=== PATIENT | female | born 1955 | race Caucasian/White ===

== ENCOUNTER → 2018-07-17 07:59 | Outpatient (CLI) | payer OTHER, SELFPAY ==
--- NOTE | 2018-07-17 08:06 | BI_ITS ---
MAMMOGRAPHY - BILATERAL SCREENING REASON FOR EXAM: Female, 63 years old. Routine annual screening examination. PERTINENT HISTORY: Non-contributory. TECHNIQUE: Digital bilateral breast ken (3D mammographic acquisition) in the CC and MLO projections. 2-D mediolateral oblique (MLO) and craniocaudad (CC) views of both breasts were obtained. CAD: Full Field Digital Mammography with Computer Added Detection was performed. COMPARISON: Comparison is made with prior study dated October 28, 2016 and September 03, 2015. FINDINGS: Breast Composition: There are scattered areas of fibroglandular density. There are no dominant masses or suspicious calcifications. Small bilateral axillary lymph nodes. No other significant abnormalities are identified. There has been no significant change since the prior study. BI/SCREENING MAMM (CAD), BILAT IMPRESSION: Stable bilateral screening mammogram. Yearly follow-up mammogram recommended. (A) ASSESSMENT CATEGORY: BIRADS Category 2: Benign. A letter regarding these results will be sent to the patient by the facility within 30 days. Approximately 10% of breast cancers are not detected by mammography. A normal mammogram should not delay biopsy of a clinically suspicious abnormality. [id number] Electronically Signed: Edwin Woodruff MD at 10:35 EST Tel [phone], Service support ,
== END ==
PROVIDERS: Family Provider Internal Medicine; PCP Internal Medicine; Visit Provider Internal Medicine
DX: Z12.31 Encounter for screening mammogram for malignant neoplasm of breast (principal)
CPT/HCPCS: 77063; 77067

== ENCOUNTER → 2018-08-07 | Outpatient (CLI) | payer OTHER, SELFPAY ==
--- NOTE | 2018-08-07 13:57 | US_ITS ---
STUDY: ULTRASOUND TRANSVAGINAL CLINICAL: Female, 63 years old. Bloating, pelvic pressure. TECHNIQUE: Transvaginal COMPARISON: None. FINDINGS: The uterus is anteverted tilted to the right and measures 6.2 x 3.6 x 2.3 cm. Endometrial thickness is 3 mm. Endometrium is hyperechoic. No fibroids. Cervix is within normal limits. Normal right ovary, measuring 1.8 x 1.5 x 1.1 cm . Normal vascular flow. Left ovary not visualized. There is no free fluid in the pelvis. Urinary bladder volume 104 mL. The patient was unable to completely void. US/Pelvic (Non ) IMPRESSION: Normal uterus. Left ovary not visualized. Post void bladder residual not measured. Electronically Signed: Patrick Mendieta MD at 5:10 EST , Service support ,
--- NOTE | 2018-08-07 14:12 | US_ITS ---
STUDY: ULTRASOUND TRANSVAGINAL CLINICAL: Female, 63 years old. Bloating, pelvic pressure. TECHNIQUE: Transvaginal COMPARISON: None. FINDINGS: The uterus is anteverted tilted to the right and measures 6.2 x 3.6 x 2.3 cm. Endometrial thickness is 3 mm. Endometrium is hyperechoic. No fibroids. Cervix is within normal limits. Normal right ovary, measuring 1.8 x 1.5 x 1.1 cm . Normal vascular flow. Left ovary not visualized. There is no free fluid in the pelvis. Urinary bladder volume 104 mL. The patient was unable to completely void. US/Transvaginal Non- IMPRESSION: Normal uterus. Left ovary not visualized. Post void bladder residual not measured. Electronically Signed: Patrick Mendieta MD at 5:10 EST , Service support ,
== END | disposition home or self-care (01) ==
PROVIDERS: Family Provider Internal Medicine; PCP Internal Medicine; Referring Provider Internal Medicine; Visit Provider Internal Medicine
DX: R14.0 Abdominal distension (gaseous) (principal)
CPT/HCPCS: 76830; 76856; 93976

== ENCOUNTER → 2019-11-01 13:21 | Outpatient (CLI) | payer OTHER, SELFPAY ==
--- NOTE | 2019-11-01 13:29 | CT_ITS ---
STUDY: CT ABDOMEN AND PELVIS WITHOUT CONTRAST REASON FOR EXAM: Female, 64 years old. RT SIDED FLANK PAIN, HEMATURIA RADIATION DOSAGE (If Supplied By Facility): CTDIvol = ( 14.33 ) mGy, DLP = ( 667.12 ) mGycm TECHNIQUE: Transaxial images were obtained from the dome of the diaphragm to the symphysis pubis without oral contrast, and without intravenous contrast. Sagittal and coronal images were reconstructed. Individualized dose optimization techniques were used for this CT. COMPARISON: Comparison is made with prior study dated May 01, 2010. FINDINGS: The visualized lung bases are unremarkable. The visualized portions of the heart are within normal limits. Normal liver. Normal gallbladder and extrahepatic biliary system. Normal spleen. Normal pancreas. Normal bilateral adrenal glands. Normal right kidney. Stable left extrarenal pelvis. There is a small hiatal hernia. Normal small intestine. Normal colon. The appendix is visualized and appears normal. Normal abdominal aorta. Normal inferior vena cava. Normal retroperitoneum. Normal urinary bladder. Normal abdominal wall. Mild degree of disc space narrowing and disc degeneration at the L4-L5 level. CT/Abdomen/Pelvis without Cont IMPRESSION: No acute abnormality is seen. Electronically Signed: Edwin Woodruff, at 14:32 EST , Service support ,
== END ==
PROVIDERS: PCP Internal Medicine; Referring Provider Internal Medicine; Visit Provider Internal Medicine
DX: R31.9 Hematuria, unspecified (principal)
CPT/HCPCS: 74176

== ENCOUNTER 2020-12-24 14:57 | Outpatient (CLI) | payer OTHER, SELFPAY ==
[2020-12-23 12:16] VITALS: BMI 36.0
[2020-12-24] VITALS (7 sets, daily range): BP systolic 138–148; BP diastolic 79–90; PULSE 79–94; RESP 16–18; TEMP 37.7–38.5; O2SAT 94–96; BMI 36.0
== END 2020-12-24 17:50 | disposition home or self-care (01) ==
LOC: ICUOUT 14:58 → ICU 15:03
PROVIDERS: PCP Internal Medicine; Visit Provider Nurse Practitioner Acute Care
DX: U07.1 COVID-19 (principal)
CPT/HCPCS: J7050; M0239; M0243; Q0240

== ENCOUNTER → 2020-12-24 18:08 | Outpatient (CLI) | payer OTHER, SELFPAY ==
[2020-12-23 12:16] VITALS: BMI 36.0
[2020-12-24 15:14] VITALS: BMI 36.0
--- NOTE | 2020-12-24 18:18 | RAD_ITS ---
STUDY: X-RAY CHEST REASON FOR EXAM: Female, 65 years old. COVID-19 TECHNIQUE: PA and lateral views of the chest. COMPARISON: None. FINDINGS: Cardiac silhouette unremarkable. Pulmonary vascularity unremarkable. Aorta unremarkable. No focal airspace opacities. No pleural effusions. Prominent interstitial markings are nonspecific but may be seen in the setting of Covid pneumonia. Upper abdomen unremarkable. Osseous structures intact. No pneumothorax. RAD/Chest PA and Lateral IMPRESSION: Prominent interstitial markings are nonspecific but may be seen in the setting of Covid pneumonia. Electronically Signed: Mamadou Gottlieb MD at 14:55 EDT Tel , Service support ,
== END ==
PROVIDERS: PCP Internal Medicine; Referring Provider Nurse Practitioner; Visit Provider Nurse Practitioner
DX: U07.1 COVID-19 (principal)
CPT/HCPCS: 71046

== ENCOUNTER 2020-12-25 15:44 | Emergency (ER) | payer OTHER, SELFPAY ==
[2020-12-24 15:14] VITALS: BMI 36.0
[2020-12-25 15:45] VITALS: BP 159/97; PULSE 85; RESP 20; TEMP 36.3; O2SAT 94; BMI 35.9
[2020-12-25 16:00] VITALS: BP 154/96; PULSE 81; O2SAT 95
[2020-12-25 17:03] VITALS: O2SAT 95
[2020-12-25 17:04] LABS: Absolute Lymphocyte Count 1.54 X10^3/uL (0.83-4.51); Absolute Neutrophil Count 3.6 X10^3/uL (2.0-7.7); Basophil# 0.01 X10^3/uL; Basophil% 0.2 % (0-1); Eosinophil# 0.01 X10^3/uL; Eosinophils% 0.2 % (0-5); Hematocrit 39.6 % (37-47); Lymphocyte # 1.54 X10^3/ul (0.83-4.51); Mean Corp Hgb Conc 32.8 g/dL (32-36); Mean Corpuscular Hgb 32.1 pg (27.0-32.0); Mean Corpuscular Volume 97.8 fL (81-99); Monocyte# 0.32 X10^3/uL; Monocyte% 5.8 % (0-10); NRBC Flagged by Analyzer 0 % (0-5); Neutrophil % 65.4 % (47-70); Platelet Count 180 K/mm3 (150-450); RBC Distribution Width CV 13.1 % (11.6-14.6); RBC Distribution Width SD 46.9 fl (35.1-43.9); Red Blood Count 4.05 M/mm3 (4.2-5.4); White Blood Count 5.5 K/mm3 (4.4-11.0)
--- NOTE | 2020-12-25 17:08 | RAD_ITS ---
STUDY: X-RAY CHEST REASON FOR EXAM: Female, 65 years old. Cough TECHNIQUE: Single frontal view of the chest. COMPARISON: 12/24/2020. FINDINGS: Cardiac silhouette unremarkable. Pulmonary vascularity unremarkable. Aorta unremarkable. Minimal bibasilar opacities may be consistent with Covid pneumonia in the appropriate setting. No pleural effusions. Upper abdomen unremarkable. Osseous structures intact. No pneumothorax. RAD/Chest 1 View (Portable) IMPRESSION: Minimal bibasilar opacities may be consistent with Covid pneumonia in the appropriate setting. Electronically Signed: Mamadou Gottlieb MD at 17:35 EDT Tel , Service support ,
[2020-12-25 17:23] LABS: D-Dimer Quantitative (DVT/PE) 0.33 FEU/ug/m (0.27-0.49)
[2020-12-25 17:30] LABS: ALB/GLOB Ratio 0.9 RATIO (0.9-2.4); AST(SGOT) 50 U/L (15-37); Alanine Aminotransfer ALT/SGPT 66 U/L (13-56); Albumin, Serum 3.4 g/dL (3.2-5.0); Alkaline Phosphatase 159 U/L (45-117); Anion Gap 5 (5-15); BUN 9 mg/dL (7-18); Calcium,Total 8.9 mg/dL (8.5-10.1); Chloride 107 mmol/L (98-107); Creatinine, Serum 0.64 mg/dL (0.55-1.02); EST Glomerular Filtration Rate 98 mL/min (>60); Est Glom Filt Rate - Afr Amer 119 mL/min (>60); Estimated Creatinine Clearance 76.68 ml/min; Globulin 3.9 g/dL (2.2-4.2); Glucose 99 mg/dL (74-106); Potassium 3.3 mmol/L (3.5-5.1); Protein, Total 7.3 g/dL (6.4-8.2); Sodium Level 140 mmol/L (136-145)
--- NOTE | 2020-12-25 17:55 | ED.VISSUMM ---
- ER Visit Summary Date of Service: 12/25/20 Chief Complaint: Shortness of breath History of Present Illness: The patient is a 65 F who presents with shortness of breath that has been getting worse over the past 5 days. Patient patient tested positive for COVID-19 1 weeks ago. Patient states she had monoclonal antibody infusion yesterday. Patient states she has been having fevers up to 102.8 at home. Patient admits to a cough. Patient admits to some pain in her chest with coughing. Patient also admits to some blurred vision. Patient admits to generalized weakness and a headache. Patient admits to some pain in her back with coughing. Patient states she feels like she is not getting enough air. Patient states nothing makes it worse and nothing makes it better. Patient states her oxygen saturations at home were dropping to 85% while at rest. Physical Examination: Vital signs are stable. Patient is afebrile. Patient is in no acute distress. Oral mucosa is pink and moist. Neck is supple. Trachea is midline. There is no JVD. Heart was regular rate and rhythm. Lungs showed rales in the bases bilaterally, worse on the left. Abdomen is soft. Bowel sounds are normal. There is no tenderness. Cranial nerves II through XII are intact. There are no focal motor or sensory deficits noted. Extremities are intact. There is no calf tenderness or edema. Test Results: Portable chest x-ray was obtained. There is 1 view. On my interpretation, there are bilateral opacities in the lower lung swain consistent with COVID-19 pneumonia. Radiologist also interpreted the x-ray and agrees. CBC was within normal limits. Comprehensive metabolic profile showed a mild hypokalemia of 3.3. Alk phos was 159, ALT was 66, and AST was 50. D-dimer was normal at 0.33. Emergency Department Course and Treatment: Patient was given albuterol inhaler here. Patient was given a dose of Decadron. Patient was ambulated on room air with a pulse oximeter. Patient oxygen saturation stayed above 92% while ambulating. Patient was given a prescription for a short course of Decadron. Patient was instructed to use her albuterol inhaler 2 puffs every 4 hours as needed. Patient was instructed to follow-up with her primary care physician in 3 to 5 days. Patient understood and was agreeable with the plan. All questions were answered. Disposition: Discharge home Impression: 1. COVID-19 pneumonia This note was generated with [employer] dictation software. It may contain incorrect words, spelling, and punctuation that were not noted in review of the chart prior to signing ED Disposition - Plan for ED Patient: Disposition: Home or Assisted Living Diagnosis: Pneumonia due to COVID-19 virus Instructions: Coronavirus Disease 2019 (COVID-19): Overview Prescriptions: Dexamethasone [Decadron] 6 mg PO DAILY 5 Days #5 tablet Prescription Printed Referrals: Ana Luisa Nielson DO [Primary Care Provider] - 3-5 Days
[2020-12-25] MEDS: dexAMETHasone 10 MG/ML Vial 6 MG IV (18:14)
[2020-12-25 18:26] VITALS: BP 159/78; PULSE 87; RESP 26; TEMP 37.1; O2SAT 93; O2SAT 95
[2020-12-25 19:06] VITALS: BP 123/64; PULSE 63; PULSE 98; RESP 16; TEMP 37.1; O2SAT 97; O2SAT 98
== END 2020-12-25 19:09 | disposition home or self-care (01) ==
PROVIDERS: Emergency Provider Emergency Medicine; PCP Internal Medicine
DX: U07.1 COVID-19 (principal); J12.82 Pneumonia due to coronavirus disease 2019; I10 Essential (primary) hypertension; E03.9 Hypothyroidism, unspecified; Z79.899 Other long term (current) drug therapy
CPT/HCPCS: 71045; 80053; 83605; 85025; 85379; 87426; 96374; 99284; A4216

== ENCOUNTER → 2021-04-24 | Outpatient (CLI) | payer OTHER, SELFPAY ==
[2021-04-24 14:28] LABS: D-Dimer Quantitative (DVT/PE) 0.35 FEU/ug/m (0.27-0.49)
== END | disposition home or self-care (01) ==
LOC: LABSPEC 13:56
PROVIDERS: PCP Internal Medicine; Visit Provider Internal Medicine
DX: R06.02 Shortness of breath (principal)
CPT/HCPCS: 85379

== ENCOUNTER → 2021-08-10 13:52 | Outpatient (CLI) | payer MEDICARE, BC, SELFPAY ==
--- NOTE | 2021-08-10 13:54 | ECHOD_ITS ---
Reason For Study: HYPERTENSION Left Ventricle Normal LV size. Left ventricular systolic function is normal. The estimated ejection fraction is 60 %. Stage 1 diastolic dysfunction. No regional wall motion abnormalities noted. Right Ventricle Normal RV size. Normal systolic function. Atria Normal left atrium. Normal right atrium. Mitral Valve Normal mitral valve. Tricuspid Valve Normal tricuspid valve. Mild tricuspid valve insufficiency. Pulmonary artery systolic pressure is 25 mmHg. Aortic Valve Trisinus/trileaflet aortic valve. Pulmonic Valve The pulmonic valve is not well visualized. Great Vessels Normal aortic root. The pulmonary artery is normal size. Normal inferior vena cava. Pericardium/Pleural No pericardial effusion. MMode/2D Measurements & Calculations LVIDd: 4.7 cm IVSd: 1.1 cm Ao root diam: 3.0 cm LVIDs: 2.9 cm LVPWd: 1.0 cm RVDd: 2.6 cm FS: 38.3 % LAV(MOD-bp): 48.9 ml LA A4 area: 16.0 cm2 LA dimension(2D): 3.3 cm LAV(MOD-bp) Indexed: 24.5 ml/m2 LAV(MOD-sp2): 47.5 ml LAV(MOD-sp4): 45.8 ml RA A4 area: 15.9 cm2 Time Measurements MV dec time: 0.18 sec Doppler Measurements & Calculations MV E max sumeet: 82.3 cm/sec Lat Peak E' Sumeet: 7.4 cm/sec Med Peak E' Sumeet: 6.4 cm/sec MV A max sumeet: 94.2 cm/sec E/E' lat: 11.2 E/E' med: 12.9 MV E/A: 0.87 Ao V2 max: 107.3 cm/sec LV V1 max: 89.9 cm/sec PA V2 max: 92.7 cm/sec Ao max P.6 mmHg LV V1 max P.2 mmHg TR max sumeet: 235.5 cm/sec TR max P.2 mmHg ECHO/Echo Complete Interpretation Summary Normal LV size. Left ventricular systolic function is normal. The estimated ejection fraction is 60 %. Stage 1 diastolic dysfunction. Pulmonary artery systolic pressure is 25 mmHg. Ordering Physician: Adriel Merino Referring Physician: Ana Luisa Nielson Performed By: Delphine Lynne RDCS, RVT
== END ==
PROVIDERS: PCP Internal Medicine; Referring Provider Internal Medicine Cardiovascular Disease; Visit Provider Internal Medicine Cardiovascular Disease
DX: R06.00 Dyspnea, unspecified (principal); I10 Essential (primary) hypertension
CPT/HCPCS: 93306

== ENCOUNTER 2021-12-22 14:21 | Outpatient (CLI) | payer MEDICARE, BC, SELFPAY ==
--- NOTE | 2021-12-22 14:26 | BI_ITS ---
MAMMOGRAPHY - BILATERAL SCREENING REASON FOR EXAM: Female, 66 years old. Routine annual screening examination. PERTINENT HISTORY: Non-contributory. TECHNIQUE: Digital bilateral breast alison (3D mammographic acquisition) in the CC and MLO projections. 2-D mediolateral oblique (MLO) and craniocaudad (CC) views of both breasts were obtained. CAD: Full Field Digital Mammography with Computer Added Detection was performed. COMPARISON: Comparison is made with prior study dated 07/17/2018 and 10/28/2016. FINDINGS: Breast Composition: There are scattered areas of fibroglandular density. There are no dominant masses or suspicious calcifications. Stable small bilateral axillary lymph nodes. No other significant abnormalities are identified. There has been no significant change since the prior study. BI/SCRN MAMM (CAD)W/ALISON BILAT IMPRESSION: Stable bilateral screening mammogram. Yearly follow-up mammogram recommended. (A) ASSESSMENT CATEGORY: BIRADS Category 2: Benign. A letter regarding these results will be sent to the patient by the facility within 30 days. Approximately 10% of breast cancers are not detected by mammography. A normal mammogram should not delay biopsy of a clinically suspicious abnormality. [id number] Electronically Signed: Edwin Woodruff MD at 15:28 EDT ,
--- NOTE | 2021-12-22 14:29 | BD_ITS ---
STUDY: DUAL ENERGY X-RAY ABSORPTIOMETRY / DXA REASON FOR EXAM: Female, 66 years old. [id number]. Patient is postmenopausal. TECHNIQUE: Bone Mineral Density (BMD) measurements of lumbar spine and bilateral hips were obtained. COMPARISON: Comparison is made with prior study dated 10/28/2016. FINDINGS: Lumbar Spine (L1-L4): g/cm2 (0.834) / T-score (-1.9) / Z-score (-0.1) Findings are suggestive of osteopenia with a moderate fracture risk. Left Femur Total: g/cm2 (0.851) / T-score (-0.7) / Z-score (0.5) Left Femoral Neck: g/cm2 (0.686) / T-score (-1.5) / Z-score (0.1) Right Femur Total: g/cm2 (0.835) / T-score (-0.9) / Z-score (0.4) Right Femoral Neck: g/cm2 (0.646) / T-score (-1.8) / Z-score (-0.3) The T-Scores on the most recent prior examination were: Lumbar Spine (L1-L4): There has been improvement of bone density since the previous examination. Left Femur Total: which represents an improvement of 4.7%. Right Femur Total: which represents an improvement of 5.1%. BD/Dexa Bone Density Study IMPRESSION: The patient is considered osteopenic as outlined below according to World Ramirez Organization (WHO) criteria with a moderate fracture risk. There has been improvement of bone density since the previous examination. Reference Information: The T-score is the number of standard deviations above or below the standard which is normal for young adults at their peak bone mineral density. The World Health Organization (WHO) interprets the T-scores as follows: Above -1 Normal bone density Between -1 and -2.5 Osteopenia Equal to / or below -2.5 Osteoporosis As a practical clinical guideline, osteopenia may be graded as follows: Mild -1 through -1.5 Moderate -1.6 through -2.0 Severe -2.1 through -2.4 The Z-score is the number of standard deviations above or below age-matched controls. A Z-score of less than -1.5 would be considered abnormal. References: 1. NIH Osteoporosis and Related Bone Diseases www osteo.org 2. International Society for Clinical Densitometry www iscd.org 3. National Osteoporosis Foundation www nof.org Electronically Signed: Edwin Woodruff MD at 15:44 EDT ,
== END 2021-12-22 23:59 | disposition home or self-care (01) ==
PROVIDERS: PCP Internal Medicine; Referring Provider Internal Medicine; Visit Provider Internal Medicine
DX: Z12.31 Encounter for screening mammogram for malignant neoplasm of breast (principal); Z78.0 Asymptomatic menopausal state
CPT/HCPCS: 77063; 77067; 77080

== ENCOUNTER → 2022-12-24 | Outpatient (CLI) | payer MEDICARE, BC, SELFPAY ==
--- NOTE | 2022-12-24 07:44 | BI_ITS ---
MAMMOGRAPHY - BILATERAL SCREENING 3-D TOMOSYNTHESIS REASON FOR EXAM: Female, 67 years old. Routine screening PERTINENT HISTORY: No significant family history. TECHNIQUE: 2-D mammograms and 3-D Tomosynthesis of the breast (s) were performed. CAD was performed. COMPARISON: 07/17/2018 FINDINGS: The breast composition is composed of scattered fibroglandular density. Scattered benign calcifications are seen. No dense spiculated masses or suspicious microcalcifications are identified. No architectural distortion is identified. There is no skin thickening or retraction. There has been no significant change since the prior study. BI/SCRN MAMM (CAD)W/ALISON BILAT IMPRESSION: No mammographic signs of malignancy. Routine yearly mammograms recommended. ASSESSMENT CATEGORY: BIRADS Category 1: Negative. A letter regarding these results will be sent to the patient by the facility within 30 days. FOLLOW UP RECOMMENDATION: Yearly follow up mammogram recommended. (A) Approximately 10% of breast cancers are not detected by mammography. A normal mammogram should not delay biopsy of a clinically suspicious abnormality. Electronically Signed: Kelton Merida MD at 8:45 EDT ,
== END | disposition home or self-care (01) ==
LOC: OPBI 07:44
PROVIDERS: PCP Internal Medicine; Referring Provider Internal Medicine; Visit Provider Internal Medicine
DX: Z12.31 Encounter for screening mammogram for malignant neoplasm of breast (principal)
CPT/HCPCS: 77063; 77067

== ENCOUNTER → 2023-07-15 | Outpatient (CLI) | payer MEDICARE, BC, SELFPAY ==
[2023-07-15 10:35] LABS: Absolute Lymphocyte Count 2.23 X10^3/uL (0.83-4.51); Basophil# 0.04 X10^3/uL; Basophil% 0.8 % (0-1); Eosinophil# 0.17 X10^3/uL; Eosinophils% 3.3 % (0-5); Hematocrit 42.3 % (37-47); Hemoglobin 13.7 g/dL (12.0-15.0); Lymphocyte # 2.23 X10^3/ul (0.83-4.51); Lymphocyte % 43.6 % (19-41); Mean Corp Hgb Conc 32.4 g/dL (32-36); Mean Corpuscular Hgb 31.7 pg (27.0-32.0); Mean Corpuscular Volume 97.9 fL (81-99); Mean Platelet Vol. 8.9 fl (6.2-12.0); Monocyte# 0.63 X10^3/uL; Monocyte% 12.3 % (0-10); NRBC Flagged by Analyzer 0 % (0-5); Neutrophil # 2.04 X10^3/uL (2.7-7.7); Neutrophil % 39.8 % (47-70); Platelet Count 279 K/mm3 (150-450); RBC Distribution Width CV 13.5 % (11.6-14.6); RBC Distribution Width SD 49.1 fl (35.1-43.9); Red Blood Count 4.32 M/mm3 (4.2-5.4); White Blood Count 5.1 K/mm3 (4.4-11.0)
[2023-07-15 10:41] LABS: D-Dimer Quantitative (DVT/PE) 0.42 FEU/ug/m (0.27-0.49)
[2023-07-15 10:52] LABS: ALB/GLOB Ratio 1.2 RATIO (0.9-2.4); AST(SGOT) 18 U/L (15-37); Alanine Aminotransfer ALT/SGPT 35 U/L (13-56); Alkaline Phosphatase 112 U/L (45-117); Anion Gap 2 (5-15); BUN 18 mg/dL (7-18); BUN/Creat Ratio 26.5 RATIO (10-20); Calcium,Total 9.6 mg/dL (8.5-10.1); Chloride 107 mmol/L (98-107); Creatinine, Serum 0.68 mg/dL (0.55-1.02); EST Glomerular Filtration Rate 92 mL/min (>60); Est Glom Filt Rate - Afr Amer 111 mL/min (>60); Globulin 3.3 g/dL (2.2-4.2); Glucose 96 mg/dL (74-106); Potassium 4.7 mmol/L (3.5-5.1); Protein, Total 7.3 g/dL (6.4-8.2); Sodium Level 142 mmol/L (136-145); Troponin-I HS 6 pg/mL (3.0-54.0)
== END | disposition home or self-care (01) ==
LOC: LABSPEC 10:21
PROVIDERS: PCP Internal Medicine; Visit Provider Nurse Practitioner Family
DX: R06.02 Shortness of breath (principal)
CPT/HCPCS: 80053; 84484; 85025; 85379

== ENCOUNTER → 2023-08-26 | Outpatient (CLI) | payer MEDICARE, BC, SELFPAY ==
--- NOTE | 2023-08-26 13:37 | ECHOD_ITS ---
Reason For Study: ABN EKG Procedure This was a 2D Doppler, Color Flow transthoracic echocardiogram. Exam performed in department. Left Ventricle Normal LV size. The estimated ejection fraction is 65 %. No evidence for diastolic dysfunction. No regional wall motion abnormalities noted. Right Ventricle Normal RV size. Normal systolic function. Atria Normal left atrium. Normal right atrium. No doppler evidence for ASD. Mitral Valve There is no mitral valve stenosis. No mitral valve insufficiency. Tricuspid Valve There is no tricuspid stenosis. Trivial tricuspid valve insufficiency. Unable to estimate RV systolic pressure due to insufficient tricuspid regurgitant envelope. Aortic Valve Trisinus/trileaflet aortic valve. There is no aortic stenosis. No aortic valve insufficiency. Pulmonic Valve There is no pulmonic valvular stenosis. No pulmonic valve insufficiency. Great Vessels Normal aortic root. Pericardium/Pleural No pericardial effusion. MMode/2D Measurements & Calculations LVIDd: 4.3 cm IVSd: 0.88 cm Ao root diam: 3.0 cm LVIDs: 2.9 cm LVPWd: 1.0 cm RVDd: 3.2 cm FS: 32.2 % LAV(MOD-bp): 35.2 ml LVAd ap4: 26.6 cm2 SV(MOD-sp4): 48.8 ml LAV(MOD-bp) Indexed: 17.7 ml/m2 LVLd ap4: 7.6 cm LAV(MOD-sp2): 33.3 ml EDV(MOD-sp4): 75.0 ml LAV(MOD-sp4): 36.4 ml EDV(sp4-el): 79.4 ml LVAs ap4: 13.7 cm2 LVLs ap4: 6.2 cm ESV(MOD-sp4): 26.2 ml ESV(sp4-el): 25.8 ml EF(MOD-sp4): 65.0 % EF(sp4-el): 67.5 % SV(sp4-el): 53.6 ml LA A4 area: 15.0 cm2 LA dimension(2D): 3.6 cm RA A4 area: 14.8 cm2 Time Measurements MV dec time: 0.18 sec Doppler Measurements & Calculations MV E max sumeet: 72.0 cm/sec Lat Peak E' Sumeet: 10.3 cm/sec Med Peak E' Sumeet: 8.2 cm/sec MV A max sumeet: 92.8 cm/sec E/E' lat: 7.0 E/E' med: 8.8 MV E/A: 0.78 Ao V2 max: 126.9 cm/sec LV V1 max: 117.7 cm/sec PA V2 max: 111.7 cm/sec Ao max P.4 mmHg LV V1 max P.5 mmHg TR max sumeet: 272.7 cm/sec TR max P.7 mmHg ECHO/Echo Complete Interpretation Summary The estimated ejection fraction is 65 %. No evidence for diastolic dysfunction. Ordering Physician: Laney Maria Referring Physician: GRANT CORNEJO Performed By: Lexie Farr RDCS
== END | disposition home or self-care (01) ==
LOC: CVS 13:33
PROVIDERS: PCP Internal Medicine; Referring Provider Nurse Practitioner Family; Visit Provider Nurse Practitioner Family
DX: R94.31 Abnormal electrocardiogram [ECG] [EKG] (principal)
CPT/HCPCS: 93306

== ENCOUNTER → 2024-03-13 | Outpatient (CLI) | payer MEDICARE, BC, SELFPAY ==
--- NOTE | 2024-03-13 16:32 | RAD_ITS ---
EXAM: XR LEFT FOOT COMPLETE, 3 OR MORE VIEWS CLINICAL INDICATION: PAIN TECHNIQUE: Frontal, lateral and oblique views of the left foot. COMPARISON: No relevant prior studies available. FINDINGS: BONES/JOINTS: No acute fracture or subluxation. Plantar calcaneal spur noted. SOFT TISSUES: Normal. No soft tissue swelling or gas. No radiopaque foreign body. RAD/Foot min 3 Views IMPRESSION: No acute findings in the left foot. Small calcaneal spur. Electronically Signed: Benson Wells MD at 17:10 EDT ,
== END | disposition home or self-care (01) ==
PROVIDERS: PCP Internal Medicine
DX: M79.672 Pain in left foot (principal)
CPT/HCPCS: 73630

== ENCOUNTER → 2024-07-16 | Outpatient (CLI) | payer MEDICARE, BC, SELFPAY ==
--- NOTE | 2024-07-16 14:15 | MRI_ITS ---
EXAM: MR RIGHT LOWER EXTREMITY WITHOUT INTRAVENOUS CONTRAST, KNEE CLINICAL INDICATION: RT KNEE PAIN TECHNIQUE: Multiplanar and multisequence MR images of the right knee without intravenous contrast. COMPARISON: June 01, 2024 FINDINGS: BONES/JOINTS: Small intraosseous cyst at the central aspect of the tibial plateau with surrounding marrow edema. Patchy marrow edema along the peripheral aspect of the medial femorotibial compartment. Marrow edema at the medial femorotibial compartment. EXTENSOR MECHANISM: Unremarkable. MEDIAL MENISCUS: Longitudinal horizontal tearing of the body segment and posterior horn of the medial meniscus. No other significant meniscal tearing. LATERAL MENISCUS: Unremarkable. MEDIAL CAPSULE/SUPPORTING STRUCTURES: Unremarkable. Intact. LATERAL CAPSULE/SUPPORTING STRUCTURES: Unremarkable. Lateral collateral ligamentous complex, inclusive of the popliteal tendon, are intact. ANTERIOR CRUCIATE LIGAMENT: Unremarkable. Intact. POSTERIOR CRUCIATE LIGAMENT: Unremarkable. Intact. MUSCLES: Unremarkable. CARTILAGE: Unremarkable. Intact. FLUID: Unremarkable. No joint effusion. MRI/Lower Ext Joint Only (Routine) IMPRESSION: Longitudinal horizontal tearing of the medial meniscus. No acute findings in the right knee. Electronically Signed: Carlos Palomares MD at 3:07 EST ,
== END | disposition home or self-care (01) ==
LOC: MRI 14:12
PROVIDERS: PCP Internal Medicine; Referring Provider Internal Medicine; Visit Provider Internal Medicine
DX: M25.561 Pain in right knee (principal)
CPT/HCPCS: 73721

== ENCOUNTER → 2025-01-09 | Outpatient (CLI) | payer MEDICARE, BC, SELFPAY ==
--- NOTE | 2025-01-09 06:52 | ECHOD_ITS ---
Reason For Study Reason For Study: LOCALIZED EDEMA Procedure This was a 2D Doppler, Color Flow transthoracic echocardiogram. Exam performed in department. Left Ventricle Normal LV size. Left ventricular systolic function is normal. The left ventricular ejection fraction is 60 %. No regional wall motion abnormalities noted. Right Ventricle Normal RV size. Normal systolic function. Atria Normal left atrium. Normal right atrium. Mitral Valve Bileaflet diffuse mitral valve thickening. Tricuspid Valve Normal tricuspid valve. Mild (1+) tricuspid valve insufficiency. Pulmonary artery systolic pressure is 33 mmHg. Aortic Valve Trisinus/trileaflet aortic valve. Pulmonic Valve Normal pulmonic valve. Great Vessels Normal aortic root. Pericardium/Pleural No pericardial effusion. MMode/2D Measurements & Calculations LVIDd: 4.4 cm IVSd: 1.00 cm Ao root diam: 3.5 cm LVIDs: 3.0 cm LVPWd: 0.96 cm RVDd: 3.1 cm FS: 32.6 % LAV(MOD-bp): 49.5 ml LVAd ap4: 25.9 cm2 LVAd ap2: 22.0 cm2 LAV(MOD-bp) Indexed: 24.2 ml/m2 LVLd ap4: 7.6 cm LVLd ap2: 7.2 cm LAV(MOD-sp2): 48.1 ml EDV(MOD-sp4): 71.7 ml EDV(MOD-sp2): 55.6 ml LAV(MOD-sp4): 51.4 ml EDV(sp4-el): 74.9 ml EDV(sp2-el): 56.8 ml LVAs ap4: 13.5 cm2 LVAs ap2: 11.5 cm2 LVLs ap4: 6.6 cm LVLs ap2: 6.1 cm ESV(MOD-sp4): 23.8 ml ESV(MOD-sp2): 18.4 ml ESV(sp4-el): 23.4 ml ESV(sp2-el): 18.4 ml EF(MOD-sp4): 66.9 % EF(MOD-sp2): 66.9 % EF(sp4-el): 68.7 % SV(MOD-sp4): 47.9 ml SV(MOD-sp2): 37.2 ml SV(sp4-el): 51.5 ml SI(MOD-sp4): 23.4 ml/m2 SI(MOD-sp2): 18.2 ml/m2 LA A4 area: 18.0 cm2 LA dimension(2D): 3.8 cm RA A4 area: 12.8 cm2 TAPSE: 2.2 cm Time Measurements MV dec time: 0.22 sec Doppler Measurements & Calculations MV E max sumeet: 80.6 cm/sec Lat Peak E' Sumeet: 8.0 cm/sec Med Peak E' Sumeet: 9.6 cm/sec MV A max sumeet: 99.0 cm/sec E/E' lat: 10.1 E/E' med: 8.4 MV E/A: 0.81 MV V2 max: 114.7 cm/sec MV P1/2t max sumeet: 96.6 cm/sec Ao V2 max: 145.2 cm/sec MV max P.3 mmHg MV P1/2t: 71.5 msec Ao max P.4 mmHg MV V2 mean: 58.0 cm/sec Ao V2 mean: 101.6 cm/sec MV mean P.6 mmHg MV dec slope: 396.0 cm/sec2 Ao mean P.7 mmHg MV V2 VTI: 32.8 cm MVA(P1/2t): 3.1 cm2 Ao V2 VTI: 33.3 cm AV (velocity ratio): 0.76 LV V1 max: 117.1 cm/sec PA V2 max: 94.9 cm/sec TR max sumeet: 264.4 cm/sec LV V1 max P.5 mmHg PA V2 mean: 68.6 cm/sec TR max P.0 mmHg LV V1 mean P.9 mmHg LV V1 mean: 79.3 cm/sec LV V1 VTI: 25.4 cm ECHO/Echo Complete Interpretation Summary Normal LV size. Left ventricular systolic function is normal. The left ventricular ejection fraction is 60 %. Pulmonary artery systolic pressure is 33 mmHg. Structurally normal valves. Ordering Physician: Ana Luisa Nielson Referring Physician: Ana Luisa Nielson Performed By: Delphine Lynne RDCS, RVT
== END | disposition home or self-care (01) ==
LOC: CVS 06:51
PROVIDERS: PCP Internal Medicine; Referring Provider Internal Medicine; Visit Provider Internal Medicine
DX: R60.0 Localized edema (principal)
CPT/HCPCS: 93306

== ENCOUNTER → 2025-05-01 | Outpatient (CLI) | payer MEDICARE, BC, SELFPAY ==
--- NOTE | 2025-05-01 15:27 | BI_ITS ---
EXAM: SCRN MAMM (CAD)W/ALISON BILAT DATE: 05/01/2025 CLINICAL HISTORY: F, Age 70 y/o , BREAST CANCER SCREENING No family history of malignancy TECHNIQUE: SCRN MAMM (CAD)W/ALISON BILAT 3-dimensional tomosynthesis and composite views of both breasts were obtained, using full field digital mammography. The [employer] computer-aided detection system was utilized in conjunction with the interpretation of this examination. COMPARISON: Prior exam(s) dated 12/24/2022, 12/22/2021 and 07/17/2018. FINDINGS: TISSUE DENSITY: There are scattered areas of fibroglandular density. Bilateral Breast Mammographic Findings: Stable mammogram. Stable parenchymal pattern. No suspicious masses, areas of developing architectural distortion, or suspicious calcifications. There has been no significant interval change. BI/SCRN MAMM (CAD)W/ALISON BILAT IMPRESSION: 1. Stable mammogram. No mammographic evidence of malignancy. OVERALL FINAL ASSESSMENT BI-RADS 1: NEGATIVE. RECOMMENDATION: Routine annual follow-up in 1 Year A letter with findings and recommendations will be mailed to the patient. Reading [facility]
--- NOTE | 2025-05-01 15:29 | BD_ITS ---
PROCEDURE: DEXA BONE DENSITY STUDY 05/01/2025 REASON FOR EXAM: F, age 70 y/o . Postmenopausal. TECHNIQUE: DEXA BONE DENSITY STUDY COMPARISON: Prior study dated December 22, 2021. FINDINGS: BMD and T-SCORES Lumbar spine: 0.883 g/cm2, T-score -1.5 Levels: L1 through L4 Change from prior: Improvement of 5.8%. Left femoral neck: 0.595 g/cm2, T-score -2.3 Femoral neck comparison data not recommended for monitoring change. Left total hip: 0.833 g/cm2, T-score -0.9 Change from prior: Loss of 2.1%. Right femoral neck: 0.589 g/cm2, T-score -2.3 Femoral neck comparison data not recommended for monitoring change. Right total hip: 0.788 g/cm2, T-score -1.3 Change from prior: Loss of 5.6%. The World Health Organization has defined the following categories based on bone density: Normal bone density: T-score equal to or greater than -1.0 Osteopenia: T-score between -1.0 and -2.5 Osteoporosis: T-score equal to or less than -2.5 FRAX (or Comparable) Fracture Risk Assessment: 10 Year Probability of Fracture: Major Osteoporotic Fracture: 11% Hip Fracture: 2.2% (Note: FRAX is not to be reported in setting of normal range bone density, osteoporosis on DEXA, known history of osteoporosis, prior osteoporotic hip or vertebral fracture, or for any patient undergoing pharmacological treatment for bone loss.) The National Osteoporosis Foundation (NOF) recommends pharmacological treatment for patients with a FRAX 10-year risk of 3% or higher for a hip fracture, or 20% or higher for a major osteoporotic fracture, to prevent osteoporosis and reduce fracture risk. The patient does meet the pharmacological treatment recommendations for prevention of osteoporosis. BD/Dexa Bone Density Study IMPRESSION: OSTEOPENIA. Recommend follow-up as clinically warranted. Reading Location: [id number]
== END | disposition home or self-care (01) ==
LOC: OPBD 15:26
PROVIDERS: PCP Internal Medicine; Referring Provider Internal Medicine; Visit Provider Internal Medicine
DX: Z13.820 Encounter for screening for osteoporosis (principal); Z78.0 Asymptomatic menopausal state; Z12.31 Encounter for screening mammogram for malignant neoplasm of breast
CPT/HCPCS: 77063; 77067; 77080

== ENCOUNTER → 2025-05-24 | Outpatient (CLI) | payer MEDICARE, BC, SELFPAY ==
--- NOTE | 2025-05-24 15:22 | MRI_ITS ---
PROCEDURE: LOWER EXT/NO JT/W/O 05/24/2025 REASON FOR EXAM: PAIN ARTHRITIS LEFT TARSOMETATARSEL AND MIDJT. PAIN TECHNIQUE: Procedure Code: [id number] Modality: MR Procedure: LOWER EXT/NO JT/W/O T1, T2, stir, multiplanar and multisequence images of the left midfoot were obtained without IV contrast administration. COMPARISON: COMPARISON : November 02, 2019 FINDINGS: Bones: There is a 0.6 x 1.7 cm developing osteochondral defect in the superior lateral talar dome with no visible free fragment. There is subcortical cyst formation in the proximal articular surface of the medial cuneiform with the largest measuring 0.8 cm, with adjacent marrow edema. Subcortical edema and dorsal osteophytes are noted at the 2nd and 3rd tarsometatarsal articulation. There is marrow edema in the proximal 3rd of the 2nd and 3rd metatarsals with no visible displaced fracture. There is marrow edema in the navicular with no visible displaced fracture, and degenerative features. No acute fractures or dislocations. Achilles tendon: Not included Tendons: Evaluation of the peroneal tendons demonstrates no evidence of tendinosis or dislocation. The flexor digitorum longus, tibialis posterior and flexor hallucis longus tendons are intact. The extensor tendons are intact. The extensor retinaculum is intact and normal in signal. Sinus Tarsi: The subtalar joint is intact. Signal in the sinus tarsi is normal. Transverse and cervical ligaments are intact. Ligaments: Lateral syndesmotic ankle ligaments are not included. The anterior and posterior talofibular ligaments are not included. The medial ankle ligaments are not included. The Lisfranc articulation is aligned and intact. Effusion: There is a small effusion of the talonavicular articulation. MRI/Lower Ext/No Jt/w/o IMPRESSION: There is a 0.6 x 1.7 cm developing osteochondral defect in the superior lateral talar dome with no visible free fragment. There is subcortical cyst formation in the proximal articular surface of the me dial cuneiform with the largest measuring 0.8 cm, with adjacent marrow edema. Subcortical edema and dorsal osteophytes are noted at the 2nd and 3rd tarsometa tarsal articulation. There is marrow edema in the proximal 3rd of the 2nd and 3rd metatarsals with n o visible displaced fracture. There is marrow edema in the navicular with no visible displaced fracture, and degenerative features. There is a small effusion of the talonavicular articulation. Reading Location: [facility]
== END | disposition home or self-care (01) ==
LOC: OPMRI 15:20
PROVIDERS: PCP Internal Medicine; Referring Provider Podiatrist; Visit Provider Podiatrist
DX: M19.072 Primary osteoarthritis, left ankle and foot (principal)
CPT/HCPCS: 73718

== ENCOUNTER → 2025-05-28 | Outpatient (CLI) | payer MEDICARE, BC, SELFPAY | END | disposition home or self-care (01) | LOC: SL 19:49 | PROVIDERS: PCP Internal Medicine; Referring Provider Internal Medicine; Visit Provider Internal Medicine | DX: G47.33 Obstructive sleep apnea (adult) (pediatric) (principal) | CPT/HCPCS: 95810 ==

== ENCOUNTER → 2025-07-15 | Outpatient (CLI) | payer MEDICARE, BC, SELFPAY ==
--- NOTE | 2025-07-15 08:42 | EKG12_ITS ---
Test Reason : PRE OP
[2025-07-15 09:52] LABS: Hematocrit 40.0 % (37-47); Hemoglobin 13.1 g/dL (12.0-15.0); Immature Granulocytes Count 0.010 X10^3/uL (0.0-0.0); Mean Corp Hgb Conc 32.8 g/dL (32-36); Mean Corpuscular Volume 95.9 fL (81-99); Mean Platelet Vol. 8.8 fl (6.2-12.0); NRBC Flagged by Analyzer 0 % (0-5); Platelet Count 282 K/mm3 (150-450); RBC Distribution Width CV 13.4 % (11.6-14.6); RBC Distribution Width SD 47.8 fl (35.1-43.9); Red Blood Count 4.17 M/mm3 (4.2-5.4); White Blood Count 5.3 K/mm3 (4.4-11.0)
[2025-07-15 10:41] LABS: Anion Gap 9 (5-15); BUN 16 mg/dL (4-19); BUN/Creat Ratio 26.4 RATIO (10-20); Calcium,Total 10.0 mg/dL (7.6-11.0); Carbon Dioxide 27.8 mmol/L (21.0-32.0); Chloride 104 mmol/L (98-108); Glucose 89 mg/dL (70-99); Potassium 4.7 mmol/L (3.3-5.1)
== END | disposition home or self-care (01) ==
LOC: PSN 08:39
PROVIDERS: PCP Internal Medicine; Referring Provider Student in an Organized Health Care Education/Training Program; Visit Provider Student in an Organized Health Care Education/Training Program
DX: Z01.810 Encounter for preprocedural cardiovascular examination (principal); I10 Essential (primary) hypertension
CPT/HCPCS: 36415; 80048; 85025; 93005

== ENCOUNTER → 2025-07-30 | Outpatient (CLI) | payer MEDICARE, BC, SELFPAY ==
--- OUTSIDE RECORDS SUMMARY | 2025-07-30 06:13 | XMS RPT_ITS | CCD ---
Author Organization [facility] ion Partnership [facility] Care Team Providers Care Outpatient Coordinator Name Role Phone Ana Luisa Nielson Unavailable Liseth Aguirre Unavailable RamiroBERNIE Unavailable Unavailable Manchak, Nerissa Unavailable Unavailable Slarb, Amalia Unavailable Unavailable Unavailable Unavailable Kori Alonzo Unavailable Unavailable Messenger, Fatemeh Unavailable Unavailable Ana Luisa Nielson Unavailable Liseth Aguirre Unavailable Messenger, Fatemeh Unavailable Unavailable Manchak, Nerissa Unavailable Unavailable BERNIE Rubio Unavailable Unavailable Unavailable Unavailable Gravius, Gardenia Unavailable Unavailable Manchak, Nerissa Unavailable Unavailable Cesar Lorenzo Unavailable Unavailable Ciesa, Shabana Unavailable Myriam Driscoll Unavailable Unavailable Nisreen NOVA Ana Luisa Unavailable Liseth Aguirre MD Unavailable Myriam Driscoll LPN Unavailable Unavailable Cesar Lorenzo LPN Unavailable Unavailable Manchak TAPPER OPERATOR, Nerissa Unavailable Unavailable Gravius TAPPER OPERATOR, Gardenia Unavailable Unavailable Unavailable Unavailable Slarb LINE STAKER, Amalia Unavailable Unavailable Ciesa MISSION COORDINATOR, Shabana Unavailable Nisreen NOVA Ana Luisa Unavailable Liseth Aguirre MD Unavailable eCsar Lorenzo LPN Unavailable Unavailable Manchak TAPPER OPERATOR, Nerissa Unavailable Unavailable Gravius TAPPER OPERATOR, Gardenia Unavailable Unavailable Unavailable Unavailable Nisreen NOVA Ana Luisa Unavailable Liseth Aguirre MD Unavailable Cinthia TAPPER OPERATOR, Kayela Unavailable Unavailable Liseth Aguirre MD Referring Unavailable Nisreen DO, Ana Luisa Attending Unavailable Nisreen DO, Ana Luisa Consulting Unavailable Sapna Rodriguez MA Unavailable Unavailable Crow MISSION COORDINATOR, Laney Unavailable Ramiro PHILLIPSN, BERNIE Unavailable Unavailable Nisreen, Dr. Orosco Primary Care Provider Angelique, Dr. Morel Attending Provider Dr. Kalin Rooney Attending Provider Nisreen DO, Dr. Orosco Primary Care Provider Nisreen NOVA, Dr. Orosco Attending Provider [phone] Nisreen DO, Dr. Orosco Referring Provider [phone] Angelique COHN, Dr. Morel Attending Provider Bianca COHN, Dr. Ceja Attending Provider Nisreen NOVA, Dr. Orosco Primary Care Physician Dr. Brenna Valenuzela MD Attending Physician Nisreen NOVA, Dr. Orosco Attending Physician Nisreen NOVA, Dr. Orosco Referring Provider Ruth KINGM, Dr. Allen Attending Physician Ruth DPM, Dr. Allen Referring Provider Mason WARD-CSapna Attending Physician Adriel Merino Attending Unavailable Nisreen, Ana Luisa Primary Care Unavailable Adriel Merino Attending Unavailable Nisreen, Ana Luisa Primary Care Unavailable Nisreen, Ana Luisa Primary Care Unavailable NisreenAna Luisa Attending Unavailable Nisreen, Ana Luisa Referring Unavailable SpittleAnnettas Attending Unavailable SpittleKel Referring Unavailable Nisreen, Ana Luisa Primary Care Unavailable Nisreen, Ana Luisa Referring Unavailable Nisreen, Ana Luisa Primary Care Unavailable NisreenAna Luisa Attending Unavailable Nisreen, Ana Luisa Primary Care Unavailable Alejandro Miranda Attending Unavailable Wunning, Alejandro Referring Unavailable Nisreen, Ana Luisa Referring Unavailable Nisreen, Ana Luisa Primary Care Unavailable Nisreen, Ana Luisa Attending Unavailable Nisreen, Ana Luisa Referring Unavailable Nisreen, Ana Luisa Primary Care Unavailable Nisreen, Ana Luisa Attending Unavailable Nisreen, Ana Luisa Primary Care Unavailable Sapna Cuevas Attending Unavailable Sapna Cuevas Referring Unavailable Nisreen, Ana Luisa Primary Care Unavailable Sapna Cuevas Attending Unavailable Nisreen, Ana Luisa Referring Unavailable AngeliqueMike diazril Attending Unavailable Nisreen, Ana Luisa Primary Care Unavailable Allergies Allergy Classification Reported Allergen(s) Allergy Type Date of Onset Reaction(s) Facility Opioid Agonists (5 sources) traMADol; Translations: [Ultram *ANALGESICS - OPIOID*] Drug Allergy [facility] Work Phone: Comment on above: Nausea, Vomiting (20 sources) traMADol; Translations: [Ultram *ANALGESICS - OPIOID*] Drug Allergy 5 Nausea [facility] Work Phone: Comment on above: Nausea, Vomiting (1 source) Allergy to drug (finding) [facility]; [facility] Work Phone: (1 source) Allergy to drug (finding) [facility]; [facility] Work Phone: (1 source) Allergy to drug (finding) [facility]; [facility] Work Phone: (1 source) Allergy to drug (finding) [facility]; [facility] Work Phone: (1 source) Allergy to drug (finding) [facility]; [facility] Work Phone: (1 source) Allergy to drug (finding) [facility]; [facility] Work Phone: (1 source) Allergy to drug (finding) [facility]; [facility] Work Phone: (1 source) Allergy to drug (finding) [facility]; [facility] Work Phone: (1 source) Allergy to drug (finding) [facility]; [facility] Work Phone: (1 source) traMADol Drug Allergy 5 [facility] Repository NEGATED: Highlighted row has been ruled out! (1 source) drug allergy 3 [facility] Work Phone: NEGATED: Highlighted row has been ruled out! (1 source) drug allergy 3 [facility] Work Phone: NEGATED: Highlighted row has been ruled out! (1 source) drug allergy 3 [facility] Work Phone: NEGATED: Highlighted row has been ruled out! (1 source) drug allergy 3 [facility] Work Phone: NEGATED: Highlighted row has been ruled out! (1 source) Allergy to drug (finding) 3 [facility]; [facility] Work Phone: NEGATED: Highlighted row has been ruled out! (1 source) Allergy to drug (finding) 3 [facility]; [facility] Work Phone: NEGATED: Highlighted row has been ruled out! (1 source) Allergy to drug (finding) 3 [facility]; [facility] Work Phone: NEGATED: Highlighted row has been ruled out! (1 source) Allergy to drug (finding) 3 [facility]; [facility] Work Phone: NEGATED: Highlighted row has been ruled out! (1 source) Allergy to drug (finding) 3 [facility]; [facility] Work Phone: NEGATED: Highlighted row has been ruled out! (1 source) Allergy to drug (finding) 3 [facility]; [facility] Work Phone: NEGATED: Highlighted row has been ruled out! (1 source) Allergy to drug (finding) 3 [facility]; [facility] Work Phone: NEGATED: Highlighted row has been ruled out! (1 source) Allergy to drug (finding) 3 [facility]; [facility] Work Phone: NEGATED: Highlighted row has been ruled out! (1 source) Allergy to drug (finding) 3 [facility]; [facility] Work Phone: NEGATED: Highlighted row has been ruled out! (1 source) Allergy to drug (finding) 3 [facility]; [facility] Work Phone: NEGATED: Highlighted row has been ruled out! (1 source) Allergy to drug (finding) 3 [facility]; [facility] Work Phone: Medications Current Medications Medication Drug Class(es) Dates Sig (Normalized) Sig (Original) amLODIPine 5 mg oral tablet (20 sources) Dihydropyridine Calcium Channel Narcisa Start: 07-15-2023 Start: 07-15-2023 Start: 11-07-2020 End: 06-05-2025 take 1 tablet by mouth once daily Amlodipine 2.5 mg tablet Discontinued 2.5 mg PO DAILY December 23, 2020 12:00am June 05, 2025 3:05pm Start: 11-05-2020 take 1 tablet by patricia th once daily Norvasc 2.5 MG Oral Tablet 1 (one) Tablet daily for 0 days Quantity: 90 {Tablet} Refills: 2 Ordered: 05-Nov-2020 Ana Luisa Nielson DO, DO, Kathleen Start : 05-Nov-2020 Active Start: 12-10-2019 take 1 tablet by patricia th once daily Norvasc 2.5 MG Oral Tablet 1 (one) Tablet daily for 0 days Quantity: 90 {Tablet} Refills: 2 Ordered: 10-Dec-2019 Fatemeh Morrissey RN Start : 10-Dec-2019 Active Start: 05-11-2019 take 1 tablet by patricia th once daily Norvasc 2.5 MG Oral Tablet 1 (one) Tablet daily for 0 days Quantity: 90 {Tablet} Refills: 2 Ordered: 11-May-2019 Ana Luisa Nielson DO, DO, Kathleen Start : 11-May-2019 Active Start: 08-08-2018 take 1 tablet by patricia th once daily Norvasc 2.5 MG Oral Tablet 1 (one) Tablet daily for 0 days Quantity: 90 {Tablet} Refills: 2 Ordered: 08-Aug-2018 Nisreen NOVA Ana Luisa Nielson DO Ana Luisa Start : 08-Aug-2018 Active Start: 07-28-2018 take 1 tablet by patricia once daily Norvasc 2.5 MG Oral Tablet 1 (one) Tablet daily for 0 days Quantity: 90 {Tablet} Refills: 2 Ordered: 28-Jul-2018 Nisreen NOVA Ana Luisa Nielson DO Ana Luisa Start : 28-Jul-2018 Active Start: 02-09-2018 take 1 tablet by patricia once daily Norvasc 2.5 MG Oral Tablet 1 (one) Tablet daily for 0 days Quantity: 90 {Tablet} Refills: 2 Ordered: 09-Feb-2018 Nisreen NOVA Ana Luisa Samaniegoirving NOVA Ana Luisa Start : 09-Feb-2018 Active calcium carbonate 1500 mg oral tablet (7 sources) Start: 07-29-2021 Calcium Carbon ate (Calcium 600) 600 mg calcium (1,500 mg) tablet Active 1200 mg PO DAILY July 29, 2021 1:00am Complies with drug therapy cholecalciferol 0.125 mg oral tablet (20 sources) Vitamin D Start: 07-17-2021 take 1 tablet by mouth once daily Cholecalciferol (Vitamin D3) 125 mcg (5,000 unit) tablet Active 125 ug PO DAILY July 17, 2021 12:00am Complies with drug therapy Start: 12-23-2020 Start: 12-23-2020 take 1 capsule by mo [facility] once daily Vitamin D3 125 MCG (5000 UT) Oral Capsule 1 (one) Capsule daily for 0 days Quantity: 30 {Capsule} Refills: 0 Ordered: 26-Dec-2020 Myriam Driscoll LPN Start : 23-Dec-2020 Active Start: 09-21-2016 End: 11-20-2016 Start: 09-21-2016 End: 11-20-2016 take 1 capsule by mouth two times weekly Vitamin D3 [id number] UNIT Oral Capsule 1 (one) Capsule Capsule twice a week for 60 days Quantity: 16 {Capsule} Refills: 0 Ordered: 21-Sep-2016 Amalia Hassan LPN Start : 21-Sep-2016 End : 20-Nov-2016 Inactive furosemide 20 mg oral tablet (3 sources) Loop Diuretic Start: 06-05-2025 take 1 tablet by mouth once daily in the morning Furosemide (Lasix) 20 mg tablet Active 20 mg PO EVERY MORNING June 05, 2025 12:00am Complies with drug therapy Garlic (3 sources) Non-Standardized Food Allergenic Extract Start: 06-05-2025 take 1 capsule by mouth once daily Garlic 1,000 mg capsule Active 1000 mg PO daily June 05, 2025 12:00am Complies with drug therapy Start: 06-05-2025 take 1 capsule by mouth once d aily Lactobacillus Plantarum (Nugut Bowel Support Probiotic) 5 billion cell capsule (3 sources) Start: 06-05-2025 take 5 capsules by mouth once daily Lactobacillus Plantarum (Nugut Bowel Support Probiotic) 5 billion cell capsule Active NMA PO daily June 05, 2025 12:00am Complies with drug therapy Start: 06-05-2025 take 5 capsules by mouth once daily multivitamin (20 sources) Start: 07-17-2021 take 1 tablet by patricia th once daily Multivitamin Active 1 TABLET PO DAILY July 17, 2021 2:55pm Start: 07-17-2021 take 1 tablet by patricai th once daily Multivitamin Active 1 TABLET PO DAILY July 16, 2021 11:00pm MULTIVITAMIN (Or al Liquid) for 0 days Refills: 0 Ordered: 24-Apr-2021 Gardenia Mixon CMA Active MULTIVITAMIN (Or al Liquid) for 0 days Refills: 0 Ordered: 23-Dec-2020 Cesar Lorenzo LPN Active MULTIVITAMIN (Or al Liquid) for 0 days Refills: 0 Ordered: 01-Nov-2019 Liseth Aguirre MD Active MULTIVITAMIN (Or al Liquid) for 0 days Refills: 0 Ordered: 16-Dec-2017 BERNIE Rubio Active [place]-3 Fatty Acids (Fish Oi l Concentrate) 1,000 mg capsule (14 sources) Start: 07-29-2021 [place]-3 Fatty Acids (Fish Oil Concentrate) 1,000 mg capsule Active 3000 mg PO DAILY July 29, 2021 3:17pm Complies with drug therapy Start: 07-29-2021 Start: 07-29-2021 [place]-3 Fatty Acids (Fish Oil Concentrate) 1,000 mg capsule Active 3000 mg PO DAILY July 29, 2021 3:17pm Start: 07-29-2021 [place]-3 Fatty Acids (Fish Oil Concentrate) 1,000 mg capsule Active 3000 MG PO DAILY July 29, 2021 2:17pm Start: 07-29-2021 [place]-3 Fatty Acids (Fish Oil Concentrate) 1,000 mg capsule Active 3000 MG PO DAILY July 29, 2021 3:17pm Start: 07-17-2021 End: 07-29-2021 take 1 capsule by mouth twice daily [place]-3 Fatty Acids (Fish Oil Concentrate) 1,000 mg capsule Discontinued 1000 MG PO TWICE A DAY July 17, 2021 2:55pm July 29, 2021 3:19pm Start: 07-17-2021 End: 07-29-2021 take 1 capsule by mouth twice daily [place]-3 Fatty Acids (Fish Oil Concentrate) 1,000 mg capsule Discontinued 1000 mg PO TWICE A DAY July 17, 2021 12:00am July 29, 2021 3:19pm Start: 07-17-2021 End: 07-29-2021 take 1 capsule by mouth twice daily [place]-3 Fatty Acids (Fish Oil Concentrate) 1,000 mg capsule Discontinued 1000 MG PO TWICE A DAY July 16, 2021 11:00pm July 29, 2021 2:19pm levothyroxine sodium 0.075 mg oral tablet (20 sources) l-Thyroxine Start: 06-05-2025 Levothyroxine 75 mcg tablet Active ug PO June 05, 2025 12:00am Complies with drug therapy Start: 05-02-2023 Start: 02-09-2023 Start: 11-12-2022 Start: 10-21-2022 Start: 05-21-2020 End: 06-05-2025 take 1 tablet by mouth once daily Levothyroxine (Synthroid) 50 mcg tablet Discontinued 50 ug PO DAILY December 23, 2020 12:00am June 05, 2025 3:04pm Start: 02-16-2019 Synthroid 50 M CG Oral Tablet uad Tablet 1 tablet 4 days, 1/2 tablet 3 days for 90 days Quantity: 90 {Tablet} Refills: 3 Ordered: 16-Feb-2019 Ana Luisa Nielson DO, DO, Kathleen Start : 16-Feb-2019 Active Start: 11-02-2018 Synthroid 50 M CG Oral Tablet uad Tablet 1 tablet 4 days, 1/2 tablet 3 days for 90 days Quantity: 90 {Tablet} Refills: 3 Ordered: 02-Nov-2018 Svetlana Claudio DO Start : 02-Nov-2018 Active Dispense as Written Comments: dispense as written Start: 07-28-2018 Synthroid 50 M CG Oral Tablet uad Tablet 1 tablet 4 days, 1/2 tablet 3 days for 90 days Quantity: 90 {Tablet} Refills: 3 Ordered: 28-Jul-2018 Ana Luisa Nielson DO, DO, Kathleen Start : 28-Jul-2018 Active Dispense as Written Comments: dispense as written Start: 12-16-2017 Synthroid 50 M CG Oral Tablet uad Tablet 1 tablet 4 days, 1/2 tablet 3 days for 90 days Quantity: 90 {Tablet} Refills: 3 Ordered: 16-Dec-2017 Liseth Aguirre MD Start : 16-Dec-2017 Active Dispense as Written Comments: dispense as written Comment on above: dispense as written Vitamin B Complex tablet (3 sources) Start: 06-05-2025 Vitamin B Complex tablet Active 1 {tbl} PO daily June 05, 2025 12:00am Complies with drug therapy Start: 06-05-2025 Zinc Glycinate (3 sources) Start: 06-05-2025 take 1 capsule by mo ut once daily Zinc Glycinate 20 mg capsule Active 20 mg PO daily June 05, 2025 12:00am Complies with drug therapy Start: 06-05-2025 take 1 capsule by mouth once d aily Completed/Discontinued Medications Medication Drug Class(es) Dates Sig (Normalized) Sig (Original) [id number] actuat albuterol 0.09 mg/actuat metered dose inhaler (20 sources) beta2-Adrenergic Agonist Start: 05-01-2021 End: 12-04-2021 Start: 05-01-2021 take 2 puff(s) by in halation three times daily ProAir HFA 108 (90 Base) MCG/ACT Inhalation Aerosol Solution 2 (two) Puff(s) tid for 0 days Quantity: 1 {Unspecified} Refills: 0 Ordered: 01-May-2021 Ana Luisa Nielson DO, DO, Kathleen Start : 01-May-2021 Active Comments: qty 1 inhaler Start: 01-05-2021 take 2 puff(s) by in halation three times daily ProAir HFA 108 (90 Base) MCG/ACT Inhalation Aerosol Solution 2 (two) Puff(s) tid for 0 days Quantity: 1 {Inhalation} Refills: 0 Ordered: 05-Jan-2021 Stephanie GRIFFINSarika Start : 05-Jan-2021 Active Start: 12-16-2017 End: 12-10-2019 take 2 puff(s) by inhalation three times daily ProAir HFA 108 (90 Base) MCG/ACT Inhalation Aerosol Solution 2 (two) Puff(s) tid for 0 days Quantity: 1 {Inhalation} Refills: 0 Ordered: 10-Dec-2019 Fatemeh Morrissey RN Start : 16-Dec-2017 End : 10-Dec-2019 Inactive Start: 12-16-2017 End: 12-10-2019 take 2 puff(s) by inhalation three times daily ProAir HFA 108 (90 Base) MCG/ACT Inhalation Aerosol Solution 2 (two) Puff(s) tid for 0 days Quantity: 1 {Inhalation} Refills: 0 Ordered: 10-Dec-2019 Fatemeh Morrissey RN Start : 16-Dec-2017 End : 10-Dec-2019 Inactive Comment on above: qty 1 inhaler amoxicillin 875 mg oral tabl et (20 sources) Penicillin-class Antibacterial Start: 10-18-2008 End: 04-10-2009 Comment on above: clarification amoxicillin 875 mg / clavula aleah 125 mg oral tablet (20 sources) Penicillin-class Antibacterial Start: 06-17-2022 End: 10-21-2022 Start: 05-27-2022 End: 06-04-2022 Start: 11-02-2016 End: 11-12-2016 Start: 11-02-2016 End: 11-12-2016 take 1 tablet by mouth twice daily Augmentin 875-125 MG Oral Tablet 1 Tablet BID for 10 days Quantity: 20 {Tablet} Refills: 0 Ordered: 02-Nov-2016 Stephanie GRIFFINSarika Start : 02-Nov-2016 End : 12-Nov-2016 Inactive aspirin 81 mg delayed release oral tablet (20 sources) Nonsteroidal Anti-inflammatory Drug Start: 07-17-2021 End: 07-29-2021 take 1 tablet by mouth once daily Aspirin (Adult Aspirin Regimen) 81 mg tablet,delayed release (DR/EC) Discontinued 81 mg PO DAILY July 17, 2021 12:00am July 29, 2021 3:44pm Start: 06-03-2008 End: 05-27-2022 Astroglide (15 sources) Start: 08-27-2009 End: 06-24-2010 Start: 08-27-2009 End: 06-24-2010 ASTROGLIDE (External Gel) fo r 0 days Refills: 0 Ordered: 24-Jun-2010 Radha Land LPN Start : 27-Aug-2009 End : 24-Jun-2010 Inactive ASTROGLIDE (External Gel) (20 sources) Start: 08-27-2009 End: 06-24-2010 ASTROGLIDE (External Gel) fo r 0 days Refills: 0 Ordered: 24-Jun-2010 Radha Land RN Start : 27-Aug-2009 End : 24-Jun-2010 Inactive Start: 08-27-2009 End: 06-24-2010 ASTROGLIDE (External Gel) fo r 0 days Refills: 0 Ordered: 24-Jun-2010 Radha Land LPN Start : 27-Aug-2009 End : 24-Jun-2010 Inactive azithromycin 250 mg oral tab let (20 sources) Macrolide Antimicrobial Start: 01-05-2021 End: 12-04-2021 Start: 12-16-2017 End: 07-28-2018 Zithromax Z-Tj 250 MG Oral Tablet 1 Tablet TAD for 0 days Quantity: 1 {Package} Refills: 0 Ordered: 28-Jul-2018 Fatemeh Morrissey RN Start : 16-Dec-2017 End : 28-Jul-2018 Inactive benzonatate 100 mg oral caps ule (16 sources) Non-narcotic Antitussive Start: 01-05-2021 End: 12-04-2021 Comment on above: ok for generic budesonide 0.032 mg/actuat m etered dose nasal spray (20 sources) Corticosteroid Start: 06-03-2010 End: 01-27-2012 Start: 06-03-2010 End: 01-27-2012 RHINOCORT AQUA, 32MCG/ACT (N mirna Suspension) 2 (two) Puff(s) once daily for 0 days Quantity: 1 {Suspension} Refills: 0 Ordered: 27-Jan-2012 BERNIE Rubio LPN Start : 03-Jun-2010 End : 27-Jan-2012 Inactive calcium ascorbate 500 mg oral tablet (7 sources) Start: 07-29-2021 End: 06-05-2025 take 1 tablet by mouth once daily Ascorbate Calcium (Vitamin C) 500 mg tablet Discontinued 500 mg PO DAILY July 29, 2021 1:00am June 05, 2025 3:05pm ciprofloxacin 500 mg oral tablet (20 sources) Quinolone Antimicrobial Start: 06-03-2008 End: 07-29-2008 24 hr clarithromycin 500 mg extended release oral tablet (20 sources) Macrolide Antimicrobial Start: 07-29-2016 End: 08-08-2016 Start: 07-29-2016 End: 08-08-2016 take 2 tablets by mouth once daily Biaxin XL 500 MG Oral Tablet Extended Release 24 Hour 2 (two) Tablet ER 24HR daily for 10 days Quantity: 20 {Tablet} Refills: 0 Ordered: 29-Jul-2016 Roge Blackman MD Start : 29-Jul-2016 End : 08-Aug-2016 Inactive Start: 07-29-2016 End: 08-08-2016 take 2 tablets by mouth once daily Biaxin XL 500 MG Oral Tablet Extended Release 24 Hour 2 (two) Tablet ER 24HR daily for 10 days Quantity: 20 {Tablet} Refills: 0 Ordered: 29-Jul-2016 Roge Blackman MD Start : 29-Jul-2016 End : 08-Aug-2016 Inactive codeine phosphate 2 mg/ml / guaiFENesin 20 mg/ml oral solution (20 sources) Opioid Agonist Start: 12-16-2017 End: 07-28-2018 Start: 12-16-2017 End: 07-28-2018 Cheratussin AC 100-10 MG/5ML Oral Syrup 1 (one) Milliliter take 1-2 tsp every 8 horus prn cough for 0 days Quantity: 60 {Milliliter} Refills: 0 Ordered: 28-Jul-2018 Fatemeh Morrissey RN Start : 16-Dec-2017 End : 28-Jul-2018 Inactive Comments: sixty Comment on above: sixty dexamethasone 6 mg oral tablet (7 sources) Corticosteroid Start: 1 End: 1 take 1 tablet by mouth once daily Dexamethasone 6 MG tablet Discontinued 6 mg PO DAILY 5 5 0 December 25, 2020 12:00am July 17, 2021 2:57pm docosahexaenoic acid 120 mg / eicosapentaenoic acid 180 mg oral capsule (16 sources) estradiol 0.025 mg vaginal insert (20 sources) Estrogen Start: 9 End: 0 Start: 06-11-2009 End: 06-24-2010 VAGIFEM, 25MCG (Vaginal Tabl et) 1 (one) Tablet twice weekly for 0 days Quantity: 30 {Tablet} Refills: 3 Ordered: 24-Jun-2010 Radha Land LPN Start : 11-Jun-2009 End : 24-Jun-2010 Inactive famotidine 40 mg oral tablet (11 sources) Histamine-2 Receptor Antagonist Start: 06-04-2022 End: 10-21-2022 fluconazole 150 mg oral tabl et (20 sources) Azole Antifungal Start: 07-06-2010 End: 01-27-2012 Start: 07-06-2010 End: 01-27-2012 DIFLUCAN, 150MG (Oral Tablet ) 1 Tablet once then again in 3 days then again in 3 days for 0 days Quantity: 3 {Tablet} Refills: 0 Ordered: 27-Jan-2012 BERNIE Rubio LPN Start : 06-Jul-2010 End : 27-Jan-2012 Inactive Glucosamine Complex (15 sources) take 1 tablet by mouth twice gwen ly GLUCOSAMINE COMPLEX (Oral Tablet) 1 BID Inactive GLUCOSAMINE COMPLEX (Oral Tablet) (20 sources) take 1 tablet by mouth twice daily GLUCOSAMINE COMPLEX (Oral Tablet) 1 BID Inactive 12 hr guaiFENesin 600 mg extended release oral tablet (20 sources) Start: 11-02-19 17 End: 03-08-20 17 levoFLOXacin 500 mg oral tablet (20 sources) Quinolone Antimicrobial Start: 08-24-20 12 End: 05-22-20 14 loratadine 10 mg oral capsule (20 sources) Start: 07-17-20 21 End: 06-05-20 25 take 1 capsule by mouth once daily Loratadine 10 mg capsule Discontinued 10 mg PO DAILY July 17, 2021 12:00am June 05, 2025 3:05pm Start: 04-18-2012 End: 10-21-2022 meloxicam 7.5 mg oral tablet (20 sources) Nonsteroidal Anti-inflammatory Drug Start: 05-22-2014 End: 05-28-2014 Start: 05-22-2014 End: 05-28-2014 take 2 tablets by mouth once daily MOBIC, 7.5MG (Oral Tablet) 2 (two) Tablet daily for 30 days Quantity: 30 {Tablet} Refills: 1 Ordered: 28-May-2014 Julieta Pemberton LPN Start : 22-May-2014 End : 28-May-2014 Discontinued metroNIDAZOLE 7.5 mg/ml topi luis cream (20 sources) Nitroimidazole Antimicrobial Start: 12-19-2014 End: 03-08-2017 Start: 12-19-2014 End: 03-08-2017 MetroCream 0.75 % External C ream 1 (one) Cream Cream apply bid to nose for 0 days Quantity: 1 {Tube} Refills: 0 Ordered: 08-Mar-2017 Fatemeh Morrissey RN Start : 19-Dec-2014 End : 08-Mar-2017 Inactive Multivitamin tablet (4 sources) Start: 07-17-2021 End: 06-05-2025 Multivitamin tablet Disconti nued 1 {tbl} PO DAILY July 17, 2021 12:00am June 05, 2025 3:05pm Start: 07-17-2021 Multivitamin t ablet Active 1 {tbl} PO DAILY July 17, 2021 12:00am nystatin [id number] unt/ml topic al cream (20 sources) Polyene Antifungal Start: 06-24-2010 End: 07-13-2010 Start: 06-24-2010 End: 07-13-2010 NYSTATIN, [id number] (Ext ernal Cream) 1 Cream apply daily for 0 days Quantity: 1 {Cream} Refills: 0 Ordered: 13-Jul-2010 Julieta Pemberton LPN Start : 24-Jun-2010 End : 13-Jul-2010 Inactive ofloxacin 3 mg/ml ophthalmic solution (20 sources) Quinolone Antimicrobial Start: 05-28-2009 End: 06-24-2010 Start: 05-28-2009 End: 06-24-2010 OCUFLOX, 0.3% (Ophthalmic So lution) 1 (one) Solution 1-2 gtts q 1-6 hrs for 0 days Quantity: 1 {Solution} Refills: 0 Ordered: 24-Jun-2010 Radha Land RN Start : 28-May-2009 End : 24-Jun-2010 Inactive omega 5-vbx-usq-fish oil (9 sources) omega-3 acid ethyl esters (group home) 1000 mg oral capsule (10 sources) take 1 capsule by mouth twice daily FISH OIL CONCENTRATE, 1000MG (Oral Capsule) 1 bid (1000 MG) Active oseltamivir 75 mg oral capsule (20 sources) Neuraminidase Inhibitor Start: 2 End: 2 Oxygen (5 sources) Start: 1 End: 1 OXYGEN (Nasal Gas) (Free Text) 2 (two) Liter as directed for 14 days Refills: 0 Ordered: 04-Feb-2021 SlaAmalia nascimento LPN Start : 30-Dec-2020 End : 13-Jan-2021 Inactive Start: 12-30-2020 OXYGEN (Nasal Gas) (Free Text) 2 (two) Liter as directed for 14 days Refills: 0 Ordered: 05-Jan-2021 Slarb Amalia CONTRERAS Start : 30-Dec-2020 Active pantoprazole 40 mg delayed r elease oral tablet (20 sources) Proton Pump Inhibitor Start: 12-10-2022 Start: 12-09-2021 End: 12-07-2021 Start: 12-09-2021 End: 12-07-2021 Start: 12-09-2021 End: 12-07-2021 Start: 12-09-2021 End: 12-07-2021 Start: 12-09-2021 End: 12-07-2021 Start: 09-08-2021 End: 09-01-2021 take 1 tablet by mouth once daily Protonix 40 MG Oral Tablet Delayed Release 1 (one) Tablet DR qd for 90 days Quantity: 90 {Tablet} Refills: 0 Ordered: 08-Sep-2021 Ana Luisa Nielson DO, DO, Kathleen Start : 08-Sep-2021 End : 01-Sep-2021 Active Start: 06-05-2020 take 1 tablet by patricia th once daily Pantoprazole (Protonix) 40 mg tablet,delayed release (DR/EC) Active 40 mg PO DAILY December 23, 2020 12:00am Complies with drug therapy Start: 06-11-2019 take 1 tablet by patricia th once daily Protonix 40 MG Oral Tablet Delayed Release 1 (one) Tablet DR qd for 90 days Quantity: 90 {Tablet} Refills: 3 Ordered: 11-Jun-2019 Ana Luisa Nielson DO, DO, Kathleen Start : 11-Jun-2019 Active Start: 06-16-2018 take 1 tablet by patricia th once daily Protonix 40 MG Oral Tablet Delayed Release 1 (one) Tablet DR qd for 90 days Quantity: 90 {Tablet} Refills: 3 Ordered: 16-Jun-2018 Ana Luisa Nielson DO Ana Luisa Start : 16-Jun-2018 Active predniSONE 20 mg oral tablet (20 sources) Corticosteroid Start: 06-04-2022 End: 10-21-2022 Start: 08-31-2013 End: 05-22-2014 Start: 08-31-2013 End: 05-22-2014 PREDNISONE, 10MG (Oral Table t) 2 (two) Tablet bid x 3 days, then 1 daily x 4 days then 1/2 x 4days for 0 days Quantity: 12 {Tablet} Refills: 0 Ordered: 22-May-2014 Gayla Joshi Start : 31-Aug-2013 End : 22-May-2014 Inactive Comments: with food Comment on above: with food rosuvastatin calcium 10 mg o ral tablet (20 sources) HMG-CoA Reductase Inhibitor Start: 09-10-2010 End: 05-22-2014 Start: 09-10-2010 End: 05-22-2014 take 0.5 tablet by mouth once daily CRESTOR, 10MG (Oral Tablet) 1/2 (one half) Tablet daily for 0 days Quantity: 30 {Tablet} Refills: 3 Ordered: 22-May-2014 Gayla Joshi Start : 10-Sep-2010 End : 22-May-2014 Inactive sucralfate 1000 mg oral tabl et (20 sources) Aluminum Complex Start: 01-27-2012 End: 02-06-2012 sulfamethoxazole 800 mg / trimethoprim 160 mg oral tablet (20 sources) Dihydrofolate Reductase Inhibitor Antibacterial, Sulfonamide Antimicrobial Start: 07-29-2008 End: 08-05-2008 Start: 07-29-2008 End: 08-05-2008 take 1 tablet by mouth twice daily BACTRIM DS, 800-160MG (Oral Tablet) 1 (one) Tablet bid for 3 days Quantity: 6 {Tablet} Refills: 0 Ordered: 29-Jul-2008 Sarika Brown CNP Start : 29-Jul-2008 End : 05-Aug-2008 Inactive traMADol hydrochloride 50 mg oral tablet (20 sources) Opioid Agonist Start: 05-01-2010 zinc gluconate 50 mg oral tablet (7 sources) Start: 07-29-2021 End: 06-05-2025 take 1 tablet by mouth once daily Zinc Gluconate 50 mg tablet Discontinued 50 mg PO DAILY July 29, 2021 1:00am June 05, 2025 3:05pm zinc sulfate 66 mg oral tablet (20 sources) take 1 tablet by mouth once giovani y ZINC 15, 66MG (Oral Tablet) 1 qd (66 MG) Inactive Problems Active Problems Problem Classification Problem Date Documented Date Episodic/Chronic Abdominal pain (20 sources) Acute abdominal pain; Translations: [Abdominal pain, unspecified site] Resolved: 7 03-08-2017 Episodic Comment on above: ?cholecystitis vs ga llstone Us abdomenCMPsaw DB for RUQ abdominal pain 07/27Colic, after eating food, not associated with nausea and vomiting.Resolved in an hour.Had 2 episodes of pain since then, last episode one month ago after eating food. postmenapausal no me nses in [address] of abd and pelvic and has thick endometrium will refer to [facility] talk about shingles watch for rash. ? gastritis / ulcer increae protonix. will try GI cocktail if not better CT scan, recheck and palp abd after GI cocktail better inepig still pain in back Administrative/social admission (20 sources) Medical examinations/reports status; Translations: [Counseling procedure with explicit context] Resolved: 5 08-01-2015 Episodic Comment on above: Pt prefers colonosco py after first of the year phase 1/2diet Chronic obstructive pulmonary disease and bronchiectasis (20 sources) Bronchitis; Translations: [Bronchitis] Resolved: 1 12-16-2017 Episodic Conditions associated with dizziness or vertigo (18 sources) Dizziness on standing up; Translations: [Dizziness on standing] 10-21-2022 Episodic Diabetes mellitus without complication (18 sources) Hyperglycemia; Translations: [Hyperglycemia] 10-21-2022 Episodic Disorders of lipid metabolism (20 sources) Hypercholesterolemia; Translations: [Hypercholesteremia] 12-16-2017 Chronic Esophageal disorders (20 sources) Gastroesophageal reflux disease; Translations: [Gastro-esophageal reflux disease without esophagitis] 12-16-2017 Chronic Esophageal disorders (20 sources) Esophageal disorders Essential hypertension (20 sources) Hypertensive disorder; Translations: [Benign essential hypertension] 11-29-2016 Chronic Comment on above: blood work before ne xt visistEKG in gen med nsr no acute chg Fever of unknown origin (20 sources) Fever; Translations: [Fever, unspecified] Resolved: 5 10-23-2015 Episodic Genitourinary symptoms and ill-defined conditions (20 sources) Blood in urine; Translations: [Hematuria] Resolved: 9 08-23-2013 Episodic Comment on above: resolved had years ago with U TI last urine 07-30 clear no protien or wbc like GN post infectious. seem more like kidneystone though pain not really severe. willcheck idney Headache; including migraine (20 sources) Headache; Translations: [Acute headache] Resolved: 2 12-26-2020 Episodic Immunizations and screening for infectious disease (20 sources) Encounter for immunization; Translations: [Need for prophylactic vaccination and inoculation against influenza] Resolved: 5 03-28-2018 Episodic Inflammation, infection of eye (20 sources) Conjunctivitis; Translations: [Unspecified conjunctivitis] Resolved: 9 08-22-2015 Episodic Influenza (20 sources) Influenza due to other identified influenza virus with other respiratory manifestations; Translations: [Influenza due to Influenza A virus subtype H1N1] Resolved: 5 08-21-2015 Episodic Malaise and fatigue (20 sources) Fatigue; Translations: [Fatigue] Resolved: 2 03-24-2020 Episodic Menopausal disorders (20 sources) Menopausal syndrome Chronic Mycoses (20 sources) Candidiasis of urogenital site; Translations: [Candidal vulvovaginitis] Resolved: 5 08-22-2015 Episodic Nonspecific chest pain (20 sources) Chest pain; Translations: [Chest pain] Resolved: 5 12-19-2014 Episodic Comment on above: midsternalnot with e xertion resolved off of mobi c Nutritional deficiencies (20 sources) Vitamin D deficiency; Translations: [Vitamin D deficiency] 12-16-2017 Chronic Osteoarthritis (1 source) Primary osteoarthritis, left ankle and foot; Translations: [Primary osteoarthritis, left ankle and foot] Onset: 5 Chronic Other bone disease and musculoskeletal deformities (18 sources) Osteochondropathy; Translations: [Disorder of bone and cartilage] 12-16-2017 Chronic Comment on above: osteopenia 2009repea t Other bone disease and musculoskeletal deformities (20 sources) Osteopenia; Translations: [Osteopenia, unspecified location] 11-29-2016 Episodic Other bone disease and musculoskeletal deformities (20 sources) Osteochondropathy; Translations: [Disorder of bone and cartilage] 12-26-2020 Episodic Comment on above: osteopenia 2009repea t Other circulatory disease (20 sources) Elevated blood-pressure reading without diagnosis of hypertension; Translations: [Elevated blood-pressure reading without diagnosis of hypertension] Resolved: 5 08-01-2015 Episodic Other circulatory disease (20 sources) Other specified symptoms and signs involving the circulatory and respiratory systems; Translations: [Abnormal chest sounds] Resolved: 5 07-29-2015 Episodic Other circulatory disease (18 sources) Cardiovascular symptoms; Translations: [Elevated HDL] 12-16-2017 Episodic Other connective tissue disease (20 sources) Pain in thumb ; Translations: [Thumb pain] Resolved: 9 08-23-2013 Episodic Comment on above: hard to tell some in extensor tendon or in MCP joint check xray inject tednon and 1/3 into joint capscian cream nsaids thumb splint Other female genital disorders (20 sources) Vaginal dryness; Translations: [Vaginal dryness] Resolved: 2 12-16-2017 Episodic Other gastrointestinal disorders (20 sources) Heartburn; Translations: [Heartburn] Resolved: 5 12-19-2014 Episodic Comment on above: has been on meloxida m15mgx 6 months Other gastrointestinal disorders (20 sources) Abdominal bloating; Translations: [Bloated abdomen] Resolved: 2 07-28-2018 Episodic Comment on above: and pelvic ultrasoun d Other gastrointestinal disorders (20 sources) Diarrhea; Translations: [Diarrhea] Resolved: 1 03-24-2020 Episodic Other lower respiratory disease (20 sources) Cough; Translations: [Cough] Resolved: 7 11-29-2016 Episodic Comment on above: CXR and Biaxin if sy mptom donmt improve or get worse over the weekend.prescription given4 weeks : cough dry mostly, some yellow green phlegm, getting better2 weeks ago took augmentin 10 days(from prior prescriptiom) for sinus headaches: improvedLeft ear itchydenies fever, NV, asthma/COPD, smokerMucinex 2 boxes did not help 4 weeks : cough dry mostly, some yellow green phlegm, getting better2 weeks ago took augmentin 10 days(from prior prescriptiom) for sinus headaches: improvedLeft ear itchydenies fever, NV, asthma/COPD, smokerMucinex 2 boxes did not help worse at night Other lower respiratory disease (20 sources) Wheezing; Translations: [Wheezing] Resolved: 5 12-19-2014 Episodic Other lower respiratory disease (20 sources) Snoring; Translations: [Snores] 07-28-2018 Episodic Comment on above: ordeed tyler study --B ANG 5 scrore Other lower respiratory disease (20 sources) Hypoxia; Translations: [Hypoxia] Resolved: 2 12-25-2020 Episodic Comment on above: 88-95% 95-95% but relieved at night Other lower respiratory disease (20 sources) Dyspnea; Translations: [SOB (shortness of breath)] Resolved: 2 12-25-2020 Episodic Other lower respiratory disease (20 sources) Orthopnea; Translations: [Orthopnea] Resolved: 2 01-05-2021 Episodic Comment on above: every hour of night is unable to sleep wakes up at night Other lower respiratory disease (3 sources) Dyspnea at rest; Translations: [Shortness of breath at rest] 07-15-2023 Episodic Other non-traumatic joint disorders (20 sources) Knee pain; Translations: [Knee pain] Resolved: 7 03-08-2017 Episodic Comment on above: seem like pes anerur ine bursitis handout given and will do xray to see if in knee. nsaids ice rest. Other nutritional; endocrine; and metabolic disorders (20 sources) Body mass index 30+ - obesity; Translations: [BMI 36.0-36.9,adult] Resolved: 3 12-16-2017 Chronic Comment on above: pt lost 12 pounds. o n fastmetabolism. read book and has plan on eating plan. Other nutritional; endocrine; and metabolic disorders (5 sources) Cardiovascular symptoms; Translations: [Elevated HDL] 12-26-2020 Chronic Other nutritional; endocrine; and metabolic disorders (20 sources) High density lipoprotein above reference range; Translations: [Elevated HDL] 04-24-2021 Chronic Other nutritional; endocrine; and metabolic disorders (8 sources) Obesity; Translations: [Obesity, unspecified] 07-17-2021 Chronic Other skin disorders (20 sources) Change in skin lesion; Translations: [Change in mole] Resolved: 7 03-08-2017 Episodic Other skin disorders (20 sources) Skin lesion; Translations: [Abnormal skin growth] Resolved: 7 03-08-2017 Episodic Other upper respiratory disease (20 sources) Allergic rhinitis; Translations: [Allergic rhinitis due to other allergen] 12-16-2017 Chronic Other upper respiratory disease (20 sources) Allergic rhinitis due to other allergen Chronic Other upper respiratory disease (20 sources) Lesion of nose; Translations: [Lesion of nose] Resolved: 7 03-08-2017 Episodic Comment on above: very small ? rosceas e Other upper respiratory disease (20 sources) Congestion of nasal sinus; Translations: [Sinus congestion] 06-04-2022 Episodic Other upper respiratory infections (20 sources) Chronic sinusitis; Translations: [Sinusitis, chronic] Resolved: 5 06-17-2015 Chronic Other upper respiratory infections (20 sources) Acute sinusitis, unspecified; Translations: [Acute pharyngitis] Onset: 0 Resolved: 9 12-16-2017 Episodic Comment on above: TM bulging on the le ft, Rapid strep negative, send for culture.Since weekend is coming up, gave her antibiotics, if symproms get worse over the next 24-48 hours, will take antibiotic. Augmentin twice a dayX10 daysBecause of the side effects of antibiotics,use probiotics or lactobacillus acidophillus to keep the good bacteria in the gut.Increase the amount of yogurt with active cultures.Use warm water with salt gargles for sore throat.Honey lemon zainab turmeric tea.Drink lots of fluidsSteam inhalation.Mucinex over the counter to loosen the mucus.Robitussin DM over the counter.Flonase nasal spray.Do not use decongestants with high blood pressure or heart disease.Avoid pasta , potatoes, white flour and sweets as infection feeds on it.Lots of rest.If you have worsening fevers, shortness of breath, chest pain, cough, sinus pain, sore throat or difficulty swallowing, sputum or drainage that is yellow green or symptoms dont improve in a week , give us a call.3 days h/o sinus pain, sore throat, headaches, cough, swollen glands in the neck, swolen uvula, ear pressure.1 day h/o greenish yellow phlegm, and worsening of symptoms.Denies runny nose, nasal congestion, fever, NVD, body aches, .Denies asthma, COPD, smokingUsed advil cold /sinus,eased pain. Pneumonia (20 sources) Infective pneumonia; Translations: [Pneumonia, organism unspecified] Resolved: 0 07-29-2015 Episodic Poisoning by nonmedicinal substances (20 sources) Bee sting; Translations: [Bee sting reaction, accidental or unintentional, subsequent encounter] Resolved: 3 06-04-2022 Episodic Residual codes; unclassified (2 sources) Obstructive sleep apnea syndrome; Translations: [Obstructive sleep apnea (adult) (pediatric)] 06-12-2025 Chronic Comment on above: AHI 26 Residual codes; unclassified (2 sources) Obstructive sleep apnea (adult) (pediatric); Translations: [Obstructive sleep apnea (adult) (pediatric)] Onset: 5 Chronic Residual codes; unclassified (20 sources) Postmenopausal state; Translations: [Postmenopausal (Renamed from Postmenopausal status)] 07-28-2018 Episodic Residual codes; unclassified (20 sources) Generalized aches and pains; Translations: [Body aches] Resolved: 5 08-14-2015 Episodic Residual codes; unclassified (12 sources) Requires diphtheria, tetanus and pertussis vaccination; Translations: [Need for Tdap vaccination (Renamed from Need for hjxptnrfeq-ujtuxfd-zoxi ussis (Tdap) vaccine, adult/adolescent)] 07-28-2018 Episodic Residual codes; unclassified (20 sources) Chill; Translations: [Chills (without fever)] Resolved: 1 03-24-2020 Episodic Residual codes; unclassified (20 sources) Current non-smoker ; Translations: [Current nonsmoker (Renamed from Current non-smoker)] 11-29-2016 Episodic Residual codes; unclassified (20 sources) Menopause present; Translations: [Menopause] 11-29-2016 Episodic Residual codes; unclassified (20 sources) Non-smoker; Translations: [Nonsmoker] 03-24-2020 Episodic Spondylosis; intervertebral disc disorders; other back problems (20 sources) Low back pain; Translations: [Low back pain] Resolved: 7 03-08-2017 Episodic Thyroid disorders (20 sources) Hypothyroidism; 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 she feels better on meds and lost weight.Repeat TSH, Free T3, T4 discussed gluten steven e-- and increase one tab 5days week and 1/2 tab only 2days week Unclassified (18 sources) Menopause present; Translations: [Menopause] 11-29-2016 Chronic Unclassified (20 sources) Breast neoplasm screening status; Translations: [Abnormal findings on diagnostic imaging of other specified body structures] Onset: 5 Resolved: 8 12-16-2017 Episodic Comment on above: Has ASCUS on Pap but HPV is negative, Plan follow up pap in 1 year per new guidelines osteopenia 2009Repea tCalcium 1200-1500mg QD. Vitamin D 400-800 IU QD.Patient was advised to start an weight bearing exercise program Unclassified (20 sources) Sleep disorder; Translations: [Needs influenza immunization] Resolved: 5 06-17-2015 Episodic Unclassified (20 sources) Unclassified (20 sources) Goiter, unspecified (240.9) Unclassified (20 sources) BMI 38.0-38.9,adult Unclassified (20 sources) Nonsmoker; Translations: [Non-smoker] 12-16-2017 Unclassified (20 sources) Well Woman Exam (V72.31) (Pap,Mammo,Routine Female) Unclassified (20 sources) Hypercholesteremia (272.0) Unclassified (20 sources) BMI 37.0-37.9, adult Unclassified (20 sources) Current non-smoker ; Translations: [Current nonsmoker (Renamed from Current non-smoker)] 11-29-2016 Unclassified (20 sources) Hypercholesteremia Unclassified (20 sources) Sinusitis,chronic (473.9) Unclassified (20 sources) Benign essential HTN Unclassified (20 sources) Sheba thyroiditis, fibrous variant Unclassified (20 sources) Postmenopausal (Renamed from Postmenopausal status) Unclassified (20 sources) Encounter for screening mammogram for breast cancer (Renamed from Encounter for screening mammogram for malignant neoplasm of breast) Unclassified (20 sources) Elevated HDL Unclassified (20 sources) Liver function abnormality Unclassified (20 sources) Body mass index 35.0-35.9, adult Unclassified (20 sources) BMI 36.0-36.9,adult Unclassified (20 sources) Nutritional counseling Unclassified (20 sources) Snores Unclassified (20 sources) Bloated abdomen Past or Other Problems Problem Classification Problem Date Documented Date Episodic/Chronic Coronary atherosclerosis and other heart disease (20 sources) Coronary atherosclerosis and other heart disease Deficiency and other anemia (20 sources) Deficiency and other anemia Headache; including migraine (20 sources) Headache; including migraine; Translations: [Acute headache] 03-24-2020 Influenza (20 sources) Influenza Other liver diseases (18 sources) Abnormal liver function; Translations: [Liver function abnormality] Resolved: 07-28-2018 12-16-2017 Chronic Other non-traumatic joint disorders (14 sources) Pain in unspecified knee; Translations: [Knee pain] Resolved: 03-08-2017 03-08-2017 Episodic Comment on above: seem like pes anerur ine bursitis handout given and will do xray to see if in knee. nsaids ice rest. Pneumonia (except that caused by tuberculosis or sexually transmitted disease) (4 sources) Pneumonia (except that caused by tuberculosis or sexually transmitted disease) Residual codes; unclassified (14 sources) Needs influenza immunization; Translations: [Need for prophylactic vaccination and inoculation against influenza] Resolved: 12-19-2014 06-17-2015 Episodic Residual codes; unclassified (1 source) Localized edema; Translations: [Localized edema] Onset: 01-15-2025 Episodic Unclassified (20 sources) Patient encounter status; Translations: [Screening for osteoporosis] Resolved: 12-16-2017 12-16-2017 Comment on above: osteopenia 2009Repea tCalcium 1200-1500mg QD. Vitamin D 400-800 IU QD.Patient was advised to start an weight bearing exercise program Pt prefers colonosco py after first of the year phase 1/2diet Unclassified (20 sources) Change in mole Unclassified (20 sources) Abnormal skin growth Unclassified (20 sources) Breast cancer screening Unclassified (20 sources) Abnormal TSH Unclassified (20 sources) Screening status; Translations: [Screening for hyperlipidemia] Resolved: 12-16-2017 08-23-2013 Comment on above: osteopenia 2009Repea tCalcium 1200-1500mg QD. Vitamin D 400-800 IU QD.Patient was advised to start an weight bearing exercise program Unclassified (20 sources) Need for Tdap vaccination (Renamed from Need for hhhixeedjk-cmeazbr-dc rtussis (Tdap) vaccine, adult/adolescent) Unclassified (20 sources) GENERAL SYMPTOMS; FEVER, UNSPECIFIED (780.60) Unclassified (20 sources) Abnormal Lung Sounds/Rales (786.7) Unclassified (20 sources) Body aches (780.96) Unclassified (20 sources) Abdominal Pain,LUQ (789.02) Unclassified (20 sources) CANDIDIASIS, VULVA/VAGINA (112.1) Unclassified (20 sources) CANDIDIASIS, UROGENITAL SITES NEC (112.2) Unclassified (20 sources) Unspecified Diagnosis 12-16-2017 Unclassified (20 sources) Abdominal Pain,General (789.07) Unclassified (20 sources) Disorder of bone and cartilage, unspecified (733.90) Unclassified (20 sources) Thumb pain (729.5) Unclassified (20 sources) Conjunctivitis, unspecified (372.30) Unclassified (20 sources) Abdominal pain, acute, right upper quadrant Unclassified (20 sources) Disorder of bone and cartilage Unclassified (20 sources) Abdominal Pain,Unspecified Site (789.00) Unclassified (20 sources) Nonspecific abnormal findings on radiological and other examination of genitourinary organs (793.5) Unclassified (20 sources) Abdominal Pain,RUQ(789.01) Unclassified (20 sources) Osteopenia, unspecified location Unclassified (20 sources) Screening mammogram, encounter for Unclassified (20 sources) Non-smoker; Translations: [Nonsmoker] 07-28-2018 Unclassified (12 sources) Urogenital finding; Translations: [Nonspecific (abnormal) findings on radiological and other examination of genitourinary organs] Resolved: 08-27-2009 10-23-2015 Comment on above: Has ASCUS on Pap but HPV is negative, Plan follow up pap in 1 year per new guidelines Unclassified (20 sources) Non-smoker Unclassified (20 sources) COVID-19 Unclassified (7 sources) Fever, unspecified Viral infection (20 sources) Viral disease; Translations: [Viral syndrome] Onset: 12-11-2020 Resolved: 05-27-2022 12-16-2017 Episodic Comment on above: vs sinusitis Day #8 of symptoms, will try for monoclonoal antibody Day #27 today January 05, 2021, got monoclonal antibodies and decadron. Results Test Name Value Interpretation Reference Range Facility 12 Lead EKGon 07-15-2025 12 Lead EKG [facility] [address] [place] [address] 12 Lead EKG 07/15/25 0846 MR#: [id number] Acct: [id number] Name: ZAHRA SANDOVAL Rep #: [id number] : [id number] 70 From: Marshall Tinoco MD Attending Dr: Dr. Kel Garcia DO Status: REG CLI Ordering Dr: Kel Garcia DO Date: 07/15/25 Location: [facility] Sex: F C Admitted: Test Reason : PRE OP Blood Pressure : */* mmHG Vent. Rate : 68 BPM Atrial Rate : 68 BPM P-R Int : 174 ms QRS Dur : 86 ms QT Int : 394 ms P-R-T Axes : 50 8 44 degrees QTcB Int : 418 ms Sinus rhythm with marked sinus arrhythmia Septal infarct (cited on or before 29-May-2004) Abnormal ECG Confirmed by Marshall Tinoco [id number]), publishing editor BLOSSOM JAQUEZ ([id number]) on 07/15/2025 12:56:21 PM Referred By: Kel Garcia Confirmed By: Marshall Tinoco 07/15/25 1256 Date Marshall Tinoco MD CC: Dr. Ana Luisa Nielson DO; Dr. Kel Garcia DO Signed Normal [facility] Basic Metabolic Profile (BMP )on 07-15-2025 BUN/CRE 26.4 RATIO High 10-20 [facility] Comment on above: Performed By: #### L 100.0100, L500.2500 #### [facility] Laboratory [address] [place], [address] Calcium [Mass/Vol] 10.0 mg/dL Normal 7.6-11.0 [facility] Comment on above: Performed By: #### L 100.0100, L500.2500 #### [facility] Laboratory [address] [place], [address] Chloride [Moles/Vol] 104 mmol/L Normal 98-108 [facility] Comment on above: Performed By: #### L 100.0100, L500.2500 #### [facility] Laboratory [address] [place], [address] CO2 [Moles/Vol] 27.8 mmol/L Normal 21.0-32.0 [facility] Comment on above: Performed By: #### L 100.0100, L500.2500 #### [facility] Laboratory [address] [place], [address] Creatinine [Mass/Vol] 0.59 mg/dL Low 0.70-1.20 [facility] Comment on above: Performed By: #### L 100.0100, L500.2500 #### [facility] Laboratory [address] [place], [address] GAP 9 Normal 5-15 [facility] Comment on above: Performed By: #### L 100.0100, L500.2500 #### [facility] Laboratory [address] [place], [address] GFR/1.73 sq M.predicted among non-blacks MDRD (S/P/Bld) [Vol rate/Area] 98 mL/min/{1.73_m2} Normal >60 [facility] Comment on above: Result Comment: mL/m in/1.73m2 CKD-EPI Creatinine Equation (2020) Performed By: #### L 100.0100, L500.2500 #### [facility] Laboratory [address] [place], [address] Glucose [Mass/Vol] 89 mg/dL Normal 70-99 [facility] Comment on above: Performed By: #### L 100.0100, L500.2500 #### [facility] Laboratory [address] [place], [address] Potassium [Moles/Vol] 4.7 mmol/L Normal 3.3-5.1 [facility] Comment on above: Performed By: #### L 100.0100, L500.2500 #### [facility] Laboratory [address] [place], [address] Sodium [Moles/Vol] 141 mmol/L Normal 133-145 [facility] Comment on above: Performed By: #### L 100.0100, L500.2500 #### [facility] Laboratory [address] [place], [address] Urea nitrogen [Mass/Vol] 16 mg/dL Normal 4-19 [facility] Comment on above: Performed By: #### L 100.0100, L500.2500 #### [facility] Laboratory [address] [place], [address] CBC W/Diff, Automatedon 11-0 3-5 Absolute Lymph 2.39 X10 3/uL Normal 0.83-4.51 [facility] Comment on above: Performed By: #### L 100.0100, L500.2500 #### [facility] Laboratory [address] [place], [address] Absolute Neut 2.1 X10 3/uL Normal 2.0-7.7 [facility] Comment on above: Performed By: #### L 100.0100, L500.2500 #### [facility] Laboratory [address] [place], [address] Basophils/100 WBC (Bld) 0.6 % Normal 0-1 [facility] Comment on above: Performed By: #### L 100.0100, L500.2500 #### [facility] Laboratory [address] [place], [address] Eosinophils/100 WBC (Bld) 2.8 % Normal 0-5 [facility] Comment on above: Performed By: #### L 100.0100, L500.2500 #### [facility] Laboratory [address] [place], [address] Erythrocyte distribution width (RBC) [Ratio] 13.4 % Normal 11.6-14.6 [facility] Comment on above: Performed By: #### L 100.0100, L500.2500 #### [facility] Laboratory [address] [place], [address] Hematocrit (Bld) [Volume fraction] 40.0 % Normal 37-47 [facility] Comment on above: Performed By: #### L 100.0100, L500.2500 #### [facility] Laboratory [address] [place], [address] Hemoglobin (Bld) [Mass/Vol] 13.1 g/dL Normal 12.0-15.0 [facility] Comment on above: Performed By: #### L 100.0100, L500.2500 #### [facility] Laboratory [address] [place], [address] IG% 0.200 Normal 0.0-0.9 [facility] Comment on above: Result Comment: IG% - Immature Granulocytes (promyelocytes, myelocytes and metamyelocytes) > 1% indicates that a LEFT SHIFT is Present. Performed By: #### L 100.0100, L500.2500 #### [facility] Laboratory [address] [place], [address] Lymphocytes/100 WBC (Bld) 44.8 % High 19-41 [facility] Comment on above: Performed By: #### L 100.0100, L500.2500 #### [facility] Laboratory [address] [place], [address] MCH (RBC) [Entitic mass] 31.4 pg Normal 27.0-32.0 [facility] Comment on above: Performed By: #### L 100.0100, L500.2500 #### [facility] Laboratory [address] [place], [address] MCHC (RBC) [Mass/Vol] 32.8 g/dL Normal 32-36 [facility] Comment on above: Performed By: #### L 100.0100, L500.2500 #### [facility] Laboratory [address] [place], [address] MCV (RBC) [Entitic vol] 95.9 fL Normal 81-99 [facility] Comment on above: Performed By: #### L 100.0100, L500.2500 #### [facility] Laboratory [address] [place], [address] Monocytes/100 WBC (Bld) 12.7 % High 0-10 [facility] Comment on above: Performed By: #### L 100.0100, L500.2500 #### [facility] Laboratory [address] [place], [address] Neutrophils/100 WBC (Bld) 38.9 % Low 47-70 [facility] Comment on above: Performed By: #### L 100.0100, L500.2500 #### [facility] Laboratory [address] [place], [address] Nucleated RBC (Bld) [#/Vol] 0 10*3/uL Normal 0-5 [facility] Comment on above: Performed By: #### L 100.0100, L500.2500 #### [facility] Laboratory [address] [place], [address] Platelet mean volume (Bld) [Entitic vol] 8.8 fL Normal 6.2-12.0 [facility] Comment on above: Performed By: #### L 100.0100, L500.2500 #### [facility] Laboratory [address] [place], [address] Platelets (Bld) [#/Vol] 282 10*3/uL Normal 150-450 [facility] Comment on above: Performed By: #### L 100.0100, L500.2500 #### [facility] Laboratory [address] [place], [address] RBC (Bld) [#/Vol] 4.17 10*6/uL Low 4.2-5.4 [facility] Comment on above: Performed By: #### L 100.0100, L500.2500 #### [facility] Laboratory [address] [place], [address] RDW SD 47.8 fl High 35.1-43.9 [facility] Comment on above: Performed By: #### L 100.0100, L500.2500 #### [facility] Laboratory [address] [place], [address] WBC (Bld) [#/Vol] 5.3 10*3/uL Normal 4.4-11.0 [facility] Comment on above: Performed By: #### L 100.0100, L500.2500 #### [facility] Laboratory [address] [place], [address] Pulmonary Visit Reporton Pulmonary Visit Report [facility] Pulmonary Medicine [address] [place] [address] OFFICE VISIT Date of Service: 06/12/25 MR#: [id number] Acct: [id number] Name: ZAHRA SANDOVAL Rep #: [id number] : 1955 Provider: Sapna Cuevas NP Age/Sex: 70/F Location: [facility] Status: Signed Assessment and Plan Assessment and Plan (1) Obstructive sleep apnea: Status: Chronic Comment: AHI 26 Plan: The pathophysiology of obstructive sleep apnea was discussed at length with patient today. The need for treatment of this disease process was also reviewed. The comorbid conditions associated with sleep apnea were discussed at length including A-fib stroke and dementia. I have recommended that she treat moderate restrictive sleep apnea with PAP therapy. The various treatment options were reviewed as well. The patient is apprehensive about utilizing PAP device at night. I have recommended that she work with RT to acclimate to therapy. She is agreeable to trial AutoPap and I have recommended settings of 6 to 12 cm. I recommend a follow-up within 12 weeks and a compliance download be available at that setting. (2) Obesity: Status: Chronic Qualifiers: Body mass index: BMI 36.0-36.9 Obesity classification: adult class 2 (BMI 35 - 39.9) Obesity type: due to excess calories Serious obesity comorbidity presence: unspecified whether serious comorbidity present Qualified Code(s): E66.812 - Obesity, class 2; E66.09 - Other obesity due to excess calories; Z68.36 - Body mass index [BMI] 36.0-36.9, adult Plan: She is encouraged to continue to work on weight loss. Treating sleep apnea should further promote weight loss. (3) Essential hypertension: Status: Acute Plan: Controlled today. Continue to follow with PCP Orders: Orders Self Mgmnt Educ Training Today G47.33 - Obstructive sleep apnea (adult) (pediatric) Plan Details Follow Up: 12 Weeks (LMR) HPI HPI Comments Details: Patient is a 70-year-old female who presents today to establish for sleep disordered breathing. She is ambulatory and currently on room air. She is being referred by Dr. Nielson she did complete a PSG May 28, 2025 which showed moderate obstructive sleep apnea using the 4% rule the AHI was 26.3, using the 3% rule the AHI was 60.5. She has no history of asthma or COPD. She does report a history of chronic bronchitis and pneumonia. Reports that she had COVID and did utilize oxygen therapy at night for some time. She w as not intubated or hospitalized. She has had a history of hypertension and was utilizing blood pressure medication for quite some time but then lost 20 pounds and was able to discontinue the medication. She is a lifelong non-smoker. She does have a father and sister with sleep apnea. The patient reports she is feeling rested upon awakening. She does not nap throughout the day. Nocturia will occur x 2-3 and WASO is 1 hour. She has been sleepy while driving. She is apprehensive about treating sleep apnea. She reports that she does move from [id number] and changes positions throughout the night. Intake Vital Signs 06/01/24 10:02 06/12/25 12:21 Height 5 ft 3.5 in 5 ft 3.5 in Weight: 211 lb BMI 36.8 BP 123/70 H Blood Pressure Location Lt brachial Position Sitting Respiration 18 Pulse 89 Pulse Source Monitor Temp 97.5 F L Temperature Source Temporal Artery Pulse Oximetry (%) 96 Oxygen Delivery Method room air Intake Visit Reasons: Sleep problems Chief Complaint: COVID-19 Sustainability Officer Required: No Accompanied by: Self Allergies tramadol (From [facility]) Allergy (Verified 06/12/25 13:57) Nausea Medications ???Medication ???Instructions ???Recorded ???Confirmed ???Type pantoprazole 40 mg tablet,delayed 40 mg PO DAILY 12/23/20 06/12/25 History release (Protonix) cholecalciferol (vitamin D3) 125 125 mcg PO DAILY 07/17/21 06/12/25 History mcg (5,000 unit) tablet calcium carbonate (Calcium 600) 1,200 mg PO DAILY 07/29/21 5 History omega-3 fatty acids 1,000 mg 3,000 mg PO DAILY 07/29/21 5 History capsule (Fish Oil Concentrate) Lactobacillus plantarum 5 billion cell PO QDAY 06/05/25 06/12/25 Hi story cell capsule (Nugut Bowel Support Probiotic) furosemide 20 mg tablet (Lasix) 20 mg PO QAM 06/05/25 06/12/25 His tory garlic 1,000 mg capsule 1,000 mg PO QDAY 06/05/25 06/12/25 History levothyroxine 75 mcg tablet mcg PO 06/05/25 06/12/25 History vitamin B complex 1 tab PO QDAY 06/05/25 06/12/25 Hi story zinc glycinate 20 mg capsule 20 mg PO QDAY 06/05/25 06/12/25 Hi story Have you fallen in the past year?: No PFSH Medical History Elevated LFTs Obesity Sheba thyroiditis, fibrous variant Hypothyr (more content not included)... Normal [facility] Magnetic resonance imaging r eportOrdered By: Mauro Mendoza on 05-27-2025 Study report [facility] Imaging Services [address] [place] [address] Lower Ext/No Jt/w/o MR#: [id number] Acct: [id number] Name: ZAHRA SANDOVAL Rep #: [id number] : 1955 F 70 From: Shelley Mendoza MD PCP: Dr. Ana Luisa Nielson, Status: RE G CLI Study:Lower Ext/No Jt/w/o Date of Exam: 05/24/25 Exam# [id number] Ordering Dr: Alejandro Miranda DP PROCEDURE: LOWER EXT/NO JT/W/O 05/24/2025 REASON FOR EXAM: PAIN ARTHRITIS LEFT TARSOMETATARSEL AND MIDJT. PAIN TECHNIQUE: Procedure Code: [id number] Modality: MR Procedure: LOWER EXT/NO JT/W/O T1, T2, stir, multiplanar and multisequence images of the left midfoot were obtained without IV contrast administration. COMPARISON: COMPARISON : November 02, 2019 FINDINGS: Bones: There is a 0.6 x 1.7 cm developing osteochondral defect in the superior lateral talar dome with no visible free fragment. There is subcortical cyst formation in the proximal articular surface of the medial cuneiform with the largest measuring 0.8 cm, with adjacent marrow edema. Subcortical edema and dorsal osteophytes are noted at the 2nd and 3rd tarsometatarsal articulation. There is marrow edema in the proximal 3rd of the 2nd and 3rd metatarsals with novisible displaced fracture. There is marrow edema in the navicular with no visible displaced fracture, and degenerative features. No acute fractures or dislocations. Achilles tendon: Not included Tendons: Evaluation of the peroneal tendons demonstrates no evidence of tendinosis or dislocation. The flexor digitorum longus, tibialis posterior and flexor hallucis longus tendons are intact. The extensor tendons are intact. The extensor retinaculum is intact and normal in signal. Sinus Tarsi: The subtalar joint is intact. Signal in the sinus tarsi is normal.Transverse and cervical ligaments are intact. Ligaments: Lateral syndesmotic ankle ligaments are not included. The anterior and posterior talofibular ligaments are not included. The medial ankle ligaments are not included. The Lisfranc articulation is aligned and intact. Effusion: There is a small effusion of the talonavicular articulation. MRI/Lower Ext/No Jt/w/o IMPRESSION: There is a 0.6 x 1.7 cm developing osteochondral defect in the superior lateral talar dome with no visible free fragment. There is subcortical cyst formation in the proximal articular surface of the medial cuneiform with the largest measuring 0.8 cm, with adjacent marrow edema. Subcortical edema and dorsal osteophytes are noted at the 2nd and 3rd tarsometatarsal articulation. There is marrow edema in the proximal 3rd of the 2nd and 3rd metatarsals with novisible displaced fracture. There is marrow edema in the navicular with no visible displaced fracture, and degenerative features. There is a small effusion of the talonavicular articulation. Reading Location: [facility] CC: JASON Miranda; Dr. Ana Luisa Nielson DO ~ Neonatal Doctor: Signed [facility] Lower Ext/No Jt/w/oon 2024 Lower Ext/No Jt/w/o [facility] Imaging Services [address] [place] [address] [id number] Lower Ext/No Jt/w/o MR#: [id number] Acct: [id number] Name: ZAHRA SANDOVAL Rep #: [id number] : 1955 F 70 From: Mauro Mendoza MD PCP: Dr. Ana Luisa Nielson DO Status: REG CLI Study: Lower Ext/No Jt/w/o Date of Exam: 05/24/25 Exam# [id number] Ordering Dr: Alejandro Miranda DPM PROCEDURE: LOWER EXT/NO JT/W/O 05/24/2025 REASON FOR EXAM: PAIN ARTHRITIS LEFT TARSOMETATARSEL AND MIDJT. PAIN TECHNIQUE: Procedure Code: [id number] Modality: MR Procedure: LOWER EXT/NO JT/W/O T1, T2, stir, multiplanar and multisequence images of the left midfoot were obtained without IV contrast administration. COMPARISON: COMPARISON : November 02, 2019 FINDINGS: Bones: There is a 0.6 x 1.7 cm developing osteochondral defect in the superior lateral talar dome with no visible free fragment. There is subcortical cyst formation in the proximal articular surface of the medial cuneiform with the largest measuring 0.8 cm, with adjacent marrow edema. Subcortical edema and dorsal osteophytes are noted at the 2nd and 3rd tarsometatarsal articulation. There is marrow edema in the proximal 3rd of the 2nd and 3rd metatarsals with no visible displaced fracture. There is marrow edema in the navicular with no visible displaced fracture, and degenerative features. No acute fractures or dislocations. Achilles tendon: Not included Tendons: Evaluation of the peroneal tendons demonstrates no evidence of tendinosis or dislocation. The flexor digitorum longus, tibialis posterior and flexor hallucis longus tendons are intact. The extensor tendons are intact. The extensor retinaculum is intact and normal in signal. Sinus Tarsi: The subtalar joint is intact. Signal in the sinus tarsi is normal. Transverse and cervical ligaments are intact. Ligaments: Lateral syndesmotic ankle ligaments are not included. The anterior and posterior talofibular ligaments are not included. The medial ankle ligaments are not included. The Lisfranc articulation is aligned and intact. Effusion: There is a small effusion of the talonavicular articulation. MRI/Lower Ext/No Jt/w/o IMPRESSION: There is a 0.6 x 1.7 cm developing osteochondral defect in the superior lateral talar dome with no visible free fragment. There is subcortical cyst formation in the proximal articular surface of the medial cuneiform with the largest measuring 0.8 cm, with adjacent marrow edema. Subcortical edema and dorsal osteophytes are noted at the 2nd and 3rd tarsometatarsal articulation. There is marrow edema in the proximal 3rd of the 2nd and 3rd metatarsals with no visible displaced fracture. There is marrow edema in the navicular with no visible displaced fracture, and degenerative features. There is a small effusion of the talonavicular articulation. Reading Location: [facility] CC: DPM Dr. Alejandro Miranda; Dr. Ana Luisa Nielson DO Neonatal Doctor: Signed Normal [facility] Breast imaging reportOrdered By: Pita Lloyd on 05-02-2025 Study report [facility] Imaging Services [address] [place] [address] SCRN MAMM (CAD)W/ALISON BILAT MR#: [id number] Acct: [id number] Name: ZAHRA SANDOVAL Rep #: [id number] : 1955 F 70 From: Silvio Lloyd MD PCP: Dr. Ana Luisa Nielson DO Status: RE G CLI Study:SCRN MAMM (CAD)W/ALISON BILAT Date of Exa m: 05/01/25 Exam# [id number] Ordering Dr: Janelle Nielson DO ADDENDUM by Dr. Edwin Lundy MD on 05/02/25 at 1144 The interpreting physician was not credentialed at the hospital at the time of the dictation. IM the lead security control room officer. I agree with the report. Reading Location: [id number] 05/02/25 1145 Date cc: Dr. Ana Luisa Nielson DO ~* Signed EXAM: SCRN MAMM (CAD)W/ALISON BILAT DATE: 05/01/2025 CLINICAL HISTORY: F, Age 70 y/o , BREAST CANCER SCREENING No family history of malignancy TECHNIQUE: SCRN MAMM (CAD)W/ALISON BILAT 3-dimensional tomosynthesis and composite views of both breasts were obtained, using full field digital mammography. The iCAD computer-aided detection system was utilized in conjunction with the interpretation of this examination. COMPARISON: Prior exam(s) dated 12/24/2022, 12/22/2021 and 07/17/2018. FINDINGS: TISSUE DENSITY: There are scattered areas of fibroglandular density. Bilateral Breast Mammographic Findings: Stable mammogram. Stable parenchymal pattern. No suspicious masses, areas of developing architectural distortion, or suspicious calcifications. There has been no significant interval change. BI/SCRN MAMM (CAD)W/ALISON BILAT IMPRESSION: 1. Stable mammogram. No mammographic evidence of malignancy. OVERALL FINAL ASSESSMENT BI-RADS 1: NEGATIVE. RECOMMENDATION: Routine annual follow-up in 1 Year A letter with findings and recommendations will be mailed to the patient. Reading Location[facility] CC: Dr. Ana Luisa Nielson, ~ Neonatal Doctor: Signed [facility] Bone density reportOrdered B y: Edwin Lundy on 05-01-2025 Study report Skeletal system DXA [facility] Imaging Services [address] [place] [address] Dexa Bone Density Study MR#: [id number] Acct: [id number] Name: ZAHRA SANDOVAL ROSALIO Rep #: [id number] : 1955 F 70 From: Kashif Lundy MD PCP: Dr. Ana Luisa Nielson DO Status: RE G CLI Study:Dexa Bone Density Study Date of Exam: 05/01/25 Exam# [id number] Ordering Dr: Janelle Nielson DO PROCEDURE: DEXA BONE DENSITY STUDY 05/01/2025 REASON FOR EXAM: F, age 70 y/o . Postmenopausal. TECHNIQUE: DEXA BONE DENSITY STUDY COMPARISON: Prior study dated December 22, 2021. FINDINGS: BMD and T-SCORES Lumbar spine: 0.883 g/cm2, T-score -1.5 Levels: L1 through L4 Change from prior: Improvement of 5.8%. Left femoral neck: 0.595 g/cm2, T-score -2.3 Femoral neck comparison data not recommended for monitoring change. Left total hip: 0.833 g/cm2, T-score -0.9 Change from prior: Loss of 2.1%. Right femoral neck: 0.589 g/cm2, T-score -2.3 Femoral neck comparison data not recommended for monitoring change. Right total hip: 0.788 g/cm2, T-score -1.3 Change from prior: Loss of 5.6%. The World Health Organization has defined the following categories based on bonedensity: Normal bone density: T-score equal to or greater than -1.0 Osteopenia: T-score between -1.0 and -2.5 Osteoporosis: T-score equal to or less than -2.5 FRAX (or Comparable) Fracture Risk Assessment: 10 Year Probability of Fracture: Major Osteoporotic Fracture: 11% Hip Fracture: 2.2% (Note: FRAX is not to be reported in setting of normal range bone density, osteoporosis on DEXA, known history of osteoporosis, prior osteoporotic hip or vertebral fracture, or for any patient undergoing pharmacological treatment for bone loss.) The National Osteoporosis Foundation (NOF) recommends pharmacological treatment for patients with a FRAX 10-year risk of 3% or higher for a hip fracture, or 20% or higher for a major osteoporotic fracture, to prevent osteoporosis and reduce fracture risk. The patient does meet the pharmacological treatment recommendations for prevention of osteoporosis. BD/Dexa Bone Density Study IMPRESSION: OSTEOPENIA. Recommend follow-up as clinically warranted. Reading Location: [id number] CC: Dr. Ana Luisa Nielson DO ~ Neonatal Doctor: Signed [facility] Dexa Bone Density Studyon Dexa Bone Density Study [facility] Imaging Services [address] [place] [id number] Dexa Bone Density Study MR#: [id number] Acct: [id number] Name: ZAHRA SANDOVAL Rep #: [id number] : 1955 F 70 From: Edwin azevedo MD PCP: Dr. Ana Luisa Nielson DO Status: REG CLI Study: Dexa Bone Density Study Date of Exam: 05/01/25 Exam# [id number] Ordering Dr: Ana Luisa Nielson DO PROCEDURE: DEXA BONE DENSITY STUDY 05/01/2025 REASON FOR EXAM: F, age 70 y/o . Postmenopausal. TECHNIQUE: DEXA BONE DENSITY STUDY COMPARISON: Prior study dated December 22, 2021. FINDINGS: BMD and T-SCORES Lumbar spine: 0.883 g/cm2, T-score -1.5 Levels: L1 through L4 Change from prior: Improvement of 5.8%. Left femoral neck: 0.595 g/cm2, T-score -2.3 Femoral neck comparison data not recommended for monitoring change. Left total hip: 0.833 g/cm2, T-score -0.9 Change from prior: Loss of 2.1%. Right femoral neck: 0.589 g/cm2, T-score -2.3 Femoral neck comparison data not recommended for monitoring change. Right total hip: 0.788 g/cm2, T-score -1.3 Change from prior: Loss of 5.6%. The World Health Organization has defined the following categories based on bone density: Normal bone density: T-score equal to or greater than -1.0 Osteopenia: T-score between -1.0 and -2.5 Osteoporosis: T-score equal to or less than -2.5 FRAX (or Comparable) Fracture Risk Assessment: 10 Year Probability of Fracture: Major Osteoporotic Fracture: 11% Hip Fracture: 2.2% (Note: FRAX is not to be reported in setting of normal range bone density, osteoporosis on DEXA, known history of osteoporosis, prior osteoporotic hip or vertebral fracture, or for any patient undergoing pharmacological treatment for bone loss.) The National Osteoporosis Foundation (NOF) recommends pharmacological treatment for patients with a FRAX 10-year risk of 3% or higher for a hip fracture, or 20% or higher for a major osteoporotic fracture, to prevent osteoporosis and reduce fracture risk. The patient does meet the pharmacological treatment recommendations for prevention of osteoporosis. BD/Dexa Bone Density Study IMPRESSION: OSTEOPENIA. Recommend follow-up as clinically warranted. Reading Location: [id number] CC: Dr. Ana Luisa Nielson DO Neonatal Doctor: Signed Normal [facility] SCRN MAMM (CAD)W/ALISON BILATo n 05-01-2025 SCRN MAMM (CAD)W/ALISON BILAT [facility] Imaging Services [address] [place] [address] [phone] SCRN MAMM (CAD)W/ALISON BILAT MR#: [id number] Acct: [id number] Name: ZAHRA SANDOVAL Rep #: [id number] : 1955 F 70 From: Pita Lloyd MD PCP: Dr. Ana Luisa Nielson DO Status: REG CLI Study: SCRN MAMM (CAD)W/ALISON BILAT Date of Exam: 04/13 Exam# [id number] Ordering Dr: Ana Luisa Nielson DO ADDENDUM by Dr. Edwin Lundy MD on 05/02/25 at 1144 The interpreting physician was not credentialed at the hospital at the time of the dictation. IM the lead security control room officer. I agree with the report. Reading Location: [facility] 05/02/25 1145 Date cc: Dr. Ana Luisa Nielson, DO * Signed EXAM: SCRN MAMM (CAD)W/ALISON BILAT DATE: 05/01/2025 CLINICAL HISTORY: F, Age 70 y/o , BREAST CANCER SCREENING No family history of malignancy TECHNIQUE: SCRN MAMM (CAD)W/ALISON BILAT 3-dimensional tomosynthesis and composite views of both breasts were obtained, using full field digital mammography. The [employer] computer-aided detection system was utilized in conjunction with the interpretation of this examination. COMPARISON: Prior exam(s) dated 12/24/2022, 12/22/2021 and 07/17/2018. FINDINGS: TISSUE DENSITY: There are scattered areas of fibroglandular density. Bilateral Breast Mammographic Findings: Stable mammogram. Stable parenchymal pattern. No suspicious masses, areas of developing architectural distortion, or suspicious calcifications. There has been no significant interval change. BI/SCRN MAMM (CAD)W/ALISON BILAT IMPRESSION: 1. Stable mammogram. No mammographic evidence of malignancy. OVERALL FINAL ASSESSMENT BI-RADS 1: NEGATIVE. RECOMMENDATION: Routine annual follow-up in 1 Year A letter with findings and recommendations will be mailed to the patient. Reading Location: [facility] CC: Dr. Ana Luisa Nielson DO Neonatal Doctor: Signed Normal [facility] Echo Completeon 01-09-2025 Echo Complete [facility] Services [address] [place] [address] Echo Complete 01/09/25 0704 MR#: [id number] Acct: [id number] Name: ZAHRA SANDOVAL Rep #: [id number] : 1955 69 From: Adriel Merino MD Attending Dr: Dr. Ana Luisa Nielson DO Status: R EG CLI Ordering Dr: Ana Luisa Nielson DO Date: 01/09/25 Location: [facility] Sex: F C Admitted: Reason For Study Reason For Study: LOCALIZED EDEMA Procedure This was a 2D Doppler, Color Flow transthoracic echocardiogram. Exam performed in department. Left Ventricle Normal LV size. Left ventricular systolic function is normal. The left ventricular ejection fraction is 60 %. No regional wall motion abnormalities noted. Right Ventricle Normal RV size. Normal systolic function. Atria Normal left atrium. Normal right atrium. Mitral Valve Bileaflet diffuse mitral valve thickening. Tricuspid Valve Normal tricuspid valve. Mild (1+) tricuspid valve insufficiency. Pulmonary artery systolic pressure is 33 mmHg. Aortic Valve Trisinus/trileaflet aortic valve. Pulmonic Valve Normal pulmonic valve. Great Vessels Normal aortic root. Pericardium/Pleural No pericardial effusion. MMode/2D Measurements Calculations LVIDd: 4.4 cm IVSd: 1.00 cm Ao root diam: 3.5 cm LVIDs: 3.0 cm LVPWd: 0.96 cm RVDd: 3.1 cm FS: 32.6 % LAV(MOD-bp): 49.5 ml LVAd ap4: 25.9 cm2 LVAd ap2: 22.0 cm2 LAV(MOD-bp) Indexed: 24.2 ml/m2 LVLd ap4: 7.6 cm LVLd ap2: 7.2 cm LAV(MOD-sp2): 48.1 ml EDV(MOD-sp4): 71.7 ml EDV(MOD-sp2): 55.6 ml LAV(MOD-sp4): 51.4 ml EDV(sp4-el): 74.9 ml EDV(sp2-el): 56.8 ml LVAs ap4: 13.5 cm2 LVAs ap2: 11.5 cm2 LVLs ap4: 6.6 cm LVLs ap2: 6.1 cm ESV(MOD-sp4): 23.8 ml ESV(MOD-sp2): 18.4 ml ESV(sp4-el): 23.4 ml ESV(sp2-el): 18.4 ml EF(MOD-sp4): 66.9 % EF(MOD-sp2): 66.9 % EF(sp4-el): 68.7 % SV(MOD-sp4): 47.9 ml SV(MOD-sp2): 37.2 ml SV(sp4-el): 51.5 ml SI(MOD-sp4): 23.4 ml/m2 SI(MOD-sp2): 18.2 ml/m2 LA A4 area: 18.0 cm2 LA dimension(2D): 3.8 cm RA A4 area: 12.8 cm2 TAPSE: 2.2 cm Time Measurements MV dec time: 0.22 sec Doppler Measurements Calculations MV E max arnav: 80.6 cm/sec Lat Peak E' Arnav: 8.0 cm/sec Med Peak E' Arnav: 9.6 cm/sec MV A max arnav: 99.0 cm/sec E/E' lat: 10.1 E/E' med: 8.4 MV E/A: 0.81 MV V2 max: 114.7 cm/sec MV P1/2t max arnav: 96.6 cm/sec Ao V2 max: 145.2 cm/sec MV max P.3 mmHg MV P1/2t: 71.5 msec Ao max P.4 mmHg MV V2 mean: 58.0 cm/sec Ao V2 mean: 101.6 cm/sec MV mean P.6 mmHg MV dec slope: 396.0 cm/sec2 Ao mean P.7 mmHg MV V2 VTI: 32.8 cm MVA(P1/2t): 3.1 cm2 Ao V2 VTI: 33.3 cm AV (velocity ratio): 0.76 LV V1 max: 117.1 cm/sec PA V2 max: 94.9 cm/sec TR max arnav: 264.4 cm/sec LV V1 max P.5 mmHg PA V2 mean: 68.6 cm/sec TR max P.0 mmHg LV V1 mean P.9 mmHg LV V1 mean: 79.3 cm/sec LV V1 VTI: 25.4 cm ECHO/Echo Complete Interpretation Summary Normal LV size. Left ventricular systolic function is normal. The left ventricular ejection fraction is 60 %. Pulmonary artery systolic pressure is 33 mmHg. Structurally normal valves. Ordering Physician: Ana Luisa Nielson Referring Physician: Ana Luisa Nielson Performed By: Delphine Lynne, RDCS, RVT 01/09/25909 Date Adriel Merino MD CC: Dr. Ana Luisa Nielson DO Date Dictated: 01/09/25703 Date Transcribed: 01/09/25909 Neonatal Doctor: Signed Normal [facility] Foot 2 Viewson 11-02-2024 Foot 2 Views [facility] Imaging Services [address] [place] [address] [phone] Foot 2 Views MR#: [id number] Acct: [id number] Name: ZAHRA SANDOVAL ROSALIO Rep #: [id number] : 1955 F 69 From: Brandon Emerson MD PCP: Dr. Ana Luisa Nielson, DO Status: DEP AMB Study: Foot 2 Views Date of Exam: 11/02/24 Exam# [id number] Ordering Dr: Ana Luisa Nielson DO PROCEDURE: FOOT 2 VIEWS REASON FOR EXAM: Foot pain TECHNIQUE: 2 view(s) of each foot COMPARISON: None. FINDINGS: LEFT FOOT: No fracture. Calcaneal spurring. Osteopenia. Normal alignment. Mild hallux valgus deformity Soft tissues are unremarkable. RAD/Foot 2 Views IMPRESSION: Degenerative changes with no acute osseous abnormality in the left foot Reading Location: [facility] CC: Dr. Ana Luisa Nielson, DO Neonatal Doctor: Signed Normal [facility] Chest PA and Lateralon 08-06 Chest PA and Lateral [facility] [address] [place] [address] Chest PA and Lateral MR#: [id number] Acct: [id number] Name: ZAHRA SANDOVAL ROSALIO Rep #: [id number] : 1955 F 69 From: Paola Willingham MD PCP: Dr. Ana Luisa Nielson, Status: DEP AMB Study: Chest PA and Lateral Date of Exam: 08/06/24 Exam# [id number] Ordering Dr: Laney Maria JEWELRY SALES ASSOCIATE-C [id number] INDICATION: Assess for PNEUMONIA -- STAT EXAMINATION/TECHNIQUE: X-RAY - XR Chest 2 Views COMPARISON: September 08, 2023 FINDINGS: LINES/DEVICES: None. LUNGS: No consolidation, edema or effusion. No pneumothorax. MEDIASTINUM AND CARDIOVASCULAR STRUCTURES: Cardiac silhouette not enlarged. Central airways and mediastinal contour are unremarkable. BONES AND SOFT TISSUES: Unremarkable. RAD/Chest PA and Lateral IMPRESSION: No radiographic evidence of acute cardiopulmonary disease. Electronically Signed: Paola Willingham MD at 11:58 EST , CC: MELIZA Maria; Dr. Ana Luisa Nielson DO Neonatal Doctor: Signed Normal [facility] Absolute lymphocyte countOrd ered By: Laney Maria on 07-15-2023 Lymphocytes Auto (Unsp spec) [#/Vol] 2.23 10*3/uL 0.83-4.51 [facility] Basophil percentageOrdered B y: Laney Maria on 07-15-2023 Basophils/100 WBC (Bld) 0.8 % 0-1 [facility] Bilirubin [Mass/Vol] 0.30 mg/dL 0.20-1.00 [facility] Comment on above: For patients on eltr ombopag therapy, use of Dimension [place] TBIL is not recommended. Chloride [Moles/Vol] 107 mmol/L 98-107 [facility] Eosinophils/100 WBC (Bld) 3.3 % 0-5 [facility] Glucose [Mass/Vol] 96 mg/dL 74-106 [facility] Neutrophils (Bld) [#/Vol] 2.0 10*3/uL 2.0-7.7 [facility] Neutrophils/100 WBC (Bld) 39.8 % 47-70 [facility] Potassium [Moles/Vol] 4.7 mmol/L 3.5-5.1 [facility] Protein [Mass/Vol] 7.3 g/dL 6.4-8.2 [facility] Sodium [Moles/Vol] 142 mmol/L 136-145 [facility] WBC (Bld) [#/Vol] 5.1 10*3/uL 4.4-11.0 [facility] Blood erythrocytes count (nu mber/volume)Ordered By: Laney Maria on 07-15-2023 RBC (Bld) [#/Vol] 4.32 10*6/uL 4.2-5.4 [facility] Blood hemoglobin measurement (mass/volume)Ordered By: Laney Maria on 07-15-2023 Hemoglobin (Bld) [Mass/Vol] 13.7 g/dL 12.0-15.0 [facility] Blood lymphocytes/100 leukoc ytesOrdered By: Laney Maria on 07-15-2023 Lymphocytes/100 WBC (Bld) 43.6 % 19-41 [facility] Blood monocytes/100 leukocyt esOrdered By: Laney Maria on 07-15-2023 Monocytes/100 WBC (Bld) 12.3 % 0-10 [facility] Blood platelet mean volumeOr dered By: Laney Maria on 07-15-2023 Platelet mean volume (Bld) [Entitic vol] 8.9 fL 6.2-12.0 [facility] Determination of erythrocyte mean corpuscular volume (MCV)Ordered By: Laney Maria on 07-15-2023 MCV (RBC) [Entitic vol] 97.9 fL 81-99 [facility] Hematocrit Auto (Bld) [Volum e fraction]Ordered By: Laney Maria on 07-15-2023 Hematocrit (Bld) [Volume fraction] 42.3 % 37-47 [facility] Laboratory - Chemistry and C hemistry - challengeOrdered By: Laney Maria on 07-15-2023 ALP [Catalytic activity/Vol] 112 U/L 45-117 [facility] ALT [Catalytic activity/Vol] 35 U/L 13-56 [facility] CO2 [Moles/Vol] 33.0 mmol/L 21.0-32.0 [facility] Globulin (S) [Mass/Vol] 3.3 g/dL 2.2-4.2 [facility] Urea nitrogen/Creatinine [Mass ratio] 26.5 mg/mg 10-20 [facility] Laboratory - Hematology and Cell countsOrdered By: Laney Maria on 07-15-2023 Erythrocyte distribution width (RBC) [Entitic vol] 49.1 fL 35.1-43.9 [facility] Erythrocyte distribution width (RBC) [Ratio] 13.5 % 11.6-14.6 [facility] Immature granulocytes/100 WBC (Bld) 0.200 % 0.0-0.9 [facility] Comment on above: IG% - Immature Granu locytes (promyelocytes, myelocytes and metamyelocytes) > 1% indicates that a LEFT SHIFT is Present. MCH (RBC) [Entitic mass] 31.7 pg 27.0-32.0 [facility] Nucleated RBC/100 WBC (Bld) [Ratio] 0 % 0-5 [facility] MCHC Auto (RBC) [Mass/Vol]Or dered By: Laney Maria on 07-15-2023 MCHC (RBC) [Mass/Vol] 32.4 g/dL 32-36 [facility] No Panel InformationOrdered By: Laney Maria on 07-15-2023 D-Dimer Quantitative (PE/DVT) 0.42 FEU/ug/m 0.27-0.49 [facility] Comment on above: NORMAL D-Dimer level (<0.50) indicates no DVT or PE. Estimated GFR (MDRD) Amer 111 mL/min >60 [facility] Comment on above: GFR Calc Estimated GFR (MDRD) Non-Af Amer 92 mL/min >60 [facility] Comment on above: Non- GFR Calc Troponin I High Sensitivity 6 pg/mL 3.0-54.0 [facility] Comment on above: Please Note: New [place] t Units and Gender Specific Reference Ranges. For more information see Policy Stat Procedure [place] High Sensitivity Troponin (TNIH) and attachments. Platelets bldOrdered By: Torsten Maria on 07-15-2023 Platelets (Bld) [#/Vol] 279 10*3/uL 150-450 [facility] Serum or plasma albumin rosa maria urement (mass/volume)Ordered By: Laney Maria on 07-15-2023 Albumin [Mass/Vol] 4.0 g/dL 3.2-5.0 [facility] Serum or plasma albumin/glob ulin mass ratioOrdered By: Laney Maria on 07-15-2023 Albumin/Globulin [Mass ratio] 1.2 {ratio} 0.9-2.4 [facility] Serum or plasma calcium rosa maria urement (mass/volume)Ordered By: Laney Maria on 07-15-2023 Calcium [Mass/Vol] 9.6 mg/dL 8.5-10.1 [facility] Serum or plasma creatinine m easurement (mass/volume)Ordered By: Laney Maria on 07-15-2023 Creatinine [Mass/Vol] 0.68 mg/dL 0.55-1.02 [facility] Comment on above: The validity of the calculated GFR & GFRAA in patients over 70 years has not been determined. Clinical correlation is essential. Serum or plasma urea nitroge n measurement (mass/volume)Ordered By: Laney Maria on 07-15-2023 Urea nitrogen [Mass/Vol] 18 mg/dL 7-18 [facility] Thin prep Papanicolaou smear with manual screeningOrdered By: Laney Maria on 07-15-2023 Thin prep Papanicolaou smear with manual screening 18 U/L 15-37 [facility] Thin prep Papanicolaou smear with manual screening 2 5-15 [facility] Thin Prep Pap ([id number])Ordered By: [facility] Manager on 12-09-2022 Thin Prep Pap ([id number]) [facility] Normal [facility]; [facility] Work Phone: Thin Prep Pap ([phone]) . Normal [facility]; [facility] Work Phone: Thin Prep Pap ([phone]) PAPSMR Normal [facility]; [facility] Work Phone: Blood Glucose , Office [phone])Ordered By: Porsha Vicente on 10-21-2022 Glucose Glucometer (BldC) [Moles/Vol] 92 1 Normal [facility]; [facility] Work Phone: HgA1C , Office ([phone])Ordere d By: Porsha Vicente on 10-21-2022 HbA1c (Bld) [Mass fraction] 5.2 % Normal 4.6 - 7.1 [facility]; [facility] Work Phone: CALCIFIDIOL ([phone]) VIT D 25 Ordered By: [place] Manager on 10-15-2022 25-hydroxyvitamin D [Mass/Vol] 34.0 ng/mL Normal 30.0-100.0 [facility]; [facility] Work Phone: CBC W/AUTO DIFF WBC ([phone])O rdered By: [facility] [place] Manager on 10-15-2022 Basophils (Bld) [#/Vol] 0.1 10*3/uL Normal 0.0-0.2 [facility]; [facility] Work Phone: Basophils/100 WBC (Bld) 1 % Normal [facility]; [facility] Work Phone: Eosinophils (Bld) [#/Vol] 0.2 10*3/uL Normal 0.0-0.4 [facility]; [facility] Work Phone: Eosinophils/100 WBC (Bld) 3 % Normal [facility]; [facility] Work Phone: Erythrocyte distribution width (RBC) [Ratio] 12.9 % Normal 11.7-15.4 [facility]; [facility] Work Phone: Hematocrit (Bld) [Volume fraction] 41.5 % Normal 34.0-46.6 [facility]; [facility] Work Phone: Hemoglobin (Bld) [Mass/Vol] 14.3 g/dL Normal 11.1-15.9 [facility]; [facility] Work Phone: Immature granulocytes (Bld) [#/Vol] 0.0 10*3/uL Normal 0.0-0.1 [facility]; [facility] Work Phone: Immature granulocytes/100 WBC (Bld) 0 % Normal [facility]; [facility] Work Phone: Lymphocytes (Bld) [#/Vol] 2.4 10*3/uL Normal 0.7-3.1 [facility]; [facility] Work Phone: Lymphocytes/100 WBC (Bld) 39 % Normal [facility]; [facility] Work Phone: MCH (RBC) [Entitic mass] 32.3 pg Normal 26.6-33.0 [facility]; [facility] Work Phone: MCHC (RBC) [Mass/Vol] 34.5 g/dL Normal 31.5-35.7 [facility]; [facility] Work Phone: MCV (RBC) [Entitic vol] 94 fL Normal 79-97 [facility]; [facility] Work Phone: Monocytes (Bld) [#/Vol] 0.6 10*3/uL Normal 0.1-0.9 [facility]; [facility] Work Phone: Monocytes/100 WBC (Bld) 11 % Normal [facility]; [facility] Work Phone: Neutrophils (Bld) [#/Vol] 2.8 10*3/uL Normal 1.4-7.0 [facility]; [facility] Work Phone: Neutrophils/100 WBC (Bld) 46 % Normal [facility]; [facility] Work Phone: Platelets (Bld) [#/Vol] 270 10*3/uL Normal 150-450 [facility]; [facility] Work Phone: RBC (Bld) [#/Vol] 4.43 10*6/uL Normal 3.77-5.28 [facility]pr [facility]; [facility] Work Phone: WBC (Bld) [#/Vol] 6.1 10*3/uL Normal 3.4-10.8 Compre [facility]; [facility] Work Phone: LIPID PANEL ([phone])Ordered B y: [place] Manager on 10-15-2022 Cholesterol [Mass/Vol] 274 mg/dL Abnormal 100-199 [facility]; [facility] Work Phone: Cholesterol in HDL [Mass/Vol] 95 mg/dL Normal [facility]; [facility] Work Phone: Triglyceride [Mass/Vol] 65 mg/dL Normal 0-149 [facility]; [facility] Work Phone: LIPID PANEL ([phone]) 10 mg/dL Normal 5-40 [facility]; [facility] Work Phone: LIPID PANEL ([phone]) 169 mg/dL Abnormal 0-99 [facility]; [facility] Work Phone: LIPID PANEL ([phone]) 1.8 {ratio} Normal 0.0-3.2 [facility]; [facility] Work Phone: METABOLIC PANEL, COMPREHENSI VE ([phone])Ordered By: [place] Manager on 10-15-2022 Albumin [Mass/Vol] 4.5 g/dL Normal 3.8-4.8 [facility]; [facility] Work Phone: Albumin/Globulin [Mass ratio] 2.1 {ratio} Normal 1.2-2.2 [facility]; [facility] Work Phone: ALP [Catalytic activity/Vol] 110 U/L Normal 44-121 [facility]; [facility] Work Phone: ALT [Catalytic activity/Vol] 22 U/L Normal 0-32 [facility]; [facility] Work Phone: AST [Catalytic activity/Vol] 23 U/L Normal 0-40 [facility]; [facility] Work Phone: Bilirubin [Mass/Vol] 0.3 mg/dL Normal 0.0-1.2 [facility]; [facility] Work Phone: Calcium [Mass/Vol] 9.5 mg/dL Normal 8.7-10.3 [facility] Internal [facility]; [facility] Work Phone: Chloride [Moles/Vol] 102 mmol/L Normal 96-106 [facility] Internal [facility]; [facility] Work Phone: CO2 [Moles/Vol] 23 mmol/L Normal 20-29 [facility] Internal [facility]; [facility] Work Phone: Creatinine [Mass/Vol] 0.63 mg/dL Normal 0.57-1.00 [facility]; [facility] Work Phone: Globulin (S) [Mass/Vol] 2.1 g/dL Normal 1.5-4.5 [facility]; [facility] Work Phone: Protein [Mass/Vol] 6.6 g/dL Normal 6.0-8.5 [facility] Internal [facility]; [facility] Work Phone: Sodium [Moles/Vol] 142 mmol/L Normal 134-144 [facility]; [facility] Work Phone: Urea nitrogen [Mass/Vol] 20 mg/dL Normal 8-27 [facility]; [facility] Work Phone: Urea nitrogen/Creatinine [Mass ratio] 32 mg/mg Abnormal 12-28 [facility]; [facility] Work Phone: METABOLIC PANEL, COMPREHENSIVE ([phone]) 98 mL/min/1.73 Normal [facility]; [facility] Work Phone: MICROALBUMINOrdered By: AppArchitect em Principal Administrative Clerk on 10-15-2022 Albumin DL <= 20 mg/L (U) [Mass/Vol] 3.2 ug/mL Normal [facility]; [facility] Work Phone: Albumin/Creatinine (U) [Mass ratio] 3 {mg/g_creat} Normal 0-29 [facility]; [facility] Work Phone: Creatinine (U) [Mass/Vol] 108.2 mg/dL Normal [facility]; [facility] Work Phone: TSH ([phone])Ordered By: AppArchitecte m Principal Administrative Clerk on 10-15-2022 TSH Qn 4.520 {uIU/mL} Abnormal 0.450-4.50 0 [facility]; [facility] Work Phone: URINALYSIS, W/ MICRO ([phone]) Ordered By: [place] Manager on 10-15-2022 Appearance (U) Clear Normal [facility]; [facility] Work Phone: Bilirubin Ql (U) Negative Normal Comprehe nsive [facility]; [facility] Work Phone: Color (U) Yellow Normal [facility]; [facility] Work Phone: Glucose Ql (U) Negative Normal [facility]; [facility] Work Phone: Hemoglobin Ql (U) Negative Normal Compreh ensive [facility]; [facility] Work Phone: Ketones Ql (U) Negative Normal [facility]; [facility] Work Phone: Leukocyte esterase Test strip Ql (U) Negative Normal [facility]; [facility] Work Phone: Microscopic observation LM Nom (Urine sed) MICRON Normal [facility]; [facility] Work Phone: Microscopic observation LM Nom (Urine sed) See below: Normal [facility]; [facility] Work Phone: Nitrite Ql (U) Negative Normal Comprehens [facility]; [facility] Work Phone: pH (U) 6.5 [pH] Normal 5.0-7.5 [facility]; [facility] Work Phone: Protein Ql (U) Negative Normal Comprehens [facility]; [facility] Work Phone: Specific gravity (U) [Rel density] 1.021 1 Normal 1.005-1.03 0 [facility]; [facility] Work Phone: Urobilinogen (U) [Mass/Vol] 0.2 mg/dL Normal 0.2-1.0 [facility]; [facility] Work Phone: 2018 Novel Coronavirus (COVI D-19), JOSE ([id number])Ordered By: [facility] Manager on 05-27-20222018 Novel Coronavirus (COVID-19), JOSE ([id number]) Not detected Normal [facility]; [facility] Work Phone: CALCIFEDIOL ([id number])Ordered B y: [facility] Manager on 05-18-2022 25-hydroxyvitamin D [Mass/Vol] 55.3 ng/mL Normal 30.0-100.0 [facility]; [facility] Work Phone: CBC & PLATELETS (AUTO) ([phone])Ordered By: [facility] Manager on 05-18-2022 Erythrocyte distribution width (RBC) [Ratio] 13.0 % Normal 11.7-15.4 [facility]; [facility] Work Phone: Hematocrit (Bld) [Volume fraction] 40.5 % Normal 34.0-46.6 [facility]; [facility] Work Phone: Hemoglobin (Bld) [Mass/Vol] 13.4 g/dL Normal 11.1-15.9 [facility]; [facility] Work Phone: MCH (RBC) [Entitic mass] 31.3 pg Normal 26.6-33.0 [facility]; [facility] Work Phone: MCHC (RBC) [Mass/Vol] 33.1 g/dL Normal 31.5-35.7 [facility]; [facility] Work Phone: MCV (RBC) [Entitic vol] 95 fL Normal 79-97 [facility]; [facility] Work Phone: Platelets (Bld) [#/Vol] 264 10*3/uL Normal 150-450 [facility]; [facility] Work Phone: RBC (Bld) [#/Vol] 4.28 10*6/uL Normal 3.77-5.28 [facility]; [facility] Work Phone: WBC (Bld) [#/Vol] 4.3 10*3/uL Normal 3.4-10.8 [facility]; [facility] Work Phone: LIPID PANEL ([id number])Ordered B y: [facility] Manager on 05-18-2022 Cholesterol [Mass/Vol] 251 mg/dL Abnormal 100-199 [facility]; [facility] Work Phone: Cholesterol in HDL [Mass/Vol] 81 mg/dL Normal [facility]; [facility] Work Phone: Triglyceride [Mass/Vol] 65 mg/dL Normal 0-149 [facility]; [facility] Work Phone: LIPID PANEL ([id number]) 11 mg/dL Normal 5-40 [facility]; [facility] Work Phone: LIPID PANEL (16933) 159 mg/dL Abnormal 0-99 [facility]; [facility] Work Phone: LIPID PANEL (33685) 2.0 {ratio} Normal 0.0-3.2 [facility] Medicine; [facility] Work Phone: METABOLIC PANEL, BASIC ([phone])Ordered By: [facility] Manager on 05-18-2022 Calcium [Mass/Vol] 9.4 mg/dL Normal 8.7-10.3 [facility]; [facility] Work Phone: Chloride [Moles/Vol] 104 mmol/L Normal 96-106 [facility]; [facility] Work Phone: CO2 [Moles/Vol] 22 mmol/L Normal 20-29 [facility]; [facility] Work Phone: Creatinine [Mass/Vol] 0.74 mg/dL Normal 0.57-1.00 [facility]; [facility] Work Phone: Glucose [Mass/Vol] 92 mg/dL Normal 65-99 [facility]; [facility] Work Phone: Potassium [Moles/Vol] 4.5 mmol/L Normal 3.5-5.2 [facility]; [facility] Work Phone: Sodium [Moles/Vol] 143 mmol/L Normal 134-144 [facility]; [facility] Work Phone: Urea nitrogen [Mass/Vol] 15 mg/dL Normal 8-27 [facility]; [facility] Work Phone: Urea nitrogen/Creatinine [Mass ratio] 20 mg/mg Normal 12-28 [facility]; [facility] Work Phone: METABOLIC PANEL, BASIC (52184) 89 mL/min/1.73 Normal [facility]; [facility] Work Phone: TSH (THYROID STIMULATING HOR OMAR) ([id number])Ordered By: [facility] Manager on 05-18-2022 TSH Qn 4.350 {uIU/mL} Normal 0.450-4.50 0 [facility] Internal Medicine; [facility] Medicine Work Phone: HEPATITIS C ANTIBODY (45221) Ordered By: [facility] Manager on 12-04-2021 HCV Ab Signal/Cutoff IA [Rel units/Vol] {ratio} Normal 0.0-0.9 [facility]; [facility] Work Phone: 2019 Novel Coronavirus (COVI D-19), JOSE ([id number])Ordered By: [facility] Manager on 04-24-20212018 Novel Coronavirus (COVID-19), JOSE ([id number]) Not detected Normal [facility]; [facility] Work Phone: Comment on above: This nucleic acid am plification test was developed and its performancecharacteristics determined by [employer]. Nucleic acidamplification tests include RT-PCR and TMA. This test has not beenFDA cleared or approved. This test has been authorized by FDA underan Emergency Use Authorization (EUA). This test is only authorizedfor the duration of time the declaration that circumstances existjustifying the authorization of the emergency use of in vitrodiagnostic tests for detection of SARS-CoV-2 virus and/or diagnosisof COVID-19 infection under section 564(b)(1) of the Act, 21 U.S.C.360bbb-3(b) (1), unless the authorization is terminated or revokedsooner.When diagnostic testing is negative, the possibility of a falsenegative result should be considered in the context of a patient'srecent exposures and the presence of clinical signs and symptomsconsistent with COVID-19. An individual without symptoms of COVID-19and who is not shedding SARS-CoV-2 virus would expect to have anegative (not detected) result in this assay. PATIENT NOT FASTINGP ERFORMED BY: [employer] [place] [id number] STALIN (ANTINUCLEAR ANTIBODY) ( 08684)Ordered By: [facility] Manager on 04-24-2021 Nuclear Ab Ql (S) Negative Normal Compreh ensive [facility] Medicine; [facility] Work Phone: Comment on above: PATIENT NOT FASTINGP ERFORMED BY: [employer]6[address] Delivery [facility]Community [facility] [id number] C-REACTIVE PROTEIN (50557)Or dered By: Garden [facility] Manager on 04-24-2021 CRP [Mass/Vol] 2 mg/L Normal 0-10 [facility]prehens [facility]; [facility] Work Phone: Comment on above: PATIENT NOT FASTINGP ERFORMED BY: [facility] [place] [id number] CALCIFIDIOL (30274) VIT D 25 Ordered By: Garden [facility] Manager on 04-24-2021 25-hydroxyvitamin D [Mass/Vol] 39.9 ng/mL Normal 30.0-100.0 [facility]; [facility] Work Phone: Comment on above: Vitamin D deficiency has been defined by the Lucien [facility] and an Endocrine Society practice guideline as alevel of serum 25-OH vitamin D less than 20 ng/mL (1,2).The Endocrine Society went on to further define vitamin Dinsufficiency as a level between 21 and 29 ng/mL (2).1. IOM (Lucien of Medicine). 2010. Dietary reference intakes for calcium and D. [place]: The National Academies Press.2. Daphney MF, Susana SALINAS, Huy SILVER, et al. Evaluation, treatment, and prevention of vitamin D deficiency: an Endocrine Society clinical practice guideline. JCEM. 2010; 96(7):1911-30. PATIENT NOT FASTINGP ERFORMED BY: [employer] Bggjzw2252 Delivery [place] [place] [id number] CBC (AUTO) (54774)Ordered By : [facility] Manager on 04-24-2021 Erythrocyte distribution width (RBC) [Ratio] 12.4 % Normal 11.7-15.4 [facility]; [facility] Work Phone: Comment on above: PATIENT NOT FASTINGP ERFORMED BY: [employer] [facility] Vcleyi[address] [place] [id number] Hematocrit (Bld) [Volume fraction] 41.3 % Normal 34.0-46.6 [facility]; [facility] Work Phone: Comment on above: PATIENT NOT FASTINGP ERFORMED BY: [employer] [facility] Vgngjg3071 [address] [place] [id number] Hemoglobin (Bld) [Mass/Vol] 13.7 g/dL Normal 11.1-15.9 [facility]; [facility] Work Phone: Comment on above: PATIENT NOT FASTINGP ERFORMED BY: [employer] [facility] Bbgtyk8124 Barry RoadDublin [place] [id number] MCH (RBC) [Entitic mass] 32.9 pg Normal 26.6-33.0 [facility]; [facility] Work Phone: Comment on above: PATIENT NOT FASTINGP ERFORMED BY: JULIUS LabDoug Manuel6370 [address] RoadDublin [place] [id number] MCHC (RBC) [Mass/Vol] 33.2 g/dL Normal 31.5-35.7 [facility]; [facility] Work Phone: Comment on above: PATIENT NOT FASTINGP ERFORMED BY: JULIUS [facility] Jqylck3554 [address] RoadDublin [place] [id number] MCV (RBC) [Entitic vol] 99 fL Abnormal 79-97 [facility]; [facility] Work Phone: Comment on above: PATIENT NOT FASTINGP ERFORMED BY: JULIUS LabDoug Manuel6[address] RoadDublin [place] [id number] Platelets (Bld) [#/Vol] 269 10*3/uL Normal 150-450 [facility]; [facility] Work Phone: Comment on above: PATIENT NOT FASTINGP ERFORMED BY: JULIUS [facility] Pkksfl2485 Barry RoadDublin [place] [id number] RBC (Bld) [#/Vol] 4.17 10*6/uL Normal 3.77-5.28 Compr ehensive Internal Medicine; [facility] Work Phone: Comment on above: PATIENT NOT FASTINGP ERFORMED BY: CB [facility] Avogoh7644 [address] RoadDublin [place] [id number] WBC (Bld) [#/Vol] 6.1 10*3/uL Normal 3.4-10.8 Compre hensive [facility]; [facility] Work Phone: Comment on above: PATIENT NOT FASTINGP ERFORMED BY: JULIUS [facility] Uusywj4533 [address] RoadDublin [place] [id number] Folate (63032)Ordered By: Sy stem Principal Administrative Clerk on 04-24-2021 Folate [Mass/Vol] 19.9 ng/mL Normal Compreh ensive [facility]; [facility] Work Phone: Comment on above: A serum folate tahir ntration of less than 3.1 ng/mL isconsidered to represent clinical deficiency. PATIENT NOT FASTINGP ERFORMED BY: JULIUS [facility] Fkqxzq1284 Barry RoadDublin [place] [id number] METABOLIC PANEL, COMPREHENSI VE (39672)Ordered By: [facility] Manager on 04-24-2021 Albumin [Mass/Vol] 4.6 g/dL Normal 3.8-4.8 [facility]; [facility] Work Phone: Comment on above: PATIENT NOT FASTINGP ERFORMED BY: CB [facility] Qssrot3691 [address] RoadDublin [place] [id number] Albumin/Globulin [Mass ratio] 2.1 {ratio} Normal 1.2-2.2 [facility]; [facility] Work Phone: Comment on above: PATIENT NOT FASTINGP ERFORMED BY: JULIUS [facility] Kenwre[address] RoadAndreas [place] [id number] ALP [Catalytic activity/Vol] 125 U/L Abnormal 48-121 [facility]; [facility] Work Phone: Comment on above: PATIENT NOT FASTINGP ERFORMED BY: JULIUS [facility] Ipwfxx[address] [facility]in [place] [id number] ALT [Catalytic activity/Vol] 50 U/L Abnormal 0-32 [facility]; [facility] Work Phone: Comment on above: PATIENT NOT FASTINGP ERFORMED BY: CB [facility] Cfqasw[address] [facility]in [place] [id number] AST [Catalytic activity/Vol] 35 U/L Normal 0-40 [facility]; [facility] Work Phone: Comment on above: PATIENT NOT FASTINGP ERFORMED BY: JULIUS [facility] Jipbnf[address] [facility] Centerblin [place] [id number] Bilirubin [Mass/Vol] 0.2 mg/dL Normal 0.0-1.2 [facility]; [facility] Work Phone: Comment on above: PATIENT NOT FASTINGP ERFORMED BY: CB [facility] Kduuiz4346 [address] [facility] [id number] Calcium [Mass/Vol] 9.9 mg/dL Normal 8.7-10.3 [facility]; [facility] Work Phone: Comment on above: PATIENT NOT FASTINGP ERFORMED BY: [facility] Ehcvwj2241 [address] [facility] [id number] Chloride [Moles/Vol] 104 mmol/L Normal 96-106 Comp rehensive Internal Medicine; [facility] Work Phone: Comment on above: PATIENT NOT FASTINGP ERFORMED BY: [facility] Eufbho8522 [address] [facility] [id number] CO2 [Moles/Vol] 24 mmol/L Normal 20-29 [facility]; [facility] Work Phone: Comment on above: PATIENT NOT FASTINGP ERFORMED BY: [facility] Qmqork8195 [address] [facility] [id number] Creatinine [Mass/Vol] 0.67 mg/dL Normal 0.57-1.00 [facility]; [facility] Work Phone: Comment on above: PATIENT NOT FASTINGP ERFORMED BY: [facility] Brroek7816 [facility] [id number] GFR/1.73 sq M.predicted among blacks CKD-EPI (S/P/Bld) [Vol rate/Area] 107 mL/min/1.73 Normal [facility]; [facility] Work Phone: Comment on above: [facility] currently reports eGFR in compliance with the current recommendations of the National Kidney Foundation. [facility] will update reporting as new guidelines are published from the NKF-ASN Task force. PATIENT NOT FASTINGP ERFORMED BY: [facility] Dontus6756 [address] [facility] [id number] GFR/1.73 sq M.predicted among non-blacks CKD-EPI (S/P/Bld) [Vol rate/Area] 93 mL/min/1.73 Normal [facility]; [facility] Work Phone: Comment on above: PATIENT NOT FASTINGP ERFORMED BY: JULIUS [facility] Txytfl3365 [address] RoadDublin [place] [id number] Globulin (S) [Mass/Vol] 2.2 g/dL Normal 1.5-4.5 [facility]; [facility] Work Phone: Comment on above: PATIENT NOT FASTINGP ERFORMED BY: CB [facility] Zafbqn4983 [address] RoadDublin [place] [id number] Glucose [Mass/Vol] 86 mg/dL Normal 65-99 [facility]; [facility] Work Phone: Comment on above: PATIENT NOT FASTINGP ERFORMED BY: CB [facility] Mlglzj5717 [address] RoadDublin [place] [id number] Potassium [Moles/Vol] 4.9 mmol/L Normal 3.5-5.2 [facility]; [facility] Work Phone: Comment on above: PATIENT NOT FASTINGP ERFORMED BY: CB [facility] Tzwoec0407 [address] RoadDublin [place] [id number] Protein [Mass/Vol] 6.8 g/dL Normal 6.0-8.5 [facility]; [facility] Work Phone: Comment on above: PATIENT NOT FASTINGP ERFORMED BY: CB [facility] Qblnvy2090 [address] RoadDublin [place] [id number] Sodium [Moles/Vol] 142 mmol/L Normal 134-144 [facility]; [facility] Work Phone: Comment on above: PATIENT NOT FASTINGP ERFORMED BY: CB [facility] Osunit28[address] RoadDublin [place] [id number] Urea nitrogen [Mass/Vol] 17 mg/dL Normal 8-27 [facility]; [facility] Work Phone: Comment on above: PATIENT NOT FASTINGP ERFORMED BY: CB [facility] Ktxvpv0517 [address] RoadDublin [place] [id number] Urea nitrogen/Creatinine [Mass ratio] 25 mg/mg Normal 12-28 [facility]; [facility] Work Phone: Comment on above: PATIENT NOT FASTINGP ERFORMED BY: JULIUS [facility] Xtcxyq1843 [address] [facility] Centerbl[facility] [place] [id number] RHEUMATOID FACTOR-QUANT (864 31)Ordered By: [facility] Manager on 04-24-2021 Rheumatoid factor Qn [IU]/mL Normal 0.0-13.9 Comp rehensive Internal Medicine; [facility] Work Phone: Comment on above: PATIENT NOT FASTINGP ERFORMED BY: JULIUS [facility] Ldkpdb[address] [facility]in [place] [id number] SED RATE ERYTHROCYTE ([id number]) Ordered By: [facility] Manager on 04-24-2021 ESR (Bld) [Velocity] 2 mm/h Normal 0-40 Comp rehensive Internal Medicine; [facility] Work Phone: Comment on above: PATIENT NOT FASTINGP ERFORMED BY: JULIUS LabXOR.[facility]OT[facility] Azpajo4802 [address] [facility] [id number] TSH (83346)Ordered By: App[employer] m Principal Administrative Clerk on 04-24-2021 TSH Qn 3.130 {uIU/mL} Normal 0.450-4.50 0 [facility]; [facility] Work Phone: Comment on above: PATIENT NOT FASTINGP ERFORMED BY: JULIUS DonaldXOR.MOTORS Ishgej8069 [address] [facility] [id number] VITAMIN B-12 (CYANOCOBALAMIN ) (86621)Ordered By: [facility] Manager on 04-24-2021 Cobalamin (Vitamin B12) [Mass/Vol] 610 pg/mL Normal 232-1245 [facility]; [facility] Work Phone: Comment on above: PATIENT NOT FASTINGP ERFORMED BY: JULIUS [facility] Tjieqv[address] [facility]in [place] [id number] CBC (Auto) ([id number])Ordered By : Garden [facility] Manager on 11-01-2019 Erythrocyte distribution width (RBC) [Ratio] 14.7 % Normal 11.7-15.4 [facility] Work Phone: Comment on above: PATIENT NOT FASTINGP ERFORMED BY: JULIUS [facility] Owolbc9201 [address] [facility] [id number] Hematocrit (Bld) [Volume fraction] 37.9 % Normal 34.0-46.6 [facility] Work Phone: Comment on above: PATIENT NOT FASTINGP ERFORMED BY: JULIUS DonaldCogarland ManuelYwlidz1807 [address] Roadbl[address] [place] [id number] Hemoglobin (Bld) [Mass/Vol] 12.4 g/dL Normal 11.1-15.9 [facility] Work Phone: Comment on above: Verified by repeat analysis PATIENT NOT FASTINGP ERFORMED BY: JULIUS [facility] Bpgyvj[address] [facility] [facility]in [place] [id number] MCH (RBC) [Entitic mass] 30.8 pg Normal 26.6-33.0 [facility] Work Phone: Comment on above: PATIENT NOT FASTINGP ERFORMED BY: JULIUS DonaldCogarland BallThjhoc[address] [facility] [facility]in [place] [id number] MCHC (RBC) [Mass/Vol] 32.7 g/dL Normal 31.5-35.7 [facility] Work Phone: Comment on above: PATIENT NOT FASTINGP ERFORMED BY: JULIUS LabCogarland BallSzqrac0248 [address] [facility]bl[facility] [place] [id number] MCV (RBC) [Entitic vol] 94 fL Normal 79-97 [facility] Work Phone: Comment on above: PATIENT NOT FASTINGP ERFORMED BY: JULIUS [facility] Xnpyii[address] [facility] [facility]in [place] [id number] Platelets (Bld) [#/Vol] 281 {x10E3/uL} Normal 150-450 [facility] Work Phone: Comment on above: PATIENT NOT FASTINGP ERFORMED BY: JULIUS [facility] Ufpxyv4700 [address] RoadDublin [place] [id number] Platelets (Bld) [#/Vol] 281 10*3/uL Normal 150-450 [facility]; [facility] Work Phone: Comment on above: PATIENT NOT FASTINGP ERFORMED BY: JULIUS [facility] Erqfzw8043 [facility] [id number] RBC (Bld) [#/Vol] 4.03 {x10E6/uL} Normal 3.77-5.28 [facility] Work Phone: Comment on above: PATIENT NOT FASTINGP ERFORMED BY: JULIUS [facility] Uzvkss5112 [address] [facility] [id number] RBC (Bld) [#/Vol] 4.03 10*6/uL Normal 3.77-5.28 [facility]; [facility] Work Phone: Comment on above: PATIENT NOT FASTINGP ERFORMED BY: CB [facility] Djxrqr5137 [address] [facility] [id number] WBC (Bld) [#/Vol] 3.9 {x10E3/uL} Normal 3.4-10.8 [facility] Internal Medicine Work Phone: Comment on above: PATIENT NOT FASTINGP ERFORMED BY: [facility] Badici2684 [facility] [id number] WBC (Bld) [#/Vol] 3.9 10*3/uL Normal 3.4-10.8 [facility] Internal Medicine; [facility] Internal Medicine Work Phone: Comment on above: PATIENT NOT FASTINGP ERFORMED BY: JULIUS [facility] Mxvelw5793 [facility] [id number] Metabolic Panel, Basic (8004 8)Ordered By: Garden [facility] Manager on 11-01-2019 Calcium [Mass/Vol] 9.0 mg/dL Normal 8.7-10.3 [facility] Internal Medicine Work Phone: Comment on above: PATIENT NOT FASTINGP ERFORMED BY: CB [facility] Tbgske[address] [facility] [facility]in [place] [id number] Chloride [Moles/Vol] 104 mmol/L Normal 96-106 [facility] Internal Medicine Work Phone: Comment on above: PATIENT NOT FASTINGP ERFORMED BY: [facility] Eltafp9875 [address] [facility] [id number] CO2 [Moles/Vol] 23 mmol/L Normal 20-29 [facility] Internal Medicine Work Phone: Comment on above: PATIENT NOT FASTINGP ERFORMED BY: CB [facility] Wlomuh6102 [address] RoadDublin [place] [id number] Creatinine [Mass/Vol] 0.67 mg/dL Normal 0.57-1.00 [facility] Work Phone: Comment on above: PATIENT NOT FASTINGP ERFORMED BY: CB [facility] Nzffhy4907 [address] RoadDublin [place] [id number] GFR/1.73 sq M predicted among blacks CKD-EPI (S/P/Bld) [Vol rate/Area] 108 mL/min/1.73 Normal [facility] Work Phone: Comment on above: PATIENT NOT FASTINGP ERFORMED BY: CB [facility] Mxyshw9940 [address] RoadDublin [place] [id number] GFR/1.73 sq M predicted among non-blacks CKD-EPI (S/P/Bld) [Vol rate/Area] 94 mL/min/1.73 Normal [facility] Work Phone: Comment on above: PATIENT NOT FASTINGP ERFORMED BY: CB [facility] Noryqv0114 [address] RoadDublin [place] [id number] Glucose [Mass/Vol] 92 mg/dL Normal 65-99 [facility] Internal Medicine Work Phone: Comment on above: PATIENT NOT FASTINGP ERFORMED BY: CB [facility] Naapls1661 Barry RoadMission Family Health Centerin [place] [id number] Potassium [Moles/Vol] 4.6 mmol/L Normal 3.5-5.2 [facility] Work Phone: Comment on above: PATIENT NOT FASTINGP ERFORMED BY: CB [facility] Niderp5890 [address] RoadDublin [place] [id number] Sodium [Moles/Vol] 142 mmol/L Normal 134-144 [facility] Internal Medicine Work Phone: Comment on above: PATIENT NOT FASTINGP ERFORMED BY: CB [facility] Mnzuha1990 [address] RoadDublin [place] [id number] Urea nitrogen [Mass/Vol] 14 mg/dL Normal 8-27 [facility] Work Phone: Comment on above: PATIENT NOT FASTINGP ERFORMED BY: CB [facility] Gnaddy1987 [facility] [id number] Urea nitrogen/Creatinine [Mass ratio] 21 mg/mg Normal 12-28 [facility] Work Phone: Comment on above: PATIENT NOT FASTINGP ERFORMED BY: CB [facility] Vwnxyd2532 [address] [facility] [id number] URINE WESTON CULTURE-IDENTIFICA [place] ([id number])Ordered By: Garden Center Manager on 11-01-2019 Bacteria identified Cx Nom (U) MUG Normal [facility] Work Phone: Comment on above: Mixed urogenital helena ra1,000 Colonies/mL PATIENT NOT FASTINGP ERFORMED BY: CB [facility] Jgzybl2469 [facility] [id number] Information: SRC:STU Bacteria identified Cx Nom (U) Final report Normal [facility] Work Phone: Comment on above: PATIENT NOT FASTINGP ERFORMED BY: [facility] Yvkltd6521 [facility] [id number] Information: SRC:STU Urinalysis, Office ([id number])Or dered By: Radha Land on 11-01-2019 Bilirubin Ql (U) Negative Normal Comprehe nsive Internal Medicine Work Phone: Bilirubin Ql (U) Negative Normal Comprehe nsive Internal Medicine; [facility] Work Phone: Glucose Test strip (U) [Mass/Vol] Negative Normal [facility] Work Phone: Glucose Test strip (U) [Mass/Vol] Negative Normal [facility]; [facility] Work Phone: Hemoglobin Ql (U) ++ Abnormal Compreh ensive Internal Medicine Work Phone: Ketones Ql (U) Negative Normal Comprehens [facility] Work Phone: Ketones Ql (U) Negative Normal Comprehens [facility]; [facility] Work Phone: Leukocyte esterase Test strip Ql (U) Negative Normal [facility] Work Phone: Leukocyte esterase Test strip Ql (U) Negative Normal [facility]; [facility] Work Phone: Nitrite Ql (U) Negative Normal Comprehens [facility] Work Phone: Nitrite Ql (U) Negative Normal Comprehens [facility]; [facility] Work Phone: pH (U) 6 [pH] Abnormal [facility] Work Phone: Protein Ql (U) Negative Normal Comprehens [facility] Work Phone: Protein Ql (U) Negative Normal Comprehens [facility]; [facility] Work Phone: Specific gravity (U) [Rel density] 1.025 1 Normal [facility] Work Phone: Urobilinogen (24H U) [Mass/Time] Normal Normal [facility] Work Phone: CALCIFIDIOL (54721) VIT D 25 Ordered By: [facility] Manager on 07-14-2018 25-Hydroxyvitamin D2+25-Hydroxyvitamin D3 mass conc 25.5 ng/mL Abnormal 30.0-100.0 [facility] Work Phone: Comment on above: Vitamin D deficiency has been defined by the [place] ofMedicine and an Endocrine Society practice guideline as alevel of serum 25-OH vitamin D less than 20 ng/mL (1,2).The Endocrine Society went on to further define vitamin Dinsufficiency as a level between 21 and 29 ng/mL (2).1. IOM ([place] of Medicine). 2010. Dietary reference intakes for calcium and D. [place]: The National Academies Press.2. Daphney MF, Susana NC, Huy SILVER, et al. Evaluation, treatment, and prevention of vitamin D deficiency: an Endocrine Society clinical practice guideline. JCEM. 2010; 96(7):1911-30. PATIENT WAS FASTINGP ERFORMED BY: LabCoShore [facility] HospitalFumklh3707 [facility] [id number] CBC W/AUTO DIFF WBC (60140)O rdered By: [facility] [place] Manager on 07-14-2018 Basophils (Bld) [#/Vol] 0.0 {x10E3/uL} Normal 0.0-0.2 [facility] Work Phone: Comment on above: PATIENT WAS FASTINGP ERFORMED BY: [address] [id number] Basophils (Bld) [#/Vol] 0.0 10*3/uL Normal 0.0-0.2 [facility]; [facility] Work Phone: Comment on above: PATIENT WAS FASTINGP ERFORMED BY: [address] [id number] Basophils Auto #/vol (Bld) 0.0 {x10E3/uL} Normal 0.0-0.2 [facility] Work Phone: Basophils/100 WBC (Bld) 0 % Normal [facility] Work Phone: Comment on above: PATIENT WAS FASTINGP ERFORMED BY: [address] [id number] Basophils/100 WBC Auto (Bld) 0 % Normal [facility] Work Phone: Eosinophils (Bld) [#/Vol] 0.1 {x10E3/uL} Normal 0.0-0.4 [facility] Work Phone: Comment on above: PATIENT WAS FASTINGP ERFORMED BY: [address] [id number] Eosinophils (Bld) [#/Vol] 0.1 10*3/uL Normal 0.0-0.4 [facility]; [facility] Work Phone: Comment on above: PATIENT WAS FASTINGP ERFORMED BY: [address] [id number] Eosinophils Auto #/vol (Bld) 0.1 {x10E3/uL} Normal 0.0-0.4 [facility] Work Phone: Eosinophils/100 WBC (Bld) 2 % Normal [facility] Work Phone: Comment on above: PATIENT WAS FASTINGP ERFORMED BY: JULIUS DnoaldDoug Mabvxn9763 [facility] [id number] Eosinophils/100 WBC Auto (Bld) 2 % Normal [facility] Work Phone: Erythrocyte distribution width (RBC) [Ratio] 14.2 % Normal 12.3-15.4 [facility] Work Phone: Comment on above: PATIENT WAS FASTINGP ERFORMED BY: JULIUS Balllin6370 [facility] [id number] Erythrocyte distribution width Auto Ratio (RBC) 14.2 % Normal 12.3-15.4 [facility] Work Phone: Hematocrit (Bld) [Volume fraction] 39.7 % Normal 34.0-46.6 [facility] Work Phone: Comment on above: PATIENT WAS FASTINGP ERFORMED BY: JULIUS Balllin6370 [facility] [id number] Hematocrit Auto Volume Fraction (Bld) 39.7 % Normal 34.0-46.6 [facility] Work Phone: Hemoglobin mass conc (Bld) 13.0 g/dL Normal 11.1-15.9 [facility] Work Phone: Comment on above: PATIENT WAS FASTINGP ERFORMED BY: JULIUS Balllin6370 [facility] [id number] Immature granulocytes #/vol (Bld) 0.0 {x10E3/uL} Normal 0.0-0.1 [facility] Work Phone: Comment on above: PATIENT WAS FASTINGP ERFORMED BY: JULIUS LabCoTimothy Ville [id number] [facility] [id number] Immature granulocytes (Bld) [#/Vol] 0.0 10*3/uL Normal 0.0-0.1 [facility]; [facility] Work Phone: Comment on above: PATIENT WAS FASTINGP ERFORMED BY: [place] [id number] [facility] [id number] Immature granulocytes/100 WBC (Bld) 0 % Normal [facility] Work Phone: Comment on above: PATIENT WAS FASTINGP ERFORMED BY: [place] [id number] [facility] [id number] Lymphocytes (Bld) [#/Vol] 2.0 {x10E3/uL} Normal 0.7-3.1 [facility] Work Phone: Comment on above: PATIENT WAS FASTINGP ERFORMED BY: [address] [id number] Lymphocytes (Bld) [#/Vol] 2.0 10*3/uL Normal 0.7-3.1 [facility]; [facility] Work Phone: Comment on above: PATIENT WAS FASTINGP ERFORMED BY: [address] [id number] Lymphocytes Auto #/vol (Bld) 2.0 {x10E3/uL} Normal 0.7-3.1 [facility] Work Phone: Lymphocytes/100 WBC (Bld) 40 % Normal [facility] Work Phone: Comment on above: PATIENT WAS FASTINGP ERFORMED BY: [place] [id number] [facility] [id number] Lymphocytes/100 WBC Auto (Bld) 40 % Normal [facility] Work Phone: MCH (RBC) [Entitic mass] 30.5 pg Normal 26.6-33.0 [facility] Work Phone: Comment on above: PATIENT WAS FASTINGP ERFORMED BY: [address] [id number] MCH Auto Entitic mass (RBC) 30.5 pg Normal 26.6-33.0 [facility] Work Phone: MCHC (RBC) [Mass/Vol] 32.7 g/dL Normal 31.5-35.7 [facility] Work Phone: Comment on above: PATIENT WAS FASTINGP ERFORMED BY: [facility]6370 [facility] [id number] MCHC Auto mass conc (RBC) 32.7 g/dL Normal 31.5-35.7 [facility] Work Phone: MCV (RBC) [Entitic vol] 93 fL Normal 79-97 [facility] Work Phone: Comment on above: PATIENT WAS FASTINGP ERFORMED BY: [facility]6370 [facility] [id number] MCV Auto Entitic volume (RBC) 93 fL Normal 79-97 [facility] Work Phone: Monocytes (Bld) [#/Vol] 0.4 {x10E3/uL} Normal 0.1-0.9 [facility] Work Phone: Comment on above: PATIENT WAS FASTINGP ERFORMED BY: [place] [id number] [facility] [id number] Monocytes (Bld) [#/Vol] 0.4 10*3/uL Normal 0.1-0.9 [facility]; [facility] Work Phone: Comment on above: PATIENT WAS FASTINGP ERFORMED BY: [facility] [id number] Monocytes Auto #/vol (Bld) 0.4 {x10E3/uL} Normal 0.1-0.9 [facility] Work Phone: Monocytes/100 WBC (Bld) 8 % Normal [facility] Work Phone: Comment on above: PATIENT WAS FASTINGP ERFORMED BY: [facility]6370 [facility] [id number] Monocytes/100 WBC Auto (Bld) 8 % Normal [facility] Work Phone: Neutrophils (Bld) [#/Vol] 2.4 {x10E3/uL} Normal 1.4-7.0 [facility] Work Phone: Comment on above: PATIENT WAS FASTINGP ERFORMED BY: LabCo Oxbpbj7452 Barry Roadblin [place] [id number] Neutrophils (Bld) [#/Vol] 2.4 10*3/uL Normal 1.4-7.0 [facility]; [facility] Work Phone: Comment on above: PATIENT WAS FASTINGP ERFORMED BY: JULIUS LabCo Zneaam0162 Barry RoadDublin [place] [id number] Neutrophils Auto #/vol (Bld) 2.4 {x10E3/uL} Normal 1.4-7.0 [facility] Work Phone: Neutrophils/100 WBC (Bld) 50 % Normal [facility] Work Phone: Comment on above: PATIENT WAS FASTINGP ERFORMED BY: JULIUS [facility] Zjslpi0937 Barry Roadblin [place] [id number] Neutrophils/100 WBC Auto (Bld) 50 % Normal [facility] Work Phone: Platelets (Bld) [#/Vol] 280 {x10E3/uL} Normal 150-379 [facility] Work Phone: Comment on above: PATIENT WAS FASTINGP ERFORMED BY: JULIUS [facility]Put[facility] Jcpsql[address] [facility]in [place] [id number] Platelets (Bld) [#/Vol] 280 10*3/uL Normal 150-379 [facility]; [facility] Work Phone: Comment on above: PATIENT WAS FASTINGP ERFORMED BY: [facility] Rnysns0940 [address] Roadblin [place] [id number] Platelets Auto #/vol (Bld) 280 {x10E3/uL} Normal 150-379 [facility] Work Phone: RBC (Bld) [#/Vol] 4.26 {x10E6/uL} Normal 3.77-5.28 [facility] Work Phone: Comment on above: PATIENT WAS FASTINGP ERFORMED BY: JULIUS LabPut[facility] Tuziel8528 Barry RoadDublin [place] [id number] RBC (Bld) [#/Vol] 4.26 10*6/uL Normal 3.77-5.28 [facility]; [facility] Work Phone: Comment on above: PATIENT WAS FASTINGP ERFORMED BY: JULIUS LabCogarland Ghezgh9796 [facility] [id number] RBC Auto #/vol (Bld) 4.26 {x10E6/uL} Normal 3.77-5.28 [facility] Work Phone: WBC (Bld) [#/Vol] 5.0 {x10E3/uL} Normal 3.4-10.8 [facility] Work [facility]: Comment on above: PATIENT WAS FASTINGP ERFORMED BY: JULIUS Fantastic.clgarland BallNjgopb4993 [facility] [id number] WBC (Bld) [#/Vol] 5.0 10*3/uL Normal 3.4-10.8 [facility]; [facility] Work Phone: Comment on above: PATIENT WAS FASTINGP ERFORMED BY: JULIUS Fantastic.clgarland Nftjxk2679 [facility] [id number] WBC Auto #/vol (Bld) 5.0 {x10E3/uL} Normal 3.4-10.8 [facility] Work Phone: LIPID PANEL ([id number])Ordered B y: [facility] Manager on 07-14-2018 Cholesterol in HDL mass conc 77 mg/dL Normal [facility] Work Phone: Comment on above: PATIENT WAS FASTINGP ERFORMED BY: JULIUS Fantastic.cl Vhcprk2408 [facility] [id number] Cholesterol in LDL mass conc 137 mg/dL Abnormal 0-99 [facility] Work Phone: Comment on above: PATIENT WAS FASTINGP ERFORMED BY: JULIUS LabXOR.MOTORS Mzxbrq5163 [facility] [id number] Cholesterol in LDL/Cholesterol in HDL mass ratio 1.8 {ratio} Normal 0.0-3.2 [facility] Work Phone: Comment on above: LDL/HDL Ratio Men Wo men 1/2 Avg.Risk 1.0 1.5 Avg.Risk 3.6 3.2 2X Avg.Risk 6.2 5.0 3X Avg.Risk 8.0 6.1 PATIENT WAS FASTINGP ERFORMED BY: JULIUS LabCogarland BallPmoorq3394 [facility] [id number] Cholesterol in VLDL mass conc 21 mg/dL Normal 5-40 [facility] Work Phone: Comment on above: PATIENT WAS FASTINGP ERFORMED BY: JULIUS LabCoShore Memorial HospitalFzpqbj9892 [facility] [id number] Cholesterol mass conc 235 mg/dL Abnormal 100-199 [facility] Work Phone: Comment on above: PATIENT WAS FASTINGP ERFORMED BY: JULIUS LabDiaz Vylkfi0353 [facility] [id number] Triglyceride mass conc 106 mg/dL Normal 0-149 [facility] Work Phone: Comment on above: PATIENT WAS FASTINGP ERFORMED BY: JULIUS [facility]Select [facility]6370 [facility] [id number] METABOLIC PANEL, COMPREHENSI VE ([id number])Ordered By: [place] Manager on 07-14-2018 Albumin mass conc 4.5 g/dL Normal 3.6-4.8 Compreh ensive [facility] Work Phone: Comment on above: PATIENT WAS FASTINGP ERFORMED BY: JULIUS LabCoShore Memorial HospitalVqonru3573 [facility] [id number] Albumin/Globulin mass ratio 2.0 {ratio} Normal 1.2-2.2 [facility] Work Phone: Comment on above: PATIENT WAS FASTINGP ERFORMED BY: LabCo Rukanx9006 [address] [facility] [id number] ALP [Catalytic activity/Vol] 112 U/L Normal 39-117 [facility]; [facility] Work Phone: Comment on above: PATIENT WAS FASTINGP ERFORMED BY: LabCo Prxnnj3002 [address] [facility] [id number] ALP enzyme act/vol 112 [iU]/L Normal 39-117 Compre hensive [facility] Medicine Work Phone: Comment on above: PATIENT WAS FASTINGP ERFORMED BY: JULIUS LabCogarland Pislap3739 Barry RoadDublin [place] [id number] ALT [Catalytic activity/Vol] 20 U/L Normal 0-32 [facility]; [facility] Work Phone: Comment on above: PATIENT WAS FASTINGP ERFORMED BY: JULIUS LabDiaz Ozmolo2723 Barry RoadDublin [place] [id number] ALT enzyme act/vol 20 [iU]/L Normal 0-32 [facility] Medicine Work Phone: Comment on above: PATIENT WAS FASTINGP ERFORMED BY: JULIUS LabPut[facility] Pbojxn6207 [address] RoadDublin [place] [id number] AST [Catalytic activity/Vol] 22 U/L Normal 0-40 [facility] Internal [facility]; [facility] Work Phone: Comment on above: PATIENT WAS FASTINGP ERFORMED BY: JULIUS Newman Rjuwlc9305 [address] RoadDublin [place] [id number] AST enzyme act/vol 22 [iU]/L Normal 0-40 [facility] Work Phone: Comment on above: PATIENT WAS FASTINGP ERFORMED BY: JULIUS BennettDiaz Vnlxio2816 [address] Roadblin [place] [id number] Bilirubin mass conc 0.2 mg/dL Normal 0.0-1.2 [facility] Medicine Work Phone: Comment on above: PATIENT WAS FASTINGP ERFORMED BY: JULIUS LabCo Visaxz2046 [address] Roadblin [place] [id number] Calcium mass conc 9.4 mg/dL Normal 8.7-10.3 [facility] Internal Medicine Work Phone: Comment on above: PATIENT WAS FASTINGP ERFORMED BY: JULIUS LabCo Shiicb9033 [address] RoadDublin [place] [id number] Chloride molar conc 106 mmol/L Normal 96-106 Compr [facility] Internal Medicine Work Phone: Comment on above: PATIENT WAS FASTINGP ERFORMED BY: [facility] [facility]in [place] [id number] CO2 molar conc 23 mmol/L Normal 20-29 Comprehens [facility] Work Phone: Comment on above: PATIENT WAS FASTINGP ERFORMED BY: LabSelect [facility]6370 [address] [facility] [id number] Creatinine mass conc 0.60 mg/dL Normal 0.57-1.00 Comp rehensive Internal Medicine Work Phone: Comment on above: PATIENT WAS FASTINGP ERFORMED BY: [facility]6370 [facility] [id number] GFR/1.73 sq M predicted among blacks CKD-EPI vol rate/area (S/P/Bld) 113 mL/min/1.73 Normal Comprehensiv e Internal Medicine Work Phone: Comment on above: PATIENT WAS FASTINGP ERFORMED BY: [facility]6370 [address] [facility] [id number] GFR/1.73 sq M predicted among non-blacks CKD-EPI vol rate/area (S/P/Bld) 98 mL/min/1.73 Normal [facility] Work Phone: Comment on above: PATIENT WAS FASTINGP ERFORMED BY: [facility]6370 [facility] [id number] Globulin (S) [Mass/Vol] 2.3 g/dL Normal 1.5-4.5 [facility] Work Phone: Comment on above: PATIENT WAS FASTINGP ERFORMED BY: [facility]6370 [facility] [id number] Globulin Calculated mass conc (S) 2.3 g/dL Normal 1.5-4.5 [facility] Work Phone: Glucose mass conc 88 mg/dL Normal 65-99 Compreh ensive Internal Medicine Work Phone: Comment on above: PATIENT WAS FASTINGP ERFORMED BY: LabSelect [facility]6370 [address] [facility] [id number] Potassium molar conc 4.9 mmol/L Normal 3.5-5.2 Comp rehensive Internal Medicine Work Phone: Comment on above: PATIENT WAS FASTINGP ERFORMED BY: JULIUS Melva Manuel6370 [facility] [id number] Protein mass conc 6.8 g/dL Normal 6.0-8.5 Compreh ensive [facility] Medicine Work Phone: Comment on above: PATIENT WAS FASTINGP ERFORMED BY: JULIUS Trentgarland BallJrkrtq4275 [facility] [id number] Sodium molar conc 144 mmol/L Normal 134-144 Compreh ensive [facility] Medicine Work Phone: Comment on above: PATIENT WAS FASTINGP ERFORMED BY: JULIUS DonaldDoug BallGzuejj0238 [facility] [id number] Urea nitrogen mass conc 15 mg/dL Normal 8-27 [facility] Work Phone: Comment on above: PATIENT WAS FASTINGP ERFORMED BY: JULIUS Balllin6370 [facility] [id number] Urea nitrogen/Creatinine mass ratio 25 mg/mg Normal 12-28 [facility] Work Phone: Comment on above: PATIENT WAS FASTINGP ERFORMED BY: JULIUS Balllin6370 [facility] [id number] MICROALBUMINOrdered By: Syst em Principal Administrative Clerk on 07-14-2018 Albumin DL <= 20 mg/L (U) [Mass/Vol] mg/dL Normal Comprehensiv e Internal Medicine; [facility] Work Phone: Comment on above: PATIENT WAS FASTINGP ERFORMED BY: JULIUS DonaldDoug BallLjqcqc2380 [facility] [id number] Albumin DL <= 20 mg/L mass conc (U) mg/dL Normal [facility] Work Phone: Comment on above: PATIENT WAS FASTINGP ERFORMED BY: UJLIUS Balllin6370 [facility] [id number] Albumin/Creatinine mass ratio (U) <6.8 Normal 0.0-30.0 [facility] Work Phone: Comment on above: Normal: 0.0 - 30.0 A lbuminuria: 31.0 - 300.0 Clinical albuminuria: >300.0 PATIENT WAS FASTINGP ERFORMED BY: JULIUS [facility] Wvuxeu4487 [address] [facility] Centerblin [place] [id number] Creatinine mass conc (U) 44.4 mg/dL Normal [facility] Work Phone: Comment on above: PATIENT WAS FASTINGP ERFORMED BY: JULIUS [facility] Wlanzr7000 [address] Roadblin [place] [id number] Microscopic ExaminationOrder ed By: [facility] Manager on 07-14-2018 Bacteria LM.HPF #/area (Urine sed) None seen Normal [facility] Work Phone: Comment on above: PATIENT WAS FASTINGP ERFORMED BY: JULIUS [facility] Kpfyyg[address] [facility]in [place] [id number] Epithelial cells LM.HPF #/area (Urine sed) None seen Normal 0 - 10 [facility] Work Phone: Comment on above: PATIENT WAS FASTINGP ERFORMED BY: JULIUS [facility] Tbwndn[address] [facility]in [place] [id number] Mucus LM Ql (Urine sed) Present Normal [facility] Work Phone: Mucus Ql (Urine sed) Present Normal Comp rehensive Internal Medicine Work Phone: Comment on above: PATIENT WAS FASTINGP ERFORMED BY: JULIUS [facility] Xupaes[address] [facility]in [place] [id number] RBC LM.HPF #/area (Urine sed) 0-2 Normal 0 - 2 [facility] Work Phone: Comment on above: PATIENT WAS FASTINGP ERFORMED BY: JULIUS [facility] Dxsasr6769 [address] [facility] HospitalDublin [place] [id number] WBC LM.HPF #/area (Urine sed) 0-5 Normal 0 - 5 [facility] Work Phone: Comment on above: PATIENT WAS FASTINGP ERFORMED BY: JULIUS [facility] Kgkoqr6017 [address] RoadDublin [place] [id number] T3, FREE (TRIDOTHYRONINE) ([id number])Ordered By: [place] Manager on 07-14-2018 T3 free mass conc 2.9 pg/mL Normal 2.0-4.4 Compreh ensive Internal Medicine Work Phone: Comment on above: PATIENT WAS FASTINGP ERFORMED BY: CB [facility] Omwgwi3925 [address] RoadDublin [place] [id number] T4, FREE (THYROXINE) ([id number]) Ordered By: [facility] [place] Manager on 07-14-2018 T4 free mass conc 0.99 ng/dL Normal 0.82-1.77 Compreh ensive Internal Medicine Work Phone: Comment on above: PATIENT WAS FASTINGP ERFORMED BY: CB [facility] Oyywnw7407 [address] RoadDublin [place] [id number] TSH ([id number])Ordered By: AppArchitecte m Principal Administrative Clerk on 07-14-2018 Thyrotropin Qn 3.770 {uIU/mL} Normal 0.450-4.50 0 [facility] Work Phone: Comment on above: PATIENT WAS FASTINGP ERFORMED BY: [facility] Lgsdgx3654 [address] RoadDublin [place] [id number] URINALYSIS, W/ MICRO ([id number]) Ordered By: [place] Manager on 07-14-2018 Appearance Nom (U) Clear Normal Compre hensive Internal Medicine Work Phone: Comment on above: PATIENT WAS FASTINGP ERFORMED BY: [facility] Tsfkig1126 [address] RoadDublin [place] [id number] Bilirubin Ql (U) Negative Normal Comprehe nsive Internal Medicine Work Phone: Comment on above: PATIENT WAS FASTINGP ERFORMED BY: CB [facility] Pakcxc1272 [address] RoadDublin [place] [id number] Bilirubin Ql (U) Negative Normal Comprehe nsive Internal Medicine; [facility] Work Phone: Comment on above: PATIENT WAS FASTINGP ERFORMED BY: CB [facility] Jrhkjc1829 [address] RoadDublin [place] [id number] Color Nom (U) Yellow Normal Comprehensi ve Internal Medicine Work Phone: Comment on above: PATIENT WAS FASTINGP ERFORMED BY: JULIUS [facility] Fvicuz7812 [address] RoadDublin [place] [id number] Glucose Ql (U) Negative Normal Comprehens [facility] Work Phone: Comment on above: PATIENT WAS FASTINGP ERFORMED BY: JULIUS [facility] Sbdqtp3018 [address] RoadDublin [place] [id number] Glucose Ql (U) Negative Normal Comprehens [facility]; [facility] Work Phone: Comment on above: PATIENT WAS FASTINGP ERFORMED BY: JULIUS [facility] Yzyfzv8459 [address] RoadDublin [place] [id number] Hemoglobin Ql (U) Negative Normal Compreh ensive Internal Medicine Work Phone: Comment on above: PATIENT WAS FASTINGP ERFORMED BY: JULIUS [facility] Xieydu3608 [address] RoadDublin [place] [id number] Hemoglobin Ql (U) Negative Normal Compreh ensive Internal Medicine; [facility] Work Phone: Comment on above: PATIENT WAS FASTINGP ERFORMED BY: JULIUS [facility] Zgbaww7700 [address] RoadDublin [place] [id number] Hemoglobin Test strip Ql (U) Negative Normal [facility] Work Phone: Ketones Ql (U) Negative Normal Comprehens [facility] Medicine Work Phone: Comment on above: PATIENT WAS FASTINGP ERFORMED BY: JULIUS [facility] Subqzs6719 [address] RoadDublin [place] [id number] Ketones Ql (U) Negative Normal Comprehens lazarus [facility] Medicine; [facility] Work Phone: Comment on above: PATIENT WAS FASTINGP ERFORMED BY: JULIUS [facility] Tqddem0787 [address] RoadDublin [place] [id number] Leukocyte esterase Test strip Ql (U) Negative Normal [facility] Work Phone: Comment on above: PATIENT WAS FASTINGP ERFORMED BY: JULIUS [facility] Yhcgek9088 [address] RoadDublin [place] [id number] Leukocyte esterase Test strip Ql (U) Negative Normal [facility]; [facility] Work Phone: Comment on above: PATIENT WAS FASTINGP ERFORMED BY: JULIUS [facility] Onlazi5473 [address] RoadDublin [place] [id number] Microscopic observation LM Nom (Urine sed) MICRON Normal [facility] Work Phone: Comment on above: Microscopic follows if indicated. PATIENT WAS FASTINGP ERFORMED BY: JULIUS LabCogarland BallVudhah6291 [address] RoadDublin [place] [id number] Microscopic observation LM Nom (Urine sed) See below: Normal [facility] Work Phone: Comment on above: Microscopic was rachel cated and was performed. PATIENT WAS FASTINGP ERFORMED BY: JULIUS LabCogarland BallXzbbdu6559 [address] RoadDublin [place] [id number] Nitrite Ql (U) Negative Normal Comprehens [facility] Work Phone: Comment on above: PATIENT WAS FASTINGP ERFORMED BY: JULIUS Balllin6370 [address] RoadDublin [place] [id number] Nitrite Ql (U) Negative Normal Comprehens la[facility]arus [facility]; [facility] Work Phone: Comment on above: PATIENT WAS FASTINGP ERFORMED BY: JULIUS Balllin6370 [address] RoadDublin [place] [id number] Nitrite Test strip Ql (U) Negative Normal Comprehensive Internal Medicine Work Phone: pH (U) 6.0 [pH] Normal 5.0-7.5 [facility] Work Phone: Comment on above: PATIENT WAS FASTINGP ERFORMED BY: JULIUS [facility] Xlmzpl8436 Barry RoadDublin [place] [id number] pH Test strip (U) 6.0 [pH] Normal 5.0-7.5 Compreh ensive Internal Medicine Work Phone: Protein Ql (U) Negative Normal Comprehens [facility] Internal Medicine Work Phone: Comment on above: PATIENT WAS FASTINGP ERFORMED BY: JULIUS [facility] Hvcrml9040 Barry RoadDublin [place] [id number] Protein Ql (U) Negative Normal Comprehens [facility]; [facility] Work Phone: Comment on above: PATIENT WAS FASTINGP ERFORMED BY: [employer] [facility] Iwkqvl4759 Barry RoadDublin [place] [id number] Protein Test strip Ql (U) Negative Normal [facility] Work Phone: Specific gravity Relative Density (U) 1.013 1 Normal 1.005-1.03 0 [facility] Work Phone: Comment on above: PATIENT WAS FASTINGP ERFORMED BY: CB [facility] Gbyzqi9483 Barry RoadDublin [place] [id number] Urobilinogen (U) [Mass/Vol] 0.2 mg/dL Normal 0.2-1.0 [facility]; [facility] Work Phone: Comment on above: PATIENT WAS FASTINGP ERFORMED BY: CB [facility] Mvhziq3852 Barry RoadDublin [place] [id number] Urobilinogen Test strip mass conc (U) 0.2 mg/dL Normal 0.2-1.0 [facility] Internal Medicine Work Phone: Comment on above: PATIENT WAS FASTINGP ERFORMED BY: CB [facility] Lnazrj6241 [address] RoadDublin [place] [id number] CALCIFIDIOL (00859) VIT D 25 Ordered By: [place] Manager on 02-16-2017 25-Hydroxyvitamin D2+25-Hydroxyvitamin D3 mass conc 47.0 ng/mL Normal 30.0-100.0 [facility] Internal Medicine Work Phone: Comment on above: Vitamin D deficiency has been defined by the [place] ofMedicine and an Endocrine Society practice guideline as alevel of serum 25-OH vitamin D less than 20 ng/mL (1,2).The Endocrine Society went on to further define vitamin Dinsufficiency as a level between 21 and 29 ng/mL (2).1. IOM ([place] of Medicine). 2010. Dietary reference intakes for calcium and D. [place]: The National Academies Press.2. Daphney MF, Susana NC, Huy SILVER, et al. Evaluation, treatment, and prevention of vitamin D deficiency: an Endocrine Society clinical practice guideline. JCEM. 2010; 96(7):1911-30. PATIENT WAS FASTINGP ERFORMED BY: [facility] [id number] CBC W/AUTO DIFF WBC (65663)O rdered By: [place] Manager on 02-16-2017 Basophils (Bld) [#/Vol] 0.0 {x10E3/uL} Normal 0.0-0.2 [facility] Work Phone: Comment on above: PATIENT WAS FASTINGP ERFORMED BY: [facility] [id number] Basophils (Bld) [#/Vol] 0.0 10*3/uL Normal 0.0-0.2 [facility]; [facility] Work Phone: Comment on above: PATIENT WAS FASTINGP ERFORMED BY: [facility] [facility] [id number] Basophils Auto #/vol (Bld) 0.0 {x10E3/uL} Normal 0.0-0.2 [facility] Work Phone: Basophils/100 WBC (Bld) 1 % Normal [facility] Work Phone: Comment on above: PATIENT WAS FASTINGP ERFORMED BY: [facility] [id number] Basophils/100 WBC Auto (Bld) 1 % Normal [facility] Work Phone: Eosinophils (Bld) [#/Vol] 0.1 {x10E3/uL} Normal 0.0-0.4 [facility] Work Phone: Comment on above: PATIENT WAS FASTINGP ERFORMED BY: [facility] [id number] Eosinophils (Bld) [#/Vol] 0.1 10*3/uL Normal 0.0-0.4 [facility]; [facility] Work Phone: Comment on above: PATIENT WAS FASTINGP ERFORMED BY: [facility] [id number] Eosinophils Auto #/vol (Bld) 0.1 {x10E3/uL} Normal 0.0-0.4 [facility] Work Phone: Eosinophils/100 WBC (Bld) 3 % Normal [facility] Work Phone: Comment on above: PATIENT WAS FASTINGP ERFORMED BY: [place] [id number] [facility] [id number] Eosinophils/100 WBC Auto (Bld) 3 % Normal [facility] Work Phone: Erythrocyte distribution width (RBC) [Ratio] 14.0 % Normal 12.3-15.4 [facility] Work Phone: Comment on above: PATIENT WAS FASTINGP ERFORMED BY: [address] [id number] Erythrocyte distribution width Auto Ratio (RBC) 14.0 % Normal 12.3-15.4 [facility] Work Phone: Hematocrit (Bld) [Volume fraction] 39.4 % Normal 34.0-46.6 [facility] Work Phone: Comment on above: PATIENT WAS FASTINGP ERFORMED BY: [address] [id number] Hematocrit Auto Volume Fraction (Bld) 39.4 % Normal 34.0-46.6 [facility] Work Phone: Hemoglobin mass conc (Bld) 13.3 g/dL Normal 11.1-15.9 [facility] Work Phone: Comment on above: PATIENT WAS FASTINGP ERFORMED BY: [place] [id number] [facility] [id number] Immature granulocytes #/vol (Bld) 0.0 {x10E3/uL} Normal 0.0-0.1 [facility] Work Phone: Comment on above: PATIENT WAS FASTINGP ERFORMED BY: [place] [id number] [facility] [id number] Immature granulocytes (Bld) [#/Vol] 0.0 10*3/uL Normal 0.0-0.1 [facility]; [facility] Work Phone: Comment on above: PATIENT WAS FASTINGP ERFORMED BY: Trent Zwcjim2089 [facility] [id number] Immature granulocytes/100 WBC (Bld) 0 % Normal [facility] Work Phone: Comment on above: PATIENT WAS FASTINGP ERFORMED BY: [address] [id number] Lymphocytes (Bld) [#/Vol] 1.8 {x10E3/uL} Normal 0.7-3.1 [facility] Work Phone: Comment on above: PATIENT WAS FASTINGP ERFORMED BY: [address] [id number] Lymphocytes (Bld) [#/Vol] 1.8 10*3/uL Normal 0.7-3.1 [facility]; [facility] Work Phone: Comment on above: PATIENT WAS FASTINGP ERFORMED BY: [place] [id number] [facility] [id number] Lymphocytes Auto #/vol (Bld) 1.8 {x10E3/uL} Normal 0.7-3.1 [facility] Work Phone: Lymphocytes/100 WBC (Bld) 46 % Normal [facility] Work Phone: Comment on above: PATIENT WAS FASTINGP ERFORMED BY: [place] 1584570 [facility] [id number] Lymphocytes/100 WBC Auto (Bld) 46 % Normal [facility] Work Phone: MCH (RBC) [Entitic mass] 31.5 pg Normal 26.6-33.0 [facility] Work Phone: Comment on above: PATIENT WAS FASTINGP ERFORMED BY: [place] [id number] [facility] [id number] MCH Auto Entitic mass (RBC) 31.5 pg Normal 26.6-33.0 [facility] Work Phone: MCHC (RBC) [Mass/Vol] 33.8 g/dL Normal 31.5-35.7 [facility] Work Phone: Comment on above: PATIENT WAS FASTINGP ERFORMED BY: [facility]CoSh[facility] HospitalArdjgw[address] [facility]in [place] [id number] MCHC Auto mass conc (RBC) 33.8 g/dL Normal 31.5-35.7 [facility] Work Phone: MCV (RBC) [Entitic vol] 93 fL Normal 79-97 [facility] Work Phone: Comment on above: PATIENT WAS FASTINGP ERFORMED BY: [facility] [id number] MCV Auto Entitic volume (RBC) 93 fL Normal 79-97 [facility] Work Phone: Monocytes (Bld) [#/Vol] 0.5 {x10E3/uL} Normal 0.1-0.9 [facility] Work Phone: Comment on above: PATIENT WAS FASTINGP ERFORMED BY: [facility] [id number] Monocytes (Bld) [#/Vol] 0.5 10*3/uL Normal 0.1-0.9 [facility]; [facility] Work Phone: Comment on above: PATIENT WAS FASTINGP ERFORMED BY: [facility] [id number] Monocytes Auto #/vol (Bld) 0.5 {x10E3/uL} Normal 0.1-0.9 [facility] Work Phone: Monocytes/100 WBC (Bld) 13 % Normal [facility] Work Phone: Comment on above: PATIENT WAS FASTINGP ERFORMED BY: [facility] [id number] Monocytes/100 WBC Auto (Bld) 13 % Normal [facility] Work Phone: Neutrophils (Bld) [#/Vol] 1.5 {x10E3/uL} Normal 1.4-7.0 [facility] Work Phone: Comment on above: PATIENT WAS FASTINGP ERFORMED BY: JULIUS [facility] Irzhdr1748 [facility] [id number] Neutrophils (Bld) [#/Vol] 1.5 10*3/uL Normal 1.4-7.0 [facility]; [facility] Work Phone: Comment on above: PATIENT WAS FASTINGP ERFORMED BY: JULIUS [facility] Laifqi5179 [facility] [id number] Neutrophils Auto #/vol (Bld) 1.5 {x10E3/uL} Normal 1.4-7.0 [facility] Work Phone: Neutrophils/100 WBC (Bld) 37 % Normal [facility] Work Phone: Comment on above: PATIENT WAS FASTINGP ERFORMED BY: [facility] Vftgqp9000 [facility] [id number] Neutrophils/100 WBC Auto (Bld) 37 % Normal [facility] Work Phone: Platelets (Bld) [#/Vol] 255 {x10E3/uL} Normal 150-379 [facility] Work Phone: Comment on above: PATIENT WAS FASTINGP ERFORMED BY: [facility] [facility] [id number] Platelets (Bld) [#/Vol] 255 10*3/uL Normal 150-379 [facility]; [facility] Work Phone: Comment on above: PATIENT WAS FASTINGP ERFORMED BY: [facility] Atdycv2281 [facility] [id number] Platelets Auto #/vol (Bld) 255 {x10E3/uL} Normal 150-379 [facility] Work Phone: RBC (Bld) [#/Vol] 4.22 {x10E6/uL} Normal 3.77-5.28 [facility] Work Phone: Comment on above: PATIENT WAS FASTINGP ERFORMED BY: JULIUS Trent Yudqfz6650 [facility] [id number] RBC (Bld) [#/Vol] 4.22 10*6/uL Normal 3.77-5.28 [facility]; [facility] Work Phone: Comment on above: PATIENT WAS FASTINGP ERFORMED BY: JULIUS Trent Qbneua3591 [facility] [id number] RBC Auto #/vol (Bld) 4.22 {x10E6/uL} Normal 3.77-5.28 [facility] Work Phone: WBC (Bld) [#/Vol] 3.9 {x10E3/uL} Normal 3.4-10.8 [facility] Internal Medicine Work Phone: Comment on above: PATIENT WAS FASTINGP ERFORMED BY: JULIUS Trent Aasaeu5199 [facility] [id number] WBC (Bld) [#/Vol] 3.9 10*3/uL Normal 3.4-10.8 [facility] Internal Medicine; [facility] Work Phone: Comment on above: PATIENT WAS FASTINGP ERFORMED BY: JULIUS Melva Balllin6[address] [facility] [id number] WBC Auto #/vol (Bld) 3.9 {x10E3/uL} Normal 3.4-10.8 [facility] Work Phone: LIPID PANEL ([id number])Ordered B y: [facility] [place] Manager on 02-16-2017 Cholesterol in HDL mass conc 65 mg/dL Normal [facility] Work Phone: Comment on above: PATIENT WAS FASTINGP ERFORMED BY: JULIUS LabDiaz Blshxc9259 [facility] [id number] Cholesterol in LDL mass conc 121 mg/dL Abnormal 0-99 [facility] Work Phone: Comment on above: PATIENT WAS FASTINGP ERFORMED BY: JULIUS [facility] Oxghki8873 [facility] [id number] Cholesterol in LDL/Cholesterol in HDL mass ratio 1.9 {ratio_units} Normal 0.0-3.2 [facility] Work Phone: Comment on above: LDL/HDL Ratio Men Wo men 1/2 Avg.Risk 1.0 1.5 Avg.Risk 3.6 3.2 2X Avg.Risk 6.2 5.0 3X Avg.Risk 8.0 6.1 PATIENT WAS FASTINGP ERFORMED BY: JULIUS Manuel6[address] [facility] [id number] Cholesterol in VLDL mass conc 12 mg/dL Normal 5-40 [facility] Work Phone: Comment on above: PATIENT WAS FASTINGP ERFORMED BY: JULIUS Manuel6[address] [facility] [id number] Cholesterol mass conc 198 mg/dL Normal 100-199 [facility] Work Phone: Comment on above: PATIENT WAS FASTINGP ERFORMED BY: JULIUS Manuel6[address] [facility] [id number] Triglyceride mass conc 59 mg/dL Normal 0-149 [facility] Work Phone: Comment on above: PATIENT WAS FASTINGP ERFORMED BY: JULIUS Manuel6[address] [facility] [id number] METABOLIC PANEL, COMPREHENSI VE ([id number])Ordered By: [place] Manager on 02-16-2017 Albumin mass conc 4.3 g/dL Normal 3.6-4.8 Compreh ensive Internal Medicine Work Phone: Comment on above: PATIENT WAS FASTINGP ERFORMED BY: JULIUS LabDoug BallWgwdak7216 [facility] [id number] Albumin/Globulin mass ratio 1.9 {ratio} Normal 1.2-2.2 [facility] Work Phone: Comment on above: PATIENT WAS FASTINGP ERFORMED BY: JULIUS Balllin6[address] [facility] [id number] ALP [Catalytic activity/Vol] 95 U/L Normal 39-117 [facility]; [facility] Work Phone: Comment on above: PATIENT WAS FASTINGP ERFORMED BY: JULIUS [facility] Lmiznv9471 Barry RoadDublin [place] [id number] ALP enzyme act/vol 95 [iU]/L Normal 39-117 [facility] Internal Medicine Work Phone: Comment on above: PATIENT WAS FASTINGP ERFORMED BY: JULIUS [facility] Ewvhnp4433 Barry RoadDublin [place] [id number] ALT [Catalytic activity/Vol] 16 U/L Normal 0-32 [facility]; [facility] Internal Medicine Work Phone: Comment on above: PATIENT WAS FASTINGP ERFORMED BY: JULIUS [facility] Fjqkdb9707 [address] RoadDublin [place] [id number] ALT enzyme act/vol 16 [iU]/L Normal 0-32 [facility] Internal Medicine Work Phone: Comment on above: PATIENT WAS FASTINGP ERFORMED BY: JULIUS LabDoug BallNsmkbu9673 [address] RoadDublin [place] [id number] AST [Catalytic activity/Vol] 21 U/L Normal 0-40 [facility]; [facility] Internal Medicine Work Phone: Comment on above: PATIENT WAS FASTINGP ERFORMED BY: JULIUS LabCogarland BallBlkgze3673 Barry RoadDublin [place] [id number] AST enzyme act/vol 21 [iU]/L Normal 0-40 [facility] Internal Medicine Work Phone: Comment on above: PATIENT WAS FASTINGP ERFORMED BY: JULIUS [facility] Xaudci1386 [address] RoadDublin [place] [id number] Bilirubin mass conc 0.2 mg/dL Normal 0.0-1.2 [facility] Internal Medicine Work Phone: Comment on above: PATIENT WAS FASTINGP ERFORMED BY: JULIUS [facility] Khcynd0919 Barry RoadDublin [place] [id number] Calcium mass conc 9.3 mg/dL Normal 8.7-10.3 [facility] Internal Medicine Work Phone: Comment on above: PATIENT WAS FASTINGP ERFORMED BY: JULIUS [facility] Xhklxa2817 [address] RoadDublin [place] [id number] Chloride molar conc 104 mmol/L Normal 96-106 Compr ehensive Internal Medicine Work Phone: Comment on above: PATIENT WAS FASTINGP ERFORMED BY: JULIUS Melva Balllin6370 [facility] [id number] CO2 molar conc 23 mmol/L Normal 18-29 Comprehens [facility] Internal Medicine Work Phone: Comment on above: PATIENT WAS FASTINGP ERFORMED BY: JULIUS LabCo Rxhzgm3576 [facility] [id number] Creatinine mass conc 0.71 mg/dL Normal 0.57-1.00 [facility]ensive [facility] Work Phone: Comment on above: PATIENT WAS FASTINGP ERFORMED BY: JULIUS DonaldPutnam [facility] Tmmmoq1367 [facility] [id number] GFR/1.73 sq M predicted among blacks CKD-EPI vol rate/area (S/P/Bld) 107 mL/min/1.73 Normal Comprehensiv e Internal Medicine Work Phone: Comment on above: PATIENT WAS FASTINGP ERFORMED BY: JULIUS LabPut[facility] Qjqitj8382 [facility] [id number] GFR/1.73 sq M predicted among non-blacks CKD-EPI vol rate/area (S/P/Bld) 93 mL/min/1.73 Normal [facility] Work Phone: Comment on above: PATIENT WAS FASTINGP ERFORMED BY: JULIUS [facility] Nqszno1322 [facility] [id number] Globulin (S) [Mass/Vol] 2.3 g/dL Normal 1.5-4.5 [facility] Work Phone: Comment on above: PATIENT WAS FASTINGP ERFORMED BY: JULIUS [facility] Ckewlb0363 [facility] [id number] Globulin Calculated mass conc (S) 2.3 g/dL Normal 1.5-4.5 [facility] Work Phone: Glucose mass conc 89 mg/dL Normal 65-99 Compreh ensive Internal Medicine Work Phone: Comment on above: PATIENT WAS FASTINGP ERFORMED BY: JULIUS Manuel[address] [facility]in [place] [id number] Potassium molar conc 5.3 mmol/L Abnormal 3.5-5.2 Comp rehensive Internal Medicine Work Phone: Comment on above: PATIENT WAS FASTINGP ERFORMED BY: JULIUS Manuel6370 [facility] [id number] Protein mass conc 6.6 g/dL Normal 6.0-8.5 Compreh ensive Internal Medicine Work Phone: Comment on above: PATIENT WAS FASTINGP ERFORMED BY: JULIUS Manuel6370 [facility] [id number] Sodium molar conc 142 mmol/L Normal 134-144 Compreh ensive Internal Medicine Work Phone: Comment on above: PATIENT WAS FASTINGP ERFORMED BY: JULIUS Manuel6370 [facility] [id number] Urea nitrogen mass conc 21 mg/dL Normal 8-27 [facility] Work Phone: Comment on above: PATIENT WAS FASTINGP ERFORMED BY: JULIUS Manuel6370 [facility] [id number] Urea nitrogen/Creatinine mass ratio 30 mg/mg Abnormal 12- [facility] Work Phone: Comment on above: PATIENT WAS FASTINGP ERFORMED BY: JULIUS Hodges70 [facility] [id number] MICROALBUMINOrdered By: Syst em Principal Administrative Clerk on 02-16-2017 Albumin DL <= 20 mg/L mass conc (U) 3.1 ug/mL Normal [facility] Work Phone: Comment on above: PATIENT WAS FASTINGP ERFORMED BY: JULIUS Balllin6370 [facility] [id number] Albumin/Creatinine mass ratio (U) 3.0 {mg/g_creat} Normal 0.0-30.0 [facility] Work Phone: Comment on above: PATIENT WAS FASTINGP ERFORMED BY: JULIUS LabPut[facility] Rdpatj0819 [facility] [id number] Creatinine mass conc (U) 103.5 mg/dL Normal [facility] Work Phone: Comment on above: PATIENT WAS FASTINGP ERFORMED BY: JULIUS LabPut[facility] Qdvrcr3678 [facility] [id number] Microscopic ExaminationOrder ed By: [facility] [place] Manager on 02-16-2017 Bacteria LM.HPF #/area (Urine sed) None seen Normal [facility] Work Phone: Comment on above: PATIENT WAS FASTINGP ERFORMED BY: JULIUS [facility] [id number] Epithelial cells LM.HPF #/area (Urine sed) 0-10 Normal 0 - 10 [facility] Work Phone: Comment on above: PATIENT WAS FASTINGP ERFORMED BY: JULIUS LabPut[facility] Zpypsq5724 [facility] [id number] Mucus LM Ql (Urine sed) Present Normal [facility] Work Phone: Mucus Ql (Urine sed) Present Normal Comp rehensive Internal Medicine Work Phone: Comment on above: PATIENT WAS FASTINGP ERFORMED BY: JULIUS LabSelect [facility] [id number] RBC LM.HPF #/area (Urine sed) 0-2 Normal 0 - 2 [facility] Work Phone: Comment on above: PATIENT WAS FASTINGP ERFORMED BY: JULIUS LabPut[facility] Etzjtv0442 [facility] [id number] WBC LM.HPF #/area (Urine sed) 0-5 Normal 0 - 5 [facility] Work Phone: Comment on above: PATIENT WAS FASTINGP ERFORMED BY: JULIUS LabPut[facility] Llcjad5828 [facility] [id number] T3, FREE (TRIDOTHYRONINE) (9 3083)Ordered By: [place] Manager on 02-16-2017 T3 free mass conc 2.8 pg/mL Normal 2.0-4.4 Compreh ensive Internal Medicine Work Phone: Comment on above: PATIENT WAS FASTINGP ERFORMED BY: JULIUS [facility] Pauyev3449 [address] RoadDublin [place] [id number] T4, FREE (THYROXINE) (92814) Ordered By: [place] Manager on 02-16-2017 T4 free mass conc 1.08 ng/dL Normal 0.82-1.77 Compreh ensive Internal Medicine Work Phone: Comment on above: PATIENT WAS FASTINGP ERFORMED BY: JULIUS [facility] Lmqdcf8337 [address] RoadDublin [place] [id number] TSH ([id number])Ordered By: Syste m Principal Administrative Clerk on 02-16-2017 Thyrotropin Qn 1.960 {uIU/mL} Normal 0.450-4.50 0 [facility] Work Phone: Comment on above: PATIENT WAS FASTINGP ERFORMED BY: JULIUS [facility] Dhrivg8019 [address] RoadDublin [place] [id number] URINALYSIS, W/ MICRO ([id number]) Ordered By: [place] Manager on 02-16-2017 Appearance Nom (U) Clear Normal Compre hensive Internal Medicine Work Phone: Comment on above: PATIENT WAS FASTINGP ERFORMED BY: JULIUS [facility] Kqxccp4426 [address] RoadDublin [place] [id number] Bilirubin Ql (U) Negative Normal Comprehe nsive Internal Medicine Work Phone: Comment on above: PATIENT WAS FASTINGP ERFORMED BY: JULIUS [facility] Tskrwb0462 [address] RoadDublin [place] [id number] Bilirubin Ql (U) Negative Normal Comprehe nsive Internal Medicine; [facility] Work Phone: Comment on above: PATIENT WAS FASTINGP ERFORMED BY: JULIUS [facility] Gepujd7429 [address] RoadDublin [place] [id number] Color Nom (U) Yellow Normal Comprehensi ve Internal Medicine Work Phone: Comment on above: PATIENT WAS FASTINGP ERFORMED BY: JULIUS [facility] Vxcemt5822 [address] RoadDublin [place] [id number] Glucose Ql (U) Negative Normal Comprehens [facility]zarus Internal Medicine Work Phone: Comment on above: PATIENT WAS FASTINGP ERFORMED BY: JULIUS LabDoug Manuel6370 [address] RoadD[address] [place] [id number] Glucose Ql (U) Negative Normal Comprehens [facility]arus [facility] Medicine; [facility] Work Phone: Comment on above: PATIENT WAS FASTINGP ERFORMED BY: JULIUS Manuel6[address] [place] [id number] Hemoglobin Ql (U) Negative Normal Compreh ensive Internal Medicine Work Phone: Comment on above: PATIENT WAS FASTINGP ERFORMED BY: JULIUS LabDoug BallAlvghm2309 Barry RoadDublin [place] [id number] Hemoglobin Ql (U) Negative Normal Compreh ensive Internal Medicine; [facility] Work Phone: Comment on above: PATIENT WAS FASTINGP ERFORMED BY: JULIUS Manuel6[address] [place] [id number] Hemoglobin Test strip Ql (U) Negative Normal [facility] Work Phone: Ketones Ql (U) Negative Normal Comprehens lazarus Internal Medicine Work Phone: Comment on above: PATIENT WAS FASTINGP ERFORMED BY: JULIUS Manuel6370 [address] RoadD[address] [place] [id number] Ketones Ql (U) Negative Normal Comprehens lazarus Internal Medicine; [facility] Work Phone: Comment on above: PATIENT WAS FASTINGP ERFORMED BY: JULIUS Balllin6[address] [place] [id number] Leukocyte esterase Test strip Ql (U) Negative Normal [facility] Work Phone: Comment on above: PATIENT WAS FASTINGP ERFORMED BY: JULIUS LabDoug BallScafiq3219 [address] RoadDublin [place] [id number] Leukocyte esterase Test strip Ql (U) Negative Normal [facility]; [facility] Work Phone: Comment on above: PATIENT WAS FASTINGP ERFORMED BY: JULIUS Balllin6370 [address] [place] [id number] Microscopic observation LM Nom (Urine sed) MICRON Normal [facility] Work Phone: Comment on above: Microscopic follows if indicated. PATIENT WAS FASTINGP ERFORMED BY: JULIUS Manuel6[address] [place] [id number] Microscopic observation LM Nom (Urine sed) See below: Normal [facility] Work Phone: Comment on above: Microscopic was rachel cated and was performed. PATIENT WAS FASTINGP ERFORMED BY: JULIUS Manuel6[address] [place] [id number] Nitrite Ql (U) Negative Normal Comprehens [facility]zarus Internal Medicine Work Phone: Comment on above: PATIENT WAS FASTINGP ERFORMED BY: JULIUS Balllin6[address] [place] [id number] Nitrite Ql (U) Negative Normal Comprehens lazarus Internal Medicine; [facility] Work Phone: Comment on above: PATIENT WAS FASTINGP ERFORMED BY: JULIUS Balllin6370 [address] RoadMission Family Health Centerin [place] [id number] Nitrite Test strip Ql (U) Negative Normal [facility] Work Phone: pH (U) 6.0 [pH] Normal 5.0-7.5 [facility] Work Phone: Comment on above: PATIENT WAS FASTINGP ERFORMED BY: JULIUS Balllin[address] [facility] Centerblin [place] [id number] pH Test strip (U) 6.0 [pH] Normal 5.0-7.5 Compreh ensive Internal Medicine Work Phone: Protein Ql (U) Negative Normal Comprehens lazarus Internal Medicine Work Phone: Comment on above: PATIENT WAS FASTINGP ERFORMED BY: JULIUS LabDoug BallGzbyga3357 Barry RoadDublin [place] [id number] Protein Ql (U) Negative Normal Comprehens [facility]; [facility] Work Phone: Comment on above: PATIENT WAS FASTINGP ERFORMED BY: JULIUS LabDoug BallVgylck0803 Barry RoadDublin [place] [id number] Protein Test strip Ql (U) Negative Normal [facility] Work Phone: Specific gravity Relative Density (U) 1.024 1 Normal 1.005-1.03 0 [facility] Work Phone: Comment on above: PATIENT WAS FASTINGP ERFORMED BY: JULIUS [employer] Eqwrne1175 [address] RoadDublin [place] [id number] Urobilinogen (U) [Mass/Vol] 0.2 mg/dL Normal 0.2-1.0 [facility]; [facility] Work Phone: Comment on above: PATIENT WAS FASTINGP ERFORMED BY: [facility] Tprxlv8092 [address] RoadDublin [place] [id number] Urobilinogen Test strip mass conc (U) 0.2 mg/dL Normal 0.2-1.0 Comprehensiv e Internal Medicine Work Phone: Comment on above: PATIENT WAS FASTINGP ERFORMED BY: [facility] Dnmrsu6267 Barry RoadDublin [place] [id number] CALCIFEDIOL ([id number])Ordered B y: [facility] Manager on 11-24-2016 25-Hydroxyvitamin D2+25-Hydroxyvitamin D3 mass conc 59.3 ng/mL Normal 30.0-100.0 [facility] Work Phone: Comment on above: Vitamin D deficiency has been defined by the Lucien of[facility] Hospitalcine and an Endocrine Society practice guideline as alevel of serum 25-OH vitamin D less than 20 ng/mL (1,2).The Endocrine Society went on to further define vitamin Dinsufficiency as a level between 21 and 29 ng/mL (2).1. IOM (Lucien of Medicine). 2010. Dietary reference intakes for calcium and D. [place]: The National Academies Press.2. Daphney MF, Susana NC, Huy SILVER, et al. Evaluation, treatment, and prevention of vitamin D deficiency: an Endocrine Society clinical practice guideline. JCEM. 2010; 96(7):1911-30. PATIENT WAS FASTINGP ERFORMED BY: [employer] [facility] Puuora0315 [address] RoadDublin [place] [id number] METABOLIC PANEL, COMPREHENSI VE ([id number])Ordered By: [facility] [place] Manager on 11-24-2016 Albumin mass conc 4.4 g/dL Normal 3.6-4.8 Compreh [facility] Internal Medicine Work Phone: Comment on above: PATIENT WAS FASTINGP ERFORMED BY: CB [facility] Mwdpfd6408 Barry RoadDublin [place] [id number]; fu 3-20 KF Albumin/Globulin mass ratio 2.2 {ratio} Normal 1.2-2.2 [facility] Work Phone: Comment on above: Please note refere nce interval change PATIENT WAS FASTINGP ERFORMED BY: CB [facility] Khjobx9409 [address] RoadDublin [place] [id number]; fu 3-20 KF ALP [Catalytic activity/Vol] 97 U/L Normal 39-117 [facility]; [facility] Work Phone: Comment on above: PATIENT WAS FASTINGP ERFORMED BY: CB [facility] Xxeqqp9233 [address] RoadDublin [place] [id number]; fu 3-20 KF ALP enzyme act/vol 97 [iU]/L Normal 39-117 [facility] Internal Medicine Work Phone: Comment on above: PATIENT WAS FASTINGP ERFORMED BY: CB [facility] Ohpkni2621 [address] RoadDublin [place] [id number]; fu 3-20 KF ALT [Catalytic activity/Vol] 16 U/L Normal 0-32 [facility]; [facility] Work Phone: Comment on above: PATIENT WAS FASTINGP ERFORMED BY: CB [facility] Psojly7111 [address] RoadDublin [place] [id number]; fu 3-20 KF ALT enzyme act/vol 16 [iU]/L Normal 0-32 [facility] Internal Medicine Work Phone: Comment on above: PATIENT WAS FASTINGP ERFORMED BY: CB [facility] Nphgsa5812 [address] RoadDublin [place] [id number]; fu 3-20 KF AST [Catalytic activity/Vol] 17 U/L Normal 0-40 [facility]; [facility] Work Phone: Comment on above: PATIENT WAS FASTINGP ERFORMED BY: CB [facility] Tdkixk3796 [address] RoadDublin [place] [id number]; fu 3-20 KF AST enzyme act/vol 17 [iU]/L Normal 0-40 Compre [facility] Internal Medicine Work Phone: Comment on above: PATIENT WAS FASTINGP ERFORMED BY: CB [facility] Tqbpdg9205 [address] RoadDublin [place] [id number]; fu 3-20 KF Bilirubin mass conc 0.2 mg/dL Normal 0.0-1.2 Compr ensive Internal Medicine Work Phone: Comment on above: PATIENT WAS FASTINGP ERFORMED BY: CB [facility] Fiencp3485 [address] RoadDublin [place] [id number]; fu 3-20 KF Calcium mass conc 9.4 mg/dL Normal 8.7-10.3 Compreh [facility] Work Phone: Comment on above: PATIENT WAS FASTINGP ERFORMED BY: CB [facility] Lqfchi8460 [address] RoadDublin [place] [id number]; fu 3-20 KF Chloride molar conc 101 mmol/L Normal 96-106 Compr [facility] Internal Medicine Work Phone: Comment on above: PATIENT WAS FASTINGP ERFORMED BY: CB [facility] Wbpvmf1726 [address] RoadDublin [place] [id number]; fu 3-20 KF CO2 molar conc 24 mmol/L Normal 18-29 Comprehens [facility] Internal Medicine Work Phone: Comment on above: PATIENT WAS FASTINGP ERFORMED BY: CB [facility] Eafwed4013 [address] RoadDublin [place] [id number]; fu 3-20 KF Creatinine mass conc 0.63 mg/dL Normal 0.57-1.00 Comp [facility] Internal Medicine Work Phone: Comment on above: PATIENT WAS FASTINGP ERFORMED BY: CB [facility] Wnubib1216 [address] RoadDublin [place] [id number]; fu 3-20 KF GFR/1.73 sq M predicted among blacks CKD-EPI vol rate/area (S/P/Bld) 113 mL/min/1.73 Normal Comprehensiv e Internal Medicine Work Phone: Comment on above: PATIENT WAS FASTINGP ERFORMED BY: JULIUS [facility] Xydqjr8483 Barry Roadblin [place] [id number]; fu 3-20 KF GFR/1.73 sq M predicted among non-blacks CKD-EPI vol rate/area (S/P/Bld) 98 mL/min/1.73 Normal [facility] Work Phone: Comment on above: PATIENT WAS FASTINGP ERFORMED BY: CB [facility] Sauuai2079 [address] Roadblin [place] [id number]; fu 3-20 KF Globulin (S) [Mass/Vol] 2.0 g/dL Normal 1.5-4.5 [facility] Work Phone: Comment on above: PATIENT WAS FASTINGP ERFORMED BY: CB [facility] Ubfhqa6128 Barry RoadMission Family Health Centerin [place] [id number]; fu 3-20 KF Globulin Calculated mass conc (S) 2.0 g/dL Normal 1.5-4.5 [facility] Work Phone: Glucose mass conc 90 mg/dL Normal 65-99 Compreh ensive Internal Medicine Work Phone: Comment on above: PATIENT WAS FASTINGP ERFORMED BY: JULIUS [facility] Wegtrr0908 [address] [facility] [id number]; fu 3-20 KF Potassium molar conc 4.7 mmol/L Normal 3.5-5.2 Comp rehensive Internal Medicine Work Phone: Comment on above: PATIENT WAS FASTINGP ERFORMED BY: CB [facility] Ugozep[address] [facility]in [place] [id number]; fu 3-20 KF Protein mass conc 6.4 g/dL Normal 6.0-8.5 Compreh ensive Internal Medicine Work Phone: Comment on above: PATIENT WAS FASTINGP ERFORMED BY: CB [facility] Ikcfow9865 Barry RoadMission Family Health Centerin [place] [id number]; fu 3-20 KF Sodium molar conc 140 mmol/L Normal 134-144 Compreh ensive Internal Medicine Work Phone: Comment on above: PATIENT WAS FASTINGP ERFORMED BY: JULIUS LabCogarland ManuelNwcyrd6974 [address] [facility] [place] [id number]; fu 3-20 KF Urea nitrogen mass conc 18 mg/dL Normal 8 [facility] Work Phone: Comment on above: PATIENT WAS FASTINGP ERFORMED BY: JULIUS [facility] Mvvtkp[address] [facility]in [place] [id number]; fu 3-20 KF Urea nitrogen/Creatinine mass ratio 29 mg/mg Abnormal 11- [facility] Work Phone: Comment on above: PATIENT WAS FASTINGP ERFORMED BY: JULIUS LabDoug Manuel[address] [facility] [place] [id number]; fu 3- KF T3, FREE (TRIDOTHYRONINE) ([id number])Ordered By: [facility] [place] Manager on 11-24-2016 T3 free mass conc 2.8 pg/mL Normal 2.0-4.4 Compreh ensive Internal Medicine Work Phone: Comment on above: PATIENT WAS FASTINGP ERFORMED BY: JULIUS LabCo Drdgqe2743 [address] [facility] [id number] T4, FREE (THYROXINE) ([id number]) Ordered By: [facility] Manager on 11-24-2016 T4 free mass conc 1.06 ng/dL Normal 0.82-1.77 Compreh ensive Internal Medicine Work Phone: Comment on above: PATIENT WAS FASTINGP ERFORMED BY: JULIUS LabCo Raiall2360 [address] [facility] [id number] TSH (THYROID STIMULATING HOR OMAR) ([id number])Ordered By: [facility] Manager on 11-24-2016 Thyrotropin Qn 3.360 {uIU/mL} Normal 0.450-4.50 0 [facility] Work Phone: Comment on above: PATIENT WAS FASTINGP ERFORMED BY: JULIUS [facility] Mxkudo8382 [address] [facility] [id number] Thyroid Peroxidase (TPO) AbO rdered By: [facility] Manager on 11-24-2016 Thyroperoxidase Ab Qn 224 {IU/mL} Abnormal 0-34 [facility] Work Phone: Comment on above: PATIENT WAS FASTINGP ERFORMED BY: JULIUS [facility] Agtltb7267 Barry RoadDublin [place] [id number] Rapid Flu (19691 x 2)Ordered By: Nerissa Alvarenga on 11-02-2016 FLUAV Ag IA Ql (Throat) Negative Normal [facility] Work Phone: FLUAV Ag IA Ql (Throat) Negative Normal [facility]; [facility] Work Phone: Rapid Strep Test, Office ([phone])Ordered By: Nerissa Alvarenga on 11-02-2016 S. pyogenes Ag EIA Ql (Throat) Negative Normal [facility]; [facility] Work Phone: S. pyogenes Ag IA Ql (Unsp spec) Negative Normal [facility] Work Phone: CALCIFIDIOL ([id number]) VIT D 25 Ordered By: [facility] Manager on 07-23-2016 25-Hydroxyvitamin D2+25-Hydroxyvitamin D3 mass conc 27.0 ng/mL Abnormal 30.0-100.0 [facility] Work Phone: Comment on above: Vitamin D deficiency has been defined by the Lucien ofMedicine and an Endocrine Society practice guideline as alevel of serum 25-OH vitamin D less than 20 ng/mL (1,2).The Endocrine Society went on to further define vitamin Dinsufficiency as a level between 21 and 29 ng/mL (2).1. IOM (Lucien of Medicine). 2010. Dietary reference intakes for calcium and D. [place]: The National Academies Press.2. Daphney MF, Susana [place], Huy SILVER, et al. Evaluation, treatment, and prevention of vitamin D deficiency: an Endocrine Society clinical practice guideline. JCEM. 2010; 96(7):1911-30. PATIENT WAS FASTINGP ERFORMED BY: [employer] [facility] Agayvk6233 Barry RoadDublin [place] [id number] CBC, PLATELETS & AUT DIFF ([phone])Ordered By: [facility] Manager on 07-23-2016 Basophils (Bld) [#/Vol] 0.0 {x10E3/uL} Normal 0.0-0.2 [facility] Work Phone: Comment on above: PATIENT WAS FASTINGP ERFORMED BY: [place] [id number] [facility] [id number] Basophils (Bld) [#/Vol] 0.0 10*3/uL Normal 0.0-0.2 [facility]; [facility] Work Phone: Comment on above: PATIENT WAS FASTINGP ERFORMED BY: [address] [id number] Basophils Auto #/vol (Bld) 0.0 {x10E3/uL} Normal 0.0-0.2 [facility] Work Phone: Basophils/100 WBC (Bld) 1 % Normal [facility] Work Phone: Comment on above: PATIENT WAS FASTINGP ERFORMED BY: [address] [id number] Basophils/100 WBC Auto (Bld) 1 % Normal [facility] Work Phone: Eosinophils (Bld) [#/Vol] 0.1 {x10E3/uL} Normal 0.0-0.4 [facility] Work Phone: Comment on above: PATIENT WAS FASTINGP ERFORMED BY: [address] [id number] Eosinophils (Bld) [#/Vol] 0.1 10*3/uL Normal 0.0-0.4 [facility]; [facility] Work Phone: Comment on above: PATIENT WAS FASTINGP ERFORMED BY: [address] [id number] Eosinophils Auto #/vol (Bld) 0.1 {x10E3/uL} Normal 0.0-0.4 [facility] Work Phone: Eosinophils/100 WBC (Bld) 2 % Normal [facility] Work Phone: Comment on above: PATIENT WAS FASTINGP ERFORMED BY: JULIUS LabCo Weanmb8039 [address] [facility] [id number] Eosinophils/100 WBC Auto (Bld) 2 % Normal [facility] Work Phone: Erythrocyte distribution width (RBC) [Ratio] 13.9 % Normal 12.3-15.4 [facility] Work Phone: Comment on above: PATIENT WAS FASTINGP ERFORMED BY: LabSelect [facility]6370 [address] [facility] [id number] Erythrocyte distribution width Auto Ratio (RBC) 13.9 % Normal 12.3-15.4 [facility] Work Phone: Hematocrit (Bld) [Volume fraction] 39.8 % Normal 34.0-46.6 [facility] Work Phone: Comment on above: PATIENT WAS FASTINGP ERFORMED BY: [facility] Bywyxr2681 [facility] [id number] Hematocrit Auto Volume Fraction (Bld) 39.8 % Normal 34.0-46.6 [facility] Work Phone: Hemoglobin mass conc (Bld) 13.1 g/dL Normal 11.1-15.9 [facility] Work Phone: Comment on above: PATIENT WAS FASTINGP ERFORMED BY: JULIUS [facility]Put[facility] Ihfits9332 [facility] [id number] Immature granulocytes #/vol (Bld) 0.0 {x10E3/uL} Normal 0.0-0.1 [facility] Work Phone: Comment on above: PATIENT WAS FASTINGP ERFORMED BY: [facility] Lhamey9099 [address] [facility] [id number] Immature granulocytes (Bld) [#/Vol] 0.0 10*3/uL Normal 0.0-0.1 [facility]; [facility] Work Phone: Comment on above: PATIENT WAS FASTINGP ERFORMED BY: [facility]Put[facility] Abcaar7210 [address] [facility] [id number] Immature granulocytes/100 WBC (Bld) 0 % Normal [facility] Work Phone: Comment on above: PATIENT WAS FASTINGP ERFORMED BY: JULIUS [facility] Mechanicsburggarland BallZaleqm5187 [facility] [id number] Lymphocytes (Bld) [#/Vol] 1.9 {x10E3/uL} Normal 0.7-3.1 [facility] Work Phone: Comment on above: PATIENT WAS FASTINGP ERFORMED BY: JULIUS [facility] Cvgemr7263 [facility] [id number] Lymphocytes (Bld) [#/Vol] 1.9 10*3/uL Normal 0.7-3.1 [facility]; [facility] Work Phone: Comment on above: PATIENT WAS FASTINGP ERFORMED BY: JULIUS [facility] Nxmgbw7993 [facility] [id number] Lymphocytes Auto #/vol (Bld) 1.9 {x10E3/uL} Normal 0.7-3.1 [facility] Work Phone: Lymphocytes/100 WBC (Bld) 43 % Normal [facility] Work Phone: Comment on above: PATIENT WAS FASTINGP ERFORMED BY: JULIUS [facility] WellnessDoug BallYpbbhb3931 [facility] [id number] Lymphocytes/100 WBC Auto (Bld) 43 % Normal [facility] Work Phone: MCH (RBC) [Entitic mass] 31.0 pg Normal 26.6-33.0 [facility] Work Phone: Comment on above: PATIENT WAS FASTINGP ERFORMED BY: JULIUS [facility]6370 [facility] [id number] MCH Auto Entitic mass (RBC) 31.0 pg Normal 26.6-33.0 [facility] Work Phone: MCHC (RBC) [Mass/Vol] 32.9 g/dL Normal 31.5-35.7 [facility] Work Phone: Comment on above: PATIENT WAS FASTINGP ERFORMED BY: JULIUS [facility] Abkpkr2826 [facility] [id number] MCHC Auto mass conc (RBC) 32.9 g/dL Normal 31.5-35.7 [facility] Work Phone: MCV (RBC) [Entitic vol] 94 fL Normal 79-97 [facility] Work Phone: Comment on above: PATIENT WAS FASTINGP ERFORMED BY: [facility]6370 [facility] [id number] MCV Auto Entitic volume (RBC) 94 fL Normal 79-97 [facility] Work Phone: Monocytes (Bld) [#/Vol] 0.5 {x10E3/uL} Normal 0.1-0.9 [facility] Work Phone: Comment on above: PATIENT WAS FASTINGP ERFORMED BY: [facility] Xlcdnl7510 [facility] [id number] Monocytes (Bld) [#/Vol] 0.5 10*3/uL Normal 0.1-0.9 [facility]; [facility] Work Phone: Comment on above: PATIENT WAS FASTINGP ERFORMED BY: [facility] Uspdrb0469 [facility] [id number] Monocytes Auto #/vol (Bld) 0.5 {x10E3/uL} Normal 0.1-0.9 [facility] Work Phone: Monocytes/100 WBC (Bld) 11 % Normal [facility] Work Phone: Comment on above: PATIENT WAS FASTINGP ERFORMED BY: [facility]6370 [facility] [id number] Monocytes/100 WBC Auto (Bld) 11 % Normal [facility] Work Phone: Neutrophils (Bld) [#/Vol] 1.9 {x10E3/uL} Normal 1.4-7.0 [facility] Work Phone: Comment on above: PATIENT WAS FASTINGP ERFORMED BY: [facility]6370 [facility] [id number] Neutrophils (Bld) [#/Vol] 1.9 10*3/uL Normal 1.4-7.0 [facility]; [facility] Work Phone: Comment on above: PATIENT WAS FASTINGP ERFORMED BY: JULIUS [facility] Bnlqcm2134 Barry RoadDublin [place] [id number] Neutrophils Auto #/vol (Bld) 1.9 {x10E3/uL} Normal 1.4-7.0 [facility] Work Phone: Neutrophils/100 WBC (Bld) 43 % Normal [facility] Work Phone: Comment on above: PATIENT WAS FASTINGP ERFORMED BY: JULIUS [facility] Exljoj7856 [address] RoadDublin [place] [id number] Neutrophils/100 WBC Auto (Bld) 43 % Normal [facility] Work Phone: Platelets (Bld) [#/Vol] 252 {x10E3/uL} Normal 150-379 [facility] Work Phone: Comment on above: PATIENT WAS FASTINGP ERFORMED BY: JULIUS [facility] Hvzins5545 [address] RoadDublin [place] [id number] Platelets (Bld) [#/Vol] 252 10*3/uL Normal 150-379 [facility]; [facility] Work Phone: Comment on above: PATIENT WAS FASTINGP ERFORMED BY: CB [facility] Xbmxug7164 [address] RoadDublin [place] [id number] Platelets Auto #/vol (Bld) 252 {x10E3/uL} Normal 150-379 [facility] Work Phone: RBC (Bld) [#/Vol] 4.23 {x10E6/uL} Normal 3.77-5.28 [facility] Work Phone: Comment on above: PATIENT WAS FASTINGP ERFORMED BY: CB [facility] Vfbpia5734 [address] RoadDublin [place] [id number] RBC (Bld) [#/Vol] 4.23 10*6/uL Normal 3.77-5.28 Compr ehensive Internal Medicine; [facility] Work Phone: Comment on above: PATIENT WAS FASTINGP ERFORMED BY: JULIUS [facility] Gildax4156 [address] [facility] [id number] RBC Auto #/vol (Bld) 4.23 {x10E6/uL} Normal 3.77-5.28 [facility] Work Phone: WBC (Bld) [#/Vol] 4.4 {x10E3/uL} Normal 3.4-10.8 [facility] Work Phone: Comment on above: PATIENT WAS FASTINGP ERFORMED BY: [facility] Vaopgs8380 [facility] [id number] WBC (Bld) [#/Vol] 4.4 10*3/uL Normal 3.4-10.8 [facility] Internal Medicine; [facility] Work Phone: Comment on above: PATIENT WAS FASTINGP ERFORMED BY: [facility] Ldarze4698 [facility] [id number] WBC Auto #/vol (Bld) 4.4 {x10E3/uL} Normal 3.4-10.8 [facility] Work Phone: LIPID PANEL ([id number])Ordered B y: [facility] Manager on 07-23-2016 Cholesterol in HDL mass conc 86 mg/dL Normal [facility] Work Phone: Comment on above: According to ATP-III Guidelines, HDL-C >59 mg/dL is considered anegative risk factor for CHD. PATIENT WAS FASTINGP ERFORMED BY: [facility] Ebjiln0523 [facility] [id number] Cholesterol in LDL mass conc 127 mg/dL Abnormal 0-99 [facility] Work Phone: Comment on above: PATIENT WAS FASTINGP ERFORMED BY: [facility] Ubeahl3175 [facility] [id number] Cholesterol in LDL/Cholesterol in HDL mass ratio 1.5 {ratio_units} Normal 0.0-3.2 [facility] Work Phone: Comment on above: LDL/HDL Ratio Men Wo men 1/2 Avg.Risk 1.0 1.5 Avg.Risk 3.6 3.2 2X Avg.Risk 6.2 5.0 3X Avg.Risk 8.0 6.1 PATIENT WAS FASTINGP ERFORMED BY: JULIUS LabCoShore Memorial HospitalPhaptj[address] [facility]in [place] [id number] Cholesterol in VLDL mass conc 23 mg/dL Normal 5-40 [facility] Work Phone: Comment on above: PATIENT WAS FASTINGP ERFORMED BY: LabCoShore Memorial HospitalVuxaqc6702 [address] [facility] [id number] Cholesterol mass conc 236 mg/dL Abnormal 100-199 [facility] Work Phone: Comment on above: PATIENT WAS FASTINGP ERFORMED BY: LabCoShore Memorial HospitalZkeyys4195 [facility] [id number] Triglyceride mass conc 114 mg/dL Normal 0-149 [facility] Work Phone: Comment on above: PATIENT WAS FASTINGP ERFORMED BY: [facility]6370 [facility] [id number] METABOLIC PANEL, COMPREHENSI VE ([id number])Ordered By: [place] Manager on 07-23-2016 Albumin mass conc 4.6 g/dL Normal 3.6-4.8 Compreh ensive Internal Medicine Work Phone: Comment on above: PATIENT WAS FASTINGP ERFORMED BY: [facility] [facility] [place] [id number] Albumin/Globulin mass ratio 2.2 {ratio} Normal 1.1-2.5 [facility] Work Phone: Comment on above: PATIENT WAS FASTINGP ERFORMED BY: [facility] Azuufr[address] [facility] [facility]in [place] [id number] ALP [Catalytic activity/Vol] 112 U/L Normal 39-117 [facility]; [facility] Work Phone: Comment on above: PATIENT WAS FASTINGP ERFORMED BY: [facility]Put[facility] Idadgf7155 [address] [facility]bl[facility] [place] [id number] ALP enzyme act/vol 112 [iU]/L Normal 39-117 [facility] Internal Medicine Work Phone: Comment on above: PATIENT WAS FASTINGP ERFORMED BY: JULIUS LabCogarland BallErxvev0517 [address] RoadDublin [place] [id number] ALT [Catalytic activity/Vol] 74 U/L Abnormal 0-32 [facility]; [facility] Internal Medicine Work Phone: Comment on above: PATIENT WAS FASTINGP ERFORMED BY: JULIUS [facility] Ikucus5069 [address] RoadDublin [place] [id number] ALT enzyme act/vol 74 [iU]/L Abnormal 0-32 [facility] Internal Medicine Work Phone: Comment on above: PATIENT WAS FASTINGP ERFORMED BY: JULIUS LabCogarland BallEcrofq0704 [address] RoadDublin [place] [id number] AST [Catalytic activity/Vol] 38 U/L Normal 0-40 [facility] Internal Medicine; [facility] Internal Medicine Work Phone: Comment on above: PATIENT WAS FASTINGP ERFORMED BY: JULIUS Balllin6370 [address] RoadDublin [place] [id number] AST enzyme act/vol 38 [iU]/L Normal 0-40 [facility] Internal Medicine Work Phone: Comment on above: PATIENT WAS FASTINGP ERFORMED BY: JULIUS BennettDiazgarland BallFmzgzr8627 [address] RoadDublin [place] [id number] Bilirubin mass conc 0.3 mg/dL Normal 0.0-1.2 Compr [facility] Internal Medicine Work Phone: Comment on above: PATIENT WAS FASTINGP ERFORMED BY: JULIUS [facility] Dxepgt1001 [address] RoadDublin [place] [id number] Calcium mass conc 9.5 mg/dL Normal 8.7-10.3 [facility] Internal Medicine Work Phone: Comment on above: PATIENT WAS FASTINGP ERFORMED BY: JULIUS [facility] Xxaqce8662 [address] RoadDublin [place] [id number] Chloride molar conc 103 mmol/L Normal 97-106 [facility] Internal Medicine Work Phone: Comment on above: PATIENT WAS FASTINGP ERFORMED BY: JULIUS BennettSelect [facility] [facility]in [place] [id number] CO2 molar conc 24 mmol/L Normal 18-29 Comprehens lazarus Internal Medicine Work Phone: Comment on above: PATIENT WAS FASTINGP ERFORMED BY: Lab[facility]6370 [address] [facility] [id number] Creatinine mass conc 0.74 mg/dL Normal 0.57-1.00 Comp rehensive Internal Medicine Work Phone: Comment on above: PATIENT WAS FASTINGP ERFORMED BY: LabSelect [facility]6370 [facility] [id number] GFR/1.73 sq M predicted among blacks CKD-EPI vol rate/area (S/P/Bld) 102 mL/min/1.73 Normal Comprehensiv e Internal Medicine Work Phone: Comment on above: PATIENT WAS FASTINGP ERFORMED BY: [facility]6[address] [facility] [id number] GFR/1.73 sq M predicted among non-blacks CKD-EPI vol rate/area (S/P/Bld) 88 mL/min/1.73 Normal [facility] Work Phone: Comment on above: PATIENT WAS FASTINGP ERFORMED BY: [facility] [id number] Globulin (S) [Mass/Vol] 2.1 g/dL Normal 1.5-4.5 [facility] Work Phone: Comment on above: PATIENT WAS FASTINGP ERFORMED BY: [facility] [id number] Globulin Calculated mass conc (S) 2.1 g/dL Normal 1.5-4.5 [facility] Work Phone: Glucose mass conc 85 mg/dL Normal 65-99 Compreh ensive Internal Medicine Work Phone: Comment on above: PATIENT WAS FASTINGP ERFORMED BY: [facility]6[address] [facility] [id number] Potassium molar conc 4.9 mmol/L Normal 3.5-5.2 Comp rehensive Internal Medicine Work Phone: Comment on above: PATIENT WAS FASTINGP ERFORMED BY: JULIUS Trentgarland BallZaonxd0393 [facility] [id number] Protein mass conc 6.7 g/dL Normal 6.0-8.5 Compreh ensive Internal Medicine Work Phone: Comment on above: PATIENT WAS FASTINGP ERFORMED BY: JULIUS DonaldDoug BallJhhzyl6705 [facility] [id number] Sodium molar conc 143 mmol/L Normal 136-144 Compreh ensive Internal Medicine Work Phone: Comment on above: PATIENT WAS FASTINGP ERFORMED BY: JULIUS Balllin6370 [facility] [id number] Urea nitrogen mass conc 17 mg/dL Normal 8-27 [facility] Work Phone: Comment on above: PATIENT WAS FASTINGP ERFORMED BY: JULIUS Balllin6370 [facility] [id number] Urea nitrogen/Creatinine mass ratio 23 mg/mg Normal 11-26 [facility] Work Phone: Comment on above: PATIENT WAS FASTINGP ERFORMED BY: JULIUS Balllin6370 [facility] [id number] MICROALBUMINOrdered By: Syst em Principal Administrative Clerk on 07-23-2016 Albumin DL <= 20 mg/L (U) [Mass/Vol] mg/dL Normal Comprehensiv e Internal Medicine; [facility] Work Phone: Comment on above: PATIENT WAS FASTINGP ERFORMED BY: JULIUS DonaldDoug BallUcniqx3879 [facility] [id number] Albumin DL <= 20 mg/L mass conc (U) mg/dL Normal [facility] Work Phone: Comment on above: PATIENT WAS FASTINGP ERFORMED BY: JULIUS Balllin6370 [facility] [id number] Albumin/Creatinine mass ratio (U) <11.1 Normal 0.0-30.0 [facility] Work Phone: Comment on above: PATIENT WAS FASTINGP ERFORMED BY: [facility] Mxkwri[address] [facility] [facility] [place] [id number] Creatinine mass conc (U) 27.0 mg/dL Normal [facility] Work Phone: Comment on above: PATIENT WAS FASTINGP ERFORMED BY: [facility] HospitalTrmmur[address] [facility]in [place] [id number] T3, FREE (TRIDOTHYRONINE) (8 [id number])Ordered By: [place] Manager on 07-23-2016 T3 free mass conc 3.1 pg/mL Normal 2.0-4.4 Compreh ensive Internal Medicine Work Phone: Comment on above: PATIENT WAS FASTINGP ERFORMED BY: [facility] [id number] T4, FREE (THYROXINE) (97876) Ordered By: [facility] [place] Manager on 07-23-2016 T4 free mass conc 1.01 ng/dL Normal 0.82-1.77 Compreh ensive Internal Medicine Work Phone: Comment on above: PATIENT WAS FASTINGP ERFORMED BY: [facility]6370 [facility] [place] [id number] TSH (THYROID STIMULATING HOR OMAR) ([id number])Ordered By: [facility] [place] Manager on 07-23-2016 Thyrotropin Qn 4.920 {uIU/mL} Abnormal 0.450-4.50 0 [facility] Work Phone: Comment on above: PATIENT WAS FASTINGP ERFORMED BY: [facility] [id number] URINALYSIS (86814)Ordered By : [place] Manager on 07-23-2016 Appearance Nom (U) Clear Normal Compre hensive Internal Medicine Work Phone: Comment on above: PATIENT WAS FASTINGP ERFORMED BY: [facility] Yohpon[address] [facility]in [place] [id number] Bilirubin Ql (U) Negative Normal Comprehe nsive Internal Medicine Work Phone: Comment on above: PATIENT WAS FASTINGP ERFORMED BY: JULIUS [facility]6[address] RoadDublin [place] [id number] Bilirubin Ql (U) Negative Normal Comprehe nsive Internal Medicine; [facility] Work Phone: Comment on above: PATIENT WAS FASTINGP ERFORMED BY: JULIUS [facility] Guaata5403 Barry RoadDublin [place] [id number] Color Nom (U) Yellow Normal Comprehensi ve Internal Medicine Work Phone: Comment on above: PATIENT WAS FASTINGP ERFORMED BY: JULIUS [facility] Gkfrbq0035 Barry RoadDublin [place] [id number] Glucose Ql (U) Negative Normal Comprehens lazarus Internal Medicine Work Phone: Comment on above: PATIENT WAS FASTINGP ERFORMED BY: JULIUS [facility] Whacci8320 [address] RoadDublin [place] [id number] Glucose Ql (U) Negative Normal Comprehens lazarus Internal Medicine; [facility] Work Phone: Comment on above: PATIENT WAS FASTINGP ERFORMED BY: JULIUS [facility] Omfnjf8407 Barry RoadDublin [place] [id number] Hemoglobin Ql (U) Negative Normal Compreh ensive Internal Medicine Work Phone: Comment on above: PATIENT WAS FASTINGP ERFORMED BY: JULIUS [facility] Sftcso7927 Barry RoadDublin [place] [id number] Hemoglobin Ql (U) Negative Normal Compreh ensive Internal Medicine; [facility] Work Phone: Comment on above: PATIENT WAS FASTINGP ERFORMED BY: JULIUS [facility] Vefyfa7686 [address] RoadDublin [place] [id number] Hemoglobin Test strip Ql (U) Negative Normal [facility] Work Phone: Ketones Ql (U) Negative Normal Comprehens lazarus [facility] Medicine Work Phone: Comment on above: PATIENT WAS FASTINGP ERFORMED BY: JULIUS [facility] Ekholv4874 Barry RoadDublin [place] [id number] Ketones Ql (U) Negative Normal Comprehens lazarus Internal Medicine; [facility] Work Phone: Comment on above: PATIENT WAS FASTINGP ERFORMED BY: JULIUS [facility] Lemjnl7085 [address] RoadDublin [place] [id number] Leukocyte esterase Test strip Ql (U) Negative Normal [facility] Work Phone: Comment on above: PATIENT WAS FASTINGP ERFORMED BY: JULIUS [facility] Jednkw1902 [address] RoadDublin [place] [id number] Leukocyte esterase Test strip Ql (U) Negative Normal [facility]; [facility] Work Phone: Comment on above: PATIENT WAS FASTINGP ERFORMED BY: JULIUS [facility] Nqnmko7348 [address] RoadDublin [place] [id number] Microscopic observation LM Nom (Urine sed) MICNIP Normal [facility] Work Phone: Comment on above: Microscopic not rachel cated and not performed. PATIENT WAS FASTINGP ERFORMED BY: JULIUS [facility] Pzgawe4583 Barry RoadDublin [place] [id number] Nitrite Ql (U) Negative Normal Comprehens lazarus [facility] Medicine Work Phone: Comment on above: PATIENT WAS FASTINGP ERFORMED BY: JULIUS [facility] Pmonmf1318 [address] RoadDublin [place] [id number] Nitrite Ql (U) Negative Normal Comprehens lazarus [facility] Medicine; [facility] Work Phone: Comment on above: PATIENT WAS FASTINGP ERFORMED BY: JULIUS [facility] Rfvcfv3870 [address] RoadDublin [place] [id number] Nitrite Test strip Ql (U) Negative Normal [facility] Work Phone: pH (U) 7.5 [pH] Normal 5.0-7.5 [facility] Work Phone: Comment on above: PATIENT WAS FASTINGP ERFORMED BY: JULIUS [facility] Zxakuc3585 [address] RoadDublin [place] [id number] pH Test strip (U) 7.5 [pH] Normal 5.0-7.5 Compreh ensive Internal Medicine Work Phone: Protein Ql (U) Negative Normal Comprehens lazarus [facility] Medicine Work Phone: Comment on above: PATIENT WAS FASTINGP ERFORMED BY: JULIUS [facility] Idixkf0240 [address] RoadDublin [place] [id number] Protein Ql (U) Negative Normal Comprehens lazarus Internal Medicine; [facility] Work Phone: Comment on above: PATIENT WAS FASTINGP ERFORMED BY: CB [facility] Sjpaoh7785 [address] RoadDublin [place] [id number] Protein Test strip Ql (U) Negative Normal [facility] Work Phone: Specific gravity Relative Density (U) 1.010 1 Normal 1.005-1.03 0 [facility] Work Phone: Comment on above: PATIENT WAS FASTINGP ERFORMED BY: CB [facility] Qdsxif7210 [address] RoadDublin [place] [id number] Urobilinogen (U) [Mass/Vol] 0.2 mg/dL Normal 0.2-1.0 [facility]; [facility] Work Phone: Comment on above: PATIENT WAS FASTINGP ERFORMED BY: CB [facility] Iuwmqn5905 [address] RoadDublin [place] [id number] Urobilinogen Test strip mass conc (U) 0.2 mg/dL Normal 0.2-1.0 Comprehensiv e Internal Medicine Work Phone: Comment on above: PATIENT WAS FASTINGP ERFORMED BY: CB [facility] Byaeeo8929 [address] RoadDublin [place] [id number] Rapid Strep Test, Office (28 403)Ordered By: Radha Land on 12-18-2015 S. pyogenes Ag EIA Ql (Throat) Negative Normal [facility]; [facility] Work Phone: S. pyogenes Ag IA Ql (Unsp spec) Negative Normal [facility] Work Phone: Throat Culture (75902)Ordere d By: [facility] Manager on 12-18-2015 Bacteria identified Respiratory culture Nom (Unsp spec) RRF Normal [facility] Work Phone: Comment on above: Routine respiratory mino PATIENT NOT FASTINGP ERFORMED BY: CB [facility] Gmdiub0910 [address] RoadDublin [place] [id number] Information: SRC:THRT [id number] Bacteria identified Respiratory culture Nom (Unsp spec) Final report Normal [facility] Work Phone: Comment on above: PATIENT NOT FASTINGP ERFORMED BY: JULIUS Newman Tclngl8096 [facility] [id number] Information: SRC:THRT [id number] Anti-TPO Antibody (88111)Ord ered By: [facility] Manager on 07-08-2015 Thyroperoxidase Ab Qn 278 {IU/mL} Abnormal 0-34 [facility] Work Phone: Comment on above: PATIENT NOT FASTINGP ERFORMED BY: JULIUS LabStanley [place] 2043070 [facility] [id number] TPO Ab Qn 278 [IU]/mL Abnormal 0-34 [facility]; [facility] Work Phone: Comment on above: PATIENT NOT FASTINGP ERFORMED BY: LabStanley [place] 2043070 [facility] [id number] T4, FREE (THYROXINE) (69443) Ordered By: [facility] Manager on 07-08-2015 T4 free mass conc 1.13 ng/dL Normal 0.82-1.77 Compreh ensive Internal Medicine Work Phone: Comment on above: PATIENT NOT FASTINGP ERFORMED BY: JULIUS [facility]6370 [facility] [id number] Information: [id number] TSH (10970)Ordered By: Fozia m Principal Administrative Clerk on 07-08-2015 Thyrotropin Qn 0.906 {uIU/mL} Normal 0.450-4.50 0 [facility] Work Phone: Comment on above: PATIENT NOT FASTINGP ERFORMED BY: LabStanley [place] 2043070 [facility] [id number] Lipid Panel (40797)Ordered B y: [facility] Manager on 12-12-2014 Cholesterol in HDL mass conc 74 mg/dL Normal [facility] Work Phone: Comment on above: According to ATP-III Guidelines, HDL-C >59 mg/dL is considered anegative risk factor for CHD. repeat in Oct 2014 F asting; PATIENT WAS FASTINGPERFORMED BY: JULIUS [facility] Heyclt9910 [facility] [id number] Information: [id number] Cholesterol in LDL mass conc 128 mg/dL Abnormal 0-99 [facility] Work Phone: Comment on above: repeat in Oct 2014 F asting; PATIENT WAS FASTINGPERFORMED BY: JULIUS [facility] Wmfywy6885 [facility] [id number] Information: [id number] Cholesterol in LDL/Cholesterol in HDL mass ratio 1.7 {ratio_units} Normal 0.0-3.2 [facility] Work Phone: Comment on above: LDL/HDL Ratio Men Wo men 1/2 Avg.Risk 1.0 1.5 Avg.Risk 3.6 3.2 2X Avg.Risk 6.2 5.0 3X Avg.Risk 8.0 6.1 repeat in Oct 2014 F asting; PATIENT WAS FASTINGPERFORMED BY: JULIUS [facility] Kjfjbr1084 [facility] [id number] Information: [id number] Cholesterol in VLDL mass conc 14 mg/dL Normal 5-40 [facility] Work Phone: Comment on above: repeat in Oct 2014 F asting; PATIENT WAS FASTINGPERFORMED BY: JULIUS LabCogarland BallDjekum1867 [facility] [id number] Information: [id number] Cholesterol mass conc 216 mg/dL Abnormal 100-199 [facility] Work Phone: Comment on above: repeat in Oct 2014 F asting; PATIENT WAS FASTINGPERFORMED BY: JULIUS [facility] Esmmbs0237 [facility] [id number] Information: [id number] Triglyceride mass conc 71 mg/dL Normal 0-149 [facility] Work Phone: Comment on above: repeat in Oct 2014 F asting; PATIENT WAS FASTINGPERFORMED BY: JULIUS Newman Prfjza2353 [facility] [id number] Information: [id number] TSH (65474)Ordered By: Fozia m Principal Administrative Clerk on 12-12-2014 Thyrotropin Qn 4.420 {uIU/mL} Normal 0.450-4.50 0 [facility] Work Phone: Comment on above: repeat in 3months 2014; PATIENT WAS FASTINGPERFORMED BY: LabCo Tzwubt5119 [facility] [id number] IGP, Aptima HPV, rfx 16/18,4 5Ordered By: [facility] [place] Manager on 08-27-2014 HPV 16+18+31+33+35+39+45 +51+52+56+58+59+66+6 8 DNA Probe+sig amp Ql (Cvx) Negative Normal [facility] Work Phone: Comment on above: This test detects fo urteen high-risk HPV types (16/18/31/33/35/39/45/51/52/56/58/59/66/68) without differentiation. Source.............C ervical;EndocervicalNo. of containers..01 CYTYC Thin Prep VialPATIENT NOT FASTINGPERFORMED BY: =G [employer]120 [employer] LabsUniversity of Utah Hospital [id number] BY: [employer] [place] [address] Hey, Neighbor![facility] [id number] Microscopic observation Other stain Nom (Unsp spec) . Normal [facility] Work Phone: Comment on above: Source.............C ervical;EndocervicalNo. of containers..01 CYTYC Thin Prep VialPATIENT NOT FASTINGPERFORMED BY: =G [employer]120 [place] [employer] FXrSymvatoUniversity of Utah Hospital [id number] BY: [employer] [place] Hey, Neighbor![facility] [id number] Pathology report final diagnosis Narrative SPRCS Normal [facility] Work Phone: Comment on above: NEGATIVE FOR INTRAEP ITHELIAL LESION AND MALIGNANCY.Satisfactory for evaluation. Endocervical and/or squamous metaplasticcells (endocervical component) are present.V72.31 ; Routine gynecological examinationJaylyn Mcgowan Visual Merchandising Associate (ASCP) Source.............C ervical;EndocervicalNo. of containers..01 CYTYC Thin Prep VialPATIENT NOT FASTINGPERFORMED BY: =G [facility] Fcpdyrsauu782 [place] PlazaCharl[place] [id number] BY: WB LabHigh FidelityRynbqgolrd472 [place] PlazaCharl[place] [id number] IGP, Aptima HPV, rfx 16/18,45 PAPSMR Normal [facility] Work Phone: Comment on above: The Pap smear is a s creening test designed to aid in the detection ofpremalignant and malignant conditions of the uterine cervix. It is not adiagnostic procedure and should not be used as the sole means of detectingcervical cancer. Both false-positive and false-negative reports do occur. .This liquid based ThinPrep(R) pap test was screened with theuse of an image guided system. Source.............C ervical;EndocervicalNo. of containers..01 CYTYC Thin Prep VialPATIENT NOT FASTINGPERFORMED BY: =G [facility] Jzcelubusj739 [employer] Plazamotifyrl[place] [id number] BY: LabHigh FidelityUbopjwuspf904 [employer] PlazaCharleston [place] [id number] Thin Prep Pap (98393)Ordered By: [facility] [place] Manager on 08-27-2014 Thin Prep Pap (92132) 30-65 Normal [facility] Work Phone: Comment on above: Source.............C ervical;EndocervicalNo. of containers..01 CYTYC Thin Prep VialPATIENT NOT FASTINGPERFORMED BY: =G [facility] Fqunjjsbel701 [place] PlazaCharl[place] [id number] BY: [facility] [address] [place] [id number] Information: [id number] Lipid Panel (10454)Ordered B y: [facility] [place] Manager on 07-26-2014 Cholesterol in HDL mass conc 83 mg/dL Normal [facility] Work Phone: Comment on above: According to ATP-III Guidelines, HDL-C >59 mg/dL is considered anegative risk factor for CHD. PATIENT WAS FASTINGP ERFORMED BY: LabCo Sfldkw4227 [facility] [id number] Information: [id number] Cholesterol in LDL mass conc 136 mg/dL Abnormal 0-99 [facility] Work Phone: Comment on above: PATIENT WAS FASTINGP ERFORMED BY: Fantastic.cl Wgfetx6878 [facility] [id number] Information: 930214,[id number] Cholesterol in LDL/Cholesterol in HDL mass ratio 1.6 {ratio_units} Normal 0.0-3.2 [facility] Work Phone: Comment on above: LDL/HDL Ratio Men Wo men 1/2 Avg.Risk 1.0 1.5 Avg.Risk 3.6 3.2 2X Avg.Risk 6.2 5.0 3X Avg.Risk 8.0 6.1 PATIENT WAS FASTINGP ERFORMED BY: LabXOR.MOTORS Dfazel8122 [facility] [id number] Information: [id number] Cholesterol in VLDL mass conc 17 mg/dL Normal 5-40 [facility] Work Phone: Comment on above: PATIENT WAS FASTINGP ERFORMED BY: [facility] Lkzgol4981 [facility] [id number] Information: [id number] Cholesterol mass conc 236 mg/dL Abnormal 100-199 [facility] Work Phone: Comment on above: PATIENT WAS FASTINGP ERFORMED BY: LabCo Vkxenp9188 [facility] [id number] Information: [id number] Triglyceride mass conc 87 mg/dL Normal 0-149 [facility] Work Phone: Comment on above: PATIENT WAS FASTINGP ERFORMED BY: [place] 1584570 [facility] [id number] Information: [id number] TSH (THYROID STIMULATING HOR OMAR) (88047)Ordered By: [facility] [place] Manager on 07-26-2014 Thyrotropin Qn 3.860 {uIU/mL} Normal 0.450-4.50 0 [facility] Work Phone: Comment on above: PATIENT WAS FASTINGP ERFORMED BY: [address] [id number] CBC W/AUTO DIFF WBC (37755)O rdered By: [facility] Manager on 05-22-2014 Basophils (Bld) [#/Vol] 0.0 {x10E3/uL} Normal 0.0-0.2 [facility] Work Phone: Comment on above: PATIENT WAS FASTINGP ERFORMED BY: [place] 1584570 [facility] [id number] Information: [id number] Basophils (Bld) [#/Vol] 0.0 10*3/uL Normal 0.0-0.2 [facility]; [facility] Work Phone: Comment on above: PATIENT WAS FASTINGP ERFORMED BY: [facility]6370 [facility] [id number] Information: [id number] Basophils Auto #/vol (Bld) 0.0 {x10E3/uL} Normal 0.0-0.2 [facility] Work Phone: Basophils/100 WBC (Bld) 0 % Normal 0-3 [facility] Work Phone: Comment on above: The percent (%) diff erential reference intervals for normal cell typeswill be removed from patient reports beginning May 27, 2014,consistent with CAP standards. PATIENT WAS FASTINGP ERFORMED BY: [facility]6370 [facility] [id number] Information: [id number] Basophils/100 WBC Auto (Bld) 0 % Normal 0-3 [facility] Work Phone: Comment on above: The percent (%) diff erential reference intervals for normal cell typeswill be removed from patient reports beginning May 27, 2014,consistent with CAP standards. Eosinophils (Bld) [#/Vol] 0.3 {x10E3/uL} Normal 0.0-0.4 [facility] Work Phone: Comment on above: PATIENT WAS FASTINGP ERFORMED BY: Fantastic.clZia Health ClinicZyymia3591 [facility] [id number] Information: [id number] Eosinophils (Bld) [#/Vol] 0.3 10*3/uL Normal 0.0-0.4 [facility]; [facility] Work Phone: Comment on above: PATIENT WAS FASTINGP ERFORMED BY: Fantastic.cl Ginwgw6281 [facility] [id number] Information: [id number] Eosinophils Auto #/vol (Bld) 0.3 {x10E3/uL} Normal 0.0-0.4 [facility] Work Phone: Eosinophils/100 WBC (Bld) 5 % Normal 0-5 [facility] Work Phone: Comment on above: The percent (%) diff erential reference intervals for normal cell typeswill be removed from patient reports beginning May 27, 2014,consistent with CAP standards. PATIENT WAS FASTINGP ERFORMED BY: Fantastic.clShore Memorial HospitalOctfgv0097 [facility] [id number] Information: [id number] Eosinophils/100 WBC Auto (Bld) 5 % Normal 0-5 [facility] Work Phone: Comment on above: The percent (%) diff erential reference intervals for normal cell typeswill be removed from patient reports beginning May 27, 2014,consistent with CAP standards. Erythrocyte distribution width (RBC) [Ratio] 13.6 % Normal 12.3-15.4 [facility] Work Phone: Comment on above: PATIENT WAS FASTINGP ERFORMED BY: [place] 1584570 [facility] [id number] Information: [id number] Erythrocyte distribution width Auto Ratio (RBC) 13.6 % Normal 12.3-15.4 [facility] Work Phone: Hematocrit (Bld) [Volume fraction] 40.4 % Normal 34.0-46.6 [facility] Work Phone: Comment on above: PATIENT WAS FASTINGP ERFORMED BY: [address] [id number] Information: [id number] Hematocrit Auto Volume Fraction (Bld) 40.4 % Normal 34.0-46.6 [facility] Work Phone: Hemoglobin mass conc (Bld) 13.6 g/dL Normal 11.1-15.9 [facility] Work Phone: Comment on above: PATIENT WAS FASTINGP ERFORMED BY: [address] [id number] Information: [id number] Immature granulocytes #/vol (Bld) 0.0 {x10E3/uL} Normal 0.0-0.1 [facility] Work Phone: Comment on above: PATIENT WAS FASTINGP ERFORMED BY: [address] [id number] Information: [id number] Immature granulocytes (Bld) [#/Vol] 0.0 10*3/uL Normal 0.0-0.1 [facility]; [facility] Work Phone: Comment on above: PATIENT WAS FASTINGP ERFORMED BY: [place] 1584570 [facility] [id number] Information: [id number] Immature granulocytes/100 WBC (Bld) 0 % Normal 0-2 [facility] Work Phone: Comment on above: The percent (%) diff erential reference intervals for normal cell typeswill be removed from patient reports beginning May 27, 2014,consistent with CAP standards. PATIENT WAS FASTINGP ERFORMED BY: [facility]6370 [facility] [id number] Information: [id number] Lymphocytes (Bld) [#/Vol] 1.7 {x10E3/uL} Normal 0.7-3.1 [facility] Work Phone: Comment on above: PATIENT WAS FASTINGP ERFORMED BY: [place] 1584570 [facility] [id number] Information: [id number] Lymphocytes (Bld) [#/Vol] 1.7 10*3/uL Normal 0.7-3.1 [facility]; [facility] Work Phone: Comment on above: PATIENT WAS FASTINGP ERFORMED BY: [facility] [id number] Information: [id number] Lymphocytes Auto #/vol (Bld) 1.7 {x10E3/uL} Normal 0.7-3.1 [facility] Work Phone: Lymphocytes/100 WBC (Bld) 35 % Normal 14-46 [facility] Work Phone: Comment on above: The percent (%) diff erential reference intervals for normal cell typeswill be removed from patient reports beginning May 27, 2014,consistent with CAP standards. PATIENT WAS FASTINGP ERFORMED BY: [facility]6370 [facility] [id number] Information: [id number] Lymphocytes/100 WBC Auto (Bld) 35 % Normal 14-46 [facility] Work Phone: Comment on above: The percent (%) diff erential reference intervals for normal cell typeswill be removed from patient reports beginning May 27, 2014,consistent with CAP standards. MCH (RBC) [Entitic mass] 31.8 pg Normal 26.6-33.0 [facility] Work Phone: Comment on above: PATIENT WAS FASTINGP ERFORMED BY: JULIUS [place] [id number] [facility] [id number] Information: [id number] MCH Auto Entitic mass (RBC) 31.8 pg Normal 26.6-33.0 [facility] Work Phone: MCHC (RBC) [Mass/Vol] 33.7 g/dL Normal 31.5-35.7 [facility] Work Phone: Comment on above: PATIENT WAS FASTINGP ERFORMED BY: [place] [id number] [facility] [id number] Information: [id number] MCHC Auto mass conc (RBC) 33.7 g/dL Normal 31.5-35.7 [facility] Work Phone: MCV (RBC) [Entitic vol] 94 fL Normal 79-97 [facility] Work Phone: Comment on above: PATIENT WAS FASTINGP ERFORMED BY: [place] [id number] [facility] [id number] Information: [id number] MCV Auto Entitic volume (RBC) 94 fL Normal 79-97 [facility] Work Phone: Monocytes (Bld) [#/Vol] 0.5 {x10E3/uL} Normal 0.1-0.9 [facility] Work Phone: Comment on above: PATIENT WAS FASTINGP ERFORMED BY: [place] [id number] [facility] [id number] Information: [id number] Monocytes (Bld) [#/Vol] 0.5 10*3/uL Normal 0.1-0.9 [facility]; [facility] Work Phone: Comment on above: PATIENT WAS FASTINGP ERFORMED BY: [address] [id number] Information: [id number] Monocytes Auto #/vol (Bld) 0.5 {x10E3/uL} Normal 0.1-0.9 [facility] Work Phone: Monocytes/100 WBC (Bld) 10 % Normal -12 [facility] Work Phone: Comment on above: The percent (%) diff erential reference intervals for normal cell typeswill be removed from patient reports beginning May 27, 2014,consistent with CAP standards. PATIENT WAS FASTINGP ERFORMED BY: Fantastic.clShore [facility] HospitalMgaejy0471 [facility] [id number] Information: [id number] Monocytes/100 WBC Auto (Bld) 10 % Normal - [facility] Work Phone: Comment on above: The percent (%) diff erential reference intervals for normal cell typeswill be removed from patient reports beginning May 27, 2014,consistent with CAP standards. Neutrophils (Bld) [#/Vol] 2.5 {x10E3/uL} Normal 1.4-7.0 [facility] Work Phone: Comment on above: PATIENT WAS FASTINGP ERFORMED BY: [facility] [id number] Information: [id number] Neutrophils (Bld) [#/Vol] 2.5 10*3/uL Normal 1.4-7.0 [facility]; [facility] Work Phone: Comment on above: PATIENT WAS FASTINGP ERFORMED BY: [facility] [id number] Information: [id number] Neutrophils Auto #/vol (Bld) 2.5 {x10E3/uL} Normal 1.4-7.0 [facility] Work Phone: Neutrophils/100 WBC (Bld) 50 % Normal 40-74 [facility] Work Phone: Comment on above: The percent (%) diff erential reference intervals for normal cell typeswill be removed from patient reports beginning May 27, 2014,consistent with CAP standards. PATIENT WAS FASTINGP ERFORMED BY: [facility]6370 [facility] [id number] Information: [id number] Neutrophils/100 WBC Auto (Bld) 50 % Normal 40-74 [facility] Work Phone: Comment on above: The percent (%) diff erential reference intervals for normal cell typeswill be removed from patient reports beginning May 27, 2014,consistent with CAP standards. Platelets (Bld) [#/Vol] 257 {x10E3/uL} Normal 150-379 [facility] Work Phone: Comment on above: PATIENT WAS FASTINGP ERFORMED BY: [place] [id number] [facility] [id number] Information: [id number] Platelets (Bld) [#/Vol] 257 10*3/uL Normal 150-379 [facility]; [facility] Work Phone: Comment on above: PATIENT WAS FASTINGP ERFORMED BY: [facility]6370 [facility] [id number] Information: [id number] Platelets Auto #/vol (Bld) 257 {x10E3/uL} Normal 150-379 [facility] Work Phone: RBC (Bld) [#/Vol] 4.28 {x10E6/uL} Normal 3.77-5.28 [facility] Work Phone: Comment on above: PATIENT WAS FASTINGP ERFORMED BY: [facility]6370 [facility] [id number] Information: [id number] RBC (Bld) [#/Vol] 4.28 10*6/uL Normal 3.77-5.28 [facility] Medicine; [facility] Work Phone: Comment on above: PATIENT WAS FASTINGP ERFORMED BY: [facility]6370 [facility] [id number] Information: [id number] RBC Auto #/vol (Bld) 4.28 {x10E6/uL} Normal 3.77-5.28 [facility] Work Phone: WBC (Bld) [#/Vol] 5.0 {x10E3/uL} Normal 3.4-10.8 [facility] prehensive Internal Medicine Work Phone: Comment on above: PATIENT WAS FASTINGP ERFORMED BY: [facility] Mjqeip7089 [facility] [id number] Information: [id number] WBC (Bld) [#/Vol] 5.0 10*3/uL Normal 3.4-10.8 [facility] Internal Medicine; [facility] Work Phone: Comment on above: PATIENT WAS FASTINGP ERFORMED BY: [facility] Jjuqjf6386 [facility] [id number] Information: [id number] WBC Auto #/vol (Bld) 5.0 {x10E3/uL} Normal 3.4-10.8 [facility] Work Phone: CKMBOrdered By: System Manag er on 05-22-2014 CK.MB [Mass/Vol] 105 U/L Normal 26-192 [facility] Work Phone: Comment on above: 'TROP' Serial specim en #1, #2, #3, or #4: 1'CKMB' Serial Specimen #1, #2 or #3? 1 CK.MB mass conc 0.9 ng/mL Normal 0.0-5.0 [facility] Work Phone: Comment on above: CK-MB and RI Interpr etation MB Relative IndexNon-AMI 5 5 > 4 'TROP' Serial specim en #1, #2, #3, or #4: 1'CKMB' Serial Specimen #1, #2 or #3? 1 CKMB 105 U/L Normal 26-192 [facility] Work Phone: LIPID PANEL ([id number])Ordered B y: Garden Center Manager on 05-22-2014 Cholesterol in HDL mass conc 77 mg/dL Normal [facility] Work Phone: Comment on above: According to ATP-III Guidelines, HDL-C >59 mg/dL is considered anegative risk factor for CHD. PATIENT WAS FASTINGP ERFORMED BY: CB [facility] Viigcb9149 [address] RoadDublin [place] [id number] Cholesterol in LDL mass conc 149 mg/dL Abnormal 0-99 [facility] Work Phone: Comment on above: PATIENT WAS FASTINGP ERFORMED BY: CB [facility] Dueefq8984 Barry RoadDublin [place] [id number] Cholesterol in LDL/Cholesterol in HDL mass ratio 1.9 {ratio_units} Normal 0.0-3.2 [facility] Work Phone: Comment on above: PATIENT WAS FASTINGP ERFORMED BY: JULIUS [facility] Imdwep7874 Barry RoadDublin [place] [id number] Cholesterol in VLDL mass conc 28 mg/dL Normal 5-40 [facility] Work Phone: Comment on above: PATIENT WAS FASTINGP ERFORMED BY: JULIUS [facility] Myvtif3529 Barry RoadDublin [place] [id number] Cholesterol mass conc 254 mg/dL Abnormal 100-199 [facility] Work Phone: Comment on above: PATIENT WAS FASTINGP ERFORMED BY: JULIUS [facility] Mppqam8419 [address] RoadDublin [place] [id number] Triglyceride mass conc 140 mg/dL Normal 0-149 [facility] Work Phone: Comment on above: PATIENT WAS FASTINGP ERFORMED BY: CB [facility] Namumi1594 Barry RoadDublin [place] [id number] METABOLIC PANEL, COMPREHENSI VE ([id number])Ordered By: [facility] Manager on 05-22-2014 Albumin mass conc 4.6 g/dL Normal 3.5-5.5 Compreh ensive Internal Medicine Work Phone: Comment on above: PATIENT WAS FASTINGP ERFORMED BY: CB [facility] Veimpf5778 Barry RoadDublin [place] [id number] Albumin/Globulin mass ratio 2.0 {ratio} Normal 1.1-2.5 [facility] Internal Medicine Work Phone: Comment on above: PATIENT WAS FASTINGP ERFORMED BY: JULIUS LabCogarland ManuelQdxkjx6503 Barry RoadDublin [place] [id number] ALP [Catalytic activity/Vol] 117 U/L Normal 39-117 [facility]; [facility] Internal Medicine Work Phone: Comment on above: PATIENT WAS FASTINGP ERFORMED BY: JULIUS LabDoug BallAtggia9808 Barry RoadDublin [place] [id number] ALP enzyme act/vol 117 [iU]/L Normal 39-117 [facility] Internal Medicine Work Phone: Comment on above: PATIENT WAS FASTINGP ERFORMED BY: JULIUS LabDiaz Cljeel0205 Barry RoadDublin [place] [id number] ALT [Catalytic activity/Vol] 24 U/L Normal 0-32 [facility] Internal Medicine; [facility] Internal Medicine Work Phone: Comment on above: PATIENT WAS FASTINGP ERFORMED BY: LabDiaz Pvgoky2909 Barry RoadDublin [place] [id number] ALT enzyme act/vol 24 [iU]/L Normal 0-32 [facility] Internal Medicine Work Phone: Comment on above: PATIENT WAS FASTINGP ERFORMED BY: JULIUS Balllin6[address] Roadblin [place] [id number] AST [Catalytic activity/Vol] 26 U/L Normal 0-40 [facility] Internal Medicine; [facility] Internal Medicine Work Phone: Comment on above: PATIENT WAS FASTINGP ERFORMED BY: [facility] Uvxuco9272 [address] RoadDublin [place] [id number] AST enzyme act/vol 26 [iU]/L Normal 0-40 [facility] Internal Medicine Work Phone: Comment on above: PATIENT WAS FASTINGP ERFORMED BY: JULIUS [facility] Eeeuct2893 [address] RoadDublin [place] [id number] Bilirubin mass conc 0.3 mg/dL Normal 0.0-1.2 [facility] Internal Medicine Work Phone: Comment on above: PATIENT WAS FASTINGP ERFORMED BY: JULIUS [facility] Gowkqn2349 [address] RoadDublin [place] [id number] Calcium mass conc 9.7 mg/dL Normal 8.7-10.2 Compreh ensive Internal Medicine Work Phone: Comment on above: PATIENT WAS FASTINGP ERFORMED BY: JULIUS [facility] Exxxsh4473 Barry Roadblin [place] [id number] Chloride molar conc 100 mmol/L Normal 97-108 Compr ehensive Internal Medicine Work Phone: Comment on above: PATIENT WAS FASTINGP ERFORMED BY: JULIUS [facility] Edbyww9566 Barry Roadblin [place] [id number] CO2 molar conc 25 mmol/L Normal 18-29 Comprehens lazarus Internal Medicine Work Phone: Comment on above: PATIENT WAS FASTINGP ERFORMED BY: JULIUS [facility] Wdzmnz[address] [facility]in [place] [id number] Creatinine mass conc 0.75 mg/dL Normal 0.57-1.00 [facility] Work Phone: Comment on above: PATIENT WAS FASTINGP ERFORMED BY: [facility] Oxrqdk4468 [address] Roadblin [place] [id number] GFR/1.73 sq M predicted among blacks CKD-EPI vol rate/area (S/P/Bld) 102 mL/min/1.73 Normal Comprehensiv e Internal Medicine Work Phone: Comment on above: PATIENT WAS FASTINGP ERFORMED BY: [facility] Atitml7837 Barry RoadMission Family Health Centerin [place] [id number] GFR/1.73 sq M predicted among non-blacks CKD-EPI vol rate/area (S/P/Bld) 88 mL/min/1.73 Normal [facility] Work Phone: Comment on above: PATIENT WAS FASTINGP ERFORMED BY: CB [facility] Fvkgxr6677 [address] Roadblin [place] [id number] Globulin (S) [Mass/Vol] 2.3 g/dL Normal 1.5-4.5 [facility] Work Phone: Comment on above: PATIENT WAS FASTINGP ERFORMED BY: JULIUS [facility] Hibctt97[address] [facility] [id number] Globulin Calculated mass conc (S) 2.3 g/dL Normal 1.5-4.5 [facility] Work Phone: Glucose mass conc 90 mg/dL Normal 65-99 Compreh ensive Internal Medicine Work Phone: Comment on above: PATIENT WAS FASTINGP ERFORMED BY: JULIUS LabSelect [facility]6370 [facility] [id number] Potassium molar conc 5.2 mmol/L Normal 3.5-5.2 Comp rehensive Internal Medicine Work Phone: Comment on above: PATIENT WAS FASTINGP ERFORMED BY: JULIUS LabDiaz Atsxea3013 [facility] [id number] Protein mass conc 6.9 g/dL Normal 6.0-8.5 Compreh ensive Internal Medicine Work Phone: Comment on above: PATIENT WAS FASTINGP ERFORMED BY: JULIUS LabSelect [facility]6370 [facility] [id number] Sodium molar conc 142 mmol/L Normal 134-144 Compreh ensive Internal Medicine Work Phone: Comment on above: PATIENT WAS FASTINGP ERFORMED BY: JULIUS Trent Xqfpbz9933 [facility] [id number] Urea nitrogen mass conc 14 mg/dL Normal 6-24 [facility] Work Phone: Comment on above: PATIENT WAS FASTINGP ERFORMED BY: JULIUS LabSelect [facility]6370 [facility] [id number] Urea nitrogen/Creatinine mass ratio 19 mg/mg Normal 9-23 [facility] Work Phone: Comment on above: PATIENT WAS FASTINGP ERFORMED BY: JULIUS LabPut[facility] Sjmdwg0988 [facility] [id number] MICROALBUMINOrdered By: Syst em Principal Administrative Clerk on 05-22-2014 Albumin DL <= 20 mg/L mass conc (U) 1.7 ug/mL Normal 0.0-17.0 [facility] Work Phone: Comment on above: PATIENT WAS FASTINGP ERFORMED BY: [facility] Tweutp0752 [facility] [id number] Albumin/Creatinine mass ratio (U) 2.3 {mg/g_creat} Normal 0.0-30.0 [facility] Work Phone: Comment on above: PATIENT WAS FASTINGP ERFORMED BY: [facility] Lodkyo9117 [facility] [id number] Creatinine mass conc (U) 75.3 mg/dL Normal 15.0-278.0 [facility] Work Phone: Comment on above: PATIENT WAS FASTINGP ERFORMED BY: Lab[address] [id number] MYOSOrdered By: System Manag er on 05-22-2014 MYOS 27 ng/mL Normal 25-58 [facility] Work Phone: Comment on above: Performed at: [address] [id number] Director: Den Crespo PhD, Phone: [phone] Microscopic ExaminationOrder ed By: Garden Center Manager on 05-22-2014 Bacteria LM.HPF #/area (Urine sed) None seen Normal [facility] Work Phone: Comment on above: PATIENT WAS FASTINGP ERFORMED BY: Lab[address] [id number] Epithelial cells LM.HPF #/area (Urine sed) 0-10 Normal 0 - 10 [facility] Work Phone: Comment on above: PATIENT WAS FASTINGP ERFORMED BY: LabPut[facility] Hinvxu2600 [facility] [id number] Mucus LM Ql (Urine sed) Present Normal [facility] Work Phone: Mucus Ql (Urine sed) Present Normal Comp rehensive Internal Medicine Work Phone: Comment on above: PATIENT WAS FASTINGP ERFORMED BY: LabPut[facility] Ezbdwg3661 [facility] [id number] RBC LM.HPF #/area (Urine sed) 0-2 Normal 0 - 2 [facility] Work Phone: Comment on above: PATIENT WAS FASTINGP ERFORMED BY: JULIUS Fantastic.cl Jjeghk1351 [facility] [id number] WBC LM.HPF #/area (Urine sed) 0-5 Normal 0 - 5 [facility] Work Phone: Comment on above: PATIENT WAS FASTINGP ERFORMED BY: JULIUS Fantastic.cl Ylftmc2879 [facility] [id number] TROPOrdered By: System Manag er on 05-22-2014 TROP < 0.02 Normal [facility] Work Phone: Comment on above: TROPONIN-I EXPECTED VALUES <0.05 NEGATIVE0.06 - 0.59 AT RISK OF CA> OR = 0.60 SUGGEST CA 'TROP' Serial specim en #1, #2, #3, or #4: 1'CKMB' Serial Specimen #1, #2 or #3? 1 TSH ([id number])Ordered By: Definition 6 Principal Administrative Clerk on 05-22-2014 Thyrotropin Qn 4.540 {uIU/mL} Abnormal 0.450-4.50 0 [facility] Work Phone: Comment on above: PATIENT WAS FASTINGP ERFORMED BY: JULIUS Fantastic.cl Dtitbn2033 [facility] [id number] Thyrotropin Qn TSHA Normal Comprehens lazarus Internal Medicine Work Phone: Comment on above: The Endocrine Societ y recommends against routine treatment forpatients with elevated TSH levels below 10.000 uIU/mL if free T4 orT4 are normal. Thyroid function should be monitored at 6 to 12month intervals. Women who are or hope to become in the near future deserve special consideration. PATIENT WAS FASTINGP ERFORMED BY: JULIUS Fantastic.cl Ckstvh3866 [facility] [id number] URINALYSIS, W/ MICRO ([id number]) Ordered By: [facility] [place] Manager on 05-22-2014 Appearance Nom (U) Clear Normal Compre hensive Internal Medicine Work Phone: Comment on above: PATIENT WAS FASTINGP ERFORMED BY: JULIUS [facility] Ggnznm0209 [address] RoadDublin [place] [id number] Bilirubin Ql (U) Negative Normal Comprehe nsive Internal Medicine Work Phone: Comment on above: PATIENT WAS FASTINGP ERFORMED BY: JULIUS [facility] Arcokj2118 [address] RoadDublin [place] [id number] Bilirubin Ql (U) Negative Normal Comprehe nsive Internal Medicine; [facility] Work Phone: Comment on above: PATIENT WAS FASTINGP ERFORMED BY: JULIUS [facility] Xeahsn5290 [address] RoadDublin [place] [id number] Color Nom (U) Yellow Normal Comprehensi ve Internal Medicine Work Phone: Comment on above: PATIENT WAS FASTINGP ERFORMED BY: JULIUS LabNjgarland BallXledsp6888 [address] RoadDublin [place] [id number] Glucose Ql (U) Negative Normal Comprehens lazarus Internal Medicine Work Phone: Comment on above: PATIENT WAS FASTINGP ERFORMED BY: JULIUS LabPut[facility] Rqfgrd2500 [address] RoadDublin [place] [id number] Glucose Ql (U) Negative Normal Comprehens lazarus [facility] Medicine; [facility] Work Phone: Comment on above: PATIENT WAS FASTINGP ERFORMED BY: JULIUS LabPutnam [facility] Vyhztl8955 [address] RoadDublin [place] [id number] Hemoglobin Ql (U) Negative Normal Compreh ensive Internal Medicine Work Phone: Comment on above: PATIENT WAS FASTINGP ERFORMED BY: JULIUS LabPutnam [facility] Mkcxnc5477 [address] RoadDublin [place] [id number] Hemoglobin Ql (U) Negative Normal Compreh ensive Internal Medicine; [facility] Work Phone: Comment on above: PATIENT WAS FASTINGP ERFORMED BY: JULIUS [facility] Tarpii8900 [address] RoadDublin [place] [id number] Hemoglobin Test strip Ql (U) Negative Normal [facility] Work Phone: Ketones Ql (U) Negative Normal Comprehens lazarus Internal Medicine Work Phone: Comment on above: PATIENT WAS FASTINGP ERFORMED BY: JULIUS [facility] Yjpwpv3109 [address] RoadDublin [place] [id number] Ketones Ql (U) Negative Normal Comprehens lazarus Internal Medicine; [facility] Work Phone: Comment on above: PATIENT WAS FASTINGP ERFORMED BY: JULIUS [facility] Ectmrx8264 [address] RoadDublin [place] [id number] Leukocyte esterase Test strip Ql (U) Negative Normal [facility] Work Phone: Comment on above: PATIENT WAS FASTINGP ERFORMED BY: JULIUS [facility] Coblzs7591 [address] RoadDublin [place] [id number] Leukocyte esterase Test strip Ql (U) Negative Normal [facility]; [facility] Work Phone: Comment on above: PATIENT WAS FASTINGP ERFORMED BY: JULIUS [facility] Vzrzft5473 [address] RoadDublin [place] [id number] Microscopic observation LM Nom (Urine sed) MICRON Normal [facility] Work Phone: Comment on above: Microscopic follows if indicated. PATIENT WAS FASTINGP ERFORMED BY: JULIUS [facility] Atlhyn3649 [address] RoadDublin [place] [id number] Microscopic observation LM Nom (Urine sed) See below: Normal [facility] Work Phone: Comment on above: Microscopic was rachel cated and was performed. PATIENT WAS FASTINGP ERFORMED BY: JULIUS [facility] Bevjcx8977 [address] RoadDublin [place] [id number] Nitrite Ql (U) Negative Normal Comprehens lazarus Internal Medicine Work Phone: Comment on above: PATIENT WAS FASTINGP ERFORMED BY: JULIUS [facility] Ovognw4485 [address] RoadDublin [place] [id number] Nitrite Ql (U) Negative Normal Comprehens lazarus [facility] Medicine; [facility] Work Phone: Comment on above: PATIENT WAS FASTINGP ERFORMED BY: JULIUS [facility] Udfspf8484 [address] RoadDublin [place] [id number] Nitrite Test strip Ql (U) Negative Normal [facility] Work Phone: pH (U) 6.5 [pH] Normal 5.0-7.5 [facility] Work Phone: Comment on above: PATIENT WAS FASTINGP ERFORMED BY: JULIUS [facility] Xghdis7535 [address] RoadDublin [place] [id number] pH Test strip (U) 6.5 [pH] Normal 5.0-7.5 Compreh ensive Internal Medicine Work Phone: Protein Ql (U) Negative Normal Comprehens alzarus Internal Medicine Work Phone: Comment on above: PATIENT WAS FASTINGP ERFORMED BY: JULIUS [facility] Xiatqs9520 [address] RoadDublin [place] [id number] Protein Ql (U) Negative Normal Comprehens lazarus [facility] Medicine; [facility] Work Phone: Comment on above: PATIENT WAS FASTINGP ERFORMED BY: JULIUS LabCogarland BallEhqwig7826 [address] RoadDublin [place] [id number] Protein Test strip Ql (U) Negative Normal [facility] Work Phone: Specific gravity Relative Density (U) 1.016 1 Normal 1.005-1.03 0 [facility] Work Phone: Comment on above: PATIENT WAS FASTINGP ERFORMED BY: JULIUS LabCogarland Uaoekg4893 [address] RoadDublin [place] [id number] Urobilinogen (U) [Mass/Vol] 0.2 mg/dL Normal 0.0-1.9 [facility]; [facility] Work Phone: Comment on above: PATIENT WAS FASTINGP ERFORMED BY: JULIUS [facility] Uhouyo1437 [address] RoadDublin [place] [id number] Urobilinogen Test strip mass conc (U) 0.2 mg/dL Normal 0.0-1.9 Comprehensiv e Internal Medicine Work Phone: Comment on above: PATIENT WAS FASTINGP ERFORMED BY: JULIUS [facility] Eyocqz1101 [address] RoadDublin [place] [id number] AMYOrdered By: System Manage r on 01-27-2012 SIMI 42 U/L Normal 25-115 [facility] Work Phone: CBCDOrdered By: System [facility] on 01-27-2012 Basophils/100 WBC (Bld) 0.7 % Normal 0-1 [facility] Work Phone: Basophils/100 WBC Auto (Bld) 0.7 % Normal 0-1 [facility] Work Phone: Eosinophils/100 WBC (Bld) 2.2 % Normal 0-5 [facility] Work Phone: Eosinophils/100 WBC Auto (Bld) 2.2 % Normal 0-5 [facility] Work Phone: Erythrocyte distribution width (RBC) [Ratio] 17.0 % Abnormal 11.6-14.6 [facility] Work Phone: Erythrocyte distribution width Auto Ratio (RBC) 17.0 % Abnormal 11.6-14.6 [facility] Work Phone: Hematocrit (Bld) [Volume fraction] 36.6 % Abnormal 37-47 [facility] Work Phone: Hematocrit Auto Volume Fraction (Bld) 36.6 % Abnormal 37-47 [facility] Work Phone: Hemoglobin mass conc (Bld) 12.6 g/dL Normal 12.0-16.0 [facility] Work Phone: Lymphocytes/100 WBC (Bld) 48.5 % Abnormal 19-41 [facility] Work Phone: Lymphocytes/100 WBC Auto (Bld) 48.5 % Abnormal 19-41 [facility] Work Phone: MCH (RBC) [Entitic mass] 32.1 pg Abnormal 27.0-32.0 [facility] Work Phone: MCH Auto Entitic mass (RBC) 32.1 pg Abnormal 27.0-32.0 [facility] Work Phone: MCHC (RBC) [Mass/Vol] 34.3 g/dL Normal 32-36 [facility] Work Phone: MCHC Auto mass conc (RBC) 34.3 g/dL Normal 32-36 [facility] Work Phone: MCV (RBC) [Entitic vol] 93.6 fL Normal 81-99 [facility] Work Phone: MCV Auto Entitic volume (RBC) 93.6 fL Normal 81-99 [facility] Work Phone: Monocytes/100 WBC (Bld) 10.9 % Abnormal 0-10 [facility] Work Phone: Monocytes/100 WBC Auto (Bld) 10.9 % Abnormal 0-10 [facility] Work Phone: Neutrophils (Bld) [#/Vol] 1.6 3/uL Abnormal 2.0-7.7 [facility] Work Phone: Neutrophils Auto #/vol (Bld) 1.6 3/uL Abnormal 2.0-7.7 [facility] Work Phone: Neutrophils/100 WBC (Bld) 37.7 % Abnormal 47-70 [facility] Work Phone: Neutrophils/100 WBC Auto (Bld) 37.7 % Abnormal 47-70 [facility] Work Phone: Platelet mean volume (Bld) [Entitic vol] 7.4 fL Normal 6.5-12.0 [facility] Work Phone: Platelet mean volume Auto Entitic volume (Bld) 7.4 fL Normal 6.5-12.0 [facility] Work Phone: Platelets (Bld) [#/Vol] 254 10*3/uL Normal 150-450 [facility] Work Phone: Platelets Auto #/vol (Bld) 254 10*3/uL Normal 150-450 [facility] Work Phone: RBC (Bld) [#/Vol] 3.91 {M/mm3} Abnormal 4.2-5.4 Compr [facility] Internal Medicine Work Phone: RBC Auto #/vol (Bld) 3.91 {M/mm3} Abnormal 4.2-5.4 [facility] Work Phone: WBC (Bld) [#/Vol] 4.1 10*3/uL Abnormal 4.4-11.0 [facility] Internal Medicine Work Phone: WBC Auto #/vol (Bld) 4.1 10*3/uL Abnormal 4.4-11.0 [facility] Internal Medicine Work Phone: CMPOrdered By: System Manage r on 01-27-2012 Albumin mass conc 3.9 g/dL Normal 3.4-5.0 Compreh [facility] Internal Medicine Work Phone: Albumin/Globulin mass ratio 1.4 {RATIO} Normal 0.9-2.4 [facility] Internal Medicine Work Phone: ALP enzyme act/vol 98 U/L Normal 50-136 [facility] Internal Medicine Work Phone: ALT enzyme act/vol 24 U/L Normal 12-78 [facility] Internal Medicine Work Phone: Anion gap 3 molar conc 6 mmol/L Normal 5-15 [facility] Internal Medicine Work Phone: Anion gap [Moles/Vol] 6 mmol/L Normal 5-15 [facility] Internal Medicine Work Phone: AST enzyme act/vol 19 U/L Normal 15-37 [facility] Internal Medicine Work Phone: Bilirubin mass conc 0.20 mg/dL Normal 0.00-1.00 Compr [facility] Internal Medicine Work Phone: Calcium mass conc 8.8 mg/dL Normal 8.5-10.1 [facility] Internal Medicine Work Phone: Chloride molar conc 105 mmol/L Normal 98-107 Compr [facility] Internal Medicine Work Phone: CO2 molar conc 29.0 mmol/L Normal 21.0-32.0 [facility] Work Phone: Creatinine mass conc 0.6 mg/dL Normal 0.6-1.0 Comp [facility] Internal Medicine Work Phone: GFR/1.73 sq M predicted among blacks MDRD vol rate/area (S/P/Bld) 133 mL/min/{1.73_m2} Normal Compreh ensive Internal Medicine Work Phone: GFR/1.73 sq M.predicted MDRD (S/P/Bld) [Vol rate/Area] 110 mL/min/{1.73_m2} Normal Comprehensi ve Internal Medicine Work Phone: GFR/1.73 sq M.predicted MDRD vol rate/area 110 mL/min/{1.73_m2} Normal Comprehensi ve [facility] Work Phone: Globulin (S) [Mass/Vol] 2.8 g/dL Normal 2.7-4.2 [facility] Work Phone: Globulin Calculated mass conc (S) 2.8 g/dL Normal 2.7-4.2 [facility] Work Phone: Glucose mass conc 80 mg/dL Normal 70-110 Compreh ensive [facility] Medicine Work Phone: Potassium molar conc 4.3 mmol/L Normal 3.5-5.1 Comp rehensive Internal Medicine Work Phone: Protein mass conc 6.7 g/dL Normal 6.4-8.2 Compreh ensive [facility] Work Phone: Sodium molar conc 140 mmol/L Normal 136-145 Compreh ensive [facility] Work Phone: Urea nitrogen mass conc 15 mg/dL Normal 7-18 [facility] Work Phone: Urea nitrogen/Creatinine mass ratio 25.0 {RATIO} Abnormal 10-20 [facility] Work Phone: LIPASEOrdered By: Lucila Man ager on 01-27-2012 LIPASE 104 U/L Normal 70-290 [facility] Work Phone: Urinalysis, Office ([id number])Or dered By: Catalina Burns on 01-27-2012 Bilirubin Ql (U) Negative Normal Comprehe nsive Internal Medicine Work Phone: Glucose Test strip mass conc (U) Negative Normal [facility] Work Phone: Hemoglobin Ql (U) Negative Normal Compreh ensive [facility] Work Phone: Hemoglobin Test strip Ql (U) Negative Normal [facility] Work Phone: Ketones Ql (U) Negative Normal Comprehens [facility] Work Phone: Leukocyte esterase Test strip Ql (U) Negative Normal [facility] Work Phone: Nitrite Ql (U) Negative Normal [facility]prehens [facility] Work Phone: Nitrite Test strip Ql (U) Negative Normal [facility] Work Phone: pH (U) 7.0 [pH] Normal [facility] Work Phone: pH Test strip (U) 7.0 [pH] Normal Compreh ensive [facility] Work Phone: Protein Ql (U) Negative Normal Comprehens [facility] Work Phone: Protein Test strip Ql (U) Negative Normal [facility] Work Phone: Specific gravity Relative Density (U) 1.010 1 Normal Comprehensi ve [facility] Work Phone: Urobilinogen mass/time (24H U) Normal Normal [facility] Work Phone: Urinalysis, Office ([id number])on 01-27-2012 Bilirubin Ql (U) Negative Normal Comprehe nsive [facility] Medicine; [facility] Work Phone: Glucose Test strip (U) [Mass/Vol] Negative Normal [facility]; [facility] Work Phone: Hemoglobin Ql (U) Negative Normal Compreh ensive [facility]; [facility] Work Phone: Ketones Ql (U) Negative Normal Comprehens [facility]; [facility] Work Phone: Leukocyte esterase Test strip Ql (U) Negative Normal [facility]; [facility] Work Phone: Nitrite Ql (U) Negative Normal Comprehens [facility]; [facility] Work Phone: Protein Ql (U) Negative Normal Comprehens [facility]; [facility] Work Phone: LQD PAP [id number] By: Chente stem Principal Administrative Clerk on 07-02-2010 LQD PAP [id number] . Normal Comprehens [facility] Work Phone: Comment on above: CYTOLOGY INFORMATION :- CLINICAL INFORMATION: - DATE LMP/MENOPAUSE: - COLLECTION VIAL: Thin Prep Vial- NATURAL HISTORY COLLECTIONS CURATOR SOURCE: - COLLECTION TECHNIQUE: LQD PAP [id number] Comment Normal Comprehens [facility] Work Phone: Comment on above: The Pap smear is a s creening test designed to aid in thedetection of premalignant and malignant conditions of theuterine cervix. It is not a diagnostic procedure andshould not be used as the sole means of detecting cervicalcancer. Both false-positive and false-negative reports dooccur. .The HPV DNA reflex criteria were not met with this specimenresult therefore, no HPV testing was performed. .Performed at: [address] [id number] Director: Janak Dan MD, Phone: [phone] NEGATIVE FOR INTRAEP ITHELIAL LESION AND MALIGNANCY.CELLULAR CHANGES ASSOCIATED WITH INFLAMMATION ARE PRESENT.THIS SPECIMEN WAS RESCREENED PART OF OUR TECHNICAL TRAINING SPECIALIST PROGRAM.Satisfactory for evaluation. Endocervical and/or squamous metaplasticcells (endocervical component) are present.Nito Henry, Visual Merchandising Associate (ASCP)Felicita Rubalcava, Supervisory Visual Merchandising Associate (ASCP) CYTOLOGY INFORMATION :- CLINICAL INFORMATION: - DATE LMP/MENOPAUSE: - COLLECTION VIAL: Thin Prep Vial- NATURAL HISTORY COLLECTIONS CURATOR SOURCE: - COLLECTION TECHNIQUE: NMR LIPOPROFILEOrdered By: Lefty ramirestem Principal Administrative Clerk on 06-08-2010 Cholesterol mass conc 251 mg/dL Abnormal [facility] Work Phone: Triglyceride mass conc 107 mg/dL Normal [facility] Work Phone: NMR LIPOPROFILE . Normal Comprehen sive [facility] Work Phone: NMR LIPOPROFILE 43.7 nm Normal Comprehen sive [facility] Work Phone: NMR LIPOPROFILE 9.5 umol/L Normal Comprehen sive [facility] Work Phone: NMR LIPOPROFILE 21.7 nm Normal Comprehen sive [facility] Work Phone: Comment on above: INTERPRETATIVE INFORMATIONPARTICLE CONCENTRATION AND SIZE<--Lower CVD Risk Higher CVD Risk-->LDL AND HDL PARTICLES Percentile in Reference PopulationHDL-P (total) High 75th 50th 25th Low>34.9 34.9 30.5 26.7 <26.7.Small LDL-P Low 25th 50th 75th High<117 117 527 839 >839.LDL Size <-Large (Pattern A)-> <-Small (Pattern B)->23.0 20.6 20.5 19.0 NMR LIPOPROFILE 43.7 umol/L Normal Comprehe [facility] Internal Medicine Work Phone: NMR LIPOPROFILE 73 mg/dL Normal Comprehen [facility] Internal Medicine Work Phone: NMR LIPOPROFILE 91 nmol/L Normal Comprehen [facility] Internal Medicine Work Phone: NMR LIPOPROFILE 1174 nmol/L Abnormal Comprehe [facility] Internal Medicine Work Phone: Comment on above: Low < 1000Moderate 1 000 - 1299Borderline-High 1300 - 1599High 1600 - 2000Very High > 2000 NMR LIPOPROFILE 2.9 nmol/L Abnormal Comprehen [facility] Internal Medicine Work Phone: NMR LIPOPROFILE 24 1 Normal Comprehen [facility] Internal Medicine Work Phone: Comment on above: LP-IR Score is inacc urate if patient is non-fasting.The LP-IR Score combines the information from Large VLDL-P,Small LDL-P, Large HDL-P, VLDL Size, LDL Size and HDL Sizeto give improved assessment of insulin resistance anddiabetes risk. IN SULIN RESISTANCE / DIABETES RISK MARKERS<--Insulin Sensitive Insulin Resistant-->Percentile in Reference PopulationLarge VLDL-P Low 25th 50th 75th High<0.9 0.9 2.7 6.9 >6.9.Small LDL-P Low 25th 50th 75th High<117 117 527 839 >839.Large HDL-P High 75th 50th 25th Low>7.3 7.3 4.8 3.1 <3.1.VLDL Size Small 25th 50th 75th Large<42.4 42.4 46.6 52.5 >52.5.LDL Size Large 75th 50th 25th Small>21.2 21.2 20.8 20.4 <20.4.HDL Size Large 75th 50th 25th Small>9.6 9.6 9.2 8.9 >8.9Insulin Resistance ScoreLP-IR SCORE Low 25th 50th 75th High<27 27 45 63 >63 Perf ormed at: [facility] [id number] [place], [place] [id number] Director: Lupillo Palomo PhD, Phone: [phone] NMR LIPOPROFILE 9.4 nm Normal [facility] Internal Medicine Work Phone: Comment on above: Small LDL-P, LDL Par ticle Size, Large HDL-P, Large VLDL-PVLDL Size, HDL Size, HDL Particle, and LP-IR Scorehave been validated by [employer] but not cleared by [place] FDA;the clinical utility of these test results has not been fully established. NMR LIPOPROFILE 157 mg/dL Abnormal [facility] Internal Medicine Work Phone: Comment on above: LDL-C is inaccurate if patient is nonfasting..Optimal < 100Above optimal 100 - 129Borderline 130 - 159High 160 - 189Very high > 189. CBCD,SMEAR DIFFOrdered By: Lefty ramireste Principal Administrative Clerk on 06-03-2010 Eosinophils/100 WBC (Bld) 1 % Normal 0-5 [facility] Work Phone: Eosinophils/100 WBC Auto (Bld) 1 % Normal 0-5 [facility] Work Phone: Erythrocyte distribution width (RBC) [Ratio] 14.8 % Abnormal 11.6-14.6 [facility] Work Phone: Erythrocyte distribution width Auto Ratio (RBC) 14.8 % Abnormal 11.6-14.6 [facility] Work Phone: Hematocrit (Bld) [Volume fraction] 35.6 % Abnormal 37-47 [facility] Work Phone: Hematocrit Auto Volume Fraction (Bld) 35.6 % Abnormal 37-47 [facility] Work Phone: Hemoglobin mass conc (Bld) 12.1 g/dL Normal 12.0-16.0 [facility] Work Phone: Lymphocytes/100 WBC (Bld) 44 % Abnormal 19-41 [facility] Work Phone: Lymphocytes/100 WBC Auto (Bld) 44 % Abnormal 19-41 [facility] Work Phone: MCH (RBC) [Entitic mass] 32.5 pg Abnormal 27.0-32.0 [facility] Work Phone: MCH Auto Entitic mass (RBC) 32.5 pg Abnormal 27.0-32.0 [facility] Work Phone: MCHC (RBC) [Mass/Vol] 34.0 g/dL Normal 32-36 [facility] Work Phone: MCHC Auto mass conc (RBC) 34.0 g/dL Normal 32-36 [facility] Work Phone: MCV (RBC) [Entitic vol] 95.5 fL Normal 81-99 [facility] Work Phone: MCV Auto Entitic volume (RBC) 95.5 fL Normal 81-99 [facility] Work Phone: Monocytes/100 WBC (Bld) 5 % Normal 0-10 [facility] Work Phone: Monocytes/100 WBC Auto (Bld) 5 % Normal 0-10 [facility] Work Phone: Neutrophils (Bld) [#/Vol] 2.8 3/uL Normal 2.0-7.7 [facility] Work Phone: Neutrophils Auto #/vol (Bld) 2.8 3/uL Normal 2.0-7.7 [facility] Internal Medicine Work Phone: Platelets (Bld) [#/Vol] 295 10*3/uL Normal 150-450 [facility] Internal Medicine Work Phone: Platelets (Bld) [#/Vol] SeeNote Normal [facility] Internal Medicine Work Phone: Comment on above: Result: ADEQUATE Platelets Auto #/vol (Bld) 295 10*3/uL Normal 150-450 [facility] Internal Medicine Work Phone: RBC (Bld) [#/Vol] 3.73 {M/mm3} Abnormal 4.2-5.4 [facility] Internal Medicine Work Phone: RBC Auto #/vol (Bld) 3.73 {M/mm3} Abnormal 4.2-5.4 Co [facility] Internal Medicine Work Phone: WBC (Bld) [#/Vol] 5.6 10*3/uL Normal 4.4-11.0 [facility] Work Phone: WBC Auto #/vol (Bld) 5.6 10*3/uL Normal 4.4-11.0 [facility] Internal Medicine Work Phone: CBCD,SMEAR DIFF SeeNote Normal [facility] Internal Medicine Work Phone: Comment on above: Result: ADEQUATE Result: NORM C+C CBCD,SMEAR DIFF 100 1 Normal [facility] Internal [facility] Work Phone: CBCD,SMEAR DIFF 50 % Normal 47-70 [facility] Work Phone: COMP METABOLICOrdered By: Chente stem Principal Administrative Clerk on 06-03-2010 Albumin mass conc 3.8 g/dL Normal 3.4-5.0 [facility] Work Phone: Albumin/Globulin mass ratio 1.3 {RATIO} Normal 0.9-2.4 [facility] Work Phone: ALP enzyme act/vol 99 U/L Normal 50-136 Compre [facility] Internal Medicine Work Phone: ALT enzyme act/vol 68 U/L Normal 12-78 [facility] Internal Medicine Work Phone: Anion gap 3 molar conc 5 mmol/L Normal 5-15 [facility] Work Phone: Anion gap [Moles/Vol] 5 mmol/L Normal 5-15 [facility] Internal Medicine Work Phone: AST enzyme act/vol 44 U/L Abnormal 15-37 Compre [facility] Internal Medicine Work Phone: Bilirubin mass conc 0.20 mg/dL Normal 0.00-1.00 Compr ensive [facility] Medicine Work Phone: Calcium mass conc 9.5 mg/dL Normal 8.5-10.1 [facility] Work Phone: Chloride molar conc 107 mmol/L Normal 98-107 Compr ensive [facility] Medicine Work Phone: CO2 molar conc 30.0 mmol/L Normal 21.0-32.0 [facility] Work Phone: Creatinine mass conc 0.7 mg/dL Normal 0.6-1.0 Comp [facility] Internal Medicine Work Phone: GFR/1.73 sq M predicted among blacks MDRD vol rate/area (S/P/Bld) 113 mL/min/{1.73_m2} Normal [facility] Work Phone: GFR/1.73 sq M.predicted MDRD (S/P/Bld) [Vol rate/Area] 93 mL/min/{1.73_m2} Normal Comprehensiv e [facility] Medicine Work Phone: GFR/1.73 sq M.predicted MDRD vol rate/area 93 mL/min/{1.73_m2} Normal Comprehensiv e [facility] Medicine Work Phone: Globulin (S) [Mass/Vol] 3.0 g/dL Normal 2.7-4.2 [facility] Work Phone: Globulin Calculated mass conc (S) 3.0 g/dL Normal 2.7-4.2 [facility] Work Phone: Glucose mass conc 82 mg/dL Normal 70-110 Compreh ensive [facility] Medicine Work Phone: Potassium molar conc 5.0 mmol/L Normal 3.5-5.1 Comp rehensive Internal Medicine Work Phone: Protein mass conc 6.8 g/dL Normal 6.4-8.2 Compreh ensive [facility] Work Phone: Sodium molar conc 142 mmol/L Normal 136-145 Compreh ensive [facility] Work Phone: Urea nitrogen mass conc 17 mg/dL Normal 7-18 [facility] Work Phone: Urea nitrogen/Creatinine mass ratio 24.3 {RATIO} Abnormal 10-20 [facility] Work Phone: D BILIOrdered By: System Man ager on 06-03-2010 Bilirubin.direct mass conc 0.09 mg/dL Normal 0.00-0.30 [facility] Work Phone: ABDOMEN/PELVIS WITH CONTRAST Ordered By: [place] Manager on 05-01-2010 ABDOMEN/PELVIS WITH CONTRAST See Note Normal [facility] Work Phone: Comment on above: Exam Number: [id number] CLINICAL:55 year old female with low back and abdominal pain.CT ABDOMEN AND PELVIS WITH CONTRAST TECHNIQUE:Transaxial images were obtained from the dome of the diaphragm tothe symphysis pubis with oral contrast. 100 and ml of Isovue-300contrast was administered intravenously. COMPARISON:None. FINDINGS:The visualized lung bases are unremarkable. Normal enhanced liver. Normal gallbladder and biliary system. Normal enhanced spleen. Normal pancreas. Normal bilateral adrenal glands. Normal size of the right kidney. Normal excretion of contrastmaterial of the right kidney. There is no right renal mass. Thereare no right renal calculi. There is no right hydronephrosis.Normal visualized right ureter. Normal size of the left kidney. Normal excretion of contrastmaterial of the left kidney. There is no left renal mass. Thereare no left renal calculi. There is no left hydronephrosis. Normalvisualized left ureter. Normal visualized stomach. Normal colon. The morphology of the small bowel and oral contrast in the mid tolower pelvis is unusual. Especially on sagittal images thereappears to be free contrast in the cul-de-sac outlining the uterus.On axial image 66 contrast appears to surround a small bowel loop.On axial image 65 the contrast appears to be coming from the smallbowel. On axial images 62 through 64 there is small bowel wallthickening visible in the bowel approaching this presumedperforation. Since this finding is probable but not certain and the presence of asmall bowel perforation would probably mandate surgery, I wouldsuggest further evaluation, repeating the pelvic CT with the patienton her left side. The region of the appendix is normal. Normal mesentery and peritoneum. There is no free fluid in the abdomen. There is no free air in theabdomen. Normal retroperitoneum. Normal abdominal aorta. Normal visualized pelvic arteries. Normalinferior vena cava. Normal opacified urinary bladder. There is no pelvic mass lesion. There is no pelvic fluid. There isno pelvic lymphadenopathy. Normal abdominal wall. Normal osseous structures. IMPRESSION:Suspect a small bowel perforation in the right lower quadrant but itshould be confirmed with a left lateral decubitus CT of the pelvisunless the patient has an acute abdomen and already needslaparoscopy. Reported By: Sai Guerrero M.D. Exam Number: [id number] CLINICAL:Follow-up. The preceding CT suggested a small bowel perforation. CT PELVIS WITHOUT CONTRAST TECHNIQUE:Transaxial images were obtained from the iliac crests through thepubic bone. No additional oral contrast was given. COMPARISON:The exam done 4 hours ago. FINDINGS:All of the oral contrast has reached the colon and none of itremains in the small bowel. There is free contrast or other evidence of a perforation. There are no signs of an acute process. Apparently the original findings were misleading. IMPRESSION:Normal unenhanced CT of the abdomen and pelvis. Reported By: Sai Guerrero M.D. CULTURE, URINEOrdered By: Chente stem Principal Administrative Clerk on 05-01-2010 Bacteria identified Cx Nom (U) See Note Normal [facility] Work Phone: Comment on above: Culture exhibits no growth. Urinalysis, Office ([id number])Or dered By: Catalina Burns on 05-01-2010 Bilirubin Ql (U) Negative Normal Comprehe nsive [facility] Medicine Work Phone: Glucose Test strip mass conc (U) Negative Normal [facility] Work Phone: Hemoglobin Ql (U) Negative Normal Compreh [facility]ive [facility] Work Phone: Hemoglobin Test strip Ql (U) Negative Normal [facility] Work Phone: Ketones Ql (U) Negative Normal Comprehens [facility] Work Phone: Leukocyte esterase Test strip Ql (U) Negative Normal [facility] Work Phone: Nitrite Ql (U) Negative Normal Comprehens [facility] Work Phone: Nitrite Test strip Ql (U) Negative Normal [facility] Work Phone: pH (U) 7.0 [pH] Normal [facility] Work Phone: pH Test strip (U) 7.0 [pH] Normal Compreh ensive [facility] Work Phone: Protein Ql (U) Negative Normal Comprehens [facility] Work Phone: Protein Test strip Ql (U) Negative Normal [facility] Work Phone: Specific gravity Relative Density (U) 1.015 1 Normal Comprehensi ve [facility] Medicine Work Phone: Urobilinogen mass/time (24H U) Normal Normal [facility] Work Phone: Urinalysis, Office ([id number])on 05-01-2010 Bilirubin Ql (U) Negative Normal Comprehe nsive Internal Medicine; [facility] Work Phone: Glucose Test strip (U) [Mass/Vol] Negative Normal [facility]; [facility] Work Phone: Hemoglobin Ql (U) Negative Normal Compreh ensive [facility]; [facility] Work Phone: Ketones Ql (U) Negative Normal Comprehens [facility]; [facility] Work Phone: Leukocyte esterase Test strip Ql (U) Negative Normal [facility]; [facility] Work Phone: Nitrite Ql (U) Negative Normal Comprehens [facility]; [facility] Work Phone: Protein Ql (U) Negative Normal Comprehens [facility]; [facility] Work Phone: UNILAT LT DIAG DIGITAL & CAD Ordered By: [place] Manager on 01-29-2010 UNILAT LT DIAG DIGITAL & CAD See Note Normal [facility] Work Phone: Comment on above: Exam Number: [id number] MAMMOGRAPHY - UNILATERAL DIAGNOSTIC: BREAST INDICATION:Six month follow-up abnormal mammogram PERTINENT HISTORY:Non-contributory TECHNIQUE:Digital examination. Mediolateral oblique (MLO) and craniocaudad(CC) views of the breast were obtained. CAD was performed on thisstudy. COMPARISON:July 14, 2009 FINDINGS:The breast composition is heterogeneously dense. There are no masses or suspicious microcalcifications. No other significant abnormalities are identified. IMPRESSION:The appearance of the mammogram is stable. Follow up mammography inone year is recommended. ASSESSMENT CATEGORY:Category 2: Benign finding(s) Approximately 10% of breast cancers are not detected by mammography.A normal mammogram should not delay biopsy of a clinicallysuspicious abnormality.This addendum is being created for the purpose of attaching a ResultCode to this exam.ADDENDUM: [id number] HPBI/MUDDL Reported By: LUIS ALBERTO CORNEJO M.D. CBCOrdered By: System Manage r on 08-21-2009 Erythrocyte distribution width (RBC) [Ratio] 17.5 % Abnormal 11.6-14.6 [facility] Work Phone: Erythrocyte distribution width Auto Ratio (RBC) 17.5 % Abnormal 11.6-14.6 [facility] Work Phone: Hematocrit (Bld) [Volume fraction] 38.5 % Normal 37-47 [facility] Work Phone: Hematocrit Auto Volume Fraction (Bld) 38.5 % Normal 37-47 [facility] Internal Medicine Work Phone: Hemoglobin mass conc (Bld) 12.6 g/dL Normal 12.0-16.0 [facility] Work Phone: MCH (RBC) [Entitic mass] 30.5 pg Normal 27.0-32.0 [facility] Work Phone: MCH Auto Entitic mass (RBC) 30.5 pg Normal 27.0-32.0 [facility] Work Phone: MCHC (RBC) [Mass/Vol] 32.7 g/dL Normal 32-36 [facility] Medicine Work Phone: MCHC Auto mass conc (RBC) 32.7 g/dL Normal 32-36 [facility] Internal Medicine Work Phone: MCV (RBC) [Entitic vol] 93.1 fL Normal 81-99 [facility] Work Phone: MCV Auto Entitic volume (RBC) 93.1 fL Normal 81-99 [facility] Internal [facility] Work Phone: Platelet mean volume (Bld) [Entitic vol] 7.3 fL Normal 6.5-12.0 Comprehensiv e Internal Medicine Work Phone: Platelet mean volume Auto Entitic volume (Bld) 7.3 fL Normal 6.5-12.0 [facility] Internal Medicine Work Phone: Platelets (Bld) [#/Vol] 281 10*3/uL Normal 150-450 [facility] Internal Medicine Work Phone: Platelets Auto #/vol (Bld) 281 10*3/uL Normal 150-450 [facility] Internal Medicine Work Phone: RBC (Bld) [#/Vol] 4.14 {M/mm3} Abnormal 4.2-5.4 Compr [facility] Internal Medicine Work Phone: RBC Auto #/vol (Bld) 4.14 {M/mm3} Abnormal 4.2-5.4 [facility] Internal Medicine Work Phone: WBC (Bld) [#/Vol] 5.5 10*3/uL Normal 4.4-11.0 [facility] Internal Medicine Work Phone: WBC Auto #/vol (Bld) 5.5 10*3/uL Normal 4.4-11.0 Com prehensive Internal Medicine Work Phone: COMP METABOLICOrdered By: Chente stem Principal Administrative Clerk on 08-21-2009 Albumin mass conc 4.2 g/dL Normal 3.4-5.0 Compreh ensive Internal Medicine Work Phone: Albumin/Globulin mass ratio 1.5 {RATIO} Normal 0.9-2.4 [facility] Work Phone: ALP enzyme act/vol 120 U/L Normal 50-136 [facility] Work Phone: ALT enzyme act/vol 37 U/L Normal 12-78 [facility] Internal Medicine Work Phone: Comment on above: Please Note: Pancho ed Reference Range effective 09 Anion gap 3 molar conc 11 mmol/L Normal 5-15 [facility] Work Phone: Anion gap [Moles/Vol] 11 mmol/L Normal 5-15 [facility] Internal Medicine Work Phone: AST enzyme act/vol 18 U/L Normal 15-37 [facility] Internal Medicine Work Phone: Bilirubin mass conc 0.30 mg/dL Normal 0.00-1.00 [facility] Work Phone: Calcium mass conc 9.2 mg/dL Normal 8.5-10.1 Compreh ensive Internal Medicine Work Phone: Chloride molar conc 107 mmol/L Normal 98-107 Compr ensive Internal Medicine Work Phone: CO2 molar conc 29.0 mmol/L Normal 21.0-32.[address] [facility] Internal Medicine Work Phone: Creatinine mass conc 0.8 mg/dL Normal 0.6-1.0 Comp rehensive Internal Medicine Work Phone: GFR/1.73 sq M predicted among blacks MDRD vol rate/area (S/P/Bld) 97 mL/min/{1.73_m2} Normal Comprehe nsive Internal Medicine Work Phone: GFR/1.73 sq M.predicted MDRD (S/P/Bld) [Vol rate/Area] 80 mL/min/{1.73_m2} Normal Comprehensiv e Internal Medicine Work Phone: GFR/1.73 sq M.predicted MDRD vol rate/area 80 mL/min/{1.73_m2} Normal Comprehens[facility] e Internal Medicine Work Phone: Globulin (S) [Mass/Vol] 2.8 g/dL Normal 2.7-4.2 [facility] Work Phone: Globulin Calculated mass conc (S) 2.8 g/dL Normal 2.7-4.2 [facility] Work Phone: Glucose mass conc 82 mg/dL Normal 70-110 Compreh ensive Internal Medicine Work Phone: Potassium molar conc 4.7 mmol/L Normal 3.5-5.1 Comp rehensive Internal Medicine Work Phone: Protein mass conc 7.0 g/dL Normal 6.4-8.2 Compreh ensive Internal Medicine Work Phone: Sodium molar conc 147 mmol/L Abnormal 136-145 Compreh ensive Internal Medicine Work Phone: Urea nitrogen mass conc 15 mg/dL Normal 7-18 [facility] Work Phone: Urea nitrogen/Creatinine mass ratio 18.8 {RATIO} Normal 10-20 [facility] Work Phone: NMR LIPOPROFILEOrdered By: Lefty aguilar Principal Administrative Clerk on 08-21-2009 Cholesterol in HDL mass conc 8.0 umol/L Normal [facility] Work Phone: Cholesterol in HDL mass conc 70 mg/dL Normal [facility] Work Phone: Cholesterol mass conc 222 mg/dL Abnormal [facility] Work Phone: Triglyceride mass conc 91 mg/dL Normal [facility] Internal Medicine Work Phone: NMR LIPOPROFILE 2.0 nmol/L Normal [facility] Internal Medicine Work Phone: Comment on above: Small LDL-P, LDL Par ticle Size, Large HDL-P and Large VLDL- Phave been validated by [employer] but not cleared by US FDA;the clinical utility of these test results has not been fully established. NMR LIPOPROFILE Comment Normal [facility] Internal Medicine Work Phone: Comment on above: High Risk: LDL-P < 1 000; Secondary goal: SmallLDL-P < 527 Moderately High-Risk: LDL-P < 1300; Secondarygoal: Small LDL-P < 527 NMR LIPOPROFILE 21.5 nm Normal [facility] Internal Medicine Work Phone: Comment on above: . Small (Pattern B) 18.0 - 20.5 Large (Pattern A) 20.6 - 23.0 . NMR LIPOPROFILE 582 nmol/L Abnormal [facility] Internal Medicine Work Phone: Comment on above: . Low < 117 Moderate 117 - 526 Borderline 527 - 839 High > 839 . NMR LIPOPROFILE 134 mg/dL Abnormal [facility] Internal Medicine Work Phone: Comment on above: LDL-C is inaccurate if patient is nonfasting. . Optimal < 100 Above optimal 100 - 129 Borderline 130 - 159 High 160 - 189 Very high > 189 . NMR LIPOPROFILE 1557 nmol/L Abnormal [facility] Internal Medicine Work Phone: Comment on above: . Optimal < 1000 Abo ve optimal 1000 - 1299 Borderline 1300 - 1599 High 1600 - 2000 Very high > 2000 . UNILAT LT DIAG DIGITAL & CAD Ordered By: [place] Manager on 07-14-2009 UNILAT LT DIAG DIGITAL & CAD See Note Normal [facility] Internal Medicine Work Phone: Comment on above: Exam Number: [id number] UNILATERAL DIGITAL MAMMOGRAM The patient was recalled for additional views of the left breast. Compression spot radiographs of the area of interest in the leftbreast were obtained in the MLO and the craniocaudal views. No nodular density is seen. It most likely represents superimpositionof tissue. Routine mammographic followup is suggested. IMPRESSIONCategory 0. A letter regarding the results has been sent to the patient. This interpretation was rendered by a radiologist certified under theMammography Quality Standards Act of 1992 (MQSA). The mammograms werealso examined with computer-aided detection software ([employer], [employer].). Reported By: EDWIN LUNDY DEXA BONE DENSITY STUDY (HP) Ordered By: [place] Manager on 07-02-2009 DEXA BONE DENSITY STUDY (HP) See Note Normal [facility] Work Phone: Comment on above: Exam Number: [id number] BONE DENSITOMETRY HISTORYPostmenopausal. TECHNIQUE Bone densitometry of the lumbar spine and both hips is now beingperformed. The best criteria for evaluation of osteoporosis is theT-value, which represents the comparison of the patient's bone mass ramsey expected peak bone mass. For most patients, the mean T-value of Q2blvqazz L4 is used to evaluate the lumbar spine. To evaluate the hip,the lower T-value of the femoral neck or total hip is used. FINDINGSIn this patient, the mean T-value of L1 through L4 is -1.4 which is inthe range of osteopenia. The Z-score is -1.9.Digital lateral view for evaluation of vertebral deformity only demonstrates no obvious compression fractures.The T-value of the left femoral neck is -1.2 which is in the range ofosteopenia.The T-value of the total left hip is -0.3 which is normal. Z-score ofthe femoral neck is -1. Z-score of the total hip is -0.5.The T-value of the right femoral neck is -1.2 which is in the range ofosteopenia.The T-value of the total right hip is -0.6 which is normal. Z-scoreof the femoral neck is -1. Z-score of the total hip is -0.8. IMPRESSIONThere is osteopenia of the lumbar spine and both hips. Reported By: LUIS ALBERTO CORNEJO M.D. Exam Number: [id number] MAMMOGRAM, BILATERAL SCREENING DIGITAL AND CAD HISTORYRoutine screening. Full field digital images were obtained in mediolateral oblique andcraniocaudal projection. CAD images were reviewed. The current study is compared to the examination January 06, 2001. There is moderately dense fibroglandular parenchyma present. Therehas been considerable fatty replacement of parenchyma compared to theprevious study. There is no skin thickening or retraction,architectural distortion, or cluster of suspiciousmicrocalcifications. CAD images identify a nodule in the upper outerquadrant of the left breast. This is likely to represent an area ofsuperimposition of parenchymal structures. To exclude the possibilityof a true nodule, left true lateral and roll craniocaudal views arerecommended. IMPRESSIONThere is an asymmetric density in the upper outer quadrant of the leftbreast for which additional views are recommended. FINAL ASSESSMENTNeed additional imaging evaluation. BIRADS Category 0. A letter regarding these results has been sent to the patient. This interpretation was rendered by a radiologist certified under theMammography Quality Standards Act of 1992 (MQSA). The mammograms werealso examined with computer-aided detection software ([employer].). Reported By: LUIS ALBERTO CORNEJO M.D. FECAL OCCULT HGB ASSAY- tube s sent home ([id number])Ordered By: Julieta Pemberton on 06-11-2009 Hemoglobin.gastroint estinal Ql (St) Negative Normal [facility] Work Phone: Hemoglobin.gastroint estinal Ql (Stl) Negative Normal [facility]; [facility] Work Phone: LQD PAP [id number] By: Chente stem Principal Administrative Clerk on 06-11-2009 LQD PAP [id number] . Normal [facility] Work Phone: Comment on above: CYTOLOGY INFORMATION :- CLINICAL INFORMATION: - DATE LMP/MENOPAUSE: LMP- COLLECTION VIAL: Thin Prep Vial- NATURAL HISTORY COLLECTIONS CURATOR SOURCE: CERVICAL/ENDOCERVICAL- COLLECTION TECHNIQUE: BRUSH/SPATULA LQD PAP [id number] Comment Normal Comprehens [facility] Internal Medicine Work Phone: Comment on above: Satisfactory for halley luation. Endocervical and/or squamous metaplasticcells (endocervical component) are present. The Pap smear is a s creening test designed to aid in thedetection of premalignant and malignant conditions of theuterine cervix. It is not a diagnostic procedure andshould not be used as the sole means of detecting cervicalcancer. Both false-positive and false-negative reports dooccur. . Dayana crisostomo, Visual Merchandising Associate (ASCP) The HPV DNA reflex nithin reza were not met with this specimenresult therefore, no HPV testing was performed. .Performed At: [facility] [id number] Ariana Vazquez, Supervisory Visual Merchandising Associate (ASCP) NEGATIVE FOR INTRAEP ITHELIAL LESION AND MALIGNANCY.THIS SPECIMEN WAS RESCREENED PART OF OUR TECHNICAL TRAINING SPECIALIST PROGRAM. CYTOLOGY INFORMATION :- CLINICAL INFORMATION: - DATE LMP/MENOPAUSE: LMP- COLLECTION VIAL: Thin Prep Vial- NATURAL HISTORY COLLECTIONS CURATOR SOURCE: CERVICAL/ENDOCERVICAL- COLLECTION TECHNIQUE: BRUSH/SPATULA CBCD,SMEAR DIFFOrdered By: Lefty te Principal Administrative Clerk on 06-04-2009 Eosinophils/100 WBC (Bld) 1 % Normal 0-5 [facility] Work Phone: Eosinophils/100 WBC Auto (Bld) 1 % Normal 0-5 [facility] Work Phone: Erythrocyte distribution width (RBC) [Ratio] 13.4 % Normal 11.6-14.6 [facility] Work Phone: Erythrocyte distribution width Auto Ratio (RBC) 13.4 % Normal 11.6-14.6 [facility] Work Phone: Hematocrit (Bld) [Volume fraction] 38.7 % Normal 37-47 [facility] Work Phone: Hematocrit Auto Volume Fraction (Bld) 38.7 % Normal 37-47 [facility] Work Phone: Hemoglobin mass conc (Bld) 13.2 g/dL Normal 12.0-16.0 [facility] Work Phone: Lymphocytes/100 WBC (Bld) 24 % Normal 19-41 [facility] Work Phone: Lymphocytes/100 WBC Auto (Bld) 24 % Normal 19-41 [facility] Work Phone: MCH (RBC) [Entitic mass] 30.8 pg Normal 27.0-32.0 [facility] Work Phone: MCH Auto Entitic mass (RBC) 30.8 pg Normal 27.0-32.0 [facility] Work Phone: MCHC (RBC) [Mass/Vol] 34.2 g/dL Normal 32-36 [facility] Work Phone: MCHC Auto mass conc (RBC) 34.2 g/dL Normal 32-36 [facility] Work Phone: MCV (RBC) [Entitic vol] 89.9 fL Normal 81-99 [facility] Work Phone: MCV Auto Entitic volume (RBC) 89.9 fL Normal 81-99 [facility] Work Phone: Monocytes/100 WBC (Bld) 4 % Normal 0-10 [facility] Work Phone: Monocytes/100 WBC Auto (Bld) 4 % Normal 0-10 [facility] Work Phone: Platelets (Bld) [#/Vol] SeeNote Normal [facility] Work Phone: Comment on above: Result: ADEQUATE Platelets (Bld) [#/Vol] 303 10*3/uL Normal 150-450 [facility] Work Phone: Platelets Auto #/vol (Bld) 303 10*3/uL Normal 150-450 [facility] Work Phone: RBC (Bld) [#/Vol] 4.30 {M/mm3} Normal 4.2-5.4 Compr ehensive Internal Medicine Work Phone: RBC Auto #/vol (Bld) 4.30 {M/mm3} Normal 4.2-5.4 Co mprehensive Internal Medicine Work Phone: WBC (Bld) [#/Vol] 5.5 10*3/uL Normal 4.4-11.0 Compre hensive Internal Medicine Work Phone: WBC Auto #/vol (Bld) 5.5 10*3/uL Normal 4.4-11.0 Com prehensive Internal Medicine Work Phone: CBCD,SMEAR DIFF 100 1 Normal [facility] Internal Medicine Work Phone: CBCD,SMEAR DIFF 71 % Abnormal 47-70 [facility] Internal Medicine Work Phone: COMP METABOLICOrdered By: Chente stem Principal Administrative Clerk on 06-04-2009 Albumin mass conc 4.0 g/dL Normal 3.4-5.0 Compreh [facility] Internal Medicine Work Phone: Albumin/Globulin mass ratio 1.3 {RATIO} Normal 0.9-2.4 [facility] Internal Medicine Work Phone: ALP enzyme act/vol 104 U/L Normal 50-136 [facility] Internal Medicine Work Phone: ALT enzyme act/vol 30 U/L Normal 30-65 [facility] Internal Medicine Work Phone: Anion gap 3 molar conc 7 mmol/L Normal 5-15 [facility] Internal Medicine Work Phone: Anion gap [Moles/Vol] 7 mmol/L Normal 5-15 [facility] Internal Medicine Work Phone: AST enzyme act/vol 21 U/L Normal 15-37 [facility] Internal Medicine Work Phone: Bilirubin mass conc 0.30 mg/dL Normal 0.00-1.00 [facility] Internal Medicine Work Phone: Calcium mass conc 9.0 mg/dL Normal 8.5-10.1 Compreh [facility] Internal Medicine Work Phone: Chloride molar conc 107 mmol/L Normal 98-107 Compr [facility] Internal Medicine Work Phone: CO2 molar conc 30.0 mmol/L Normal 21.0-32.0 [facility] Internal Medicine Work Phone: Creatinine mass conc 0.7 mg/dL Normal 0.6-1.0 [facility] Internal Medicine Work Phone: GFR/1.73 sq M predicted among blacks MDRD vol rate/area (S/P/Bld) 113 mL/min/{1.73_m2} Normal Compreh [facility] Internal Medicine Work Phone: GFR/1.73 sq M.predicted MDRD (S/P/Bld) [Vol rate/Area] 93 mL/min/{1.73_m2} Normal Comprehensiv e Internal Medicine Work Phone: GFR/1.73 sq M.predicted MDRD vol rate/area 93 mL/min/{1.73_m2} Normal Com[facility] e Internal Medicine Work Phone: Globulin (S) [Mass/Vol] 3.1 g/dL Normal 2.7-4.2 [facility] Work Phone: Globulin Calculated mass conc (S) 3.1 g/dL Normal 2.7-4.2 [facility] Work Phone: Glucose mass conc 83 mg/dL Normal 70-110 Compreh ensive Internal Medicine Work Phone: Potassium molar conc 4.9 mmol/L Normal 3.5-5.1 Comp rehensive Internal Medicine Work Phone: Protein mass conc 7.1 g/dL Normal 6.4-8.2 Compreh ensive Internal Medicine Work Phone: Sodium molar conc 144 mmol/L Normal 136-145 Compreh ensive Internal Medicine Work Phone: Urea nitrogen mass conc 17 mg/dL Normal 7-18 [facility] Work Phone: Urea nitrogen/Creatinine mass ratio 24.3 {RATIO} Abnormal 10-20 [facility] Work Phone: HAND,MIN 3 VIEWSOrdered By: [place] Manager on 06-04-2009 HAND,MIN 3 VIEWS See Note Normal Comprehe nsive Internal Medicine Work Phone: Comment on above: Exam Number: [id number] RIGHT HAND, 3-VIEW STUDY REASON FOR EXAMThe patient complains of pain in her thumb. Examination reveals no evidence of acute fracture, dislocation orsubluxation. The bony architecture of the right hand as viewedappears normal. I do not see any definitive obvious defect regardingthe articular surfaces of the thumb or the 1st metacarpal. IMPRESSIONNormal as viewed. Reported By: MALCOM PANG D.O. Result: NORM C+C Result: ADEQUATE CHEST, PA AND LATERALOrdered By: [place] Manager on 03-13-2009 CHEST, PA AND LATERAL See Note Normal [facility] Work Phone: Comment on above: Exam Number: [id number] CLINICAL DATACough. CHESTPA and lateral views of the chest show normal sized heart andunremarkable bronchovascular markings. There was no pneumonicinfiltrates or pleural effusion. The mediastinal and bony structuresare unremarkable, except for minimal degenerative hypertrophic spursfrom middle dorsal vertebral bodies. IMPRESSIONNo active pulmonary disease. Reported By: ANTHONY RAMOS Rapid Flu ([id number] x 2)Ordered By: Anaid Mendoza on 10-18-2008 FLUAV Ag IA Ql (Throat) Negative Normal [facility] Work Phone: FLUAV Ag IA Ql (Throat) Negative Normal [facility]; [facility] Work Phone: Rapid Strep Test, Office ([phone])Ordered By: BERNIE Rubio on 10-18-2008 S. pyogenes Ag EIA Ql (Throat) Negative Normal [facility]; [facility] Work Phone: S. pyogenes Ag IA Ql (Unsp spec) Negative Normal [facility] Work Phone: Urinalysis, Office ([phone])Or dered By: Simi Telles on 08-05-2008 Bilirubin Ql (U) Negative Normal Comprehe nsive Internal Medicine Work Phone: Glucose Test strip mass conc (U) Negative Normal [facility] Work Phone: Hemoglobin Ql (U) Negative Normal Compreh ensive Internal Medicine Work Phone: Hemoglobin Test strip Ql (U) Negative Normal [facility] Work Phone: Ketones Ql (U) Negative Normal Comprehens [facility] Work Phone: Leukocyte esterase Test strip Ql (U) Negative Normal [facility] Work Phone: Nitrite Ql (U) Negative Normal Comprehens [facility] Work Phone: Nitrite Test strip Ql (U) Negative Normal [facility] Work Phone: pH (U) 7.0 [pH] Normal [facility] Work Phone: pH Test strip (U) 7.0 [pH] Normal Compreh ensive Internal Medicine Work Phone: Protein Ql (U) Negative Normal Comprehens [facility] Work Phone: Protein Test strip Ql (U) Negative Normal [facility] Work Phone: Specific gravity Relative Density (U) 1.020 1 Normal Comprehensi ve Internal Medicine Work Phone: Urobilinogen mass/time (24H U) Normal Normal [facility] Work Phone: Urinalysis, Office ([phone])on 08-05-2008 Bilirubin Ql (U) Negative Normal Comprehe nsive Internal Medicine; [facility] Internal Medicine Work Phone: Glucose Test strip (U) [Mass/Vol] Negative Normal [facility]; [facility] Work Phone: Hemoglobin Ql (U) Negative Normal Compreh ensive Internal Medicine; [facility] Work Phone: Ketones Ql (U) Negative Normal Comprehens [facility]; [facility] Work Phone: Leukocyte esterase Test strip Ql (U) Negative Normal [facility]; [facility] Work Phone: Nitrite Ql (U) Negative Normal Comprehens [facility]; [facility] Work Phone: Protein Ql (U) Negative Normal Comprehens [facility]; [facility] Internal Medicine Work Phone: TRANSVAGINAL NON-PREG US (HP )Ordered By: [place] Manager on 08-01-2008 TRANSVAGINAL NON-PREG US (HP) See Note Normal [facility] Work Phone: Comment on above: Exam Number: [id number] TRANSABDOMINAL AND TRANSVAGINAL PELVIC ULTRASOUNDS CLINICAL STATEMENTLower abdominal pain. PRIOR STUDIESNone. Transabdominal and transvaginal pelvic ultrasounds were performed. The anteverted uterus measures 9.2 x 4.1 x 5 cm. The myometrium isheterogeneous, however, no focal mass is shown. The endometriummeasures 7.1 mm in thickness. Please correlate this with thepatient's menstrual history. If the patient is postmenopausal, thisdegree of thickness would be considered abnormal. Neither right nor left ovary is shown. No adnexal mass or free pelvicfluid. IMPRESSION1. Anteverted nonenlarged uterus. Endometrium thickness of 7.1 mm.This would be considered thickened if the patient is post menopausal.2. Nonvisualized ovaries. No discrete adnexal mass or free pelvicfluid. Reported By: APRIL WILSON M.D. Exam Number: [id number] ULTRASOUND ABDOMEN COMPLETE STATEMENTAbdominal pain. PRIOR STUDIESNone. The liver and spleen appear normal. The gallbladder is unremarkable. There are no gallstones. There is no evidence for bowel ductobstruction. The common bile duct is normal in caliber at 3 mm. Thepancreas is segmentally visualized appearing grossly unremarkable. Portions of the pancreas, however, are obscured by overlying bowel. The right and left kidneys appear normal. There was no free abdominalfluid. The visualized portions of the aorta and inferior vena cavaappear normal in course and caliber. IMPRESSIONNegative abdominal ultrasound. Reported By: APRIL WILSON M.D. Exam Number: [id number] TRANSABDOMINAL AND TRANSVAGINAL PELVIC ULTRASOUNDS CLINICAL STATEMENTLower abdominal pain. PRIOR STUDIESNone. Transabdominal and transvaginal pelvic ultrasounds were performed. The anteverted uterus measures 9.2 x 4.1 x 5 cm. The myometrium isheterogeneous, however, no focal mass is shown. The endometriummeasures 7.1 mm in thickness. Please correlate this with thepatient's menstrual history. If the patient is postmenopausal, thisdegree of thickness would be considered abnormal. Neither right nor left ovary is shown. No adnexal mass or free pelvicfluid. IMPRESSION1. Anteverted nonenlarged uterus. Endometrium thickness of 7.1 mm.This would be considered thickened if the patient is post menopausal.2. Nonvisualized ovaries. No discrete adnexal mass or free pelvicfluid. Reported By: APRIL WILSON M.D. Urinalysis, Office ([phone])Or dered By: Anaid Mendoza on 07-29-2008 Bilirubin Ql (U) Negative Normal Comprehe nsive Internal Medicine Work Phone: Bilirubin Ql (U) Negative Normal Comprehe nsive [facility]; [facility] Work Phone: Glucose Test strip (U) [Mass/Vol] Negative Normal [facility]; [facility] Work Phone: Glucose Test strip mass conc (U) Negative Normal [facility] Work Phone: Hemoglobin Ql (U) Hemolyzed Trace Normal Co mprehensive [facility] Work Phone: Hemoglobin Test strip Ql (U) Hemolyzed Trace Normal [facility] Work Phone: Ketones Ql (U) Negative Normal Comprehens [facility] Work Phone: Ketones Ql (U) Negative Normal Comprehens [facility]; [facility] Work Phone: Leukocyte esterase Test strip Ql (U) Negative Normal [facility] Work Phone: Leukocyte esterase Test strip Ql (U) Negative Normal [facility]; [facility] Work Phone: Nitrite Ql (U) Negative Normal Comprehens [facility] Work Phone: Nitrite Ql (U) Negative Normal Comprehens [facility]; [facility] Work Phone: Nitrite Test strip Ql (U) Negative Normal [facility] Work Phone: pH (U) 5.0 [pH] Normal [facility] Work Phone: pH Test strip (U) 5.0 [pH] Normal Compreh ensive Internal Medicine Work Phone: Protein Ql (U) Negative Normal Comprehens [facility] Work Phone: Protein Ql (U) Negative Normal Comprehens [facility]; [facility] Work Phone: Protein Test strip Ql (U) Negative Normal [facility] Work Phone: Specific gravity Relative Density (U) 1.020 1 Normal Comprehensi ve Internal Medicine Work Phone: Urobilinogen mass/time (24H U) Normal Normal Comprehensive Internal Medicine Work Phone: Urinalysis, Office ([id number])Or dered By: BERNIE Rubio on 06-03-2008 Bilirubin Ql (U) Negative Normal Comprehe nsive Internal Medicine Work Phone: Bilirubin Ql (U) Negative Normal Comprehe nsive Internal Medicine; [facility] Work Phone: Glucose Test strip (U) [Mass/Vol] Negative Normal [facility]; [facility] Work Phone: Glucose Test strip mass conc (U) Negative Normal [facility] Work Phone: Hemoglobin Ql (U) Hemolyzed Trace Normal Co mprehensive Internal Medicine Work Phone: Hemoglobin Test strip Ql (U) Hemolyzed Trace Normal [facility] Work Phone: Ketones Ql (U) Negative Normal Comprehens [facility] Internal Medicine Work Phone: Ketones Ql (U) Negative Normal Comprehens [facility]; [facility] Work Phone: Leukocyte esterase Test strip Ql (U) Moderate Normal [facility] Work Phone: Nitrite Ql (U) Negative Normal Comprehens [facility] Internal Medicine Work Phone: Nitrite Ql (U) Negative Normal Comprehens [facility]; [facility] Work Phone: Nitrite Test strip Ql (U) Negative Normal [facility] Work Phone: pH (U) 6.5 [pH] Normal [facility] Work Phone: pH Test strip (U) 6.5 [pH] Normal Compreh ensive Internal Medicine Work Phone: Protein Ql (U) Negative Normal Comprehens [facility] Internal Medicine Work Phone: Protein Ql (U) Negative Normal Comprehens [facility]; [facility] Work Phone: Protein Test strip Ql (U) Negative Normal [facility] Work Phone: Specific gravity Relative Density (U) 1.015 1 Normal Comprehensi ve Internal Medicine Work Phone: Urobilinogen mass/time (24H U) 2 mg/dL Normal [facility] Work Phone: CBC (Auto) ([id number])Ordered By : Sarika Brown on 08-15-2007 Erythrocyte distribution width (RBC) [Ratio] 13.0 % Normal 11.7-15.0 [facility] Work Phone: Comment on above: PATIENT NOT FASTINGP ERFORMED BY: CB [facility] [id number] [facility] [id number] Erythrocyte distribution width Auto Ratio (RBC) 13.0 % Normal 11.7-15.0 [facility] Work Phone: Hematocrit (Bld) [Volume fraction] 40.9 % Normal 34.0-44.0 [facility] Work Phone: Comment on above: PATIENT NOT FASTINGP ERFORMED BY: CB [facility] Cgjktf2596 [facility] [id number] Hematocrit Auto Volume Fraction (Bld) 40.9 % Normal 34.0-44.0 [facility] Work Phone: Hemoglobin mass conc (Bld) 14.2 g/dL Normal 11.5-15.0 [facility] Work Phone: Comment on above: PATIENT NOT FASTINGP ERFORMED BY: CB [facility] Kidskh0485 [facility] [id number] MCH (RBC) [Entitic mass] 33.8 pg Normal 27.0-34.0 [facility] Work Phone: Comment on above: PATIENT NOT FASTINGP ERFORMED BY: CB [facility] [id number] [facility] [id number] MCH Auto Entitic mass (RBC) 33.8 pg Normal 27.0-34.0 [facility] Work Phone: MCHC (RBC) [Mass/Vol] 34.8 g/dL Normal 32.0-36.0 [facility] Work Phone: Comment on above: PATIENT NOT FASTINGP ERFORMED BY: CB [facility] [id number] [facility] [id number] MCHC Auto mass conc (RBC) 34.8 g/dL Normal 32.0-36.0 [facility] Work Phone: MCV (RBC) [Entitic vol] 97 fL Normal 80-98 [facility] Work Phone: Comment on above: PATIENT NOT FASTINGP ERFORMED BY: JULIUS [facility] [id number] [facility] [id number] MCV Auto Entitic volume (RBC) 97 fL Normal 80-98 [facility] Work Phone: Platelets (Bld) [#/Vol] 314 {x10E3/uL} Normal 140-415 [facility] Work Phone: Comment on above: PATIENT NOT FASTINGP ERFORMED BY: CB [facility] Dohoxa0045 [facility] [id number] Platelets (Bld) [#/Vol] 314 10*3/uL Normal 140-415 [facility]; [facility] Work Phone: Comment on above: PATIENT NOT FASTINGP ERFORMED BY: CB [facility]CoSh[facility] HospitalIcghfe9424 [facility] [id number] Platelets Auto #/vol (Bld) 314 {x10E3/uL} Normal 140-415 [facility] Work Phone: RBC (Bld) [#/Vol] 4.20 {x10E6/uL} Normal 3.80-5.10 Co [facility] Internal Medicine Work Phone: Comment on above: PATIENT NOT FASTINGP ERFORMED BY: CB [facility] [id number] [facility] [id number] RBC (Bld) [#/Vol] 4.20 10*6/uL Normal 3.80-5.10 [facility] Internal Medicine; [facility] Work Phone: Comment on above: PATIENT NOT FASTINGP ERFORMED BY: CB [facility] Joumyw[address] [facility] [place] [id number] RBC Auto #/vol (Bld) 4.20 {x10E6/uL} Normal 3.80-5.10 [facility] Work Phone: WBC (Bld) [#/Vol] 6.4 {x10E3/uL} Normal 4.0-10.5 [facility] prehensive Internal Medicine Work Phone: Comment on above: PATIENT NOT FASTINGP ERFORMED BY: JULIUS [facility] [id number] [facility] [id number] WBC (Bld) [#/Vol] 6.4 10*3/uL Normal 4.0-10.5 [facility] Internal Medicine; [facility] Work Phone: Comment on above: PATIENT NOT FASTINGP ERFORMED BY: JULIUS [facility] Fclocw5934 [facility] [id number] WBC Auto #/vol (Bld) 6.4 {x10E3/uL} Normal 4.0-10.5 [facility] Work Phone: HPV, high-riskOrdered By: Sy stem Principal Administrative Clerk on 08-15-2007 HPV 16+18+31+33+35+39+45 +51+52+56+58+59+68 DNA Probe+sig amp Ql (Cvx) Negative Normal [facility] Work Phone: Comment on above: This high-risk HPV t est detects thirteen high-risk types(16/18/31/33/35/39/45/51/52/56/58/59/68) without differentiation. . Source.............C ervical;EndocervicalLMP / Prev Treat...[id number];NoneNo. of containers..01 CYTYC Thin Prep VialPERFORMED BY: =G LabN[facility] [facility] [place] [id number] Lipid Panel ([id number])Ordered B y: Sarika Brown on 08-15-2007 Cholesterol in HDL mass conc 82 mg/dL Abnormal 40-59 [facility] Work Phone: Comment on above: PATIENT NOT FASTINGP ERFORMED BY: JULIUS [facility] [id number] [facility] [id number] Cholesterol in LDL mass conc 150 mg/dL Abnormal 0-99 [facility] Work Phone: Comment on above: PATIENT NOT FASTINGP ERFORMED BY: CB [facility] Uhkyro1730 Barry RoadDublin [place] [id number] Cholesterol in LDL/Cholesterol in HDL mass ratio 1.8 {ratio_units} Normal 0.0-3.2 [facility] Work Phone: Comment on above: PATIENT NOT FASTINGP ERFORMED BY: CB [facility] Eahwti1005 Barry RoadDublin [place] [id number] Cholesterol in LDL/Cholesterol in HDL mass ratio SPRCS Normal [facility] Work Phone: Comment on above: If initial LDL-mehrdad sterol result is >100 mg/dL, assess forrisk factors. HDL cholesterol valu es >59 mg/dL are associated with reduced cardiacrisk. PATIENT NOT FASTINGP ERFORMED BY: JULIUS [facility] Zaulpu4789 Barry RoadDublin [place] [id number] Cholesterol in VLDL mass conc 12 mg/dL Normal 5-40 [facility] Work Phone: Comment on above: PATIENT NOT FASTINGP ERFORMED BY: JULIUS [facility] Tiynwv9747 Barry RoadDublin [place] [id number] Cholesterol mass conc 244 mg/dL Abnormal 100-199 [facility] Work Phone: Comment on above: PATIENT NOT FASTINGP ERFORMED BY: JULIUS [facility] [id number] Barry RoadDublin [place] [id number] Triglyceride mass conc 60 mg/dL Normal 0-149 [facility] Work Phone: Comment on above: PATIENT NOT FASTINGP ERFORMED BY: CB [facility] Nokcwq0617 [facility] [place] [id number] Metabolic Panel, Comprehensi ve ([id number])Ordered By: Sarika Brown on 08-15-2007 Albumin mass conc 4.6 g/dL Normal 3.5-5.5 Compreh ensive Internal Medicine Work Phone: Comment on above: PATIENT NOT FASTINGC linical Information: ADD DRAW FEE 135134 ADD J 2582 PERFORMED BY: JULIUS [facility] [id number] [facility] [place] [id number] Albumin/Globulin mass ratio 1.8 {ratio} Normal 1.1-2.5 [facility] Work Phone: Comment on above: PATIENT NOT FASTINGC linical Information: ADD DRAW FEE [id number] ADD J 0378 PERFORMED BY: Lab[facility]6370 [facility] [id number] ALP [Catalytic activity/Vol] 114 U/L Normal 25-150 [facility]; [facility] Internal Medicine Work Phone: Comment on above: PATIENT NOT FASTINGC linical Information: ADD DRAW FEE [id number] ADD J 0378 PERFORMED BY: Lab[facility]6370 [facility] [id number] ALP enzyme act/vol 114 [iU]/L Normal 25-150 [facility] Internal Medicine Work Phone: Comment on above: PATIENT NOT FASTINGC linical Information: ADD DRAW FEE 500388 ADD J 0378 PERFORMED BY: Lab[facility]6370 [facility] [id number] ALT [Catalytic activity/Vol] 29 U/L Normal 0-40 [facility]; [facility] Internal Medicine Work Phone: Comment on above: PATIENT NOT FASTINGC linical Information: ADD DRAW FEE 592129 ADD J 0378 PERFORMED BY: Lab[facility]6370 [facility] [id number] ALT enzyme act/vol 29 [iU]/L Normal 0-40 [facility] Internal Medicine Work Phone: Comment on above: PATIENT NOT FASTINGC linical Information: ADD DRAW FEE 085186 ADD J 0378 PERFORMED BY: Lab[facility]6370 [facility] [id number] AST [Catalytic activity/Vol] 26 U/L Normal 0-40 [facility]; [facility] Internal Medicine Work Phone: Comment on above: PATIENT NOT FASTINGC linical Information: ADD DRAW FEE 384233 ADD J 0378 PERFORMED BY: Lab[facility]6370 [facility] [id number] AST enzyme act/vol 26 [iU]/L Normal 0-40 Compre [facility] Internal Medicine Work Phone: Comment on above: PATIENT NOT FASTINGC linical Information: ADD DRAW FEE [id number] ADD J 0378 PERFORMED BY: JULIUS LabSelect [facility]6370 [facility] [id number] Bilirubin mass conc 0.3 mg/dL Normal 0.1-1.2 Compr ensive Internal Medicine Work Phone: Comment on above: PATIENT NOT FASTINGC linical Information: ADD DRAW FEE 159491 ADD J 377 PERFORMED BY: JULIUS [address] [id number] Calcium mass conc 9.5 mg/dL Normal 8.5-10.6 Compreh [facility] Internal Medicine Work Phone: Comment on above: PATIENT NOT FASTINGC linical Information: ADD DRAW FEE 015102 ADD J 377 PERFORMED BY: JULIUS [place] [id number] [facility] [id number] Chloride molar conc 104 mmol/L Normal 96-109 [facility] Internal Medicine Work Phone: Comment on above: PATIENT NOT FASTINGC linical Information: ADD DRAW FEE 708388 ADD J 377 PERFORMED BY: JULIUS [address] [id number] CO2 molar conc 22 mmol/L Normal 20-32 Comprehkaiser [facility] Internal Medicine Work Phone: Comment on above: PATIENT NOT FASTINGC linical Information: ADD DRAW FEE 768506 ADD J 037 PERFORMED BY: [place] [id number] [facility] [id number] Creatinine mass conc 0.7 mg/dL Normal 0.5-1.5 Comp [facility] Internal Medicine Work Phone: Comment on above: PATIENT NOT FASTINGC linical Information: ADD DRAW FEE 504413 ADD J 037 PERFORMED BY: [address] [id number] Globulin (S) [Mass/Vol] 2.6 g/dL Normal 1.5-4.5 [facility] Work Phone: Comment on above: PATIENT NOT FASTINGC linical Information: ADD DRAW FEE 639829 ADD J 0378 PERFORMED BY: JULIUS LabPut[facility] Usialr5878 [facility] [id number] Globulin Calculated mass conc (S) 2.6 g/dL Normal 1.5-4.5 [facility] Work Phone: Glucose mass conc 80 mg/dL Normal 65-99 Compreh ensive Internal Medicine Work Phone: Comment on above: PATIENT NOT FASTINGC linical Information: ADD DRAW FEE 963000 ADD J 0378 PERFORMED BY: JULIUS LabPut[facility] Gtlxls1083 [facility] [id number] Potassium molar conc 4.4 mmol/L Normal 3.5-5.5 Comp rehensive Internal Medicine Work Phone: Comment on above: PATIENT NOT FASTINGC linical Information: ADD DRAW FEE 176093 ADD J 037 PERFORMED BY: [facility]Put[facility] Byzayw5029 [facility] [id number] Protein mass conc 7.2 g/dL Normal 6.0-8.5 Compreh ensive Internal Medicine Work Phone: Comment on above: PATIENT NOT FASTINGC linical Information: ADD DRAW FEE 885029 ADD J 0378 PERFORMED BY: LabXOR.MOTORSShore Memorial HospitalGaihnk2542 [facility] [id number] Sodium molar conc 141 mmol/L Normal 135-148 Compreh ensive Internal Medicine Work Phone: Comment on above: PATIENT NOT FASTINGC linical Information: ADD DRAW FEE 547863 ADD J 0378 PERFORMED BY: SecurusStanley [place] [id number] [facility] [id number] Urea nitrogen mass conc 13 mg/dL Normal 5-26 [facility] Work Phone: Comment on above: PATIENT NOT FASTINGC linical Information: ADD DRAW FEE 834913 ADD J 0378 PERFORMED BY: [place]urusStan[place] [id number] [facility] [id number] Urea nitrogen/Creatinine mass ratio 19 mg/mg Normal 8-27 [facility] Work Phone: Comment on above: PATIENT NOT FASTINGC linical Information: ADD DRAW FEE 049328 ADD J 0378 PERFORMED BY: JULIUS [employer] [id number] [facility] [id number] Pap Lb, rfx HPV ASCUOrdered By: [place] Manager on 08-15-2007 Protein mass conc SPRCS Normal Compreh ensive Internal Medicine Work Phone: Comment on above: 795.01The Pap smear is a screening test designed to aid in the detection ofpremalignant and malignant conditions of the uterine cervix. It is not adiagnostic procedure and should not be used as the sole means of detectingcervical cancer. Both false-positive and false-negative reports do occur. .See below for HPV DNA testing results. . Source.............C ervical;EndocervicalLMP / Prev Treat...RWO=[id number];NoneNo. of containers..01 CYTYC Thin Prep VialClinical Information: ADD [id number] PERFORMED BY: =[employer] [address] [id number] Pap Lb, rfx HPV ASCU . Normal Comp rehensive Internal Medicine Work Phone: Comment on above: Source.............C ervical;EndocervicalLMP / Prev Treat...HPE=[id number];NoneNo. of containers..01 CYTYC Thin Prep VialClinical Information: ADD [id number] PERFORMED BY: =[employer] [address] [id number] Pap Lb, rfx HPV ASCU SPRCS Abnormal Comp rehensive Internal Medicine Work Phone: Comment on above: EPITHELIAL CELL ABNO RMALITY.ATYPICAL SQUAMOUS CELLS OF UNDETERMINED SIGNIFICANCE.Suggest follow up as clinically appropriate.Satisfactory for evaluation. Endocervical and/or squamous metaplasticcells (endocervical component) are present.V72.31 ; Routine gynecological examinationMarsha Phillip, Visual Merchandising Associate (ASCP)Allie Zuluaga MD, Pathologist Source.............C ervical;EndocervicalLMP / Prev Treat...ZMB=[id number];NoneNo. of containers..01 CYTYC Thin Prep VialClinical Information: ADD [id number] PERFORMED BY: =[employer] [address] [place] [id number] 795.01The Pap smear is a screening test designed to aid in the detection ofpremalignant and malignant conditions of the uterine cervix. It is not adiagnostic procedure and should not be used as the sole means of detectingcervical cancer. Both false-positive and false-negative reports do occur. .See below for HPV DNA testing results. . TSH ([id number])Ordered By: Sarika Brown on 08-15-2007 Thyrotropin Qn 3.317 {uIU/mL} Normal 0.350-5.50 0 [facility] Work Phone: Comment on above: PATIENT NOT FASTINGP ERFORMED BY: Patient FeedCoDeCell TechnologiesCgsazl2524 [employer] [place] [id number] GONADOTROPIN-FSH (18181)Orde red By: MURALI BLEDSOE on 06-27-2007 GONADOTROPIN-FSH (49523) 68.0 m[iU]/mL Normal [facility] Work Phone: Comment on above: . Male Female 5th da y <0.2 - 4.6 <0.2 - 4.6 2 mo- 3 yrs. 0.2 - 2.7 1.4 - 9.2 4- 6 yrs. 0.2 - 2.7 0.4 - 6.6 7- 9 yrs. 0.2 - 2.7 0.4 - 5.0 10-11 yrs. 0.4 - 5.0 Not Estab 12-13 yrs. 0.4 - 6.6 Not Estab 14-15 yrs. 0.7 - 13.2 Not Estab >15 yrs. 1.4 - 18.1 See Below Female Follicular 2.5 - 10.2 Midcycle 3.4 - 33.4 Luteal 1.5 - 9.1 <0.2 Postmenopausal 23.0 - 116.3 PERFORMED BY: [employer] Solutionslin6370 [employer] [place] [id number] Luteinizing Hormone(LH), SOr dered By: [place] Manager on 06-27-2007 Luteinizing Hormone(LH), S 48.7 m[iU]/mL Normal 0.0-76.3 [facility] Work Phone: Comment on above: Male Female 0- 1 yr. 0.5 - 1.9 0.0 - 0.5 2- 5 yrs. 0.0 - 0.5 0.0 - 0.5 6- 10 yrs. 0.0 - 0.5 0.0 - 0.5 11- 19 yrs. 0.5 - 5.3 0.5 - 9.0 20- 69 yrs. 1.5 - 9.3 0.0 - 76.3 70-100 yrs. 3.1 - 34.6 5.0 - 52.3 Female Follicular 1.9 - 12.5 Midcycle 8.7 - 76.3 Luteal 0.5 - 16.9 0.0 - 1.5 Postmenopausal 15.9 - 54.0 Contraceptives 0.7 - 5.6 PERFORMED BY: [employer] Ekeczz1784 [facility] [id number] CBCD,SMEAR DIFFOrdered By: Lefty ystem Principal Administrative Clerk on 08-26-2006 Band form neutrophils/100 WBC (Bld) 1 % Normal 0-5 [facility] Work Phone: Band form neutrophils/100 WBC Manual cnt (Bld) 1 % Normal 0-5 [facility] Work Phone: Eosinophils/100 WBC (Bld) 2 % Normal 0-5 [facility] Work Phone: Eosinophils/100 WBC Auto (Bld) 2 % Normal 0-5 [facility] Work Phone: Erythrocyte distribution width (RBC) [Ratio] 12.3 % Normal 11.6-14.6 [facility] Work Phone: Erythrocyte distribution width Auto Ratio (RBC) 12.3 % Normal 11.6-14.6 [facility] Work Phone: Hematocrit (Bld) [Volume fraction] 37.0 % Normal 37-47 [facility] Work Phone: Hematocrit Auto Volume Fraction (Bld) 37.0 % Normal 37-47 [facility] Work Phone: Hemoglobin mass conc (Bld) 12.9 g/dL Normal 12.0-16.0 [facility] Work Phone: Lymphocytes/100 WBC (Bld) 46 % Abnormal 19-41 [facility] Work Phone: Lymphocytes/100 WBC Auto (Bld) 46 % Abnormal 19-41 [facility] Work Phone: MCH (RBC) [Entitic mass] 33.1 pg Abnormal 27.0-32.0 [facility] Work Phone: MCH Auto Entitic mass (RBC) 33.1 pg Abnormal 27.0-32.0 [facility] Work Phone: MCHC (RBC) [Mass/Vol] 34.9 g/dL Normal 32-36 [facility] Work Phone: MCHC Auto mass conc (RBC) 34.9 g/dL Normal 32-36 [facility] Work Phone: MCV (RBC) [Entitic vol] 95.0 fL Normal 81-99 [facility] Work Phone: MCV Auto Entitic volume (RBC) 95.0 fL Normal 81-99 [facility] Work Phone: Platelets (Bld) [#/Vol] 236 10*3/uL Normal 150-450 [facility] Work Phone: Platelets (Bld) [#/Vol] SeeNote Normal [facility] Work Phone: Comment on above: Result: ADEQUATE Platelets Auto #/vol (Bld) 236 10*3/uL Normal 150-450 [facility] Work Phone: RBC (Bld) [#/Vol] 3.89 {M/mm3} Abnormal 4.2-5.4 Compr [facility] Internal Medicine Work Phone: RBC Auto #/vol (Bld) 3.89 {M/mm3} Abnormal 4.2-5.4 Co [facility] Internal Medicine Work Phone: WBC (Bld) [#/Vol] 3.9 10*3/uL Abnormal 4.4-11.0 [facility] Internal Medicine Work Phone: WBC Auto #/vol (Bld) 3.9 10*3/uL Abnormal 4.4-11.0 [facility] prehensive Internal Medicine Work Phone: CBCD,SMEAR DIFF SeeNote Normal [facility] Work Phone: Comment on above: Result: ADEQUATE CBCD,SMEAR DIFF 2 % Abnormal 0-1 [facility] Internal [facility] Work Phone: CBCD,SMEAR DIFF 11 % Abnormal 0-10 [facility] Internal Medicine Work Phone: CBCD,SMEAR DIFF 1+ Normal [facility] Internal [facility] Work Phone: CBCD,SMEAR DIFF N CHROM Normal [facility] Internal Medicine Work Phone: CBCD,SMEAR DIFF 38 % Abnormal 47-70 [facility] Internal Medicine Work Phone: CBCD,SMEAR DIFF 100 1 Normal [facility] Internal Medicine Work Phone: CBCD,SMEAR DIFF 1 % Normal 0-5 [facility] Internal Medicine Work Phone: COMP METABOLICOrdered By: Chente stem Principal Administrative Clerk on 08-26-2006 Albumin mass conc 3.9 g/dL Normal 3.4-5.0 Compreh [facility] Internal Medicine Work Phone: Albumin/Globulin mass ratio 1.4 {RATIO} Normal 0.9-2.4 [facility] Internal Medicine Work Phone: ALP enzyme act/vol 110 U/L Normal 50-136 [facility] Internal Medicine Work Phone: ALT enzyme act/vol 49 [iU]/L Normal 30-65 [facility] Internal Medicine Work Phone: Anion gap 3 molar conc 6 mmol/L Normal 5-15 [facility] Internal Medicine Work Phone: Anion gap [Moles/Vol] 6 mmol/L Normal 5-15 [facility] Internal Medicine Work Phone: AST enzyme act/vol 27 U/L Normal 15-37 Compre hensive Internal Medicine Work Phone: Bilirubin mass conc 0.41 mg/dL Normal 0.00-1.00 Compr ehensive Internal Medicine Work Phone: Calcium mass conc 9.2 mg/dL Normal 8.5-10.1 Compreh ensive Internal Medicine Work Phone: Chloride molar conc 105 mmol/L Normal 98-107 Compr ehensive Internal Medicine Work Phone: CO2 molar conc 31.0 mmol/L Abnormal 22.0-29.0 Comprehen sive Internal Medicine Work Phone: Creatinine mass conc 0.7 mg/dL Normal 0.6-1.0 Comp rehensive Internal Medicine Work Phone: Globulin (S) [Mass/Vol] 2.7 g/dL Normal 2.3-3.5 [facility] Work Phone: Globulin Calculated mass conc (S) 2.7 g/dL Normal 2.3-3.5 [facility] Work Phone: Glucose mass conc 89 mg/dL Normal 70-110 Compreh ensive Internal Medicine Work Phone: Potassium molar conc 4.1 mmol/L Normal 3.5-5.1 [facility] Work Phone: Protein mass conc 6.6 g/dL Normal 6.4-8.2 Compreh ensive Internal Medicine Work Phone: Sodium molar conc 142 mmol/L Normal 136-145 Compreh ensive Internal Medicine Work Phone: Urea nitrogen mass conc 16 mg/dL Normal 7-18 [facility] Work Phone: Urea nitrogen/Creatinine mass ratio 22.9 {RATIO} Abnormal 10-20 [facility] Work Phone: PFLIPOrdered By: Lucila prescott on 08-26-2006 Cholesterol in HDL mass conc 74 mg/dL Normal [facility] Work Phone: Comment on above: Reference Range HDL <40 mg/dL Low HDL Cholesterol HDL >or= 60 mg/dL High HDL Cholesterol Cholesterol in LDL mass conc 94 mg/dL Normal 0-130 [facility] Work Phone: Cholesterol in VLDL mass conc 4 mg/dL Abnormal 5-40 [facility] Work Phone: Cholesterol mass conc 172 mg/dL Normal [facility] Work Phone: Comment on above: <200 mg/dL Desirable 200-240 mg/dL Borderline >240 mg/dL High Risk Triglyceride mass conc 20 mg/dL Normal [facility] Work Phone: Comment on above: Serum Triglycerides Reference Interval Normal <150 mg/dL Borderline high 150 - 199 mg/dL High 200 - 499 mg/dL Very High > or = 500 mg/dL TSHOrdered By: System Manage r on 08-26-2006 Thyrotropin Qn 2.23 {uIU/mL} Normal 0.34-4.82 Compreh ensive Internal Medicine Work Phone: Vital Signs Date Time Vital Sign Value Performing Clinician Facility 06-12-2025 12:21-0400 Body height 161.[address] Ana Luisa Nielson DO Work Phone: [facility] 06-12-2025 12:21-0400 Body mass index (BMI) [Ratio] 36.8 kg/m2 Dr. Ana Luisa Nielson DO Work Phone: [facility] 06-12-2025 12:21-0400 Body temperature 97.5 [degF] Dr. Ana Luisa Nielson DO Work Phone: [facility] 06-12-2025 12:21-0400 Body weight 95.[address] Ana Luisa Nielson DO Work Phone: [facility] 06-12-2025 12:21-0400 Diastolic blood pressure 70 mm[Hg] Dr. Ana Luisa Nielson DO Work Phone: [facility] 06-12-2025 12:21-0400 Heart rate 89 /min Dr. Ana Luisa Nielson DO Work Phone: [facility] 06-12-2025 12:21-0400 Respiratory rate 18 /min Dr. Ana Luisa Nielson DO Work Phone: [facility] 06-12-2025 12:21-0400 SaO2% (BldA) [Mass fraction] 96 % Dr. Ana Luisa Nielson DO Work Phone: [facility] 06-12-2025 12:21-0400 Systolic blood pressure 123 mm[Hg] Dr. Ana Luisa Nielson DO Work Phone: [facility] 07-15-2023 08:56-0400 Body height 162.56 cm BERNIE [facility]; [facility] Work Phone: 07-15-2023 08:56-0400 Body mass index (BMI) [Ratio] 38.96 kg/m2 BERNIE Rubio LPN [facility]; [facility] Work Phone: 07-15-2023 08:56-0400 Body surface area Derived from formula 2.06 m2 BERNIE Ruibo LPN [facility]; [facility] Work Phone: 07-15-2023 08:56-0400 Body temperature 97.6 [degF] BERNIE Rubio LPN [facility]; [facility] Work Phone: 07-15-2023 08:56-0400 Body weight 102.97 kg BERNIE Rubio LPN [facility]; [facility] Work Phone: 07-15-2023 08:56-0400 Diastolic blood pressure 90 mm[Hg] BERNIE Rubio LPN [facility]; [facility] Work Phone: 07-15-2023 08:56-0400 Heart rate 78 /min BERNIE Rubio LPN [facility]; [facility] Work Phone: 07-15-2023 08:56-0400 Respiratory rate 18 /min BERNIE Rubio LPN [facility]; [facility] Work Phone: 07-15-2023 08:56-0400 SaO2% (BldA) [Mass fraction] 98 % BERNIE Rubio LPN [facility]; [facility] Work Phone: 07-15-2023 08:56-0400 Systolic blood pressure 142 mm[Hg] BERNIE Rubio LPN [facility]; [facility] Work Phone: 12-09-2022 09:44-0400 Body height 162.56 cm Sapna Rodriguez MA [facility]; [facility] Work Phone: 12-09-2022 09:44-0400 Body mass index (BMI) [Ratio] 38.96 kg/m2 Sapna Rodriguez MA [facility]; [facility] Work Phone: 12-09-2022 09:44-0400 Body surface area Derived from formula 2.06 m2 Sapna Rodriguez MA [facility]; [facility] Work Phone: 12-09-2022 09:44-0400 Body temperature 97.2 [degF] Sapna Rodriguez MA [facility]; [facility] Work Phone: 12-09-2022 09:44-0400 Body weight 102.97 kg Sapna Rodriguez MA [facility]; [facility] Work Phone: 12-09-2022 09:44-0400 Diastolic blood pressure 80 mm[Hg] Sapna Rodriguez MA [facility]; [facility] Work Phone: 12-09-2022 09:44-0400 Heart rate 67 /min Sapna Rodriguez MA [facility]; [facility] Work Phone: 12-09-2022 09:44-0400 Respiratory rate 15 /min Sapna Rodriguez MA [facility]; [facility] Work Phone: 12-09-2022 09:44-0400 SaO2% (BldA) [Mass fraction] 99 % Sapna Rodriguez MA [facility]; [facility] Work Phone: 12-09-2022 09:44-0400 Systolic blood pressure 110 mm[Hg] Sapna Rodriguez MA [facility]; [facility] Work Phone: 10-21-2022 07:55-0500 Body height 162.56 cm [facility]; [facility] Work Phone: 10-21-2022 07:55-0500 Body mass index (BMI) [Ratio] 38.96 kg/m2 [facility]; [facility] Work Phone: 10-21-2022 07:55-0500 Body surface area Derived from formula 2.06 m2 [facility]; [facility] Work Phone: 10-21-2022 07:55-0500 Body temperature 98.3 [degF] [facility] Work Phone: 10-21-2022 07:55-0500 Body weight 102.97 kg [facility]; [facility] Work Phone: 10-21-2022 07:55-0500 Diastolic blood pressure 80 mm[Hg] [facility]; [facility] Work Phone: 10-21-2022 07:55-0500 Heart rate 71 /min [facility] Work Phone: 10-21-2022 07:55-0500 Respiratory rate 16 /min [facility] Work Phone: 10-21-2022 07:55-0500 SaO2% (BldA) [Mass fraction] 96 % [facility] Work Phone: 10-21-2022 07:55-0500 Systolic blood pressure 120 mm[Hg] [facility]; [facility] Work Phone: 06-04-2022 07:15-0400 Body height 162.56 cm Cesar Lorenzo [facility]; [facility] Work Phone: 06-04-2022 07:15-0400 Body mass index (BMI) [Ratio] 37.12 kg/m2 Cesar Lorenzo LPN [facility]; [facility] Work Phone: 06-04-2022 07:15-0400 Body surface area Derived from formula 2.02 m2 Cesar Lorenzo LPN [facility]; [facility] Work Phone: 06-04-2022 07:15-0400 Body temperature 98.1 [degF] Cesar Lorenzo LPN [facility]; [facility] Work Phone: 06-04-2022 07:15-0400 Body weight 98.09 kg Cesar Lorenzo [employer] [facility] Work Phone: 06-04-2022 07:15-0400 Diastolic blood pressure 70 mm[Hg] Cesar Lorenzo LPN [facility]; [facility] Work Phone: 06-04-2022 07:15-0400 Heart rate 96 /min Cesar Lorenzo LPN [facility]; [facility] Work Phone: 06-04-2022 07:15-0400 Respiratory rate 16 /min Cesar Lorenzo [employer] [facility] Work Phone: 06-04-2022 07:15-0400 SaO2% (BldA) [Mass fraction] 95 % Cesar Lorenzo LPN [facility]; [facility] Work Phone: 06-04-2022 07:15-0400 Systolic blood pressure 110 mm[Hg] Cesar Lorenzo LPN [facility]; [facility] Work Phone: 05-27-2022 10:29-0400 Body height 162.56 cm [facility] Work Phone: 05-27-2022 10:29-0400 Body mass index (BMI) [Ratio] 37.12 kg/m2 [facility] Work Phone: 05-27-2022 10:29-0400 Body surface area Derived from formula 2.02 m2 [facility] Work Phone: 05-27-2022 10:29-0400 Body temperature 96.6 [degF] [facility] Work Phone: 05-27-2022 10:29-0400 Body weight 98.09 kg [facility] Work Phone: 05-27-2022 10:29-0400 Diastolic blood pressure 80 mm[Hg] [facility] Work Phone: 05-27-2022 10:29-0400 Heart rate 60 /min [facility] Work Phone: 05-27-2022 10:29-0400 Respiratory rate 16 /min [facility] Work Phone: 05-27-2022 10:29-0400 SaO2% (BldA) [Mass fraction] 98 % [facility] Work Phone: 05-27-2022 10:29-0400 Systolic blood pressure 120 mm[Hg] [facility] Work Phone: 12-22-2021 14:28-0400 Body height 161.29 cm [facility] Work Phone: 12-04-2021 08:23-0400 Body height 162.56 cm Amalia Hassan [facility]; [facility] Work Phone: 12-04-2021 08:23-0400 Body mass index (BMI) [Ratio] 34.37 kg/m2 Amalia Slarb [facility]; [facility] Work Phone: 12-04-2021 08:23-0400 Body surface area Derived from formula 1.96 m2 Amalia Slarb [employer] [facility]; [facility] Work Phone: 12-04-2021 08:23-0400 Body temperature 97.3 [degF] Amalia Slarb [employer] [facility]; [facility] Work Phone: 12-04-2021 08:23-0400 Body weight 90.83 kg Amalia Slarb [employer] [facility]; [facility] Work Phone: 12-04-2021 08:23-0400 Diastolic blood pressure 82 mm[Hg] Amalia Slarb [employer] [facility]; [facility] Work Phone: 12-04-2021 08:23-0400 Heart rate 78 /min Amalia Slarb [employer] [facility]; [facility] Work Phone: 12-04-2021 08:23-0400 Respiratory rate 17 /min Amalia Slarb [employer] [facility]; [facility] Work Phone: 12-04-2021 08:23-0400 SaO2% (BldA) [Mass fraction] 98 % Amalia Slarb [employer] [facility]; [facility] Work Phone: 12-04-2021 08:23-0400 Systolic blood pressure 122 mm[Hg] Amalia Slarb [employer] [facility]; [facility] Work Phone: 04-24-2021 11:53-0400 Body height 162.[address] [facility]; [facility] Work Phone: 04-24-2021 11:53-0400 Body mass index (BMI) [Ratio] 36.9 kg/m2 Gardenia Mixon [facility] Work Phone: 04-24-2021 11:53-0400 Body surface area Derived from formula 2.[address] [facility]; [facility] Work Phone: 04-24-2021 11:53-0400 Body temperature 97.3 [degF] Gardenia Mixon [facility]; [facility] Work Phone: Comment on above: Method: Infrared 04-24-2021 11:53-0400 Body weight 97.[address] [facility] Work Phone: 04-24-2021 11:53-0400 Diastolic blood pressure 98 mm[Hg] Gardenia Mixon [facility]; [facility] Work Phone: Comment on above: Patient Position: Sitting; Cuff Location : Left Arm; Cuff Size: Standard 04-24-2021 11:53-0400 Heart rate 75 /min Gardenia Mixon [facility]; [facility] Work Phone: Comment on above: Pattern: Regular 04-24-2021 11:53-0400 Respiratory rate 18 /min Gardenia Mixon [facility]; [facility] Work Phone: Comment on above: Pattern: Unlabored 04-24-2021 11:53-0400 SaO2% (BldA) [Mass fraction] 96 % Gardenia Mixon [facility]; [facility] Work Phone: Comment on above: Room air 04-24-2021 11:53-0400 Systolic blood pressure 158 mm[Hg] Gardenia Mixon [facility]; [facility] Work Phone: Comment on above: Patient Position: Sitting; Cuff Location : Left Arm; Cuff Size: Standard 01-09-2021 07:31-0400 Body height 162.[address] [facility]; [facility] Work Phone: Comment on above: no vs taken as this is phone encounter d ue to covid 01-09-2021 07:31-0400 Body mass index (BMI) [Ratio] 36.9 kg/m2 Gardenia Mixon [facility]; [facility] Work Phone: Comment on above: no vs taken as this is phone encounter d ue to covid 01-09-2021 07:31-0400 Body surface area Derived from formula 2.[address] [facility]; [facility] Work Phone: Comment on above: no vs taken as this is phone encounter d ue to covid 01-09-2021 07:31-0400 Body weight 97.[address] [facility]; [facility] Work Phone: Comment on above: no vs taken as this is phone encounter d ue to covid 01-05-2021 12:18-0400 Body height 162.56 cm Amalia Slarb [employer] [facility]; [facility] Work Phone: Comment on above: pt reported 01-05-2021 12:18-0400 Body mass index (BMI) [Ratio] 36.9 kg/m2 Amalia Slarb [employer] [facility]; [facility] Work Phone: Comment on above: pt reported 01-05-2021 12:18-0400 Body surface area Derived from formula 2.02 m2 Amalia Slarb [employer] [facility]; [facility] Work Phone: Comment on above: pt reported 01-05-2021 12:18-0400 Body temperature 99.2 [degF] Amalia Slarb [employer] [facility]; [facility] Work Phone: Comment on above: pt reported 01-05-2021 12:18-0400 Body weight 97.52 kg Amalia Slarb [employer] [facility]; [facility] Work Phone: Comment on above: pt reported 01-05-2021 12:18-0400 SaO2% (BldA) [Mass fraction] 95 % Amalia Slarb [employer] [facility]; [facility] Work Phone: Comment on above: Room air pt reported 12-30-2020 11:34-0400 Body height 162.56 cm Sarika Brown [employer] Work Phone: [facility]; [facility] Work Phone: 12-30-2020 11:34-0400 Body mass index (BMI) [Ratio] 36.9 kg/m2 Sarika Brown [employer] Work Phone: [facility]; [facility] Work Phone: 12-30-2020 11:34-0400 Body surface area Derived from formula 2.02 m2 Sarika Brown [employer]ATOR Work Phone: [facility]; [facility] Work Phone: 12-30-2020 11:34-0400 Body weight 97.52 kg Sarika Brown [employer] Work Phone: [facility]; [facility] Work Phone: 12-30-2020 11:34-0400 SaO2% (BldA) [Mass fraction] 93 % Sarika Brown [employer] Work Phone: [facility]; [facility] Work Phone: Comment on above: Room air 12-26-2020 07:31-0400 BMI (Body Mass Index) 36.9 kg/m2 Myriam Cross [employer] [facility]; [facility] Work Phone: 12-26-2020 07:31-0400 Body weight 97.52 kg Myriam Cross [employer] [facility]; [facility] Work Phone: 12-26-2020 07:31-0400 BSA (Body Surface Area) 2.02 m2 Myriam Cross [employer] [facility]; [facility] Work Phone: 12-26-2020 07:31-0400 [facility] Work Phone: 12-25-2020 10:04-0400 BMI (Body Mass Index) 36.9 kg/m2 Peggy Coello [employer] [facility]; [facility] Work Phone: Comment on above: WILL REPORT TO 12-25-2020 10:04-0400 Body weight 97.52 kg Peggy Mode [employer] [facility]; [facility] Work Phone: Comment on above: WILL REPORT TO 12-25-2020 10:04-0400 BSA (Body Surface Area) 2.02 m2 Peggy Mode [employer] [facility]; [facility] Work Phone: Comment on above: WILL REPORT TO 12-25-2020 10:04-0400 Height 162.56 cm Peggy Mode [employer] [facility]; [facility] Work Phone: Comment on above: WILL REPORT TO 12-25-2020 10:04-0400 Pulse Oximetry 91 % Ana Luisa Nisreen [facility]; [facility] Work Phone: Comment on above: Room air WILL REPORT TO 12-25-2020 10:04-0400 SaO2% (BldA) [Mass fraction] 91 % Peggy Mode [facility]; [facility] Work Phone: Comment on above: Room air WILL REPORT TO 12-23-2020 09:05-0400 BMI (Body Mass Index) 36.9 kg/m2 Cesar Lorenzo LPN [facility]; [facility] Work Phone: 12-23-2020 09:05-0400 Body Temperature 101.2 [degF] Cesar Lorenzo LPN [facility]; [facility] Work Phone: Comment on above: Method: Oral 12-23-2020 09:05-0400 Body weight 97.52 kg Cesar Lorenzo LPN [facility]; [facility] Work Phone: 12-23-2020 09:05-0400 BSA (Body Surface Area) 2.02 m2 Cesar Lorenzo LPN [facility]; [facility] Work Phone: 12-23-2020 09:05-0400 Height 162.56 cm Cesar Lorenzo LPN [facility]; [facility] Work Phone: 03-24-2020 15:40-0400 BMI (Body Mass Index) 36.9 kg/m2 Gardenia Jean Baptisteius [facility] Work Phone: Comment on above: no vs taken as this is phone encounter 03-24-2020 15:40-0400 Body weight 97.[address] [facility] Work Phone: Comment on above: no vs taken as this is phone encounter 03-24-2020 15:40-0400 BSA (Body Surface Area) 2.[address] [facility] Work Phone: Comment on above: no vs taken as this is phone encounter 03-24-2020 15:40-0400 Height 162.56 cm Gardenia Mixon CMA [facility] Work Phone: Comment on above: no vs taken as this is phone encounter 12-10-2019 07:55-0400 BMI (Body Mass Index) 36.9 kg/m2 Fatemeh Morrissey RN [facility] Work Phone: 12-10-2019 07:55-0400 Body Temperature 96.7 [degF] Fatemeh Morrissey RN [facility] Work Phone: Comment on above: Method: Temporal 12-10-2019 07:55-0400 Body weight 97.52 kg Fatemeh Morrissey RN [facility] Work Phone: 12-10-2019 07:55-0400 BP Diastolic 80 mm[Hg] Fatemeh Morrissey RN [facility] Work Phone: Comment on above: Patient Position: Sitting; Cuff Location : Left Arm; Cuff Size: Large 12-10-2019 07:55-0400 BP Systolic 125 mm[Hg] Fatemeh Morrissey RN [facility] Work Phone: Comment on above: Patient Position: Sitting; Cuff Location : Left Arm; Cuff Size: Large 12-10-2019 07:55-0400 BSA (Body Surface Area) 2.02 m2 Fatemeh Morrissey RN [facility] Work Phone: 12-10-2019 07:55-0400 Height 162.56 cm Fatemeh Morrissey RN [facility] Work Phone: 12-10-2019 07:55-0400 Pulse (Heart Rate) 78 /min Fatemeh Morrissey RN [facility] Work Phone: Comment on above: Pattern: Regular 11-01-2019 08:06-0500 BMI (Body Mass Index) 38.62 kg/m2 BERNIE Rubio LPN [facility] Work Phone: 11-01-2019 08:06-0500 Body Temperature 97.9 [degF] BERNIE Rubio LPN [facility] Work Phone: Comment on above: Method: Temporal 11-01-2019 08:06-0500 Body weight 102.06 kg BERNIE Rubio LPN [facility] Work Phone: 11-01-2019 08:06-0500 BSA (Body Surface Area) 2.06 m2 BERNIE Rubio DIANE [facility] Work Phone: 11-01-2019 08:06-0500 Height 162.56 cm BERNIE Rubio DIANE [facility] Work Phone: 11-01-2019 08:06-0500 Pulse (Heart Rate) 78 /min BERNIE Rubio LPN [facility] Work Phone: Comment on above: Pattern: Regular 11-01-2019 08:06-0500 Pulse Oximetry 98 % Ana Luisa Nielson [facility] Work Phone: Comment on above: Room air 11-01-2019 08:06-0500 Respiratory Rate 20 /min BERNIE Rubio LPN [facility] Work Phone: Comment on above: Pattern: Unlabored 11-01-2019 08:06-0500 SaO2% (BldA) [Mass fraction] 98 % BERNIE Rubio LPN [facility]; [facility] Work Phone: Comment on above: Room air 07-28-2018 11:01-0500 BMI (Body Mass Index) 38.69 kg/m2 Fatemeh Morrissey RN [facility] Work Phone: 07-28-2018 11:01-0500 Body weight 102.23 kg Fatemeh Morrissey RN [facility] Work Phone: 07-28-2018 11:01-0500 BP Diastolic 70 mm[Hg] Fatemeh Morrissey RN [facility] Work Phone: Comment on above: Patient Position: Sitting; Cuff Location : Left Arm; Cuff Size: Thigh 07-28-2018 11:01-0500 BP Systolic 122 mm[Hg] Fatemeh Morrissey RN [facility] Work Phone: Comment on above: Patient Position: Sitting; Cuff Location : Left Arm; Cuff Size: Thigh 07-28-2018 11:01-0500 BSA (Body Surface Area) 2.06 m2 Fatemeh Morrissey RN [facility] Work Phone: 07-28-2018 11:01-0500 Height 162.56 cm Fatemeh Morrissey RN [facility] Work Phone: 07-28-2018 11:01-0500 Pulse (Heart Rate) 95 /min Fatemeh Morrissey RN [facility] Work Phone: Comment on above: Pattern: Regular 07-28-2018 11:01-0500 Pulse Oximetry 96 % Ana Luisa Nisreen [facility] Work Phone: Comment on above: Room air 07-28-2018 11:01-0500 Respiratory Rate 18 /min Fatemeh Morrissey RN [facility] Work Phone: Comment on above: Pattern: Unlabored 07-28-2018 11:01-0500 SaO2% (BldA) [Mass fraction] 96 % Fatemeh Morrissey RN [facility]; [facility] Work Phone: Comment on above: Room air 07-28-2018 11:01-0500 Weight 102.23 kg Ana Luisa Nisreen [facility] Work Phone: 12-16-2017 08:53-0400 BMI (Body Mass Index) 35.87 kg/m2 BERNIE Rubio LPN [facility] Work Phone: 12-16-2017 08:53-0400 Body Temperature 97.6 [degF] BERNIE Rubio LPN [facility] Work Phone: Comment on above: Method: Temporal 12-16-2017 08:53-0400 Body weight 94.8 kg BERNIE Rubio LPN [facility] Work Phone: 12-16-2017 08:53-0400 BP Diastolic 80 mm[Hg] BERNIE Rubio LPN [facility] Work Phone: Comment on above: Patient Position: Sitting; Cuff Location : Left Arm; Cuff Size: Large 12-16-2017 08:53-0400 BP Systolic 126 mm[Hg] BERNIE Rubio LPN [facility] Work Phone: Comment on above: Patient Position: Sitting; Cuff Location : Left Arm; Cuff Size: Large 12-16-2017 08:53-0400 BSA (Body Surface Area) 1.99 m2 BERNIE Rubio DIANE [facility] Work Phone: 12-16-2017 08:53-0400 Height 162.56 cm BERNIE Rubio LPN [facility] Work Phone: 12-16-2017 08:53-0400 Pulse (Heart Rate) 78 /min BERNIE Rubio LPN [facility] Work Phone: Comment on above: Pattern: Regular 12-16-2017 08:53-0400 Pulse Oximetry 98 % Ana Luisa Nielson [facility] Work Phone: Comment on above: Room air 12-16-2017 08:53-0400 Respiratory Rate 20 /min BERNIE Rubio DIANE [facility] Work Phone: Comment on above: Pattern: Unlabored 12-16-2017 08:53-0400 SaO2% (BldA) [Mass fraction] 98 % BERNIE Rubio DIANE [facility]; [facility] Work Phone: Comment on above: Room air 12-16-2017 08:53-0400 Weight 94.8 kg Ana Luisa Samaniegoon [facility] Work Phone: 03-08-2017 09:23-0400 BMI (Body Mass Index) 35.96 kg/m2 Fatemeh Morrissey RN [facility] Work Phone: 03-08-2017 09:23-0400 Body weight 95.03 kg Fatemeh Morrissey RN [facility] Work Phone: 03-08-2017 09:23-0400 BP Diastolic 80 mm[Hg] Fatemeh Morrissey RN [facility] Work Phone: Comment on above: Patient Position: Sitting; Cuff Location : Left Arm; Cuff Size: Large 03-08-2017 09:23-0400 BP Systolic 120 mm[Hg] Fatemeh Morrissey RN [facility] Work Phone: Comment on above: Patient Position: Sitting; Cuff Location : Left Arm; Cuff Size: Large 03-08-2017 09:23-0400 BSA (Body Surface Area) 2 m2 Fatemeh Morrissey RN [facility] Work Phone: 03-08-2017 09:23-0400 Height 162.56 cm Fatemeh Morrissey RN [facility] Work Phone: 03-08-2017 09:23-0400 Pulse (Heart Rate) 71 /min Fatemeh Morrissey RN [facility] Work Phone: Comment on above: Pattern: Regular 03-08-2017 09:23-0400 Pulse Oximetry 98 % Ana Luisa Nielson [facility] Medicine Work Phone: Comment on above: Room air 03-08-2017 09:23-0400 Respiratory Rate 18 /min Fatemeh Morrissey RN [facility] Work Phone: Comment on above: Pattern: Unlabored 03-08-2017 09:23-0400 SaO2% (BldA) [Mass fraction] 98 % Fatemeh Morrissey RN [facility]; [facility] Work Phone: Comment on above: Room air 03-08-2017 09:23-0400 Weight 95.03 kg Ana Luisa Samaniegoon [facility] Work Phone: 11-29-2016 08:17-0400 BMI (Body Mass Index) 38.28 kg[facility] Work Phone: 11-29-2016 08:17-0400 Body [facility] 101.15 [facility]: 11-29-2016 08:17-0400 BP Diastolic 70 mm[Hg] [facility] Work Phone: Comment on above: Patient Position: Sitting; Cuff Location : Left Arm; Cuff Size: Standard 11-29-2016 08:17-0400 BP Systolic 122 mm[Hg] [facility] Work Phone: Comment on above: Patient Position: Sitting; Cuff Location : Left Arm; Cuff Size: Standard 11-29-2016 08:17-0400 BSA (Body Surface Area) 2.05 m2 [facility] Work Phone: 11-29-2016 08:17-0400 Height 162.56 cm [facility] Medicine Work Phone: 11-29-2016 08:17-0400 Pulse (Heart Rate) 81 /min Nerissa Alvarenga [facility] Work Phone: Comment on above: Pattern: Regular 11-29-2016 08:17-0400 Pulse Oximetry 98 % Ana Luisa Nielson [facility] Work Phone: Comment on above: Room air 11-29-2016 08:17-0400 Respiratory Rate 16 /min Nerissa Alvarenga [facility] Work Phone: Comment on above: Pattern: Unlabored 11-29-2016 08:17-0400 SaO2% (BldA) [Mass fraction] 98 % Nerissa Alvarenga [facility]; [facility] Work Phone: Comment on above: Room air 11-29-2016 08:17-0400 Weight 101.15 kg Ana Luisa Nielson [facility] Work Phone: 11-02-2016 08:23-0500 BMI (Body Mass Index) 38.28 kg/m2 Nerissa Alvarenga [facility] Work Phone: 11-02-2016 08:23-0500 Body Temperature 98.8 [degF] Nerissa Alvarenga [facility] Internal Medicine Work Phone: Comment on above: Method: Temporal 11-02-2016 08:23-0500 Body weight 101.[address] [facility] Work Phone: 11-02-2016 08:23-0500 BP Diastolic 70 mm[Hg] Nerissa Alvarenga [facility] Internal Medicine Work Phone: Comment on above: Patient Position: Sitting; Cuff Location : Left Arm; Cuff Size: Standard 11-02-2016 08:23-0500 BP Systolic 115 mm[Hg] Nerissa Alvarenga [facility] Medicine Work Phone: Comment on above: Patient Position: Sitting; Cuff Location : Left Arm; Cuff Size: Standard 11-02-2016 08:23-0500 BSA (Body Surface Area) 2.05 m2 Nerissa Alvarenga [facility] Internal Medicine Work Phone: 11-02-2016 08:23-0500 Height 162.56 cm Nerissa Alvarenga [facility] Medicine Work Phone: 11-02-2016 08:23-0500 Pulse (Heart Rate) 92 /min Nerissa Alavrenga [facility] Internal Medicine Work Phone: Comment on above: Pattern: Regular 11-02-2016 08:23-0500 Pulse Oximetry 97 % Ana Luisa Nielson [facility] Internal Medicine Work Phone: Comment on above: Room air 11-02-2016 08:23-0500 Respiratory Rate 16 /min Nerissa Alvarenga [facility] Internal Medicine Work Phone: Comment on above: Pattern: Unlabored 11-02-2016 08:23-0500 SaO2% (BldA) [Mass fraction] 97 % Nerissa Alvarenga [facility]; [facility] Medicine Work Phone: Comment on above: Room air 11-02-2016 08:23-0500 Weight 101.15 kg Ana Luisa Nielson [facility] Internal Medicine Work Phone: 09-23-2016 10:21-0500 BMI (Body Mass Index) 38.28 kg/m2 Amalia Slarb DIANE [facility] Internal Medicine Work Phone: 09-23-2016 10:21-0500 Body Temperature 97.3 [degF] Amalia Slarb [employer] [facility] Internal Medicine Work Phone: 09-23-2016 10:21-0500 Body weight 101.15 kg Amalia Slarb [employer] [facility] Internal Medicine Work Phone: 09-23-2016 10:21-0500 BP Diastolic 80 mm[Hg] Amalia Slarb [employer] [facility] Internal Medicine Work Phone: Comment on above: Patient Position: Sitting; Cuff Location : Left Arm; Cuff Size: Standard 09-23-2016 10:21-0500 BP Systolic 118 mm[Hg] Amalia Slarb [employer] [facility] Medicine Work Phone: Comment on above: Patient Position: Sitting; Cuff Location : Left Arm; Cuff Size: Standard 09-23-2016 10:21-0500 BSA (Body Surface Area) 2.05 m2 Amalia Sonya CONTRERAS [facility] Work Phone: 09-23-2016 10:21-0500 Height 162.56 cm Amalia Sonya CONTRERAS [facility] Work Phone: 09-23-2016 10:21-0500 Pulse (Heart Rate) 80 /min Amalia Slapily CONTRERAS [facility] Work Phone: Comment on above: Pattern: Regular 09-23-2016 10:21-0500 Pulse Oximetry 97 % Ana Luisa Nisreen [facility] Work Phone: Comment on above: Room air 09-23-2016 10:21-0500 Respiratory Rate 17 /min Amalia Hassan LPN [facility] Work Phone: Comment on above: Pattern: Unlabored 09-23-2016 10:21-0500 SaO2% (BldA) [Mass fraction] 97 % Amalia Hassan LPN [facility]; [facility] Work Phone: Comment on above: Room air 09-23-2016 10:21-0500 Weight 101.15 kg Ana Luisa Samaniegoon [facility] Work Phone: 07-29-2016 10:53-0500 BMI (Body Mass Index) 37.42 kg/m2 Radha Land RN [facility] Work Phone: 07-29-2016 10:53-0500 Body Temperature 98.2 [degF] Radha Land RN [facility] Work Phone: Comment on above: Method: Temporal 07-29-2016 10:53-0500 Body weight 98.88 kg Radha Land RN [facility] Work Phone: 07-29-2016 10:53-0500 BP Diastolic 74 mm[Hg] Radha Land RN [facility] Work Phone: Comment on above: Patient Position: Sitting; Cuff Location : Left Arm; Cuff Size: Standard 07-29-2016 10:53-0500 BP Systolic 128 mm[Hg] Radha Land RN [facility] Work Phone: Comment on above: Patient Position: Sitting; Cuff Location : Left Arm; Cuff Size: Standard 07-29-2016 10:53-0500 BSA (Body Surface Area) 2.03 m2 Radha Land RN [facility] Work Phone: 07-29-2016 10:53-0500 Height 162.56 cm Radha Land RN [facility] Work Phone: 07-29-2016 10:53-0500 Pulse (Heart Rate) 92 /min Radha Land RN [facility] Work Phone: Comment on above: Pattern: Regular 07-29-2016 10:53-0500 Pulse Oximetry 98 % Ana Luisa Nielson [facility] Work Phone: Comment on above: Room air 07-29-2016 10:53-0500 Respiratory Rate 16 /min Radha Land RN [facility] Work Phone: Comment on above: Pattern: Unlabored 07-29-2016 10:53-0500 SaO2% (BldA) [Mass fraction] 98 % Radha Land RN [facility]; [facility] Work Phone: Comment on above: Room air 07-29-2016 10:53-0500 Weight 98.88 kg Ana Luisa Nielson [facility] Work Phone: 12-18-2015 08:54-0400 BMI (Body Mass Index) 36.56 kg/m2 [facility] Work Phone: 12-18-2015 08:54-0400 Body Temperature 98 [degF] Radha Land RN [facility] Work Phone: Comment on above: Method: Temporal 12-18-2015 08:54-0400 Body weight 96.62 kg Radha Land RN [facility] Work Phone: 12-18-2015 08:54-0400 BP Diastolic 80 mm[Hg] Radha Land RN [facility] Work Phone: Comment on above: Patient Position: Sitting; Cuff Location : Left Arm; Cuff Size: Standard 12-18-2015 08:54-0400 BP Systolic 126 mm[Hg] Radha Land RN [facility] Work Phone: Comment on above: Patient Position: Sitting; Cuff Location : Left Arm; Cuff Size: Standard 12-18-2015 08:54-0400 BSA (Body Surface Area) 2.01 m2 Radha Land RN [facility] Work Phone: 12-18-2015 08:54-0400 Height 162.56 cm Radha Land RN [facility] Work Phone: 12-18-2015 08:54-0400 Pulse (Heart Rate) 82 /min Radha Land RN [facility] Work Phone: Comment on above: Pattern: Regular 12-18-2015 08:54-0400 Pulse Oximetry 96 % Ana Luisa Nielson [facility] Work Phone: Comment on above: Room air 12-18-2015 08:54-0400 Respiratory Rate 16 /min Radha Land RN [facility] Work Phone: Comment on above: Pattern: Unlabored 12-18-2015 08:54-0400 SaO2% (BldA) [Mass fraction] 96 % Radha Land RN [facility]; [facility] Work Phone: Comment on above: Room air 12-18-2015 08:54-0400 Weight 96.62 kg Ana Luisa Nielson [facility] Work Phone: 07-21-2015 11:00-0500 BMI (Body Mass Index) 36.56 kg/m2 BERNIE Rubio LPN [facility] Work Phone: 07-21-2015 11:00-0500 Body Temperature 97.2 [degF] BERNIE Rubio LPN [facility] Work Phone: Comment on above: Method: Temporal 07-21-2015 11:00-0500 Body weight 96.62 kg BERNIE Rubio LPN [facility] Work Phone: 07-21-2015 11:00-0500 BP Diastolic 80 mm[Hg] BERNIE Rubio LPN [facility] Work Phone: Comment on above: Patient Position: Sitting; Cuff Location : Left Arm; Cuff Size: Large 07-21-2015 11:00-0500 BP Systolic 120 mm[Hg] BERNIE Rubio LPN [facility] Work Phone: Comment on above: Patient Position: Sitting; Cuff Location : Left Arm; Cuff Size: Large 07-21-2015 11:00-0500 BSA (Body Surface Area) 2.01 m2 BERNIE Rubio LPN [facility] Work Phone: 07-21-2015 11:00-0500 Height 162.56 cm BERNIE Rubio LPN [facility] Work Phone: 07-21-2015 11:00-0500 Pulse (Heart Rate) 80 /min BERNIE Rubio LPN [facility] Work Phone: Comment on above: Pattern: Regular 07-21-2015 11:00-0500 Pulse Oximetry 98 % Ana Luisa Nielson [facility] Work Phone: Comment on above: Room air 07-21-2015 11:00-0500 Respiratory Rate 18 /min BERNIE Rubio LPN [facility] Work Phone: Comment on above: Pattern: Unlabored 07-21-2015 11:00-0500 SaO2% (BldA) [Mass fraction] 98 % BERNIE Rubio LPN [facility]; [facility] Work Phone: Comment on above: Room air 07-21-2015 11:00-0500 Weight 96.62 kg Ana Luisa Nielson [facility] Work Phone: 12-19-2014 08:23-0400 BMI (Body Mass Index) 36.56 kg/m2 BERNIE Rubio LPN [facility] Work Phone: 12-19-2014 08:23-0400 Body Temperature 97.6 [degF] BERNIE Rubio LPN [facility] Work Phone: Comment on above: Method: Temporal 12-19-2014 08:23-0400 Body weight 96.62 kg BERNIE Rubio LPN [facility] Work Phone: 12-19-2014 08:23-0400 BP Diastolic 76 mm[Hg] BERNIE Rubio LPN [facility] Work Phone: Comment on above: Patient Position: Sitting; Cuff Location : Left Arm; Cuff Size: Standard 12-19-2014 08:23-0400 BP Systolic 124 mm[Hg] BERNIE Rubio LPN [facility] Work Phone: Comment on above: Patient Position: Sitting; Cuff Location : Left Arm; Cuff Size: Standard 12-19-2014 08:23-0400 BSA (Body Surface Area) 2.01 m2 BERNIE Rubio LPN [facility] Work Phone: 12-19-2014 08:23-0400 Height 162.56 cm BERNIE Rubio LPN [facility] Work Phone: 12-19-2014 08:23-0400 Pulse (Heart Rate) 80 /min BERNIE Rubio LPN [facility] Work Phone: Comment on above: Pattern: Regular 12-19-2014 08:23-0400 Pulse Oximetry 97 % Ana Luisa Nielson [facility] Work Phone: Comment on above: Room air 12-19-2014 08:23-0400 Respiratory Rate 20 /min BERNIE Rubio LPN [facility] Work Phone: Comment on above: Pattern: Unlabored 12-19-2014 08:23-0400 SaO2% (BldA) [Mass fraction] 97 % BERNIE Rubio LPN [facility]; [facility] Work Phone: Comment on above: Room air 12-19-2014 08:23-0400 Weight 96.62 kg Ana Luisa Nielson [facility] Work Phone: 08-27-2014 10:30-0500 BMI (Body Mass Index) 36.79 kg/m2 Julieta Pemberton [facility] Work Phone: 08-27-2014 10:30-0500 Body weight 97.21 kg Julieta Pemberton [facility] Work Phone: 08-27-2014 10:30-0500 BP Diastolic 88 mm[Hg] Julieta Pemberton LPN [facility] Work Phone: Comment on above: Patient Position: Sitting; Cuff Location : Left Arm; Cuff Size: Standard 08-27-2014 10:30-0500 BP Systolic 140 mm[Hg] Julieta Pemberton LPN [facility] Work Phone: Comment on above: Patient Position: Sitting; Cuff Location : Left Arm; Cuff Size: Standard 08-27-2014 10:30-0500 BSA (Body Surface Area) 2.01 m2 Julieta Pemberton LPN [facility] Work Phone: 08-27-2014 10:30-0500 Height 162.56 cm Julieta Pemberton LPN [facility] Work Phone: 08-27-2014 10:30-0500 Pulse (Heart Rate) 76 /min Julieta Pemberton LPN [facility] Work Phone: Comment on above: Pattern: Regular 08-27-2014 10:30-0500 Pulse Oximetry 97 % Ana Luisa Nielson [facility] Work Phone: Comment on above: Room air 08-27-2014 10:30-0500 Respiratory Rate 16 /min Julieta Pemberton LPN [facility] Work Phone: 08-27-2014 10:30-0500 SaO2% (BldA) [Mass fraction] 97 % Julieta Pemberton LPN [facility]; [facility] Work Phone: Comment on above: Room air 08-27-2014 10:30-0500 Weight 97.21 kg Ana Luisa Nielson [facility] Work Phone: 08-02-2014 08:08-0500 BMI (Body Mass Index) 36.79 kg/m2 Julieta Pemberton LPN [facility] Work Phone: 08-02-2014 08:08-0500 Body Temperature 98 [degF] Julieta Pemberton LPN [facility] Work Phone: Comment on above: Method: Oral 08-02-2014 08:08-0500 Body weight 97.21 kg Julieta Pemberton LPN [facility] Work Phone: 08-02-2014 08:08-0500 BP Diastolic 74 mm[Hg] Julieta Pemberton LPN [facility] Work Phone: Comment on above: Patient Position: Sitting; Cuff Location : Left Arm; Cuff Size: Standard 08-02-2014 08:08-0500 BP Systolic 120 mm[Hg] Julieta Pemberton LPN [facility] Work Phone: Comment on above: Patient Position: Sitting; Cuff Location : Left Arm; Cuff Size: Standard 08-02-2014 08:08-0500 BSA (Body Surface Area) 2.01 m2 Julieta Pemberton LPN [facility] Work Phone: 08-02-2014 08:08-0500 Height 162.56 cm Julieta Pemberton LPN [facility] Work Phone: 08-02-2014 08:08-0500 Pulse (Heart Rate) 66 /min Julieta Pemberton LPN [facility] Work Phone: Comment on above: Pattern: Regular 08-02-2014 08:08-0500 Pulse Oximetry 98 % Ana Luisa Nielson [facility] Work Phone: Comment on above: Room air 08-02-2014 08:08-0500 Respiratory Rate 16 /min Julieta Pemberton LPN [facility] Work Phone: 08-02-2014 08:08-0500 SaO2% (BldA) [Mass fraction] 98 % Julieta Pemberton LPN [facility]; [facility] Work Phone: Comment on above: Room air 08-02-2014 08:08-0500 Weight 97.21 kg Ana Luisa Nielson [facility] Work Phone: 05-28-2014 08:34-0400 BMI (Body Mass Index) 36.22 kg/m2 Julieta Pemberton LPN [facility] Work Phone: 05-28-2014 08:34-0400 Body Temperature 98.6 [degF] Julieta Pemberton LPN [facility] Work Phone: Comment on above: Method: Oral 05-28-2014 08:34-0400 Body weight 95.71 kg Julieta Pemberton LPN [facility] Work Phone: 05-28-2014 08:34-0400 BP Diastolic 96 mm[Hg] Julieta Pemberton LPN [facility] Work Phone: Comment on above: Patient Position: Sitting; Cuff Location : Left Arm; Cuff Size: Standard 05-28-2014 08:34-0400 BP Systolic 142 mm[Hg] Julieta Pemberton LPN [facility] Work Phone: Comment on above: Patient Position: Sitting; Cuff Location : Left Arm; Cuff Size: Standard 05-28-2014 08:34-0400 BSA (Body Surface Area) 2 m2 Julieta Pemberton LPN [facility] Work Phone: 05-28-2014 08:34-0400 Height 162.56 cm Julieta Pemberton LPN [facility] Work Phone: 05-28-2014 08:34-0400 Pulse (Heart Rate) 88 /min Julieta Pemberton LPN [facility] Work Phone: Comment on above: Pattern: Regular 05-28-2014 08:34-0400 Pulse Oximetry 98 % Ana Luisa Nielson [facility] Work Phone: Comment on above: Room air 05-28-2014 08:34-0400 Respiratory Rate 16 /min Julieta Pemberton LPN [facility] Work Phone: 05-28-2014 08:34-0400 SaO2% (BldA) [Mass fraction] 98 % Julieta Pemberton LPN [facility]; [facility] Work Phone: Comment on above: Room air 05-28-2014 08:34-0400 Weight 95.71 kg Ana Luisa Nielson [facility] Work Phone: 05-22-2014 11:04-0400 BMI (Body Mass Index) 36.22 kg/m2 [facility] Work Phone: 05-22-2014 11:04-0400 Body Temperature 98.2 [degF] Gayla Joshi [facility] Internal [facility] Work Phone: Comment on above: Method: Oral 05-22-2014 11:04-0400 Body weight 95.71 kg Gayla Joshi [facility] Work Phone: 05-22-2014 11:04-0400 BP Diastolic 100 mm[Hg] Gayla Joshi [facility] Work Phone: Comment on above: Patient Position: Sitting; Cuff Location : Left Arm; Cuff Size: Large 05-22-2014 11:04-0400 BP Systolic 142 mm[Hg] Gayla Joshi [facility] Work Phone: Comment on above: Patient Position: Sitting; Cuff Location : Left Arm; Cuff Size: Large 05-22-2014 11:04-0400 BSA (Body Surface Area) 2 m2 Gayla Joshi [facility] Work Phone: 05-22-2014 11:04-0400 Height 162.56 cm Gayla Joshi [facility] Work Phone: 05-22-2014 11:04-0400 Pulse (Heart Rate) 82 /min Gayla Joshi [facility] Work Phone: Comment on above: Pattern: Regular 05-22-2014 11:04-0400 Pulse Oximetry 98 % Ana Luisa iNelson [facility] Work Phone: Comment on above: Room air 05-22-2014 11:04-0400 Respiratory Rate 18 /min Gayla Joshi [facility] Work Phone: Comment on above: Pattern: Unlabored 05-22-2014 11:04-0400 SaO2% (BldA) [Mass fraction] 98 % Gayla Joshi [facility]; [facility] Work Phone: Comment on above: Room air 05-22-2014 11:04-0400 Weight 95.71 kg Ana Luisa Nielson [facility] Work Phone: 08-31-2013 11:26-0500 BMI (Body Mass Index) 33.99 kg/m2 Julieta Pemberton LPN [facility] Work Phone: 08-31-2013 11:26-0500 Body Temperature 98.9 [degF] Julieta Pemberton LPN [facility] Work Phone: Comment on above: Method: Oral 08-31-2013 11:26-0500 Body weight 89.81 kg Julieta Pemberton LPN [facility] Work Phone: 08-31-2013 11:26-0500 BP Diastolic 84 mm[Hg] Julieta Pemberton LPN [facility] Work Phone: Comment on above: Patient Position: Sitting; Cuff Location : Left Arm; Cuff Size: Standard 08-31-2013 11:26-0500 BP Systolic 142 mm[Hg] Julieta Pemberton LPN [facility] Work Phone: Comment on above: Patient Position: Sitting; Cuff Location : Left Arm; Cuff Size: Standard 08-31-2013 11:26-0500 BSA (Body Surface Area) 1.95 m2 Julieta Pemberton LPN [facility] Work Phone: 08-31-2013 11:26-0500 Height 162.56 cm Julieta Pemberton LPN [facility] Work Phone: 08-31-2013 11:26-0500 Pulse (Heart Rate) 82 /min Julieta Pemberton LPN [facility] Work Phone: Comment on above: Pattern: Regular 08-31-2013 11:26-0500 Pulse Oximetry 98 % Ana Luisa Nielson [facility] Work Phone: Comment on above: Room air 08-31-2013 11:26-0500 Respiratory Rate 18 /min Julieta Pemberton LPN [facility] Work Phone: 08-31-2013 11:26-0500 SaO2% (BldA) [Mass fraction] 98 % Julieta Pemberton DIANE [facility]; [facility] Work Phone: Comment on above: Room air 08-31-2013 11:26-0500 Weight 89.81 kg Ana Luisa Nielson [facility] Work Phone: 08-23-2013 09:01-0500 BMI (Body Mass Index) 33.99 kg/m2 Fatemeh Morrissey RN [facility] Work Phone: 08-23-2013 09:01-0500 Body Temperature 97.7 [degF] Fatemeh Morrissey RN [facility] Work Phone: Comment on above: Method: Oral 08-23-2013 09:01-0500 Body weight 89.81 kg Fatemeh Morrissey RN [facility] Work Phone: 08-23-2013 09:01-0500 BP Diastolic 82 mm[Hg] Fatemeh Morrissey RN [facility] Work Phone: Comment on above: Patient Position: Sitting; Cuff Location : Left Arm; Cuff Size: Large 08-23-2013 09:01-0500 BP Systolic 138 mm[Hg] Fatemeh Morrissey RN [facility] Work Phone: Comment on above: Patient Position: Sitting; Cuff Location : Left Arm; Cuff Size: Large 08-23-2013 09:01-0500 BSA (Body Surface Area) 1.95 m2 Fatemeh Morrissey RN [facility] Work Phone: 08-23-2013 09:01-0500 Height 162.56 cm Fatemeh Morrissey RN [facility] Work Phone: 08-23-2013 09:01-0500 Pulse (Heart Rate) 72 /min Fatemeh Morrissey RN [facility] Work Phone: Comment on above: Pattern: Regular 08-23-2013 09:01-0500 Pulse Oximetry 98 % Ana Luisa Nisreen [facility] Work Phone: Comment on above: Room air 08-23-2013 09:01-0500 Respiratory Rate 20 /min Fatemeh Morrissey RN [facility] Work Phone: Comment on above: Pattern: Unlabored 08-23-2013 09:01-0500 SaO2% (BldA) [Mass fraction] 98 % Fatemeh Morrissey RN [facility]; [facility] Work Phone: Comment on above: Room air 08-23-2013 09:01-0500 Weight 89.81 kg Ana Luisa Nielson [facility] Work Phone: 02-23-2013 10:37-0400 BMI (Body Mass Index) 33.99 kg/m2 Radha Land RN [facility] Work Phone: 02-23-2013 10:37-0400 Body Temperature 98.4 [degF] Radha Land RN [facility] Work Phone: Comment on above: Method: Temporal 02-23-2013 10:37-0400 Body weight 89.81 kg Radha Land RN [facility] Work Phone: 02-23-2013 10:37-0400 BP Diastolic 72 mm[Hg] Radha Land RN [facility] Work Phone: Comment on above: Patient Position: Sitting; Cuff Location : Left Arm; Cuff Size: Standard 02-23-2013 10:37-0400 BP Systolic 124 mm[Hg] Radha Land RN [facility] Work Phone: Comment on above: Patient Position: Sitting; Cuff Location : Left Arm; Cuff Size: Standard 02-23-2013 10:37-0400 BSA (Body Surface Area) 1.95 m2 Radha Land RN [facility] Work Phone: 02-23-2013 10:37-0400 Height 162.56 cm Radha Land RN [facility] Work Phone: 02-23-2013 10:37-0400 Pulse (Heart Rate) 96 /min Radha Land RN [facility] Work Phone: Comment on above: Pattern: Regular 02-23-2013 10:37-0400 Pulse Oximetry 98 % Ana Luisa Samaniegoon [facility] Work Phone: Comment on above: Room air 02-23-2013 10:37-0400 Respiratory Rate 16 /min Radha Land RN [facility] Work Phone: Comment on above: Pattern: Unlabored 02-23-2013 10:37-0400 SaO2% (BldA) [Mass fraction] 98 % Radha Land RN [facility]; [facility] Work Phone: Comment on above: Room air 02-23-2013 10:37-0400 Weight 89.81 kg Ana Luisa Nielson [facility] Work Phone: 08-24-2012 08:20-0500 BMI (Body Mass Index) 33.99 kg/m2 Fatemeh Morrissey RN [facility] Work Phone: 08-24-2012 08:20-0500 Body Temperature 100.7 [degF] Fatemeh Morrissey RN [facility] Work Phone: Comment on above: Method: Oral 08-24-2012 08:20-0500 Body weight 89.81 kg Fatemeh Morrissey RN [facility] Work Phone: 08-24-2012 08:20-0500 BP Diastolic 80 mm[Hg] Fatemeh Morrissey RN [facility] Work Phone: Comment on above: Patient Position: Sitting; Cuff Location : Left Arm; Cuff Size: Large 08-24-2012 08:20-0500 BP Systolic 120 mm[Hg] Fatemeh Morrissey RN [facility] Work Phone: Comment on above: Patient Position: Sitting; Cuff Location : Left Arm; Cuff Size: Large 08-24-2012 08:20-0500 BSA (Body Surface Area) 1.95 m2 Fatemeh Morrissey RN [facility] Work Phone: 08-24-2012 08:20-0500 Height 162.56 cm Fatemeh Morrissey RN [facility] Work Phone: 08-24-2012 08:20-0500 Pulse (Heart Rate) 80 /min Fatemeh Morrissey RN [facility] Work Phone: Comment on above: Pattern: Regular 08-24-2012 08:20-0500 Respiratory Rate 16 /min Fatemeh Morrissey RN [facility] Work Phone: Comment on above: Pattern: Unlabored 08-24-2012 08:20-0500 Weight 89.81 kg Ana Luisa Nielson [facility] Work Phone: 04-18-2012 08:42-0400 BMI (Body Mass Index) 33.99 kg/m2 Julieta Pemberton LPN [facility] Internal Medicine Work Phone: 04-18-2012 08:42-0400 Body Temperature 98.7 [degF] Julieta Pemberton LPN [facility] Internal [facility] Work Phone: Comment on above: Method: Oral 04-18-2012 08:42-0400 Body weight 89.81 kg Julieta Pemberton LPN [facility] Internal Medicine Work Phone: 04-18-2012 08:42-0400 BP Diastolic 72 mm[Hg] Julieta Pemberton LPN [facility] Internal [facility] Work Phone: Comment on above: Patient Position: Sitting; Cuff Location : Left Arm; Cuff Size: Standard 04-18-2012 08:42-0400 BP Systolic 118 mm[Hg] Julieta Pemberton LPN [facility] Work Phone: Comment on above: Patient Position: Sitting; Cuff Location : Left Arm; Cuff Size: Standard 04-18-2012 08:42-0400 BSA (Body Surface Area) 1.95 m2 Julieta Pemberton LPN [facility] Work Phone: 04-18-2012 08:42-0400 Height 162.56 cm Julieta Pemberton LPN [facility] Work Phone: 04-18-2012 08:42-0400 Pulse (Heart Rate) 78 /min Julieta Pemberton LPN [facility] Work Phone: Comment on above: Pattern: Regular 04-18-2012 08:42-0400 Pulse Oximetry 98 % Ana Luisa Nielson [facility] Work Phone: Comment on above: Room air 04-18-2012 08:42-0400 Respiratory Rate 17 /min Julieta Pemberton LPN [facility] Internal Medicine Work Phone: Comment on above: Pattern: Unlabored 04-18-2012 08:42-0400 SaO2% (BldA) [Mass fraction] 98 % Julieta Pemberton [facility]; [facility] Work Phone: Comment on above: Room air 04-18-2012 08:42-0400 Weight 89.81 kg Ana Luisa Nielson [facility] Medicine Work Phone: 01-27-2012 08:52-0400 BMI (Body Mass Index) 33.99 kg/m2 BERNIE Rubio [employer] [facility] Work Phone: 01-27-2012 08:52-0400 Body Temperature 97.9 [degF] BERNIE Rubio [facility] Work Phone: Comment on above: Method: Oral 01-27-2012 08:52-0400 Body weight 89.81 kg BERNIE Rubio [facility] Internal Medicine Work Phone: 01-27-2012 08:52-0400 BP Diastolic 78 mm[Hg] BERNIE Rubio [facility] Work Phone: Comment on above: Patient Position: Sitting; Cuff Location : Left Arm; Cuff Size: Standard 01-27-2012 08:52-0400 BP Systolic 118 mm[Hg] BERNIE Rubio [facility] Internal [facility] Work Phone: Comment on above: Patient Position: Sitting; Cuff Location : Left Arm; Cuff Size: Standard 01-27-2012 08:52-0400 BSA (Body Surface Area) 1.95 m2 BERNIE Rubio [facility] Internal Medicine Work Phone: 01-27-2012 08:52-0400 Height 162.56 cm BERNIE Rubio [facility] Internal Medicine Work Phone: 01-27-2012 08:52-0400 Pulse (Heart Rate) 70 /min BERNIE Rubio [facility] Internal Medicine Work Phone: Comment on above: Pattern: Regular 01-27-2012 08:52-0400 Respiratory Rate 18 /min BERNIE Rubio [facility] Internal Medicine Work Phone: Comment on above: Pattern: Unlabored 01-27-2012 08:52-0400 Weight 89.81 kg Ana Luisa Nielson [facility] Internal Medicine Work Phone: 07-13-2010 10:33-0400 BMI (Body Mass Index) 37.88 kg/m2 Julieta Pemberton LPN [facility] Internal Medicine Work Phone: 07-13-2010 10:33-0400 Body Temperature 96.9 [degF] Julieta Pemberton LPN [facility] Internal Medicine Work Phone: Comment on above: Method: Oral 07-13-2010 10:33-0400 Body weight 100.11 kg Julieta Pemberton LPN [facility] Internal Medicine Work Phone: 07-13-2010 10:33-0400 BP Diastolic 78 mm[Hg] Julieta Pemberton LPN [facility] Internal Medicine Work Phone: Comment on above: Patient Position: Sitting; Cuff Location : Left Arm; Cuff Size: Standard 07-13-2010 10:33-0400 BP Systolic 142 mm[Hg] Julieta Pemberton LPN [facility] Internal Medicine Work Phone: Comment on above: Patient Position: Sitting; Cuff Location : Left Arm; Cuff Size: Standard 07-13-2010 10:33-0400 BSA (Body Surface Area) 2.04 m2 Julieta Pemberton LPN [facility] Internal Medicine Work Phone: 07-13-2010 10:33-0400 Height 162.56 cm Julieta Pemberton LPN [facility] Internal Medicine Work Phone: 07-13-2010 10:33-0400 Pulse (Heart Rate) 72 /min Julieta Pembertno LPN [facility] Internal Medicine Work Phone: Comment on above: Pattern: Regular 07-13-2010 10:33-0400 Respiratory Rate 17 /min Julieta Pemberton LPN [facility] Internal Medicine Work Phone: Comment on above: Pattern: Unlabored 07-13-2010 10:33-0400 Weight 100.11 kg Ana Luisaannabelle Nielson [facility] Internal Medicine Work Phone: 06-24-2010 09:52-0400 BMI (Body Mass Index) 37.88 kg/m2 Radha Land [facility] Work Phone: 06-24-2010 09:52-0400 Body weight 100.11 kg Radha Land RN [facility] Work Phone: 06-24-2010 09:52-0400 BP Diastolic 74 mm[Hg] Radha Land RN [facility] Work Phone: Comment on above: Patient Position: Sitting; Cuff Location : Left Arm; Cuff Size: Standard 06-24-2010 09:52-0400 BP Systolic 120 mm[Hg] Radha Land RN [facility] Work Phone: Comment on above: Patient Position: Sitting; Cuff Location : Left Arm; Cuff Size: Standard 06-24-2010 09:52-0400 BSA (Body Surface Area) 2.04 m2 Radha Land RN [facility] Work Phone: 06-24-2010 09:52-0400 Height 162.56 cm Radha Land RN [facility] Work Phone: 06-24-2010 09:52-0400 Pulse (Heart Rate) 66 /min Radha Land RN [facility] Work Phone: Comment on above: Pattern: Regular 06-24-2010 09:52-0400 Respiratory Rate 16 /min Radha Land RN [facility] Work Phone: Comment on above: Pattern: Unlabored 06-24-2010 09:52-0400 Weight 100.11 kg Ana Luisa Nielson [facility] Work Phone: 06-03-2010 10:22-0400 Body Temperature 97.2 [degF] Julieta Pemberton LPN [facility] Work Phone: Comment on above: Method: Oral 06-03-2010 10:22-0400 Body weight 98.63 kg Julieta Nilay CONTRERAS [facility] Work Phone: 06-03-2010 10:22-0400 BP Diastolic 84 mm[Hg] Julieta Pemberton LPN [facility] Work Phone: Comment on above: Patient Position: Sitting; Cuff Location : Left Arm; Cuff Size: Standard 06-03-2010 10:22-0400 BP Systolic 132 mm[Hg] Julieta Pemberton LPN [facility] Work Phone: Comment on above: Patient Position: Sitting; Cuff Location : Left Arm; Cuff Size: Standard 06-03-2010 10:22-0400 Pulse (Heart Rate) 66 /min Julieta Pemberton LPN [facility] Work Phone: Comment on above: Pattern: Regular 06-03-2010 10:22-0400 Respiratory Rate 17 /min Julieta Pemberton LPN [facility] Work Phone: Comment on above: Pattern: Unlabored 06-03-2010 10:22-0400 Weight 98.63 kg Ana Luisa Nielson [facility] Work Phone: 05-01-2010 13:14-0400 BP Diastolic 90 mm[Hg] Svetlana A Fast DO Work Phone: [facility] Work Phone: Comment on above: Patient Position: Sitting 05-01-2010 13:14-0400 BP Systolic 130 mm[Hg] Svetlana A Fast DO Work Phone: [facility] Work Phone: Comment on above: Patient Position: Sitting 05-01-2010 12:05-0400 Body weight 98.63 kg Ana Luisa Nielson [facility] Work Phone: 05-01-2010 12:05-0400 BP Diastolic 100 mm[Hg] Ana Luisa Nielson [facility] Work Phone: Comment on above: Patient Position: Sitting; Cuff Location : Left Arm; Cuff Size: Standard 05-01-2010 12:05-0400 BP Systolic 165 mm[Hg] Ana Luisa Nielson [facility] Work Phone: Comment on above: Patient Position: Sitting; Cuff Location : Left Arm; Cuff Size: Standard 05-01-2010 12:05-0400 Pulse (Heart Rate) 60 /min Ana Luisa Nielson [facility] Work Phone: Comment on above: Pattern: Regular 05-01-2010 12:05-0400 Respiratory Rate 16 /min Ana Luisa Nielson [facility] Work Phone: Comment on above: Pattern: Unlabored 05-01-2010 12:05-0400 Weight 98.63 kg Ana Luisa Nielson [facility] Work Phone: 08-27-2009 10:06-0500 Body Temperature 96.8 [degF] Julieta Pemberton LPN [facility] Work Phone: Comment on above: Method: Oral 08-27-2009 10:06-0500 Body weight 0 kg Julieta Pemberton LPN [facility] Work Phone: 08-27-2009 10:06-0500 BP Diastolic 74 mm[Hg] Julieta Pemberton LPN [facility] Work Phone: Comment on above: Patient Position: Sitting; Cuff Location : Left Arm; Cuff Size: Standard 08-27-2009 10:06-0500 BP Systolic 128 mm[Hg] Julieta Pemberton LPN [facility] Work Phone: Comment on above: Patient Position: Sitting; Cuff Location : Left Arm; Cuff Size: Standard 08-27-2009 10:06-0500 Head Circumference 0 cm Ana Luisa Nielson [facility] Work Phone: 08-27-2009 10:06-0500 Head Occipital-frontal circumference 0 cm Julieta Pemberton LPN [facility]; [facility] Work Phone: 08-27-2009 10:06-0500 Height 0 cm Julieta Pemberton LPN [facility] Work Phone: 08-27-2009 10:06-0500 Pulse (Heart Rate) 80 /min Julieta Pemberton LPN [facility] Work Phone: Comment on above: Pattern: Regular 08-27-2009 10:06-0500 Pulse Oximetry 98 % Ana Luisa Nielson [facility] Work Phone: Comment on above: Room air 08-27-2009 10:06-0500 Respiratory Rate 16 /min Julieta Pemberton LPN [facility] Work Phone: Comment on above: Pattern: Unlabored 08-27-2009 10:06-0500 SaO2% (BldA) [Mass fraction] 98 % Julieta Pemberton LPN [facility]; [facility] Work Phone: Comment on above: Room air 08-27-2009 10:06-0500 Weight 0 kg Ana Luisa Nielson [facility] Work Phone: 06-27-2009 09:59-0400 BMI (Body Mass Index) 36.31 kg/m2 Brittanie Mack [facility] Work Phone: 06-27-2009 09:59-0400 Body Temperature 99.3 [degF] Brittanie [facility] Internal Medicine Work Phone: Comment on above: Method: Oral 06-27-2009 09:59-0400 Body weight 92.99 kg Brittanie [facility] Work Phone: 06-27-2009 09:59-0400 BP Diastolic 70 mm[Hg] Brittanie [facility] Work Phone: Comment on above: Patient Position: Supine; Cuff Location: Left Arm; Cuff Size: Standard 06-27-2009 09:59-0400 BP Systolic 108 mm[Hg] Brittanie [facility] Work Phone: Comment on above: Patient Position: Supine; Cuff Location: Left Arm; Cuff Size: Standard 06-27-2009 09:59-0400 BSA (Body Surface Area) 1.95 m2 Brittanie [facility] Work Phone: 06-27-2009 09:59-0400 Head Circumference 0 cm Ana Luisa Nielson [facility] Medicine Work Phone: 06-27-2009 09:59-0400 Head Occipital-frontal circumference 0 cm Brittanie Mack [facility]; [facility] Work Phone: 06-27-2009 09:59-0400 Height 160.02 cm Brittanie [facility] Work Phone: 06-27-2009 09:59-0400 Pulse (Heart Rate) 88 /min Brittanie [facility] Work Phone: Comment on above: Pattern: Regular 06-27-2009 09:59-0400 Respiratory Rate 16 /min Brittanie [facility] Work Phone: Comment on above: Pattern: Unlabored 06-27-2009 09:59-0400 Weight 92.99 kg Ana Luisa Nielson [facility] Medicine Work Phone: 06-11-2009 09:33-0400 BMI (Body Mass Index) 37.2 kg/m2 Brittanie Mack [facility] Work Phone: Comment on above: 06-11-2009 09:33-0400 Body weight 95.26 kg Brittanie [facility] Medicine Work Phone: Comment on above: 06-11-2009 09:33-0400 BP Diastolic 90 mm[Hg] Brittanie [facility] Work Phone: Comment on above: Patient Position: Supine; Cuff Location: Left Arm; Cuff Size: Standard 06-11-2009 09:33-0400 BP Systolic 112 mm[Hg] Brittanie [facility] Medicine Work Phone: Comment on above: Patient Position: Supine; Cuff Location: Left Arm; Cuff Size: Standard 06-11-2009 09:33-0400 BSA (Body Surface Area) 1.97 m2 Brittanie [facility] Medicine Work Phone: Comment on above: 06-11-2009 09:33-0400 Head Circumference 0 cm Ana Luisa Nielson [facility] Internal Medicine Work Phone: Comment on above: 06-11-2009 09:33-0400 Head Occipital-frontal circumference 0 cm Brittanie [facility] Medicine; [facility] Internal Medicine Work Phone: Comment on above: 06-11-2009 09:33-0400 Height 160.02 cm [facility] Internal Medicine Work Phone: Comment on above: 06-11-2009 09:33-0400 Respiratory Rate 16 /min Brittanie [facility] Internal Medicine Work Phone: Comment on above: Pattern: Unlabored 06-11-2009 09:33-0400 Weight 95.26 kg Ana Luisa Samaniegoon [facility] Work Phone: Comment on above: 122/84 06-04-2009 10:240400 Body Temperature 98.4 [degF] Dayna Fry RN [facility] Work Phone: Comment on above: Method: Oral 06-04-2009 10:240400 Body weight 0 kg Dayna Fry RN [facility] Work Phone: 06-04-2009 10:24-0400 BP Diastolic 76 mm[Hg] Dayna Fry RN [facility] Work Phone: Comment on above: Patient Position: Sitting; Cuff Location : Left Arm; Cuff Size: Large 06-04-2009 10:240400 BP Systolic 110 mm[Hg] Dayna Fry RN [facility] Work Phone: Comment on above: Patient Position: Sitting; Cuff Location : Left Arm; Cuff Size: Large 06-04-2009 10:240400 Head Circumference 0 cm Ana Luisa Samaniegoon [facility] Work Phone: 06-04-2009 10:24040 Head Occipital-frontal circumference 0 cm Dayna Fry RN [facility]; [facility] Work Phone: 06-04-2009 10:240400 Height 0 cm Dayna Fry RN [facility] Work Phone: 06-04-2009 10:240400 Pulse (Heart Rate) 72 /min Dayna Fry RN [facility] Work Phone: Comment on above: Pattern: Regular 06-04-2009 10:240400 Respiratory Rate 16 /min Dayna Fry RN [facility] Work Phone: Comment on above: Pattern: Unlabored 06-04-2009 10:240400 Weight 0 kg Ana Luisa Samaniegoon [facility] Work Phone: 05-28-2009 15:19-0400 BMI (Body Mass Index) 37.2 kg/m2 Brittanie [facility]iu [facility] Work Phone: 05-28-2009 15:19-0400 Body weight 95.26 kg Brittanie [facility] Medicine Work Phone: 05-28-2009 15:19-0400 BP Diastolic 92 mm[Hg] Brittanie [facility] Medicine Work Phone: Comment on above: Patient Position: Supine; Cuff Location: Left Arm; Cuff Size: Large 05-28-2009 15:19-0400 BP Systolic 128 mm[Hg] Brittanie [facility] Medicine Work Phone: Comment on above: Patient Position: Supine; Cuff Location: Left Arm; Cuff Size: Large 05-28-2009 15:19-0400 BSA (Body Surface Area) 1.97 m2 Brittanie [facility] Medicine Work Phone: 05-28-2009 15:19-0400 Head Circumference 0 cm Ana Luisa Nielson [facility] Medicine Work Phone: 05-28-2009 15:19-0400 Head Occipital-frontal circumference 0 cm Brittanie [facility]; [facility] Work Phone: 05-28-2009 15:19-0400 Height 160.02 cm Brittanie [facility] Work Phone: 05-28-2009 15:19-0400 Pulse (Heart Rate) 72 /min Brittanie [facility] Work Phone: Comment on above: Pattern: Regular 05-28-2009 15:19-0400 Respiratory Rate 16 /min Brittanie [facility] Work Phone: Comment on above: Pattern: Unlabored 05-28-2009 15:19-0400 Weight 95.26 kg Ana Luisa Nielson [facility] Work Phone: 04-10-2009 09:52-0400 BMI (Body Mass Index) 38.26 kg/m2 Brittanie Mack [facility] Work Phone: 04-10-2009 09:52-0400 Body weight 97.98 kg Brittanie [facility] Work Phone: 04-10-2009 09:52-0400 BP Diastolic 80 mm[Hg] Brittanie [facility] Work Phone: Comment on above: Patient Position: Supine; Cuff Location: Left Arm; Cuff Size: Standard 04-10-2009 09:52-0400 BP Systolic 120 mm[Hg] Brittanie [facility] Medicine Work Phone: Comment on above: Patient Position: Supine; Cuff Location: Left Arm; Cuff Size: Standard 04-10-2009 09:52-0400 BSA (Body Surface Area) 2 m2 Brittanie [facility] Work Phone: 04-10-2009 09:52-0400 Head Circumference 0 cm Ana Luisa Nielson [facility] Work Phone: 04-10-2009 09:52-0400 Head Occipital-frontal circumference 0 cm Brittanie [facility]; [facility] Work Phone: 04-10-2009 09:52-0400 Height 160.02 cm Brittanie [facility] Work Phone: 04-10-2009 09:52-0400 Pulse (Heart Rate) 60 /min Brittanie [facility] Work Phone: Comment on above: Pattern: Regular 04-10-2009 09:52-0400 Respiratory Rate 16 /min Brittanie [facility] Work Phone: Comment on above: Pattern: Unlabored 04-10-2009 09:52-0400 Weight 97.98 kg Ana Luisa Nielson [facility] Work Phone: 03-13-2009 14:00-0400 BMI (Body Mass Index) 38.26 kg/m2 Julieta Nilay CONTRERAS [facility] Work Phone: 03-13-2009 14:00-0400 Body Temperature 97.9 [degF] Julieta Nilay CONTRERAS [facility] Work Phone: Comment on above: Method: Oral 03-13-2009 14:00-0400 Body weight 97.98 kg Julieta Briscoemandie CONTRERAS [facility] Work Phone: 03-13-2009 14:00-0400 BP Diastolic 86 mm[Hg] Julietatee Pemberton LPN [facility] Work Phone: Comment on above: Patient Position: Sitting; Cuff Location : Left Arm; Cuff Size: Standard 03-13-2009 14:00-0400 BP Systolic 122 mm[Hg] Julieta Pemberton LPN [facility] Work Phone: Comment on above: Patient Position: Sitting; Cuff Location : Left Arm; Cuff Size: Standard 03-13-2009 14:00-0400 BSA (Body Surface Area) 2 m2 Julieta Pemberton LPN [facility] Work Phone: 03-13-2009 14:00-0400 Head Circumference 0 cm Ana Luisa Nielson [facility] Work Phone: 03-13-2009 14:00-0400 Head Occipital-frontal circumference 0 cm Julieta Pemberton LPN [facility]; [facility] Work Phone: 03-13-2009 14:00-0400 Height 160.02 cm Julieta Pemberton LPN [facility] Work Phone: 03-13-2009 14:00-0400 Pulse (Heart Rate) 82 /min Julieta Pemberton LPN [facility] Work Phone: Comment on above: Pattern: Regular 03-13-2009 14:00-0400 Pulse Oximetry 98 % Ana Luisa Nielson [facility] Work Phone: Comment on above: Room air 03-13-2009 14:00-0400 Respiratory Rate 16 /min Julieta Pemberton LPN [facility] Work Phone: Comment on above: Pattern: Unlabored 03-13-2009 14:00-0400 SaO2% (BldA) [Mass fraction] 98 % Julieta Pemberton LPN [facility]; [facility] Work Phone: Comment on above: Room air 03-13-2009 14:00-0400 Weight 97.98 kg Ana Luisa Nielson [facility] Internal Medicine Work Phone: 03-11-2009 16:02-0400 Body weight 0 kg Sarika Canelaadriana GRIFFIN Work Phone: [facility] Work Phone: 03-11-2009 16:02-0400 BP Diastolic 88 mm[Hg] Sarika Brown MISSION COORDINATOR Work Phone: [facility] Work Phone: Comment on above: Patient Position: Supine; Cuff Location: Right Arm; Cuff Size: Standard 03-11-2009 16:02-0400 BP Systolic 130 mm[Hg] Sarika Brown MISSION COORDINATOR Work Phone: [facility] Work Phone: Comment on above: Patient Position: Supine; Cuff Location: Right Arm; Cuff Size: Standard 03-11-2009 16:02-0400 Head Circumference 0 cm Ana Luisa Nielson [facility] Internal Medicine Work Phone: 03-11-2009 16:02-0400 Head Occipital-frontal circumference 0 cm Sarika Brown MISSION COORDINATOR Work Phone: [facility]; [facility] Work Phone: 03-11-2009 16:02-0400 Height 0 cm Sarika Brown MISSION COORDINATOR Work Phone: [facility] Internal Medicine Work Phone: 03-11-2009 16:02-0400 Weight 0 kg Ana Luisa Nielson [facility] Internal Medicine Work Phone: 03-11-2009 15:16-0400 Body weight 0 kg [facility] Internal Medicine Work Phone: 03-11-2009 15:16-0400 BP Diastolic 90 mm[Hg] Maria [facility] Medicine Work Phone: Comment on above: Patient Position: Supine; Cuff Location: Left Arm; Cuff Size: Standard 03-11-2009 15:16-0400 BP Systolic 136 mm[Hg] Maria [facility] Internal Medicine Work Phone: Comment on above: Patient Position: Supine; Cuff Location: Left Arm; Cuff Size: Standard 03-11-2009 15:16-0400 Head Circumference 0 cm [facility] Work Phone: 03-11-2009 15:16-0400 Head Occipital-frontal circumference 0 cm Brittanie [facility]; [facility] Work Phone: 03-11-2009 15:16-0400 Height 0 cm Brittanie [facility] Internal Medicine Work Phone: 03-11-2009 15:16-0400 Pulse (Heart Rate) 80 /min Brittanie [facility] Internal Medicine Work Phone: Comment on above: Pattern: Regular 03-11-2009 15:16-0400 Respiratory Rate 16 /min Brittanie [facility] Internal Medicine Work Phone: Comment on above: Pattern: Unlabored 03-11-2009 15:16-0400 Weight 0 kg Ana Luisa Nielson [facility] Internal Medicine Work Phone: 10-18-2008 09:28-0500 Body Temperature 99.7 [degF] BERNIE Rubio [facility] Internal Medicine Work Phone: Comment on above: Method: Oral 10-18-2008 09:28-0500 Body weight 0 kg BERNIEDARLINE Rubio [facility] Work Phone: 10-18-2008 09:28-0500 BP Diastolic 84 mm[Hg] BERNIEDARLINE Rubio [facility] Work Phone: Comment on above: Patient Position: Sitting; Cuff Location : Left Arm; Cuff Size: Large 10-18-2008 09:28-0500 BP Systolic 122 mm[Hg] BERNIEDARLINE Rubio [facility] Work Phone: Comment on above: Patient Position: Sitting; Cuff Location : Left Arm; Cuff Size: Large 10-18-2008 09:28-0500 Head Circumference 0 cm Ana Luisa Nielson [facility] Internal Medicine Work Phone: 10-18-2008 09:28-0500 Head Occipital-frontal circumference 0 cm BERNIEDARLINE Rubio [facility]; [facility] Work Phone: 10-18-2008 09:28-0500 Height 0 cm BERNIE Ramiro [employer] [facility] Work Phone: 10-18-2008 09:28-0500 Pulse (Heart Rate) 70 /min BERNIE Rubio [facility] Work Phone: Comment on above: Pattern: Regular 10-18-2008 09:28-0500 Respiratory Rate 16 /min BERNIE Rubio LPN [facility] Internal Medicine Work Phone: Comment on above: Pattern: Unlabored 10-18-2008 09:28-0500 Weight 0 kg Ana Luisa Nielson [facility] Internal Medicine Work Phone: 08-05-2008 14:18-0500 BMI (Body Mass Index) 38.26 kg/m2 [facility] Internal Medicine Work Phone: 08-05-2008 14:18-0500 Body Temperature 98 [degF] [facility] Internal Medicine Work Phone: Comment on above: Method: Oral 08-05-2008 14:18-0500 Body weight 97.98 kg [facility] Internal Medicine Work Phone: 08-05-2008 14:18-0500 BP Diastolic 76 mm[Hg] [facility] Work Phone: Comment on above: Patient Position: Sitting; Cuff Location : Left Arm; Cuff Size: Standard 08-05-2008 14:18-0500 BP Systolic 104 mm[Hg] [facility] Work Phone: Comment on above: Patient Position: Sitting; Cuff Location : Left Arm; Cuff Size: Standard 08-05-2008 14:18-0500 BSA (Body Surface Area) 2 m2 [facility] Internal Medicine Work Phone: 08-05-2008 14:18-0500 Head Circumference 0 cm Ana Luisa Nielson [facility] Internal Medicine Work Phone: 08-05-2008 14:18-0500 Head Occipital-frontal circumference 0 cm [facility] Medicine; [facility] Internal Medicine Work Phone: 08-05-2008 14:18-0500 Height 160.02 cm [facility] Internal Medicine Work Phone: 08-05-2008 14:18-0500 Pulse (Heart Rate) 76 /min [facility] Internal Medicine Work Phone: Comment on above: Pattern: Regular 08-05-2008 14:18-0500 Respiratory Rate 18 /min Anaid Mendoza [facility] Internal Medicine Work Phone: Comment on above: Pattern: Unlabored 08-05-2008 14:18-0500 Weight 97.98 kg Ana Luisa Nielson [facility] Internal Medicine Work Phone: 07-29-2008 13:53-0500 BMI (Body Mass Index) 29.5 kg/m2 [facility]aid [facility] Work Phone: 07-29-2008 13:53-0500 Body Temperature 98.1 [degF] [facility] Work Phone: Comment on above: Method: Oral 07-29-2008 13:53-0500 Body weight 75.55 kg [facility] Work Phone: 07-29-2008 13:53-0500 BP Diastolic 78 mm[Hg] Anaid [facility] Internal Medicine Work Phone: Comment on above: Patient Position: Sitting; Cuff Location : Left Arm; Cuff Size: Standard 07-29-2008 13:53-0500 BP Systolic 102 mm[Hg] Anaid [facility] Internal Medicine Work Phone: Comment on above: Patient Position: Sitting; Cuff Location : Left Arm; Cuff Size: Standard 07-29-2008 13:53-0500 BSA (Body Surface Area) 1.79 m2 [facility] Work Phone: 07-29-2008 13:53-0500 Head Circumference 0 cm Ana Luisa Nielson [facility] Internal Medicine Work Phone: 07-29-2008 13:53-0500 Head Occipital-frontal circumference 0 cm [facility]; [facility] Medicine Work Phone: 07-29-2008 13:53-0500 Height 160.02 cm Anaid [facility] Internal Medicine Work Phone: 07-29-2008 13:53-0500 Pulse (Heart Rate) 74 /min Anaid [facility] Internal Medicine Work Phone: Comment on above: Pattern: Regular 07-29-2008 13:53-0500 Respiratory Rate 18 /min Anadi Mendoza [facility] Internal Medicine Work Phone: Comment on above: Pattern: Unlabored 07-29-2008 13:53-0500 Weight 75.55 kg Ana Luisa Nielson [facility] Internal Medicine Work Phone: 06-03-2008 15:44-0400 Body Temperature 98.8 [degF] BERNIE Rubio [facility] Internal Medicine Work Phone: Comment on above: Method: Oral 06-03-2008 15:44-0400 Body weight 0 kg BERNIE Rubio [facility] Internal Medicine Work Phone: 06-03-2008 15:44-0400 BP Diastolic 80 mm[Hg] BERNIE Rubio [facility] Internal Medicine Work Phone: Comment on above: Patient Position: Sitting; Cuff Location : Left Arm; Cuff Size: Large 06-03-2008 15:44-0400 BP Systolic 122 mm[Hg] BERNIE Rubio [facility] Internal Medicine Work Phone: Comment on above: Patient Position: Sitting; Cuff Location : Left Arm; Cuff Size: Large 06-03-2008 15:44-0400 Head Circumference 0 cm Ana Luisa Nielson [facility] Internal Medicine Work Phone: 06-03-2008 15:44-0400 Head Occipital-frontal circumference 0 cm BERNIE Rubio [facility]; [facility] Work Phone: 06-03-2008 15:44-0400 Height 0 cm BERNIE Rubio [facility] Internal Medicine Work Phone: 06-03-2008 15:44-0400 Pulse (Heart Rate) 70 /min BERNIE Rubio [facility] Internal Medicine Work Phone: Comment on above: Pattern: Regular 06-03-2008 15:44-0400 Respiratory Rate 16 /min BERNIE Rubio [facility] Internal Medicine Work Phone: Comment on above: Pattern: Unlabored 06-03-2008 15:44-0400 Weight 0 kg Ana Luisa Nielson [facility] Internal Medicine Work Phone: 08-28-2007 14:49-0500 BMI (Body Mass Index) 29.5 kg/m2 Julieta Pemberton LPN [facility] Work Phone: 08-28-2007 14:49-0500 Body Temperature 98.6 [degF] Juleita Pemberton LPN [facility] Work Phone: Comment on above: Method: Oral 08-28-2007 14:49-0500 Body weight 75.55 kg Julieta Pemberton LPN [facility] Work Phone: 08-28-2007 14:49-0500 BP Diastolic 72 mm[Hg] Julieta Pemberton LPN [facility] Work Phone: Comment on above: Patient Position: Sitting; Cuff Location : Left Arm; Cuff Size: Standard 08-28-2007 14:49-0500 BP Systolic 112 mm[Hg] Julieta Pemberton LPN [facility] Work Phone: Comment on above: Patient Position: Sitting; Cuff Location : Left Arm; Cuff Size: Standard 08-28-2007 14:49-0500 BSA (Body Surface Area) 1.79 m2 Julieta Pemberton LPN [facility] Work Phone: 08-28-2007 14:49-0500 Head Circumference 0 cm Ana Luisa Nielson [facility] Work Phone: 08-28-2007 14:49-0500 Head Occipital-frontal circumference 0 cm Julieta Pemberton LPN [facility]; [facility] Work Phone: 08-28-2007 14:49-0500 Height 160.02 cm Julieta Pemberton LPN [facility] Work Phone: 08-28-2007 14:49-0500 Pulse (Heart Rate) 76 /min Julieta Pemberton LPN [facility] Work Phone: Comment on above: Pattern: Regular 08-28-2007 14:49-0500 Respiratory Rate 16 /min Julieta Pemberton LPN [facility] Work Phone: Comment on above: Pattern: Unlabored 08-28-2007 14:49-0500 Weight 75.55 kg Ana Luisa Nielson [facility] Work Phone: 08-15-2007 13:15-0500 BMI (Body Mass Index) 29.5 kg/m2 Julieta Pemberton LPN [facility] Work Phone: 08-15-2007 13:15-0500 Body Temperature 97.9 [degF] Julieta Pemberton LPN [facility] Work Phone: Comment on above: Method: Oral 08-15-2007 13:15-0500 Body weight 75.55 kg Julieta Pemberton LPN [facility] Work Phone: 08-15-2007 13:15-0500 BP Diastolic 72 mm[Hg] Julieta Pemberton LPN [facility] Work Phone: Comment on above: Patient Position: Sitting; Cuff Location : Left Arm; Cuff Size: Standard 08-15-2007 13:15-0500 BP Systolic 110 mm[Hg] Julieta Pemberton LPN [facility] Work Phone: Comment on above: Patient Position: Sitting; Cuff Location : Left Arm; Cuff Size: Standard 08-15-2007 13:15-0500 BSA (Body Surface Area) 1.79 m2 Julieta Pemberton LPN [facility] Work Phone: 08-15-2007 13:15-0500 Head Circumference 0 cm Ana Luisa Nielson [facility] Work Phone: 08-15-2007 13:15-0500 Head Occipital-frontal circumference 0 cm Julieta Pemberton LPN [facility]; [facility] Work Phone: 08-15-2007 13:15-0500 Height 160.02 cm Julieta Pemberton LPN [facility] Work Phone: 08-15-2007 13:15-0500 Pulse (Heart Rate) 72 /min Julieta Pemberton LPN [facility] Work Phone: Comment on above: Pattern: Regular 08-15-2007 13:15-0500 Respiratory Rate 16 /min Julieta Pemberton DIANE [facility] Work Phone: Comment on above: Pattern: Unlabored 08-15-2007 13:15-0500 Weight 75.55 kg Ana Luisa Nielson [facility] Work Phone: 11-30-2006 08:42-0400 Body Temperature 98.5 [degF] Dayna Fry RN [facility] Work Phone: Comment on above: Method: Oral 11-30-2006 08:42-0400 Body weight 0 kg Dayna Fry RN [facility] Work Phone: 11-30-2006 08:42-0400 BP Diastolic 72 mm[Hg] Dayna Fry RN [facility] Work Phone: Comment on above: Patient Position: Sitting; Cuff Location : Left Arm; Cuff Size: Standard 11-30-2006 08:42-0400 BP Systolic 102 mm[Hg] Dayna Fry RN [facility] Work Phone: Comment on above: Patient Position: Sitting; Cuff Location : Left Arm; Cuff Size: Standard 11-30-2006 08:42-0400 Head Circumference 0 cm Ana Luisa Nisreen [facility] Work Phone: 11-30-2006 08:42-0400 Head Occipital-frontal circumference 0 cm Dayna Fry RN [facility]; [facility] Work Phone: 11-30-2006 08:42-0400 Height 0 cm Dayna Fry RN [facility] Work Phone: 11-30-2006 08:42-0400 Pulse (Heart Rate) 68 /min Dayna Fry RN [facility] Work Phone: Comment on above: Pattern: Regular 11-30-2006 08:42-0400 Respiratory Rate 16 /min Dayna Fry RN [facility] Work Phone: Comment on above: Pattern: Unlabored 11-30-2006 08:42-0400 Weight 0 kg Ana Luisa Samaniegoon [facility] Work Phone: 08-10-2006 15:16-0500 BMI (Body Mass Index) 29.5 kg/m2 Ibeth Rodriguez LPN [facility] Work Phone: 08-10-2006 15:16-0500 Body Temperature 97.2 [degF] Ibeth Rodriguez LPN [facility] Work Phone: Comment on above: Method: Oral 08-10-2006 15:16-0500 Body weight 75.55 kg Ibeth Rodriguez LPN [facility] Work Phone: 08-10-2006 15:16-0500 BP Diastolic 70 mm[Hg] Ibeth Rodriguez LPN [facility] Work Phone: Comment on above: Patient Position: Sitting; Cuff Location : Left Arm; Cuff Size: Standard 08-10-2006 15:16-0500 BP Systolic 114 mm[Hg] Ibeth Rodriguez LPN [facility] Work Phone: Comment on above: Patient Position: Sitting; Cuff Location : Left Arm; Cuff Size: Standard 08-10-2006 15:16-0500 BSA (Body Surface Area) 1.79 m2 Ibeth Rodriguez LPN [facility] Work Phone: 08-10-2006 15:16-0500 Head Circumference 0 cm Ana Luisa Nielson [facility] Work Phone: 08-10-2006 15:16-0500 Head Occipital-frontal circumference 0 cm Ibeth Rodriguez LPN [facility]; [facility] Work Phone: 08-10-2006 15:16-0500 Height 160.02 cm Ibeth Rodriguez LPN [facility] Work Phone: 08-10-2006 15:16-0500 Pulse (Heart Rate) 60 /min Ibeth Rodriguez LPN [facility]pre[facility] Work Phone: Comment on above: Pattern: Regular 08-10-2006 15:16-0500 Respiratory Rate 16 /min Ibeth Rodriguez LPN [facility] Work Phone: Comment on above: Pattern: Unlabored 08-10-2006 15:16-0500 Weight 75.55 kg Ana Luisa Nielson [facility] Internal Medicine Work Phone: Encounters Encounter Date Encounter Type Care Provider Facility Start: 07-30-2025 ambulatory Ana Luisa Nielson Facilit y:[facility] Start: 07-25-2025 Encounter for preprocedural cardiovascular examination Ana Luisa Nielson [facility] Start: 07-24-2025 Encounter for preprocedural cardiovascular examination Kel Josedina [facility] Start: 07-15-2025 End: 07-15-2025 ambulatory Kel Garcia Facility:[facility] Start: 06-27-2025 ambulatory Ana Luisa Nielson Facilit y:[facility] Start: 06-12-2025 End: 06-12-2025 Patient encounter procedure ED Cuevas -[facility] Work Phone: Start: 06-12-2025 End: 06-12-[address] Ana Luisa Nielson DO Work Phone: -[facility] Start: 05-28-2025 End: 05-28-[address] Ana Luisa Nielson DO Work Phone: -[facility] Lab Start: 05-28-2025 End: 05-28-[address] Ana Luisa Nielson DO -Sleep Lab Work Phone: Start: 05-28-2025 End: 05-28-2025 ambulatory Ana Luisa Nielson Facility:[facility] Start: 05-24-2025 End: 05-24-[address] Ana Luisa Nielson DO Work Phone: [facility] Start: 05-24-2025 End: 05-24-[address] Alejandro Miranda DPM [facility] Work Phone: Start: 05-24-2025 End: 05-24-2025 ambulatory Ana Luisa Nielson Facility:[facility] Start: 05-01-2025 End: 05-01-[address] Ana Luisa Nielson DO Work Phone: -[facility] Start: 05-01-2025 End: 05-01-[address] Ana Luisa Nielson DO -[facility] Work Phone: Start: 05-01-2025 End: 05-01-2025 ambulatory Ana Luisa Nielson Facility:[facility] Start: 03-12-2025 Non-patient / Non-visit Dr. Ayden Valenzuela MD -[facility] Work Phone: Start: 01-09-2025 ambulatory Adrielclaire Merino Facility:[facility] Start: 01-09-2025 Non-patient / Non-visit [facility] Shena COHN [facility] Start: 01-09-2025 End: 01-09-[address] Ana Luisa Nielson DO -Cardiovascular Services Work Phone: Start: 01-09-2025 End: 01-09-2025 ambulatory Ana Luisa Nielson Facility:[facility] Start: 11-02-2024 End: 11-02-2024 ambulatory Adriel Angelique Facility:[facility] Start: 08-06-2024 End: 08-06-2024 ambulatory Hollywood Angelique Facility:[facility] Start: 08-26-2023 Non-patient / Non-visit Dr. Edgard Nielson Work Phone: [facility] Start: 08-26-2023 End: 08-26-[address] Ana Luisa Nielson Work Phone: [facility] Work Phone: Start: 08-26-2023 End: 08-26-[address] Ana Luisa Nielson Work Phone: [facility]-Cardiovascular Services Work Phone: Start: 07-15-2023 End: 07-15-[address] Ana Luisa Nielson Work Phone: [facility] Work Phone: Start: 07-15-2023 End: 07-15-[address] Ana Luisa Nielson Work Phone: [facility]-Laboratory, Specimen Work Phone: Start: 07-15-2023 End: 07-15-2023 Patient encounter procedure BERNIE Rubio LPN [facility]; [facility] Work Phone: Start: 07-15-2023 Ana Luisa Fearo n DO Work Phone: [facility] Start: 07-15-2023 End: 07-15-2023 Office outpatient visit 25 minutes Ana Luisa Nisreen DO Work Phone: [facility] Start: 12-09-2022 End: 12-09-2022 Patient encounter procedure Ana Luisa Nisreen DO Work Phone: [facility] Start: 12-09-2022 End: 12-09-2022 Patient encounter status Ana Luisa Nisreen DO Work Phone: [facility] Start: 11-29-2022 ambulatory Liseth Aguirre MD [facility] Start: 10-21-2022 End: 10-21-2022 Office outpatient visit 40 minutes Ana Luisa Nisreen DO Work Phone: [facility] Start: 10-21-2022 Ana Luisa Fearo n DO Work Phone: [facility] Start: 06-04-2022 End: 06-04-2022 Office outpatient visit 10 minutes Ana Luisa Nisreen DO Work Phone: [facility] Start: 05-27-2022 End: 05-27-2022 Office outpatient visit 25 minutes Ana Luisa Nisreen DO Work Phone: [facility] Start: 05-18-2022 End: 05-18-2022 Ana Luisa Nisreen DO Work Phone: [facility] Start: 12-22-2021 End: 12-22-2021 Patient encounter procedure [facility] Start: 12-04-2021 End: 12-04-2021 Office outpatient visit 25 minutes Ana Luisa Nisreen DO Work Phone: [facility] Start: 12-04-2021 End: 12-04-2021 Patient encounter procedure Ana Luisa Nisrene DO Work Phone: [facility] Start: 04-24-2021 End: 04-24-2021 Office outpatient visit 25 minutes Ana Luisa Nisreen DO Work Phone: [facility] Start: 01-09-2021 End: 01-09-2021 Office outpatient visit 15 minutes Ana Luisa Nisreen DO Work Phone: [facility] Start: 01-05-2021 End: 01-05-2021 Office outpatient visit 15 minutes Ana Luisa Nisreen DO Work Phone: [facility] Start: 12-30-2020 End: 12-30-2020 Office outpatient visit 15 minutes Ana Luisa Nisreen DO Work Phone: [facility] Start: 12-26-2020 End: 12-26-2020 Office outpatient visit 10 minutes Ana Luisa Nisreen DO Work Phone: [facility] Start: 12-26-2020 Review Ana Luisa Nisreen [facility] Start: 12-25-2020 End: 12-26-2020 Office outpatient visit 10 minutes Ana Luisa Nisreen DO Work Phone: [facility] Start: 12-25-2020 Review Ana Luisa Nisreen [facility] Start: 12-23-2020 End: 12-23-2020 Office outpatient visit 15 minutes Ana Luisa Nisreen [facility] Start: 12-23-2020 Review Ana Luisa Nisreen [facility] Start: 03-24-2020 End: 03-24-2020 Office outpatient visit 15 minutes Ana Luisa Nisreen [facility] Start: 12-10-2019 End: 12-10-2019 Office outpatient visit 15 minutes Ana Luisa Nisreen [facility] Start: 11-16-2019 End: 11-16-2019 Phone Encounter Ana Luisa Nisreen [facility] Start: 11-16-2019 End: 11-16-2019 Ana Luisa Nisreen DO Work Phone: [facility] Start: 11-01-2019 End: 11-01-2019 Office outpatient visit 10 minutes Ana Luisa Nisreen [facility] Start: 07-28-2018 End: 07-28-2018 Office outpatient visit 40 minutes Ana Luisa Nielson [facility] Start: 07-14-2018 End: 07-14-2018 Annotation/Addendum Ana Luisa Nielson [facility] Start: 07-14-2018 End: 07-14-2018 Ana Luisa Nielson DO Work Phone: [facility] Start: 03-28-2018 End: 03-29-2018 Office outpatient visit 5 minutes Ana Luisa Nisreen [facility] Start: 12-16-2017 End: 12-16-2017 Periodic preventive med est patient 18-39 yrs Ana Luisa Samaniegoon [facility] Start: 03-08-2017 End: 03-08-2017 Office outpatient visit 25 minutes Ana Luisa Nisreen [facility] Start: 11-29-2016 End: 11-29-2016 Office outpatient visit 25 minutes Ana Luisa Nisreen [facility] Start: 11-02-2016 End: 11-02-2016 Office outpatient visit 15 minutes Ana Luisa Nisreen [facility] Start: 09-23-2016 End: 09-23-2016 Office outpatient visit 10 minutes Ana Luisa Nisreen [facility] Start: 07-29-2016 End: 07-29-2016 Patient encounter Ana Luisa Nielson [facility] Start: 07-29-2016 End: 07-29-2016 Ana Luisa Nielson DO Work Phone: [facility] Start: 07-02-2016 End: 07-02-2016 Lab Order Ana Luisa Nielson [facility] Start: 07-02-2016 End: 07-02-2016 Ana Luisa Nielson DO Work Phone: [facility] Start: 12-18-2015 End: 12-18-2015 Patient encounter Ana Luisa Nielson [facility] Start: 12-18-2015 End: 12-18-2015 Ana Luisa Nielson DO Work Phone: [facility] Start: 11-24-2015 End: 11-24-2015 Historical Summary Ana Luisa Nielson [facility] Start: 11-24-2015 End: 11-24-2015 Ana Luisa Nielson DO Work Phone: [facility] Start: 07-21-2015 End: 07-21-2015 Office outpatient visit 40 minutes Ana Luisa Nielson [facility] Start: 12-19-2014 End: 12-19-2014 Office outpatient visit 25 minutes Ana Luisa Nielson [facility] Start: 12-19-2014 End: 12-19-2014 Patient encounter procedure Ana Luisa Nielson DO Work Phone: [facility] Start: 08-27-2014 End: 08-27-2014 Office outpatient visit 25 minutes Ana Luisa Nielson [facility] Start: 08-27-2014 End: 08-27-2014 Patient encounter procedure Ana Luisa Nielson DO Work Phone: [facility] Start: 08-02-2014 End: 08-02-2014 Office outpatient visit 25 minutes Ana Luisa Nielson [facility] Start: 05-28-2014 End: 05-28-2014 Office outpatient visit 25 minutes Ana Luisa Nielson [facility] Start: 05-22-2014 End: 05-22-2014 Office outpatient visit 25 minutes Ana Luisa Nielson [facility] Start: 08-31-2013 End: 08-31-2013 Office outpatient visit 15 minutes Ana Luisa Nielson [facility] Start: 08-23-2013 End: 08-23-2013 Patient encounter Ana Luisa Nielson [facility] Start: 08-23-2013 End: 08-23-2013 Ana Luisa Nielson DO Work Phone: [facility] Start: 02-23-2013 End: 02-26-2013 Patient encounter Ana Luisa Nielson [facility] Start: 02-23-2013 End: 02-26-2013 Ana Luisa Nieslon DO Work Phone: [facility] Start: 08-24-2012 End: 08-24-2012 Patient encounter Ana Luisa Nielson [facility] Start: 08-24-2012 End: 08-24-2012 Ana Luisa Nielson DO Work Phone: [facility] Start: 04-18-2012 End: 04-18-2012 Office outpatient visit 15 minutes Ana Luisa Nielson [facility] Start: 01-27-2012 End: 01-28-2012 Patient encounter Ana Luisa Nielson [facility] Start: 01-27-2012 End: 01-28-2012 Ana Luisa Nielson DO Work Phone: [facility] Start: 07-13-2010 End: 07-13-2010 Office outpatient visit 15 minutes Ana Luisa Nielson [facility] Start: 07-06-2010 End: 07-06-2010 Annotation/Addendum Ana Luisa Nielson [facility] Start: 07-06-2010 End: 07-06-2010 Ana Luisa Nielson DO Work Phone: [facility] Start: 06-24-2010 End: 06-24-2010 Office outpatient visit 15 minutes Ana Luisa Nielson [facility] Start: 06-24-2010 End: 06-24-2010 Office outpatient visit 15 minutes Ana Luisa Nielson [facility] Start: 06-24-2010 End: 06-24-2010 Patient encounter procedure Ana Luisa Nielson DO Work Phone: [facility] Start: 06-03-2010 End: 06-03-2010 Office outpatient visit 25 minutes Ana Luisa Nielson [facility] Start: 05-04-2010 End: 05-04-2010 Historical Summary Ana Luisa Nielson [facility] Start: 05-04-2010 End: 05-04-2010 Ana Luisa Nielson DO Work Phone: [facility] Start: 05-01-2010 End: 05-03-2010 Patient encounter Ana Luisa Nielson [facility] Start: 05-01-2010 End: 05-03-2010 Ana Luisa Nielson DO Work Phone: [facility] Start: 08-27-2009 End: 08-27-2009 Office outpatient visit 25 minutes Ana Luisa Nielson [facility] Start: 08-19-2009 End: 08-19-2009 Phone Encounter Ana Luisa Nielson [facility] Start: 08-19-2009 End: 08-19-2009 Ana Luisa Nielson DO Work Phone: [facility] Start: 07-24-2009 End: 07-24-2009 Patient encounter Ana Luisa Nielson [facility] Start: 07-24-2009 End: 07-24-2009 Ana Luisa Nielson DO Work Phone: [facility] Start: 07-17-2009 End: 07-17-2009 Annotation/Addendum Ana Luisa Nielson [facility] Start: 07-17-2009 End: 07-17-2009 Ana Luisa Nielson DO Work Phone: [facility] Start: 06-27-2009 End: 06-27-2009 Office outpatient visit 15 minutes Ana Luisa Nielson [facility] Start: 06-11-2009 End: 06-11-2009 Office outpatient visit 25 minutes Ana Luisa Nielson [facility] Start: 06-11-2009 End: 06-11-2009 Patient encounter procedure Ana Luisa Nielson DO Work Phone: [facility] Start: 06-04-2009 End: 06-04-2009 Patient encounter Ana Luisa Nielson [facility] Start: 06-04-2009 End: 06-04-2009 Ana Luisa Nielson DO Work Phone: [facility] Start: 05-28-2009 End: 05-28-2009 Office outpatient visit 15 minutes Ana Luisa Nielson [facility] Start: 04-10-2009 End: 04-10-2009 Office outpatient visit 25 minutes Ana Luisa Nielson [facility] Start: 03-13-2009 End: 03-13-2009 Office outpatient visit 15 minutes Ana Luisa Nielson [facility] Start: 03-11-2009 End: 03-11-2009 Patient encounter Ana Luisa Nielson [facility] Start: 03-11-2009 End: 03-11-2009 Ana Luisa Nielson DO Work Phone: [facility] Start: 10-18-2008 End: 10-18-2008 Patient encounter Ana Luisa Nielson [facility] Start: 10-18-2008 End: 10-18-2008 Ana Luisa Nielson DO Work Phone: [facility] Start: 08-05-2008 End: 08-05-2008 Office outpatient visit 15 minutes Ana Luisa Nielson [facility] Start: 07-29-2008 End: 07-29-2008 Office outpatient visit 15 minutes Ana Luisa Nielson [facility] Start: 06-03-2008 End: 06-03-2008 Patient encounter Ana Luisa Nielson [facility] Start: 06-03-2008 End: 06-03-2008 Ana Luisa Nielson DO Work Phone: [facility] Start: 08-28-2007 End: 08-28-2007 Office outpatient new 20 minutes Ana Luisa Nielson [facility] Start: 08-15-2007 End: 08-16-2007 Office outpatient visit 25 minutes Ana Luisa Nielson [facility] Start: 08-15-2007 End: 08-16-2007 Patient encounter procedure Ana Luisa Nielson DO Work Phone: [facility] Start: 08-09-2007 End: 08-09-2007 Phone Encounter Ana Luisa Nielson [facility] Start: 08-09-2007 End: 08-09-2007 Ana Luisa Nielson DO Work Phone: [facility] Start: 06-26-2007 End: 06-26-2007 Phone Encounter Ana Luisa Nielson [facility] Start: 06-26-2007 End: 06-26-2007 Ana Luisa Nielson DO Work Phone: [facility] Start: 11-30-2006 End: 11-30-2006 Patient encounter Ana Luisa Nielson [facility] Start: 11-30-2006 End: 11-30-2006 Ana Luisa Nielson DO Work Phone: [facility] Start: 08-10-2006 End: 08-10-2006 Initial preventive medicine new patient 40-64yrs Ana Luisa Nielson [facility] Start: 08-10-2006 End: 08-10-2006 Patient encounter procedure Ana Luisa Nielson DO Work Phone: [facility] Start: 08-09-2006 End: 08-09-2006 Historical Summary Ana Luisa Nielson [facility] Start: 08-09-2006 End: 08-09-2006 Ana Luisa Nielson DO Work Phone: [facility] End: 07-21-2015 Patient encounter procedure Roxanna Martinez [facility]; [facility] Work Phone: Comment on above: Pt prefers colonosco py after first of the year Patient encounter procedure Cesar Lorenzo LPN [facility]; [facility] Work Phone: Patient encounter procedure Porsha Vicente CMA [facility]; [facility] Work Phone: Patient encounter procedure Nerissa Alvarenga [facility]; [facility] Work Phone: Patient encounter status Alberto Nielson DO Work Phone: [facility]; [facility] Work Phone: Patient encounter status BERNIE Roberson OSCAR [facility]; [facility] Work Phone: Procedures Date Procedure Procedure Detail Performing Clinician Start: 05-24-2025 MRI of lower extremity Dr. Ana Luisa Nielson DO Work Phone: Start: 05-01-2025 Dual energy X-ray absorptiometry Dr. Ana Luisa Nielson DO Work Phone: Start: 05-01-[address] Ana Luisa Nielson DO Work Phone: Start: 07-15-2023 Plain chest X-ray Dr. Ana Luisa Nielson Work Phone: Start: 07-15-2023 End: 07-15-2023 Procedure Note: See Note; NOTES: [facility] [address] [place] [address] Chest PA and Lateral MR#: [id number] Acct: [id number] Name: ZAHRA SANDOVAL Rep #: [id number] : 1955 F 68 From: Edwin azevedo MD PCP: Dr. Aan Luisa Nielson, DO Status: DEP AMB Study: Chest PA and Lateral Date of Exam: 07/15/23 Exam# [id number] Ordering Dr: Laney Maria [employer] SAL[employer]OCIATE-C :[id number] STUDY: X-RAY CHEST REASON FOR EXAM: Female, 68 years old. DYSPNEA AT REST -- STAT TECHNIQUE: PA and lateral views of the chest. COMPARISON: Comparison is made with prior examination dated January 23, 2021. FINDINGS: The lungs are clear and expanded. There is no demonstrated pleural abnormality. Normal size heart. Normal mediastinum and paige. Normal visualized pulmonary arteries. There is atherosclerotic calcification of the aortic arch with tortuosity. There is demineralization of the osseous structures. Normal visualized ribs, clavicles, and shoulders. There is no demonstrated abnormality of the visualized soft tissue structures of the upper abdomen. RAD/Chest PA and Lateral IMPRESSION: No acute abnormality is seen. Electronically Signed: Edwin Lundy MD at 10:54 EDT , CC: MELIZA Maria; Dr. Ana Luisa Nielson DO Neonatal Doctor: Signed Laney Maria CNP Work Phone: Start: 12-24-2022 End: 12-24-2022 Procedure Note: See Note; NOTES: [facility] Imaging Services [address] [place] [address] SCRN MAMM (CAD)W/ALISON BILAT MR#: [id number] Acct: [id number] Name: ZAHRA SANDOVAL Rep #: [id number] : 1955 F 67 From: Riley Merida MD PCP: Dr. Ana Luisa Nielson DO Status: REG CLI Study: SCRN MAMM (CAD)W/ALISON BILAT Date of Exam: 12/11 01/02 Exam# [id number] Ordering Dr: Ana Luisa Nielson DO MAMMOGRAPHY - BILATERAL SCREENING 3-D TOMOSYNTHESIS REASON FOR EXAM: Female, 67 years old. Routine screening PERTINENT HISTORY: No significant family history. TECHNIQUE: 2-D mammograms and 3-D Tomosynthesis of the breast (s) were performed. CAD was performed. COMPARISON: 07/17/2018 FINDINGS: The breast composition is composed of scattered fibroglandular density. Scattered benign calcifications are seen. No dense spiculated masses or suspicious microcalcifications are identified. No architectural distortion is identified. There is no skin thickening or retraction. There has been no significant change since the prior study. BI/SCRN MAMM (CAD)W/ALISON BILAT IMPRESSION: No mammographic signs of malignancy. Routine yearly mammograms recommended. ASSESSMENT CATEGORY: BIRADS Category 1: Negative. A letter regarding these results will be sent to the patient by the facility within 30 days. FOLLOW UP RECOMMENDATION: Yearly follow up mammogram recommended. (A) Approximately 10% of breast cancers are not detected by mammography. A normal mammogram should not delay biopsy of a clinically suspicious abnormality. Electronically Signed: Kelton Merida MD at 8:45 EDT Reading Location ID and State: [address] [place] [address] , Service support , CC: Dr. Ana Luisa Nielson DO Neonatal Doctor: Signed Ana Luisa Nielson DO Work Phone: Start: 12-22-2021 Dual energy X-ray absorptiometry Start: 12-22-2021 End: 12-22-2021 Procedure Note: See Note; NOTES: [facility] Imaging Services [address] [place] [address] Dexa Bone Density Study MR#: [id number] Acct: [id number] Name: ZAHRA SANDOVAL Rep #: [id number] : 1955 F 66 From: Edwin azevedo MD PCP: Dr. Ana Luisa Nielson DO Status: [facility] Study: Dexa Bone Density Study Date of Exam: 12/22/21 Exam# [id number] Ordering Dr: Ana Luisa Nielson DO STUDY: DUAL ENERGY X-RAY ABSORPTIOMETRY / DXA REASON FOR EXAM: Female, 66 years old. Z780. Patient is postmenopausal. TECHNIQUE: Bone Mineral Density (BMD) measurements of lumbar spine and bilateral hips were obtained. COMPARISON: Comparison is made with prior study dated 10/28/2016. FINDINGS: Lumbar Spine (L1-L4): g/cm2 (0.834) / T-score (-1.9) / Z-score (-0.1) Findings are suggestive of osteopenia with a moderate fracture risk. Left Femur Total: g/cm2 (0.851) / T-score (-0.7) / Z-score (0.5) Left Femoral Neck: g/cm2 (0.686) / T-score (-1.5) / Z-score (0.1) Right Femur Total: g/cm2 (0.835) / T-score (-0.9) / Z-score (0.4) Right Femoral Neck: g/cm2 (0.646) / T-score (-1.8) / Z-score (-0.3) The T-Scores on the most recent prior examination were: Lumbar Spine (L1-L4): There has been improvement of bone density since the previous examination. Left Femur Total: which represents an improvement of 4.7%. Right Femur Total: which represents an improvement of 5.1%. BD/Dexa Bone Density Study IMPRESSION: The patient is considered osteopenic as outlined below according to World Ramirez Organization (WHO) criteria with a moderate fracture risk. There has been improvement of bone density since the previous examination. Reference Information: The T-score is the number of standard deviations above or below the standard which is normal for young adults at their peak bone mineral density. The World Health Organization (WHO) interprets the T-scores as follows: Above -1 Normal bone density Between -1 and -2.5 Osteopenia Equal to / or below -2.5 Osteoporosis As a practical clinical guideline, osteopenia may be graded as follows: Mild -1 through -1.5 Moderate -1.6 through -2.0 Severe -2.1 through -2.4 The Z-score is the number of standard deviations above or below age-matched controls. A Z-score of less than -1.5 would be considered abnormal. References: 1. NIH Osteoporosis and Related Bone Diseases www osteo.org 2. International Society for Clinical Densitometry www iscd.org 3. National Osteoporosis Foundation www nof.org Electronically Signed: Edwin Lundy MD at 15:44 EDT , CC: Dr. Ana Luisa Nielson DO Neonatal Doctor: Signed Ana Luisa Nielson DO Work Phone: Start: 12-22-2021 Screening mammography Start: 12-22-2021 End: 12-22-2021 Procedure Note: See Note; NOTES: [facility] Imaging Services [address] [place] [address] SCRN MAMM (CAD)W/ALISON BILAT MR#: [id number] Acct: [id number] Name: ZAHRA SANDOVAL ROSALIO Rep #: [id number] : 1955 F 66 From: Edwin azevedo MD PCP: Dr. Ana Luisa Nielson DO Status: REG CLI Study: SCRN MAMM (CAD)W/ALISON BILAT Date of Exam: 12/11 11/03 Exam# [id number] Ordering Dr: Ana Luisa Nielson DO MAMMOGRAPHY - BILATERAL SCREENING REASON FOR EXAM: Female, 66 years old. Routine annual screening examination. PERTINENT HISTORY: Non-contributory. TECHNIQUE: Digital bilateral breast alison (3D mammographic acquisition) in the CC and MLO projections. 2-D mediolateral oblique (MLO) and craniocaudad (CC) views of both breasts were obtained. CAD: Full Field Digital Mammography with Computer Added Detection was performed. COMPARISON: Comparison is made with prior study dated 07/17/2018 and 10/28/2016. FINDINGS: Breast Composition: There are scattered areas of fibroglandular density. There are no dominant masses or suspicious calcifications. Stable small bilateral axillary lymph nodes. No other significant abnormalities are identified. There has been no significant change since the prior study. BI/SCRN MAMM (CAD)W/ALISON BILAT IMPRESSION: Stable bilateral screening mammogram. Yearly follow-up mammogram recommended. (A) ASSESSMENT CATEGORY: BIRADS Category 2: Benign. A letter regarding these results will be sent to the patient by the facility within 30 days. Approximately 10% of breast cancers are not detected by mammography. A normal mammogram should not delay biopsy of a clinically suspicious abnormality. [id number] Electronically Signed: Edwin Lundy MD at 15:28 EDT Reading Location ID and State: [address] [place] [address] , Service support , CC: Dr. Ana Luisa Nielson DO Neonatal Doctor: Signed Ana Luisa Nielson DO Work Phone: Start: 08-10-2021 End: 08-10-2021 Echo Complete Comments: See Note; NOTES: [facility]ovascular Services [address] [place] [address] Echo Complete 08/10/21 1355 MR#: [id number] Acct: [id number] Name: ZAHRA SANDOVAL ROSALIO Rep #: [id number] : 1955 66 From: Adriel Merino MD Attending Dr: Dr. Adriel Merino MD Status: REG Nithin GUZMAN Ordering Dr: Adriel Merino MD Date: 08/10/21 Location: [facility] Sex: F C Admitted: Reason For Study: HYPERTENSION Left Ventricle Normal LV size. Left ventricular systolic function is normal. The estimated ejection fraction is 60 %. Stage 1 diastolic dysfunction. No regional wall motion abnormalities noted. Right Ventricle Normal RV size. Normal systolic function. Atria Normal left atrium. Normal right atrium. Mitral Valve Normal mitral valve. Tricuspid Valve Normal tricuspid valve. Mild tricuspid valve insufficiency. Pulmonary artery systolic pressure is 25 mmHg. Aortic Valve Trisinus/trileaflet aortic valve. Pulmonic Valve The pulmonic valve is not well visualized. Great Vessels Normal aortic root. The pulmonary artery is normal size. Normal inferior vena cava. Pericardium/Pleural No pericardial effusion. MMode/2D Measurements Calculations LVIDd: 4.7 cm IVSd: 1.1 cm Ao root diam: 3.0 cm LVIDs: 2.9 cm LVPWd: 1.0 cm RVDd: 2.6 cm FS: 38.3 % LAV(MOD-bp): 48.9 ml LA A4 area: 16.0 cm2 LA dimension(2D): 3.3 cm LAV(MOD-bp) Indexed: 24.5 ml/m2 LAV(MOD-sp2): 47.5 ml LAV(MOD-sp4): 45.8 ml RA A4 area: 15.9 cm2 Time Measurements MV dec time: 0.18 sec Doppler Measurements Calculations MV E max arnav: 82.3 cm/sec Lat Peak E' Arnav: 7.4 cm/sec Med Peak E' Arnav: 6.4 cm/sec MV A max arnav: 94.2 cm/sec E/E' lat: 11.2 E/E' med: 12.9 MV E/A: 0.87 Ao V2 max: 107.3 cm/sec LV V1 max: 89.9 cm/sec PA V2 max: 92.7 cm/sec Ao max P.6 mmHg LV V1 max P.2 mmHg TR max arnav: 235.5 cm/sec TR max P.2 mmHg ECHO/Echo Complete Interpretation Summary Normal LV size. Left ventricular systolic function is normal. The estimated ejection fraction is 60 %. Stage 1 diastolic dysfunction. Pulmonary artery systolic pressure is 25 mmHg. _ Ordering Physician: Adriel Merino Referring Physician: Ana Luisa Nielson Performed By: Delphine Lynne, JOEL, RVT 08/10/211634 Date Adriel Merino MD CC: Dr. Adriel Merino MD; Dr. Ana Luisa Nielson DO Date Dictated: 08/10/21 1355 Date Transcribed: 08/10/211634 Neonatal Doctor: Madeline Nielson DO Work Phone: Start: 07-29-2021 End: 07-29-2021 Cardiology Visit Report Comments: See Note; NOTES: [facility] [address] [place] [address] OFFICE VISIT Date of Service: 07/29/21 MR#: [id number] Acct: [id number] Name: ZAHRA SANDOVAL Rep #: [id number] : 1955 Provider: Dr. Adriel Merino MD Age/Sex: 66/F Location: [facility] Status: Signed HPI HPI History of Present Illness Details: Pleasant 66-year-old lady with previous cardiac history of probable hypertension, hyperlipidemia, obesity, Sheba's thyroiditis who contracted Covid pneumonia in December 2020. She says that she was quite sick received monoclonal antibody and was sick for approximately 6 weeks. She says that she has been having some shortness of breath since then and an x-ray was done by her chiropractor and she was felt to be high risk enough to be seen by a internal combustion engine assembler. She denies any dizziness or diaphoresis near syncope or syncope she has not had any belkis angina. She has been compliant with her medications. Her last EKG demonstrated normal sinus rhythm with a rate of 69 bpm and no acute changes. She does not check her blood pressures at home. They appeared to have been elevated during her December visits. Her physical exam here today demonstrates clear lung swain regular rate and rhythm and no pedal edema. Intake Vital Signs 07/29/21 09:59 Height 5 ft 3.5 in Weight: 216 lb BMI 37.6 BP 134/84 H Respiration 16 Pulse 86 Pulse Oximetry (%) 95 Intake Visit Reasons: POST COVID SOB. (EKG) SELF Allergies No Known Allergies Allergy (Verified 07/29/21 09:59) Medications amlodipine 2.5 mg tablet 2.5 mg PO DAILY 12/23/20 [History Confirmed 07/29/21] levothyroxine 50 mcg tablet 50 mcg PO DAILY 12/23/20 [History Confirmed 07/29/21] pantoprazole 40 mg tablet,delayed release 40 mg PO DAILY tablet 12/23/20 [History Confirmed 07/29/21] cholecalciferol (vitamin D3) 125 mcg (5,000 unit) tablet 125 mcg PO DAILY 07/17/21 [History Confirmed 07/29/21] loratadine 10 mg capsule 10 mg PO DAILY 07/17/21 [History Confirmed 07/29/21] multivitamin 1 tab PO DAILY 07/17/21 [History Confirmed 07/29/21] ascorbate calcium (vitamin C) 500 mg tablet 500 mg PO DAILY 07/29/21 [History Confirmed 07/29/21] calcium carbonate 600 mg calcium (1,500 mg) tablet 1,200 mg PO DAILY tab 07/29/21 [History Confirmed 07/29/21] omega-3 fatty acids 1,000 mg capsule 3,000 mg PO DAILY cap 07/29/21 [History Confirmed 07/29/21] zinc gluconate 50 mg tablet 50 mg PO DAILY 07/29/21 [History Confirmed 07/29/21] Ejection fraction %: 55 to 59 [facility] Medical History Elevated LFTs Essential hypertension Sheba thyroiditis, fibrous variant Hyperlipidemia Hypothyroidism Obesity Pneumonia due to COVID-19 virus (12/2020) Surgical History History of tonsillectomy Family History Mother Hypertension Father CVA (cerebral vascular accident) Social History Smoking Status: Never smoker ROS Const Const: Negative for fatigue, weakness, headache(s), frequent falls, difficulty sleeping or excessive sweating Eyes Eyes: Negative for loss of peripheral vision, transient loss of vision, blurry vision, double vision or tunnel vision ENT ENT: Negative for headache(s), dizziness, Nosebleed/epistaxis or balance problems Cardio Chest Pain: No Palpitations: No Edema: None Muscle aches with walking: None Resp Respiratory: Positive for SOB with activity; Negative for SOB at rest, SOB orthopnea SOB lying down, Cough or paroxysmal nocturnal dyspnea GI GI: Negative nausea, vomiting, heartburn or black,tarry stools : Negative for hematuria Musc Musc: Negative for muscle aches/ myalgia, muscle weakness, joint pain or balance problems Skin Skin: Negative non-healing lesions, rash or unusual bruising Neuro Neuro: Negative for dizziness, lightheadedness, near syncope, syncope, orthostatic symptoms, frequent falls, headache(s), weakness, blurry vision, double vision or lack of coordination Moiz Hematologic/Lymphatic: Negative for easy bleeding or easy bruising Endo Endo: Negative for fatigue, excessive sweating or increased thirst/drinking Psych Psych: Negative for anxiety or depression Allergy Allergy/Immunology: Negative for hives and Negative for rash Cardiology Exam Const Appearance: cooperative, healthy appearing, no acute distress, well developed and well groomed Nutritional Appearance: average body habitus and well nourished Orientation: alert, awake and oriented x3 Head Head: normal to inspection, normocephalic and atraumatic Ears: hearing grossly normal bilaterally and external ears normal Nose: external nose normal, nares normal, nasal mucous membranes and turbinates normal, septum normal and no nasal discharge Face and Sinus: face symmetric Mouth: oral mucosae normal, tongue normal, oropharynx normal and moist mucous membranes Teeth and gingiva: dentition normal Throat: posterior oropharynx normal, tonsils normal and uvula midline Eyes General: appearance normal, both eyes and all related structures Eyelids: eyelids normal Conjunctivae: conjunctivae normal Pupils: PERRL, normal by confrontation and accommodation normal EOM: EOM intact bilaterally Neck Neck: normal visual inspection, trachea midline and no JVD JVD: +5 Carotids: normal carotid upstroke and bounding pulses Chest Chest inspection: normal inspection of the chest, symmetric chest movement and normal respiratory effort Auscultation: Bilateral: Clear to Auscultation Cardio Palpation: normal PMI Rate: regular rate Rhythm: regular rhythm Heart sounds: S1 normal, S2 normal and normal, physiologic split S2; Negative rub, gallop or murmur GI GI: normal to inspection, soft, no hepatosplenomegaly and bowel sounds present Neuro General: patient alert, patient awake, patient oriented x3, gait normal, moves all extremities and no focal sensory deficit Skin Skin: no rashes or lesions noted Extremities Pulses: Normal: Right Femoral Pulse, Left Femoral Pulse, Right Dorsalis Pedis Pulse, Left Dorsalis Pedis Pulse, Right Posterior Tibial Pulse, Left Posterior Tibial Pulse, Right Radial Pulse and Left Radial Pulse Lower Extremity Edema: None: Bilateral Musculoskel Musculoskeletal: No joint tenderness Psych Psychological: normal affect Supplemental Info Supplemental Information Labs: No Data to Display Diagnostics: Chest X-Ray Pulmonary: No Data to Display Assessment and Plan Assessment and Plan (1) Dyspnea: Status: Acute Orders: Orders: Echo Complete Today Plan - Dr. Adriel Merino MD: She does appear to have mild dyspnea. The etiology is unclear. It is not sure whether this is related to elevated blood pressure or any results of the Covid infection. I would like us to obtain an echocardiogram to assess her ventricular function as well as diastolic dysfunction. Depending on the results further recommendations will be made. (2) Essential hypertension: Status: Acute Plan - Dr. Adriel Merino MD: She appears to have a previous history of hypertension. I will asked her to monitor her blood pressures at home. Her diastolic is elevated today. If she is still elevated it may be prudent to increase amlodipine to 5 mg a day. Salt restriction and weight loss have also been emphasized to her. At this juncture I think that we can discontinue her baby aspirin as it is not warranted. Thank you for allowing me to participate in the care of your patient. Please don't hesitate to call if any issues arise. Plan Details Other Medications: Discontinued: aspirin (Adult Aspirin Regimen) Discontinued Reason: Order Changed 81 mg PO DAILY Follow Up: prn Coding Level of Care Code Off vis,new,level 4 Diagnoses Dyspnea R06.00 Essential hypertension I10 Coding Level of Care Code Off vis,new,level 4 Diagnoses Dyspnea R06.00 Essential hypertension I10 07/29/21 1451 <Electronically signed by Adriel Merino MD> Date Adriel Merino MD Cosigner Signature: Date (if applicable) CC: Dr. Ana Luisa Nielson, DO Ana Luisa Nielson DO Work Phone: Start: 01-23-2021 End: 01-23-2021 Chest PA and Lateral Comments: See Note; NOTES: [facility] [address] [place] [address] Chest PA and Lateral MR#: [id number] Acct: [id number] Name: ZAHRA SANDOVAL Rep #: [id number] : 1955 F 65 From: Edwin azevedo MD PCP: Dr. Ana Luisa Nielson DO Status: DEP AMB Study: Chest PA and Lateral Date of Exam: 01/23/21 Exam# [id number] Ordering Dr: Sarika Brown NP JEWELRY SALES ASSOCIATE-C STUDY: X-RAY CHEST REASON FOR EXAM: Female, 65 years old. COVID-19 TECHNIQUE: PA and lateral views of the chest. COMPARISON: Comparison is made with prior study dated 12/25/2020. FINDINGS: Minimal residual increased markings at the right lung base although there has been moderate degree of improvement. There is no demonstrated pleural abnormality. Normal size heart. Normal mediastinum and paige. Normal visualized pulmonary arteries. There is atherosclerotic calcification of the aortic arch with tortuosity. Normal visualized thoracic spine. Normal visualized ribs, clavicles, and shoulders. There is no demonstrated abnormality of the visualized soft tissue structures of the upper abdomen. RAD/Chest PA and Lateral IMPRESSION: Mild residual increased markings at the right lung base. Electronically Signed: Edwin Lundy MD at 12:14 EDT , Service support , CC: JEWELRY SALES ASSOCIATE-Nithin Brown; Dr. Ana Luisa Nielson DO Neonatal Doctor: Signed Sarika Brown MISSION COORDINATOR Work Phone: Start: 12-25-2020 End: 12-26-2020 Emergency Department Summary Comments: See Note; NOTES: [facility] Medical Records Department [address] [place] [address] Emergency Department Summary 12/25/20 MR#: [id number] Acct: [id number] Name: ZAHRA SANDOVAL Rep #: [id number] : 1955 65 From: Yazan Rodriguez DO PCP: Dr. Ana Luisa Nielson, DO Status:DEP ER - ER Visit Summary Date of Service: 12/25/20 Chief Complaint: Shortness of breath History of Present Illness: The patient is a 65 F who presents with shortness of breath that has been getting worse over the past 5 days. Patient patient tested positive for COVID-19 1 weeks ago. Patient states she had monoclonal antibody infusion yesterday. Patient states she has been having fevers up to 102.8 at home. Patient admits to a cough. Patient admits to some pain in her chest with coughing. Patient also admits to some blurred vision. Patient admits to generalized weakness and a headache. Patient admits to some pain in her back with coughing. Patient states she feels like she is not getting enough air. Patient states nothing makes it worse and nothing makes it better. Patient states her oxygen saturations at home were dropping to 85% while at rest. Physical Examination: Vital signs are stable. Patient is afebrile. Patient is in no acute distress. Oral mucosa is pink and moist. Neck is supple. Trachea is midline. There is no JVD. Heart was regular rate and rhythm. Lungs showed rales in the bases bilaterally, worse on the left. Abdomen is soft. Bowel sounds are normal. There is no tenderness. Cranial nerves II through XII are intact. There are no focal motor or sensory deficits noted. Extremities are intact. There is no calf tenderness or edema. Test Results: Portable chest x-ray was obtained. There is 1 view. On my interpretation, there are bilateral opacities in the lower lung swain consistent with COVID-19 pneumonia. Radiologist also interpreted the x-ray and agrees. CBC was within normal limits. Comprehensive metabolic profile showed a mild hypokalemia of 3.3. Alk phos was 159, ALT was 66, and AST was 50. D-dimer was normal at 0.33. Emergency Department Course and Treatment: Patient was given albuterol inhaler here. Patient was given a dose of Decadron. Patient was ambulated on room air with a pulse oximeter. Patient oxygen saturation stayed above 92% while ambulating. Patient was given a prescription for a short course of Decadron. Patient was instructed to use her albuterol inhaler 2 puffs every 4 hours as needed. Patient was instructed to follow-up with her primary care physician in 3 to 5 days. Patient understood and was agreeable with the plan. All questions were answered. Disposition: Discharge home Impression: 1. COVID-19 pneumonia This note was generated with [employer] dictation software. It may contain incorrect words, spelling, and punctuation that were not noted in review of the chart prior to signing ED Disposition - Plan for ED Patient: Disposition: Home or Assisted Living Diagnosis: Pneumonia due to COVID-19 virus Instructions: Coronavirus Disease 2019 (COVID-19): Overview Prescriptions: Dexamethasone [Decadron] 6 mg PO DAILY 5 Days #5 tablet Prescription Printed Referrals: Ana Luisa Nielson DO [Primary Care Provider] - 3-5 Days What to do if you have Problems For any increased pain, shortness of breath, bleeding, nausea or vomiting, chest pain, or any unexpected problems, contact your Primary Care Provider. Call [facility] ([phone]) or report to the closest Emergency Room. Call 911 if necessary. 12/26/20 0140 <Electronically signed by Yazan Rodriguez DO> Date Yazan Rodriguez DO Cosigner Signature (If Indicated): Date CC: DO Ana Luisa Patel Start: 12-25-2020 End: 12-25-2020 Chest 1 View (Portable) Comments: See Note; NOTES: [facility] Imaging Services [address] [place] [address] Chest 1 View (Portable) MR#: [id number] Acct: [id number] Name: ZAHRA SANDOVAL Rep #: [id number] : 1955 F 65 From: Mamadou Gottlieb MD PCP: Dr. Ana Luisa Nielson DO Status: REG ER Study: Chest 1 View (Portable) Date of Exam: 12/25/20 Exam# [id number] Ordering Dr: Yazan Rodriguez DO STUDY: X-RAY CHEST REASON FOR EXAM: Female, 65 years old. Cough TECHNIQUE: Single frontal view of the chest. COMPARISON: 12/24/2020. FINDINGS: Cardiac silhouette unremarkable. Pulmonary vascularity unremarkable. Aorta unremarkable. Minimal bibasilar opacities may be consistent with Covid pneumonia in the appropriate setting. No pleural effusions. Upper abdomen unremarkable. Osseous structures intact. No pneumothorax. RAD/Chest 1 View (Portable) IMPRESSION: Minimal bibasilar opacities may be consistent with Covid pneumonia in the appropriate setting. Electronically Signed: Mamadou Gottlieb MD at 17:35 EDT Tel , Service support , CC: Dr. Yazan Rodriguez DO; Dr. Ana Luisa Nielson DO Neonatal Doctor: Signed Ana Luisa Nielson Start: 12-24-2020 End: 12-25-2020 Chest PA and Lateral Comments: See Note; NOTES: [facility] Imaging Services [address] [place] [address] Chest PA and Lateral MR#: [id number] Acct: [id number] Name: ZAHRA SANDOVAL Rep #: [id number] : 1955 F 65 From: Mamadou Gottlieb MD PCP: Dr. Ana Luisa Nielson DO Status: REG CLI Study: Chest PA and Lateral Date of Exam: 12/24/20 Exam# [id number] Ordering Dr: Sarika Brown JEWELRY SALES ASSOCIATE JEWELRY SALES ASSOCIATE-C STUDY: X-RAY CHEST REASON FOR EXAM: Female, 65 years old. COVID-19 TECHNIQUE: PA and lateral views of the chest. COMPARISON: None. FINDINGS: Cardiac silhouette unremarkable. Pulmonary vascularity unremarkable. Aorta unremarkable. No focal airspace opacities. No pleural effusions. Prominent interstitial markings are nonspecific but may be seen in the setting of Covid pneumonia. Upper abdomen unremarkable. Osseous structures intact. No pneumothorax. RAD/Chest PA and Lateral IMPRESSION: Prominent interstitial markings are nonspecific but may be seen in the setting of Covid pneumonia. Electronically Signed: Mamadou Gottlieb MD at 14:55 EDT Tel , Service support , CC: MELIZA Brown; Dr. Ana Luisa Nielson DO Neonatal Doctor: Signed Sarika Brown Work Phone: Start: 12-23-2020 End: 12-23-2020 Virtual Office Visit Comments: See Note; NOTES: [facility] Services [address] [place], [place] [address] [address] OFFICE VISIT Date of Service: 12/23/20 MR#: [id number] Acct: [id number] Patient: ZAHRA SANDOVAL Rep #: [id number] : 1955 Provider: MELIZA Garcia Age/Sex: 65/F Location: [facility] Status: Signed Intake Vital Signs 12/23/20 Height 5 ft 4 in 12/23/20 Weight: 210 lb 12/23/20 BMI 36.0 Intake Visit Reasons: COVID-19 Chief Complaint: COVID-19 Allergies No Known Allergies Allergy (Unverified 12/23/20 11:25) Medications amlodipine 2.5 mg tablet 2.5 mg PO DAILY 12/23/20 [History Confirmed 12/23/20] levothyroxine 50 mcg tablet 50 mcg PO DAILY 12/23/20 [History Confirmed 12/23/20] pantoprazole 40 mg tablet,delayed release 50 mg PO DAILY tablet 12/23/20 [History Confirmed 12/23/20] [facility] Medical History (Updated 12/23/20 @ 11:28 by Dayana Chadwick) Hyperthyroidism (Acute) Hypertension (Chronic) HPI HPI Chief Complaint: COVID-19 Details: Patient was informed that this visit will be billed to patient. This visit was conducted during COVID-19 pandemic. Statement read to the patient: This telehealth visit is being offered today during her stay at home measures in response to the pandemic. It is subject to an office visit charge. The patient consents to continue. ZAHRA SANDOVAL, is a 65 F who participates in a telephone office visit for review of her COVID-19 symptoms. Symptom onset occurred: 12/16/20 Positive COVID-19 test occurred: 12/19/2020 The FDA has authorized the emergency use of monoclonal antibody treatment (casirivimab/imdevimab) for mild to moderate COVID-19 in adults and pediatric patients with positive results of direct SARS???Cov???2 viral testing ages 12 and older, at least 40 kg, who were not at high risk for progressing to severe COVID-19 and or hospitalization. The significant known and potential risks (allergic reactions or side effects from injection including brief pain, bleeding, bruising of the skin, soreness, swelling, possible infection at the infusion site) and benefits (decrease chance of progression to severe COVID-19) of a monoclonal antibody infusion, and the extent to which such potential risks and benefits are unknown. Patients treated with monoclonal antibody infusion should continue to self isolate and use infection control measures (such as wear mask, isolate, social distance, avoid sharing personal items, clean and disinfect high touch surfaces, and frequent handwashing) according to the CDC guidelines. The fact sheet for patients, parents and caregivers will be provided prior to the administration of the medication. No drugs are approved by the FDA at this time to treat outpatients with mild or moderate symptoms of COVID-19. The following information was communicated to the patient or caregiver: Monoclonal antibody infusion is not an FDA approved drug. The FDA has authorized the emergency use of monoclonal antibody therapy. The patient had the option to refuse or accept treatment with monoclonal antibody therapy. The patient was informed that the number of people treated with monoclonal antibody therapy at this time is small. The potential benefits and the potential risks of monoclonal antibody therapy are not fully known. Potential benefits of monoclonal antibody include a reduced risk of progressing to severe COVID-19 infection. Potential risks or side effects of monoclonal antibody therapy include allergic reactions, side effects from injection including brief pain, bleeding, bruising of the skin, soreness, swelling, possible infection at the infusion site. The patient stated understanding of this information communicated and wished to proceed with monoclonal antibody infusion therapy. Current symptoms include: Shortness of breath, cough productive, fever, headache, nausea, diarrhea, body aches, chills, general malaise, loss of taste smell, and nasal congestion. ROS Const Constitutional: Positive for body ache, chills, fatigue, fever(s), headache(s), decreased energy and malaise ENT ENT: Positive for headache(s) Resp Respiratory: Positive for cough Cough: Yes productive and shortness of breath Gastro GI: Positive for diarrhea Musc Musculoskeletal: Positive for body aches Neuro Neurology: Positive for headache(s) Endo Endocrine: Positive for fatigue Exam Const General: cooperative, comfortable, no acute distress Orientation: alert, oriented x3 Resp Effort Inspection: normal respiratory effort, able to speak in complete sentences, no audible wheezes, no cough, no respiratory distress Neuro General: alert, oriented x3 Cognition: normal cognition Speech: speech normal Psych Mental Status: mental status grossly normal Mood: congruent mood Affect: normal affect Speech and Movement: speech clear Attitude: cooperative Thought Process: normal Thought Content: normal Judgment: judgment good Details: Details:: Exam was limited due to phone visit with no video. Quality Reporting Medication Reconciliation ([facility] 68) amlodipine 2.5 mg PO DAILY levothyroxine (Synthroid) 50 mcg PO DAILY pantoprazole (Protonix) 50 mg PO DAILY Assessment Plan Problems 1. COVID-19 U07.1 Plan This patient remains appropriate for monoclonal antibody treatment. The patient states understanding of this information communicated and wishes to proceed with monoclonal antibody infusion therapy. Patient agrees to receive either balanivimab or casirivimab/imdevimab upon availability. I have spent 15 minutes today reviewing labs, records and history. Time includes coordinating care. This also includes time I spent with the patient for exam, treatment plan and education as well as documenting clinical information. Coding Level of Care Code Attention Load Out Supervisor Diagnoses COVID-19 U07.1 Time Spent (min) 15 Comment [id number] 12/23/20 1322 <Electronically signed by Staci Garcia NP JEWELRY SALES ASSOCIATE-C> Date Staci Garcia NP JEWELRY SALES ASSOCIATE-C Cosigner Signature: Date (if applicable) CC: DO Ana Luisa Patel Start: 11-01-2019 End: 11-05-2019 Abdomen/Pelvis without Cont Comments: See Note; NOTES: [facility] Imaging Services [address] [place] [address] Abdomen/Pelvis without Cont MR#: [id number] Acct: [id number] Name: ZAHRA SANDOVAL Rep #: [id number] : 1955 F 64 From: Edwin Lundy MD PCP: Ana Luisa Nielson DO Status: REG CLI Study: Abdomen/Pelvis without Cont Date of Exam: 11/01/19 Exam# [id number] Ordering Dr: Liseth Aguirre MD STUDY: CT ABDOMEN AND PELVIS WITHOUT CONTRAST REASON FOR EXAM: Female, 64 years old. RT SIDED FLANK PAIN, HEMATURIA RADIATION DOSAGE (If Supplied By Facility): CTDIvol = ( 14.33 ) mGy, DLP = ( 667.12 ) mGycm TECHNIQUE: Transaxial images were obtained from the dome of the diaphragm to the symphysis pubis without oral contrast, and without intravenous contrast. Sagittal and coronal images were reconstructed. Individualized dose optimization techniques were used for this CT. COMPARISON: Comparison is made with prior study dated May 01, 2010. FINDINGS: The visualized lung bases are unremarkable. The visualized portions of the heart are within normal limits. Normal liver. Normal gallbladder and extrahepatic biliary system. Normal spleen. Normal pancreas. Normal bilateral adrenal glands. Normal right kidney. Stable left extrarenal pelvis. There is a small hiatal hernia. Normal small intestine. Normal colon. The appendix is visualized and appears normal. Normal abdominal aorta. Normal inferior vena cava. Normal retroperitoneum. Normal urinary bladder. Normal abdominal wall. Mild degree of disc space narrowing and disc degeneration at the L4-L5 level. CT/Abdomen/Pelvis without Cont IMPRESSION: No acute abnormality is seen. Electronically Signed: Edwin Lundy, at 14:32 EST , Service support , CC: Liseth Aguirre MD; Ana Luisa Nielson DO Neonatal Doctor: Signed Liseth Aguirre Work Phone: Start: 08-07-2018 End: 08-08-2018 Transvaginal Non- Comments: See Note; NOTES: [facility] Imaging Services [address] [place] [address] Transvaginal Non- MR#: [id number] Acct: [id number] Name: DIAMANTE SANDOVAL Rep #: [id number] : 1955 F 63 From: Patrick Mendieta PCP: Ana Luisa Nielson DO Status: REG CLI Study: Transvaginal Non- Date of Exam: 08/07/18 Exam# [id number] Ordering Dr: Ana Luisa Nielson DO STUDY: ULTRASOUND TRANSVAGINAL CLINICAL: Female, 63 years old. Bloating, pelvic pressure. TECHNIQUE: Transvaginal COMPARISON: None. FINDINGS: The uterus is anteverted tilted to the right and measures 6.2 x 3.6 x 2.3 cm. Endometrial thickness is 3 mm. Endometrium is hyperechoic. No fibroids. Cervix is within normal limits. Normal right ovary, measuring 1.8 x 1.5 x 1.1 cm . Normal vascular flow. Left ovary not visualized. There is no free fluid in the pelvis. Urinary bladder volume 104 mL. The patient was unable to completely void. US/Transvaginal Non- IMPRESSION: Normal uterus. Left ovary not visualized. Post void bladder residual not measured. Electronically Signed: Patrick Mendieta MD at 5:10 EST , Service support , CC: Ana Luisa Nielson DO Neonatal Doctor: Signed Ana Luisa Nielson Work Phone: Start: 08-07-2018 End: 08-08-2018 Pelvic (Non ) Comments: See Note; NOTES: [facility] Imaging Services [address] [place] [address] Pelvic (Non ) MR#: [id number] Acct: [id number] Name: DIAMANTE SANDOVAL Rep #: [id number] : 1955 F 63 From: Patrick Mendieta PCP: Ana Luisa Nielson DO Status: REG CLI Study: Pelvic (Non ) Date of Exam: 08/07/18 Exam# [id number] Ordering Dr: Ana Luisa Nielson DO STUDY: ULTRASOUND TRANSVAGINAL CLINICAL: Female, 63 years old. Bloating, pelvic pressure. TECHNIQUE: Transvaginal COMPARISON: None. FINDINGS: The uterus is anteverted tilted to the right and measures 6.2 x 3.6 x 2.3 cm. Endometrial thickness is 3 mm. Endometrium is hyperechoic. No fibroids. Cervix is within normal limits. Normal right ovary, measuring 1.8 x 1.5 x 1.1 cm . Normal vascular flow. Left ovary not visualized. There is no free fluid in the pelvis. Urinary bladder volume 104 mL. The patient was unable to completely void. US/Pelvic (Non ) IMPRESSION: Normal uterus. Left ovary not visualized. Post void bladder residual not measured. Electronically Signed: Patrick Mendieta MD at 5:10 EST , Service support , CC: Ana Luisa Nielson DO Neonatal Doctor: Signed Ana Luisa Nielson Work Phone: Start: 07-17-2018 End: 07-17-2018 SCREENING MAMM (CAD), BILAT Comments: See Note; NOTES: [facility] Imaging Services [address] [place] [address] SCREENING MAMM (CAD), BILAT MR#: [id number] Acct: [id number] Name: DIAMANTE SANDOVAL Adriana Rep #: [id number] : 1955 F 63 From: Edwin Lundy MD PCP: Ana Luisa Nielson DO Status: [facility] Study: SCREENING MAMM (CAD), BILAT Date of Exam: 07/17/18 Exam# [id number] Ordering Dr: Ana Luisa Nielson DO MAMMOGRAPHY - BILATERAL SCREENING REASON FOR EXAM: Female, 63 years old. Routine annual screening examination. PERTINENT HISTORY: Non-contributory. TECHNIQUE: Digital bilateral breast alison (3D mammographic acquisition) in the CC and MLO projections. 2-D mediolateral oblique (MLO) and craniocaudad (CC) views of both breasts were obtained. CAD: Full Field Digital Mammography with Computer Added Detection was performed. COMPARISON: Comparison is made with prior study dated October 28, 2016 and September 03, 2015. FINDINGS: Breast Composition: There are scattered areas of fibroglandular density. There are no dominant masses or suspicious calcifications. Small bilateral axillary lymph nodes. No other significant abnormalities are identified. There has been no significant change since the prior study. BI/SCREENING MAMM (CAD), BILAT IMPRESSION: Stable bilateral screening mammogram. Yearly follow-up mammogram recommended. (A) ASSESSMENT CATEGORY: BIRADS Category 2: Benign. A letter regarding these results will be sent to the patient by the facility within 30 days. Approximately 10% of breast cancers are not detected by mammography. A normal mammogram should not delay biopsy of a clinically suspicious abnormality. [id number] Electronically Signed: Edwin Lundy MD at 10:35 EST Tel [phone], Service support , CC: Ana Luisa Nielson DO Neonatal Doctor: Signed Ana Luisa Nielson Work Phone: Start: 10-28-2016 End: 10-28-2016 Dexa Bone Density Study (HP) Comments: See Note; NOTES: [facility] Imaging Services [address] [place] [id number] Verda 4d Dexa Bone Density Study () MR#: [id number] Acct: [id number] Name: DIAMANTE SANDOVAL Rep #: [id number] : 1955 F 61 From: Edwin Lundy MD PCP: Ana Luisa Nielson DO Status: [facility] CLI Study: Dexa Bone Density Study (HP) Date of Exam: 10/28/16 Exam# [id number] Ordering Dr: Ana Luisa Nielson DO STUDY: DUAL ENERGY X-RAY ABSORPTIOMETRY / DXA REASON FOR EXAM: Female, 61 years old. The patient is postmenopausal. Loss of height. TECHNIQUE: Bone Mineral Density (BMD) measurements of lumbar spine and bilateral hips were obtained. COMPARISON: Comparison is made with prior study dated July 02, 2009. FINDINGS: Lumbar Spine (L1-L4): g/cm2 (0.919) / T-score (-2.2) / Z-score (-0.9) Findings are suggestive of osteopenia with a moderate fracture risk. Left Femur Total: g/cm2 (0.875) / T-score (-1.1) / Z-score (-0.1) Left Femoral Neck: g/cm2 (0.787) / T-score (-1.8) / Z-score (-0.6) Right Femur Total: g/cm2 (0.856) / T-score (-1.2) / Z-score (-0.3) Right Femoral Neck: g/cm2 (0.857) / T-score (-1.3) / Z-score (0.0) The T-Scores on the most recent prior examination were: Lumbar Spine (L1-L4): There has been worsening of bone density since the previous examination. Left Femur Total: which represents a worsening of 9.5%. Right Femur Total: which represents a worsening of 8.4%. HPBD/Dexa Bone Density Study (HP) IMPRESSION: The patient is considered osteopenic as outlined below according to World Ramirez Organization (WHO) criteria with a moderate fracture risk. There has been worsening of bone density since the previous examination. Reference Information: The T-score is the number of standard deviations above or below the standard which is normal for young adults at their peak bone mineral density. The World Health Organization (WHO) interprets the T-scores as follows: Above -1 Normal bone density Between -1 and -2.5 Osteopenia Equal to / or below -2.5 Osteoporosis As a practical clinical guideline, osteopenia may be graded as follows: Mild -1 through -1.5 Moderate -1.6 through -2.0 Severe -2.1 through -2.4 The Z-score is the number of standard deviations above or below age-matched controls. A Z-score of less than -1.5 would be considered abnormal. References: 1. NIH Osteoporosis and Related Bone Diseases http://www.osteo.org 2. International Society for Clinical Densitometry http://www.iscd.org 3. National Osteoporosis Foundation http://www.nof.org Electronically Signed: Edwin Lundy MD at 15:34 EST Tel [phone], Service support [phone], CC: Ana Luisa Nielson DO Neonatal Doctor: Signed Ana Luisa Nielson Work Phone: Start: 10-28-2016 End: 10-29-2016 SCREENING MAMM (CAD), BILAT Comments: See Note; NOTES: [facility] Imaging Services [address] [place] [address] Verdana 4d SCREENING MAMM (CAD), BILAT MR#: [id number] Acct: [id number] Name: DIAMANTE SANDOVAL Rep #: [id number] : 1955 F 61 From: Edwin Lundy MD PCP: Ana Luisa Nielson DO Status: [facility] CLI Study: SCREENING MAMM (CAD), BILAT Date of Exam: 10/28/16 Exam# [id number] Ordering Dr: Ana Luisa Nielson DO MAMMOGRAPHY - BILATERAL SCREENING REASON FOR EXAM: Female, 61 years old. Routine annual screening examination. PERTINENT HISTORY: Non-contributory. TECHNIQUE: Digital bilateral breast alison (3D mammographic acquisition) in the CC and MLO projections. 2-D mediolateral oblique (MLO) and craniocaudad (CC) views of both breasts were obtained. CAD: Full Field Digital Mammography with Computer Added Detection was performed. COMPARISON: Comparison is made with prior study dated September 03, 2015 and August 28, 2014. FINDINGS: Breast Composition: There are scattered areas of fibroglandular density. There are no dominant masses or suspicious calcifications. No other significant abnormalities are identified. There has been no significant change since the prior study. HPBI/SCREENING MAMM (CAD), BILAT IMPRESSION: Stable bilateral screening mammogram. Yearly follow-up mammogram recommended. (A) ASSESSMENT CATEGORY: BIRADS Category 1: Negative. A letter regarding these results will be sent to the patient by the facility within 30 days. Approximately 10% of breast cancers are not detected by mammography. A normal mammogram should not delay biopsy of a clinically suspicious abnormality. [id number] Electronically Signed: Edwin Lundy MD at 7:50 EST Tel [phone], Service support [phone], CC: Ana Luisa Nielson DO Neonatal Doctor: Signed Ana Luisa Nielson Work Phone: Start: 09-03-2015 End: 09-04-2015 Bilat Scrn Digital AND CAD Comments: See Note; NOTES: [facility] Imaging Services [address] [place] [id number] Verdana 4d Bilat Scrn Digital AND CAD MR#: [id number] Acct: [id number] Name: DIAMANTE SANDOVAL Rep #: [id number] : 1955 F 60 From: Juan Mendoza MD PCP: Liseth Aguirre MD Status: [facility] CLI Study: Bilat Scrn Digital AND CAD Date of Exam: 09/03/15 Exam# [id number] Ordering Dr: Liseth Aguirre MD MAMMOGRAPHY - BILATERAL SCREENING REASON FOR EXAM: Female, 60 years old. Routine annual screening examination. PERTINENT HISTORY: NO FM HX TECHNIQUE: Digital examination. Mediolateral oblique (MLO) and craniocaudad (CC) views of both breasts were obtained. CAD: Full Field Digital Mammography with Computer Added Detection was performed. COMPARISON: MG - Breast Bilateral - 13:48 MG - Breast Left - 13:23 FINDINGS: Breast Composition: There are scattered areas of fibroglandular density. There are no dominant masses or suspicious calcifications. No other significant abnormalities are identified. IMPRESSION: Stable bilateral screening mammogram. Yearly follow-up recommended. (A) ASSESSMENT CATEGORY: BIRADS Category 2: Benign. A letter regarding these results will be sent to the patient by the facility within 30 days. Approximately 10% of breast cancers are not detected by mammography. A normal mammogram should not delay biopsy of a clinically suspicious abnormality. [id number] Electronically Signed: Jose Alberto Mendoza MD at 11:29 EST Tel , Service support [phone], CC: Liseth Aguirre MD Neonatal Doctor: Signed Liseth Aguirre Work Phone: Start: 08-28-2014 End: 08-28-2014 Collin Hi Digital AND CAD Comments: See Note; NOTES: [facility] Imaging Services [address] [place] [address] Breast Imaging Report MR#: [id number] Acct: [id number] Name: DIAMANTE SANDOVAL Rep #: [id number] : 1955 F 59 From: Edwin Lundy MD PCP: Status: REG CLI Study: Bilat Gisseln Digital AND CAD Date of Exam: 08/28/14 Exam# [id number] Ordering Dr: Sarika Brown MAMMOGRAPHY - BILATERAL SCREENING REASON FOR EXAM: Female, 59 years old. Routine annual screening examination. PERTINENT HISTORY: Non-contributory. TECHNIQUE: Digital examination. Mediolateral oblique (MLO) and craniocaudad (CC) views of both breasts were obtained. CAD: CAD was performed on this study. COMPARISON: Comparison is made with prior study dated January 29, 2010 and July 14, 2009. FINDINGS: Breast Composition: The breasts are heterogeneously dense, which may obscure small masses. There are no dominant masses or suspicious calcifications. No other significant abnormalities are identified. There has been no significant change since the prior study. IMPRESSION: Stable bilateral screening mammogram. Yearly follow-up recommended. (A) ASSESSMENT CATEGORY: BIRADS Category 2: Benign. A letter regarding these results will be sent to the patient by the facility within 30 days. Approximately 10% of breast cancers are not detected by mammography. A normal mammogram should not delay biopsy of a clinically suspicious abnormality. Electronically Signed: Edwin Lundy MD at 14:06 EST Tel [phone], Service support [phone], CC: Sarika Brown Neonatal Doctor: Signed Sarika Silver Stephanie Work Phone: Start: 05-22-2014 End: 05-22-2014 Ecg routine ecg w/least 12 lds w/i&r [MEASUREMENTS ANALYSIS] Date of Test: 05/22/2014 10:42:10; Heart Rate: 73; [place] Interval: 176; QRS: 86; QT Interval: 384; Corrected QT Interval (QTc): 406; P Wave Stov[place]: 55; QRS Wave Stovall: 10; T Wave Stovall: 35; Blood Pressure: 142/84 [ECG DIAGNOSTIC STATEMENTS] Date of Test: 05/22/2014 10:42:10; Summary: Sinus Rhythm -RSR(V1) -nondiagnostic. PROBABLY NORMAL Sarika Silver Stephanie Work Phone: Screening colonoscopy BERNIE Rubio Comment on above: 2-18-[address] Haskins Screening colonoscopy Fatemeh Morrissey Comment on above: 2-18-[address] Haskins Screening colonoscopy Gardenia Mixon Comment on above: 2-18-[address] Haskisn Screening colonoscopy Cesar Lorenzo Comment on above: 18- rpt [address] Haskins Screening colonoscopy Myriam Americo Comment on above: 10-30-[address] Haskins Screening colonoscopy Amalia Hassan LINE STAKER Comment on above: 10-30-[address] Haskins Screening colonoscopy [place] Jean Baptistewoo TAPPER OPERATOR Comment on above: 18-16 [address]pt [address] Haskins Screening colonoscopy [place] Jean Baptistewoo TAPPER OPERATOR Comment on above: 10-30-[address] Haskins Screening colonoscopy Cesar Lorenzo LINE STAKER Screening colonoscopy Kayela St. Martin TAPPER OPERATOR Screening colonoscopy Kayela Cinthia TAPPER OPERATOR Screening colonoscopy BERNIE Rubio LINE STAKER Screening for osteoporosis Screening for osteoporosis Ana Luisa Nisreen Screening for osteoporosis Screening for osteoporosis Ana Luisa Nisreen DO Work Phone: Screening for osteoporosis Screening for osteoporosis Ana Luisa Nisreen DO Work Phone: Plan of Treatment Date Care Activity Detail Author Start: 06-27-2025 [facility] Start: 07-15-2023 Assay of troponin quantitative [facility]; [facility] Work Phone: Start: 07-15-2023 Blood count complete auto&auto difrntl wbc [facility]; [facility] Work Phone: Start: 07-15-2023 Comprehensive metabolic panel [facility]; [facility] Work Phone: Start: 07-15-2023 Fibrin dgradj products d-dimer quantitative [facility]; [facility] Work Phone: Start: 07-15-2023 Patient Education [facility]; [facility] Work Phone: Start: 07-15-2023 Procedure Education [facility]; [facility] Work Phone: Start: 07-15-2023 Provider Instructions for Treatment [facility]; [facility] Work Phone: Start: 07-15-2023 Urinalysis qual/semiquant except immunoassays [facility]; [facility] Work Phone: Start: 07-15-2023 25 hydroxy includes fractions if performed [facility]; [facility] Work Phone: Start: 07-15-2023 Lipid panel [facility]; [facility] Work Phone: Start: 07-15-2023 Assay of thyroid stimulating hormone tsh [facility]; [facility] Work Phone: Start: 12-09-2022 Cytp c/v auto thin lyr prepj scr mnl rescr phys [facility]; [facility] Work Phone: Start: 12-09-2022 Procedure Education [facility]; [facility] Work Phone: Start: 12-09-2022 Provider Instructions for Treatment [facility]; [facility] Work Phone: Start: 10-21-2022 Assay of thyroid stimulating hormone tsh [facility]; [facility] Work Phone: Start: 10-21-2022 Procedure Education [facility]; [facility] Work Phone: Start: 10-21-2022 Provider Instructions for Treatment [facility]; [facility] Work Phone: Start: 06-04-2022 Procedure Education [facility]; [facility] Work Phone: Start: 05-27-2022 Procedure Education [facility]; [facility] Work Phone: Start: 05-27-2022 Provider Instructions for Treatment [facility]; [facility] Work Phone: Start: 05-27-2022 25 hydroxy includes fractions if performed [facility]; [facility] Work Phone: Start: 05-27-2022 Assay of thyroid stimulating hormone tsh [facility]; [facility] Work Phone: Start: 05-27-2022 Urnls dip stick/tablet reagent auto microscopy [facility]; [facility] Work Phone: Start: 05-27-2022 Urine albumin quantitative [facility]; [facility] Work Phone: Start: 05-27-2022 Comprehensive metabolic panel [facility]; [facility] Work Phone: Start: 05-27-2022 Blood count complete auto&auto difrntl wbc [facility]; [facility] Work Phone: Start: 05-27-2022 Lipid panel [facility]; [facility] Work Phone: Start: 12-04-2021 Procedure Education [facility]; [facility] Work Phone: Start: 12-04-2021 Provider Instructions for Treatment [facility]; [facility] Work Phone: Start: 04-24-2021 Provider Instructions for Treatment [facility]; [facility] Work Phone: Start: 04-24-2021 Fibrin dgradj products d-dimer quantitative [facility]; [facility] Work Phone: Start: 01-09-2021 Procedure Education [facility]; [facility] Work Phone: Start: 01-09-2021 Provider Instructions for Treatment [facility]; [facility] Work Phone: Start: 01-05-2021 Procedure Education [facility]; [facility] Work Phone: Start: 01-05-2021 Provider Instructions for Treatment [facility]; [facility] Work Phone: Start: 12-30-2020 Procedure Education [facility]; [facility] Work Phone: Start: 12-30-2020 Provider Instructions for Treatment [facility]; [facility] Work Phone: Start: 12-26-2020 Procedure Education [facility]; [facility] Work Phone: Start: 12-26-2020 Provider Instructions for Treatment [facility]; [facility] Work Phone: Start: 12-25-2020 Procedure Education [facility]; [facility] Work Phone: Start: 12-23-2020 Procedure Education [facility]; [facility] Work Phone: Start: 12-23-2020 Provider Instructions for Treatment [facility]; [facility] Work Phone: Start: 03-24-2020 Procedure Education [facility] Work Phone: Start: 12-10-2019 Provider Instructions for Treatment [facility] Work Phone: Start: 11-16-2019 25 hydroxy includes fractions if performed [facility] Work Phone: Start: 11-16-2019 Lipid panel [facility] Work Phone: Start: 11-16-2019 Assay of thyroid stimulating hormone tsh [facility]; [facility] Work Phone: Start: 11-16-2019 TSH Qn TSH (31342) [facility] Work Phone: Start: 11-16-2019 Assay of free thyroxine [facility]; [facility] Work Phone: Start: 11-16-2019 Free T4 [Mass/Vol] T4, FREE (THYROXINE) (22051) [facility] Work Phone: Start: 11-16-2019 Assay of triiodothyronine t3 free [facility]; [facility] Work Phone: Start: 11-16-2019 Free T3 [Mass/Vol] T3, FREE (TRIDOTHYRONINE) (27516) [facility] Work Phone: Start: 07-28-2018 Provider Instructions for Treatment [facility] Work Phone: Start: 07-28-2018 25 hydroxy includes fractions if performed [facility] Work Phone: Start: 07-28-2018 Assay of thyroid stimulating hormone tsh [facility]; [facility] Work Phone: Start: 07-28-2018 Thyrotropin Qn TSH (68568) [facility] Work Phone: Start: 07-28-2018 Microsomal antibodies each [facility] Work Phone: Start: 07-28-2018 Assay of free thyroxine [facility]; [facility] Work Phone: Start: 07-28-2018 T4 free mass conc T4, FREE (THYROXINE) (13107) [facility] Work Phone: Start: 07-28-2018 Assay of triiodothyronine t3 free [facility]; [facility] Work Phone: Start: 07-28-2018 T3 free mass conc T3, FREE (TRIDOTHYRONINE) (90218) [facility] Work Phone: Start: 12-16-2017 Provider Instructions for Treatment [facility] Work Phone: Start: 03-08-2017 Provider Instructions for Treatment [facility] Work Phone: Start: 03-08-2017 T3 free mass conc T3, FREE (TRIDOTHYRONINE) (83814) [facility] Work Phone: Start: 03-08-2017 T4 free mass conc T4, FREE (THYROXINE) (06868) [facility] Work Phone: Start: 03-08-2017 25 hydroxy includes fractions if performed CALCIFIDIOL (89380) VIT D 25 [facility] Work Phone: Start: 03-08-2017 Thyrotropin Qn TSH (86805) [facility] Work Phone: Start: 03-08-2017 Urnls dip stick/tablet reagent auto microscopy URINALYSIS, W/ MICRO (39448) [facility] Work Phone: Start: 03-08-2017 Urine albumin quantitative MICROALBUMIN: CREATININE RATIO (45474) AND (34697) [facility] Work Phone: Start: 03-08-2017 Comprehensive metabolic panel METABOLIC PANEL, COMPREHENSIVE (79846) [facility] Work Phone: Start: 03-08-2017 Lipid panel LIPID PANEL (66339) [facility] Work Phone: Start: 03-08-2017 Blood count complete auto&auto difrntl wbc CBC W/AUTO DIFF WBC (36199) [facility] Work Phone: Start: 11-29-2016 Procedure Education [facility] Work Phone: Start: 11-29-2016 Provider Instructions for Treatment [facility] Work Phone: Start: 11-02-2016 Procedure Education [facility] Work Phone: Start: 11-02-2016 Provider Instructions for Treatment [facility] Work Phone: Start: 09-23-2016 Procedure Education [facility] Work Phone: Start: 07-29-2016 Procedure Education [facility] Work Phone: Start: 12-18-2015 Procedure Education [facility] Work Phone: Start: 12-18-2015 Urine albumin quantitative [facility] Work Phone: Start: 12-18-2015 1 25 dihydroxy includes fractions if performed [facility] Work Phone: Start: 12-18-2015 Assay of thyroid stimulating hormone tsh [facility]; [facility] Work Phone: Start: 12-18-2015 Thyrotropin Qn TSH (THYROID STIMULATING HORMONE) (10441) [facility] Work Phone: Start: 12-18-2015 Assay of free thyroxine [facility]; [facility] Work Phone: Start: 12-18-2015 T4 free mass conc T4, FREE (THYROXINE) (75631) [facility] Work Phone: Start: 12-18-2015 Assay of triiodothyronine t3 free [facility]; [facility] Work Phone: Start: 12-18-2015 T3 free mass conc T3, FREE (TRIDOTHYRONINE) (07072) [facility] Work Phone: Start: 12-18-2015 Comprehensive metabolic panel [facility] Work Phone: Start: 12-18-2015 Blood count complete auto&auto difrntl wbc [facility] Work Phone: Start: 07-21-2015 Assay of thyroid stimulating hormone tsh [facility]; [facility] Work Phone: Start: 07-21-2015 Thyrotropin Qn TSH (29966) [facility] Work Phone: Start: 07-21-2015 Comprehensive metabolic panel [facility] Work Phone: Start: 07-21-2015 Lipid panel [facility] Work Phone: Start: 07-21-2015 Blood count manual cell count each [facility] Work Phone: Start: 12-19-2014 Patient Education [facility] Work Phone: Start: 08-27-2014 Provider Instructions for Treatment [facility] Work Phone: Start: 08-27-2014 Blood occult fecal hgb deter ia qual feces 1-3 [facility] Work Phone: Start: 08-02-2014 Provider Instructions for Treatment [facility] Work Phone: Start: 05-28-2014 Provider Instructions for Treatment [facility] Work Phone: Start: 05-22-2014 Provider Instructions for Treatment [facility] Work Phone: Start: 05-22-2014 Myoglobin [facility]; [facility] Work Phone: Comment on above: stat Start: 05-22-2014 Myoglobin mass conc MYOGLOBIN (12679) [facility] Work Phone: Comment on above: stat Start: 05-22-2014 Creatine kinase mb fraction only [facility] Work Phone: Comment on above: sstat Start: 05-22-2014 Assay of troponin quantitative [facility]; [facility] Work Phone: Comment on above: stat Start: 05-22-2014 Troponin I.cardiac mass conc ASSAY, TROPONIN, QUANTITATIVE (aka Troponin I) (32790) [facility] Work Phone: Comment on above: stat Start: 08-31-2013 Provider Instructions for Treatment [facility] Work Phone: Start: 08-23-2013 Provider Instructions for Treatment [facility] Work Phone: Start: 08-24-2012 Patient Education [facility] Work Phone: Start: 08-24-2012 Iaadiadoo influenza [facility] Work Phone: Start: 04-18-2012 Provider Instructions for Treatment [facility] Work Phone: Start: 01-27-2012 Comprehensive metabolic panel [facility] Work Phone: Start: 01-27-2012 Blood count complete auto&auto difrntl wbc [facility] Work Phone: Start: 01-27-2012 Assay of lipase [facility] Work Phone: Start: 01-27-2012 Amylase enzyme act/vol Amylase (16877) [facility] Work Phone: Start: 01-27-2012 Assay of amylase [facility] Work Phone: Start: 06-24-2010 Provider Instructions for Treatment [facility] Work Phone: Start: 06-24-2010 Blood occult fecal hgb deter ia qual feces 1-3 [facility] Work Phone: Start: 06-24-2010 Cytp cerv/vag auto thin layer prep mnl screen [facility] Work Phone: Start: 06-03-2010 Provider Instructions for Treatment [facility] Work Phone: Start: 06-03-2010 Comprehensive metabolic panel [facility] Work Phone: Start: 06-03-2010 Hepatic function panel [facility] Work Phone: Start: 06-03-2010 Blood count manual cell count each [facility] Work Phone: Start: 06-03-2010 Lipoprotein blood michael numbers & subclasses [facility]; [facility] Work Phone: Start: 06-03-2010 Protein mass conc LIPOPROTEIN, BLD, BY NMR ([id number]) [facility] Work Phone: Start: 06-03-2010 Lipid panel [facility] Work Phone: Start: 05-01-2010 Culture bacterial quanttative colony count urine [facility] Work Phone: Start: 08-27-2009 Provider Instructions for Treatment [facility] Work Phone: Start: 08-27-2009 Hepatic function panel [facility] Work Phone: Start: 08-27-2009 Lipid panel [facility] Work Phone: Comment on above: to be done November 18 Start: 08-27-2009 Lipoprotein blood michael numbers & subclasses [facility]; [facility] Work Phone: Start: 08-27-2009 Protein mass conc LIPOPROTEIN, BLD, BY NMR ([id number]) [facility] Work Phone: Start: 06-27-2009 Iaadiadoo influenza [facility] Work Phone: Start: 06-11-2009 Provider Instructions for Treatment [facility] Work Phone: Start: 06-11-2009 Blood occult peroxidase actv qual feces 1 deter [facility] Work Phone: Start: 06-11-2009 Cytp cerv/vag auto thin layer prep mnl screen [facility] Work Phone: Start: 06-04-2009 Provider Instructions for Treatment [facility] Work Phone: Start: 05-28-2009 Blood count smear mcrscp w/mnl difrntl wbc count [facility] Work Phone: Start: 05-28-2009 Comprehensive metabolic panel [facility] Work Phone: Start: 05-28-2009 Lipoprotein blood michael numbers & subclasses [facility]; [facility] Work Phone: Start: 05-28-2009 Protein mass conc LIPOPROTEIN, BLD, BY NMR ([id number]) [facility] Work Phone: Start: 05-28-2009 Lipid panel [facility] Work Phone: Start: 04-10-2009 Provider Instructions for Treatment [facility] Work Phone: Start: 03-11-2009 Assay of thyroid stimulating hormone tsh [facility]; [facility] Work Phone: Start: 03-11-2009 Blood count complete automated [facility] Work Phone: Start: 03-11-2009 Comprehensive metabolic panel [facility] Work Phone: Start: 03-11-2009 Lipid panel [facility] Work Phone: Start: 03-11-2009 Thyrotropin Qn TSH (90347) [facility] Work Phone: Start: 03-11-2009 Urnls dip stick/tablet rgnt auto w/o microscopy [facility] Work Phone: Start: 03-11-2009 Fibrin dgradj products d-dimer quantitative [facility] Work Phone: Start: 03-11-2009 Creatine kinase isoenzymes [facility] Work Phone: Start: 03-11-2009 C-reactive protein [facility]; [facility] Work Phone: Start: 03-11-2009 CRP mass conc C-Reactive Protein ([id number]) [facility] Work Phone: Start: 03-11-2009 Provider Instructions for Treatment [facility] Work Phone: Start: 10-18-2008 Patient Education [facility] Work Phone: Start: 10-18-2008 Provider Instructions for Treatment [facility] Work Phone: Start: 10-18-2008 Cul bact xcpt urine blood/stool aerobic isol [facility] Work Phone: Start: 08-05-2008 Provider Instructions for Treatment [facility] Work Phone: Start: 07-29-2008 Provider Instructions for Treatment [facility] Work Phone: Start: 08-28-2007 Provider Instructions for Treatment [facility] Work Phone: Start: 08-15-2007 Provider Instructions for Treatment [facility] Work Phone: Start: 08-15-2007 Blood occult fecal hgb deter ia qual feces 1-3 [facility] Work Phone: Start: 08-15-2007 Cytp cerv/vag auto thin layer prep mnl screen [facility] Work Phone: Start: 08-09-2007 Assay of lipase [facility] Work Phone: Start: 08-09-2007 Amylase enzyme act/vol Amylase (94349) [facility] Work Phone: Start: 08-09-2007 Assay of amylase [facility] Work Phone: Start: 08-09-2007 Comprehensive metabolic panel [facility] Work Phone: Start: 06-26-2007 Gonadotropin luteinizing hormone [facility] Work Phone: Start: 11-30-2006 Provider Instructions for Treatment [facility] Work Phone: Start: 08-10-2006 Comprehensive metabolic panel [facility] Work Phone: Start: 08-10-2006 Assay of thyroid stimulating hormone tsh [facility]; [facility] Work Phone: Start: 08-10-2006 Thyrotropin Qn TSH ([id number]) [facility] Work Phone: Start: 08-10-2006 Blood count manual cell count each [facility] Work Phone: Start: 08-10-2006 Lipid panel [facility] Work Phone: Start: 08-10-2006 Cytp cerv/vag auto thin layer prep mnl screen [facility] Work Phone: Start: 08-10-2006 Provider Instructions for Treatment [facility] Work Phone: [facility] Work Phone: [facility] Work Phone: [facility] Work Phone: [facility] Work Phone: [facility] Work Phone: [facility] Work Phone: [facility] Work Phone: [facility]: [facility] Phone: [facility]: [facility]: [facility] Work Phone: [facility] Work Phone: [facility] Work Phone: [facility] Work Phone: [facility] Work Phone: [facility] Work Phone: [facility] Work Phone: [facility] Work Phone: [facility] Work Phone: [facility] Work Phone: [facility] Work Phone: [facility] Phone: [facility] Work Phone: [facility] Work Phone: [facility] Work Phone: [facility] Work Phone: [facility] Work Phone: [facility] Work Phone: [facility] Work Phone: [facility] Work Phone[facility] Work Phone[facility] Work Phone: [facility] Work Phone: [facility]; [facility] Work Phone: [facility]; [facility] Work Phone: [facility]; [facility] Work Phone: [facility]; [facility] Work Phone: [facility]; [facility] Work Phone: [facility] Work Phone: [facility]; [facility] Work Phone: [facility]; [facility] Work Phone: [facility]; [facility] Work Phone: Immunizations Immunization Date Immunization Notes Care Provider [facility] 03-28-2018 tetanus toxoid, reduced diphtheria toxoid, and acellular pertussis vaccine, adsorbed Ana Luisa Nielson [facility] Work Phone: Comment on above: Site: Left Deltoid lot [id number] 06/2020 prefilled left DIANE Bangura 08-15-2007 influenza, seasonal, injectable Ana Luisa Nielson [facility] Work Phone: Comment on above: given in left deltoi d, 0.5cc, lot#[id number], exp.6.08--WF Payers Date Payer Category Payer Self-pay [id number] 2022 Unknown [id number] Medicare [id number] 2016 Unknown [id number] 2013 Unknown [id number] 2010 Unknown [id number] 2008 Unknown [id number] 1956 Unknown [id number] 2.16.84 [id number] Unknown Unknown [id number] 2.16.8 [id number] Unknown [id number] 2.16.8 [id number] Unknown [id number] 2.16.8 [id number] Unknown [id number] 2.16.8 [id number] Unknown [id number] 2.16.8 [id number] Unknown [id number] 2.16.8 [id number] Unknown [id number] 2.16.8 [id number] Unknown [id number] 2.16.8 [id number] Unknown [id number] 2.16.8 [id number] Unknown [id number] 2.16.8 [id number] Unknown [id number] 2.16.8 [id number] Social History Date Type Detail Facility Caffeine Use Never smoker [facility] Work Phone: Comment on above: 1 QD Tobacco use: Never smoker. [facility] Work Phone: Tobacco use: Tobacco use: [facility] Work Phone: Start: 07-29-2021 End: 07-29-2021 Tobacco smoking status NYIS Unknown if ever smoked [facility] Start: 1955 Sex Assigned At Female W [facility] Start: 06-01-2024 End: 06-05-2025 Tobacco smoking status NHIS Never smoked tobacco (finding) [facility] Sex Female [facility] Clinical Notes 06-12-2025 Note Date & Type Note Facility 06-12-2025 Progress note [facility] 06-12-2025 Progress note Note Date/Time June 12, 2025 2:37pm [facility] [address] [place] [address] OFFICE VISIT Date of Service: 06/12/25 MR#: [id number] Acct: [id number] Name: ZAHRA SANDOVAL Rep #: [id number] : [id number] Provider: Sapna piedra NP Age/Sex: 70/F Location: [facility].PMW Status: Signed Assessment and Plan Assessment and Plan (1) Obstructive sleep apnea: Status: Chronic Comment: AHI 26 Plan: The pathophysiology of obstructive sleep apnea was discussed at length with patient today. The need for treatment of this disease process was also reviewed. The comorbid conditions associated with sleep apnea were discussed atlength including A-fib stroke and dementia. I have recommended that she treat moderate restrictive sleep apnea with PAP therapy. The various treatment options were reviewed as well. The patient is apprehensive about utilizing PAP device at night. I have recommended that she work with RT to acclimate to therapy. She is agreeable to trial AutoPap and I have recommended settings of 6to 12 cm. I recommend a follow-up within 12 weeks and a compliance download be available at that setting. (2) Obesity: Status: Chronic Qualifiers: Body mass index: BMI 36.0-36.9 Obesity classification: adult class 2 (BMI 35 - 39.9) Obesity type: due to excess calories Serious obesity comorbidity presence: unspecified whether serious comorbidity present QualifiedCode(s): E66.812 - Obesity, class 2; E66.09 - Other obesity due to excess calories; Z68.36 - Body mass index [BMI] 36.0-36.9, adult Plan: She is encouraged to continue to work on weight loss. Treating sleep apnea should further promote weight loss. (3) Essential hypertension: Status: Acute Plan: Controlled today. Continue to follow with PCP Orders: Orders Self Mgmnt Educ & Training Today G47.33 - Obstructive sleep apnea (adult) (pediatric) Plan Details Follow Up: 12 Weeks (LMR) HPI HPI Comments Details: Patient is a 70-year-old female who presents today to establish for sleep disordered breathing. She is ambulatory and currently on room air. She is being referred by Dr. Nielson she did complete a PSG May 28, 2025 which showed moderate obstructive sleep apnea using the 4% rule the AHI was 26.3, using the 3% rule the AHI was 60.5. She has no history of asthma or COPD. She does report a history of chronic bronchitis and pneumonia. Reports that she had COVID and did utilize oxygen therapy at night for some time. She was not intubated or hospitalized. She has had a history of hypertension and was utilizing blood pressure medication for quite some time but then lost 20 pounds and was able to discontinue the medication. She is a lifelong non-smoker. She does have a father and sister with sleep apnea. The patient reports she is feeling rested upon awakening. She does not nap throughout the day. Nocturia will occur x 2-3 and WASO is 1 hour. She has been sleepy while driving. She is apprehensive about treating sleep apnea. She reports that she does move from [id number] and changes positions throughout the night. Intake Vital Signs 06/01/24 10:06/12/25 12:21 Height 5 ft 3.5 in 5 ft 3.5 in Weight: 211 lb BMI 36.8 BP 123/70 H Blood Pressure Location Lt brachial Position Sitting Respiration 18 Pulse 89 Pulse Source Monitor Temp 97.5 F L Temperature Source Temporal Artery Pulse Oximetry (%) 96 Oxygen Delivery Method room air Intake Visit Reasons: Sleep problems Chief Complaint: COVID-19 Sustainability Officer Required: No Accompanied by: Self Allergies tramadol (From [employer]) Allergy (Verified 06/12/25 13:57) Nausea Medications ?Medication ?Instructions ?Recorded ?Confirmed ?Type pantoprazole 40 mg tablet,delayed 40 mg PO DAILY 12/2306/12/25 History release (Protonix) cholecalciferol (vitamin D3) 125 125 mcg PO DAILY 01/3006/12/25 History mcg (5,000 unit) tablet calcium carbonate (Calcium 600) 1,200 mg PO DAILY 07/1306/12/25 History omega-3 fatty acids 1,000 mg 3,000 mg PO DAILY 1 06/12/25 History capsule (Fish Oil Concentrate) Lactobacillus plantarum 5 billion cell PO QDAY 5 06/12/25 History cell capsule (Nugut Bowel Support Probiotic) furosemide 20 mg tablet (Lasix) 20 mg PO QAM 06/05/25 06/12/25 History garlic 1,000 mg capsule 1,000 mg PO QDAY 06/05/25 History levothyroxine 75 mcg tablet mcg PO 06/05/25 06/12/25 H istory vitamin B complex 1 tab PO QDAY 06/05/2506/12 History zinc glycinate 20 mg capsule 20 mg PO QDAY 06/05/25 History Have you fallen in the past year?: No PFSH Medical History Elevated LFTs Obesity Sheba thyroiditis, fibrous variant Hypothyroidism Hyperlipidemia Essential hypertension Pneumonia due to COVID-19 virus (12/2020) Surgical History History of tonsillectomy Family History Mother Hypertension Father CVA (cerebral vascular accident) Hypotension Social History Smoking Status: Never smoker alcohol intake: never caffeine: Yes Review of Systems Resp Respiratory: Yes as per HPI Exam Const Constitutional: Positive cooperative, in no acute respiratory distress, healthy appearing, well developed and well nourished; Negative ill appearing Head Head: Yes normocephalic and Yes atraumatic Eyes Eye: Positive clear conjunctiva Ears Ear: Positive hearing normal and external ears normal Nose Nose: Yes external nose normal Mouth Mouth: Positive oral mucosae normal and good dentition Neck Neck: Positive normal visual inspection and trachea midline Chest Wall Chest: Positive symmetric chest movement Resp lung sounds: Positive clear to auscultation, good air exchange, normal expiratory time and normal respiratory effort; Negative wheezes, rhonchi, rales or use of accessory muscles Cardio Cardiac: Positive regular rate and regular rhythm; Negative murmur GI GI: Positive normal to inspection and normal bowel sounds Genitourinary: Positive deferred Musc Musculoskeletal: Positive steady gait and ROM normal Skin Pulmonary Skin Exam: Positive intact; Negative rash or erythema Pulses Pulse: Yes radial pulses present Extremities Extremities: Yes capillary refill normal, No clubbing and No cyanosis Neuro Neurologic: Yes no focal neuro deficits and Yes normal cognition Psych Appearance: Positive grossly normal Mental Status: Positive mental status grossly normal Mood: Positive congruent mood Affect: Positive normal affect Coding Level of Care Code Off vis,new,level 4 Diagnoses Obstructive sleep apnea G47.33 Class 2 obesity due to excess calories with body mass index (BMI) of 36.0 to 36.9 in adult, unspecified whether serious comorbidity present E66.812; E66.09; Z68.36 Body mass index: BMI 36.0-36.9 Obesity classification: adult class 2 (BMI 35 - 39.9) Obesity type: due to excess calories Serious obesity comorbidity presence: unspecified whether serious comorbidity present Essential hypertension I10 Clinical Quality Measures Falls Risk Screening/Assistive Devices Have you fallen in the past year?: No 06/12/25 1438 <Electronically signed by Sapna HAIDER> Date _ Sapna HAIDER Cosigner Signature: Date (if applicable) CC: ~ [facility] Work Phone: Evaluation noteNo assessment information available [facility] Work Phone: Evaluation note* Diagnosis Onset Date Resolution Status Admit Date Essential hypertension acute Oc tober 2024 1:46pm Obesity chronic June 12 1:46pm Obstructive sleep apnea chronic O ctober 2024 1:46pm [facility] Work Phone: Instructions* Name Dates Details How to Access Health Informa tion Online using Patient Portal and 3rd Libertarian Apps Indication:Non-smoker Start:26-Dec-2020 Instruction Type:Patient Education Patient Instructions Indication:Non-smoker Start:26-Dec-2020 Instruction Type:Provider Instructions for Treatment Patient Instructions Indication:BMI 36.0-36.9,adult Start:25-Dec-2020 Instruction Type:Provider Instructions for Treatment How to Access Health Informa tion Online using Patient Portal and 3rd Libertarian Apps Indication:BMI 36.0-36.9,adult Start:25-Dec-2020 Instruction Type:Patient Education Patient Instructions Indication:BMI 36.0-36.9,adult Start:23-Dec-2020 Instruction Type:Provider Instructions for Treatment How to Access Health Informa tion Online using Patient Portal and 3rd Libertarian Apps Indication:COVID-19 Start:23-Dec-2020 Instruction Type:Patient Education How to access health informa tion online Indication:Non-smoker Start:24-Mar-2020 Instruction Type:Patient Education How to access health informa tion online - Detail Indication:Non-smoker Start:24-Mar-2020 Instruction Type:Patient Education Patient Instructions Indication:Non-smoker Start:24-Mar-2020 Instruction Type:Provider Instructions for Treatment How to access health informa tion online Indication:Sheba thyroiditis, 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 Instruction Type:Patient Education How to access health informa tion online - Detail Indication:Sheba thyroiditis, 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 Instruction Type:Patient Education Patient Instructions Indication:Sheba thyroiditis, 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 Instruction Type:Provider Instructions for Treatment How to access health informa tion online Indication:Low back pain Start:01-Nov-2019 Instruction Type:Patient Education How to access health informa tion online - Detail Indication:Low back pain Start:01-Nov-2019 Instruction Type:Patient Education Patient Instructions Indication:Low back pain Start:01-Nov-2019 Instruction Type:Provider Instructions for Treatment How to access health informa tion online Indication:BMI 38.0-38.9,adult Start:28-Jul-2018 Instruction Type:Patient Education How to access health informa tion online - Detail Indication:BMI 38.0-38.9,adult Start:28-Jul-2018 Instruction Type:Patient Education Patient Instructions Indication:BMI 38.0-38.9,adult Start:28-Jul-2018 Instruction Type:Provider Instructions for Treatment How to access health informa tion online Indication:Body mass index 35.0-35.9, adult Start:08-Mar-2017 Instruction Type:Patient Education How to access health informa tion online - Detail Indication:Body mass index 35.0-35.9, adult Start:08-Mar-2017 Instruction Type:Patient Education Patient Instructions Indication:Body mass index 35.0-35.9, adult Start:08-Mar-2017 Instruction Type:Provider Instructions for Treatment How to access health informa tion online Indication:Nonsmoker Start:29-Nov-2016 Instruction Type:Patient Education How to access health informa tion online - Detail Indication:Nonsmoker Start:29-Nov-2016 Instruction Type:Patient Education Patient Instructions Indication:Nonsmoker Start:29-Nov-2016 Instruction Type:Provider Instructions for Treatment How to access health informa tion online Indication:Viral syndrome Start:02-Nov-2016 Instruction Type:Patient Education How to access health informa tion online - Detail Indication:Viral syndrome Start:02-Nov-2016 Instruction Type:Patient Education Patient Instructions Indication:Viral syndrome Start:02-Nov-2016 Instruction Type:Provider Instructions for Treatment How to access health informa tion online Indication:Change in mole Start:23-Sep-2016 Instruction Type:Patient Education How to access health informa tion online - Detail Indication:Change in mole Start:23-Sep-2016 Instruction Type:Patient Education Patient Instructions Indication:Change in mole Start:23-Sep-2016 Instruction Type:Provider Instructions for Treatment How to access health informa tion online Indication:BMI 37.0-37.9, adult Start:29-Jul-2016 Instruction Type:Patient Education How to access health informa tion online - Detail Indication:BMI 37.0-37.9, adult Start:29-Jul-2016 Instruction Type:Patient Education Patient Instructions Indication:BMI 37.0-37.9, adult Start:29-Jul-2016 Instruction Type:Provider Instructions for Treatment How to access health informa tion online Indication:Acute sinusitis, unspecified Start:18-Dec-2015 Instruction Type:Patient Education How to access health informa tion online - Detail Indication:Acute sinusitis, unspecified Start:18-Dec-2015 Instruction Type:Patient Education Patient Instructions Indication:Acute sinusitis, unspecified Start:18-Dec-2015 Instruction Type:Provider Instructions for Treatment How to access health informa tion online Indication:Hypothyroid Start:21-Jul-2015 Instruction Type:Patient Education How to access health informa tion online - Detail Indication:Hypothyroid Start:21-Jul-2015 Instruction Type:Patient Education Patient Instructions Indication:Hypothyroid Start:21-Jul-2015 Instruction Type:Provider Instructions for Treatment Patient Instructions Indication:Gastroesophageal reflux disease without esophagitis Start:19-Dec-2014 Instruction Type:Provider Instructions for Treatment Patient Instructions Indication:Chest pain Start:28-May-2014 Instruction Type:Provider Instructions for Treatment Patient Instructions Indication:Knee pain Start:23-Feb-2013 Instruction Type:Provider Instructions for Treatment Patient Instructions Indication:Fever, unspecified Start:24-Aug-2012 Instruction Type:Provider Instructions for Treatment [facility] Work Phone: Instructions* Name Dates Details Patient Instructions Indication:COVID-19 Start:05-Jan-2021 Instruction Type:Provider Instructions for Treatment How to Access Health Informa tion Online using Patient Portal and 3rd Libertarian Apps Indication:COVID-19 Start:05-Jan-2021 Instruction Type:Patient Education Patient Instructions Indication:Non-smoker Start:30-Dec-2020 Instruction Type:Provider Instructions for Treatment How to Access Health Informa tion Online using Patient Portal and 3rd Libertarian Apps Indication:Non-smoker Start:30-Dec-2020 Instruction Type:Patient Education How to Access Health Informa tion Online using Patient Portal and [employer]rd [employer] Apps Indication:Non-smoker Start:26-Dec-2020 Instruction Type:Patient Education Patient Instructions Indication:Non-smoker Start:26-Dec-2020 Instruction Type:Provider Instructions for Treatment Patient Instructions Indication:BMI 36.0-36.9,adult Start:25-Dec-2020 Instruction Type:Provider Instructions for Treatment How to Access Health Informa tion Online using Patient Portal and [employer]rd [employer] Apps Indication:BMI 36.0-36.9,adult Start:25-Dec-2020 Instruction Type:Patient Education Patient Instructions Indication:BMI 36.0-36.9,adult Start:23-Dec-2020 Instruction Type:Provider Instructions for Treatment How to Access Health Informa tion Online using Patient Portal and [employer]rd [employer] Apps Indication:COVID-19 Start:23-Dec-2020 Instruction Type:Patient Education How to access health informa tion online Indication:Non-smoker Start:24-Mar-2020 Instruction Type:Patient Education How to access health informa tion online - Detail Indication:Non-smoker Start:24-Mar-2020 Instruction Type:Patient Education Patient Instructions Indication:Non-smoker Start:24-Mar-2020 Instruction Type:Provider Instructions for Treatment How to access health informa tion online Indication:Sheba thyroiditis, 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 Instruction Type:Patient Education How to access health informa tion online - Detail Indication:Sheba thyroiditis, 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 Instruction Type:Patient Education Patient Instructions Indication:Sheba thyroiditis, 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 Instruction Type:Provider Instructions for Treatment How to access health informa tion online Indication:Low back pain Start:01-Nov-2019 Instruction Type:Patient Education How to access health informa tion online - Detail Indication:Low back pain Start:01-Nov-2019 Instruction Type:Patient Education Patient Instructions Indication:Low back pain Start:01-Nov-2019 Instruction Type:Provider Instructions for Treatment How to access health informa tion online Indication:BMI 38.0-38.9,adult Start:28-Jul-2018 Instruction Type:Patient Education How to access health informa tion online - Detail Indication:BMI 38.0-38.9,adult Start:28-Jul-2018 Instruction Type:Patient Education Patient Instructions Indication:BMI 38.0-38.9,adult Start:28-Jul-2018 Instruction Type:Provider Instructions for Treatment How to access health informa tion online Indication:Body mass index 35.0-35.9, adult Start:08-Mar-2017 Instruction Type:Patient Education How to access health informa tion online - Detail Indication:Body mass index 35.0-35.9, adult Start:08-Mar-2017 Instruction Type:Patient Education Patient Instructions Indication:Body mass index 35.0-35.9, adult Start:08-Mar-2017 Instruction Type:Provider Instructions for Treatment How to access health informa tion online Indication:Nonsmoker Start:29-Nov-2016 Instruction Type:Patient Education How to access health informa tion online - Detail Indication:Nonsmoker Start:29-Nov-2016 Instruction Type:Patient Education Patient Instructions Indication:Nonsmoker Start:29-Nov-2016 Instruction Type:Provider Instructions for Treatment How to access health informa tion online Indication:Viral syndrome Start:02-Nov-2016 Instruction Type:Patient Education How to access health informa tion online - Detail Indication:Viral syndrome Start:02-Nov-2016 Instruction Type:Patient Education Patient Instructions Indication:Viral syndrome Start:02-Nov-2016 Instruction Type:Provider Instructions for Treatment How to access health informa tion online Indication:Change in mole Start:23-Sep-2016 Instruction Type:Patient Education How to access health informa tion online - Detail Indication:Change in mole Start:23-Sep-2016 Instruction Type:Patient Education Patient Instructions Indication:Change in mole Start:23-Sep-2016 Instruction Type:Provider Instructions for Treatment How to access health informa tion online Indication:BMI 37.0-37.9, adult Start:29-Jul-2016 Instruction Type:Patient Education How to access health informa tion online - Detail Indication:BMI 37.0-37.9, adult Start:29-Jul-2016 Instruction Type:Patient Education Patient Instructions Indication:BMI 37.0-37.9, adult Start:29-Jul-2016 Instruction Type:Provider Instructions for Treatment How to access health informa tion online Indication:Acute sinusitis, unspecified Start:18-Dec-2015 Instruction Type:Patient Education How to access health informa tion online - Detail Indication:Acute sinusitis, unspecified Start:18-Dec-2015 Instruction Type:Patient Education Patient Instructions Indication:Acute sinusitis, unspecified Start:18-Dec-2015 Instruction Type:Provider Instructions for Treatment How to access health informa tion online Indication:Hypothyroid Start:21-Jul-2015 Instruction Type:Patient Education How to access health informa tion online - Detail Indication:Hypothyroid Start:21-Jul-2015 Instruction Type:Patient Education Patient Instructions Indication:Hypothyroid Start:21-Jul-2015 Instruction Type:Provider Instructions for Treatment Patient Instructions Indication:Gastroesophageal reflux disease without esophagitis Start:19-Dec-2014 Instruction Type:Provider Instructions for Treatment Patient Instructions Indication:Chest pain Start:28-May-2014 Instruction Type:Provider Instructions for Treatment Patient Instructions Indication:Knee pain Start:23-Feb-2013 Instruction Type:Provider Instructions for Treatment Patient Instructions Indication:Fever, unspecified Start:24-Aug-2012 Instruction Type:Provider Instructions for Treatment [facility]; [facility] Work Phone: Instructions* Name Dates Details Patient Instructions Indication:Non-smoker Start:09-Jan-2021 Instruction Type:Provider Instructions for Treatment How to Access Health Informa tion Online using Patient Portal and [employer]rd [employer] Apps Indication:Non-smoker Start:09-Jan-2021 Instruction Type:Patient Education Patient Instructions Indication:COVID-19 Start:05-Jan-2021 Instruction Type:Provider Instructions for Treatment How to Access Health Informa tion Online using Patient Portal and [employer]rd [employer] Apps Indication:COVID-19 Start:05-Jan-2021 Instruction Type:Patient Education Patient Instructions Indication:Non-smoker Start:30-Dec-2020 Instruction Type:Provider Instructions for Treatment How to Access Health Informa tion Online using Patient Portal and [employer] Apps Indication:Non-smoker Start:30-Dec-2020 Instruction Type:Patient Education How to Access Health Informa tion Online using Patient Portal and [employer] Apps Indication:Non-smoker Start:26-Dec-2020 Instruction Type:Patient Education Patient Instructions Indication:Non-smoker Start:26-Dec-2020 Instruction Type:Provider Instructions for Treatment Patient Instructions Indication:BMI 36.0-36.9,adult Start:25-Dec-2020 Instruction Type:Provider Instructions for Treatment How to Access Health Informa tion Online using Patient Portal and [employer]rd [employer] Apps Indication:BMI 36.0-36.9,adult Start:25-Dec-2020 Instruction Type:Patient Education Patient Instructions Indication:BMI 36.0-36.9,adult Start:23-Dec-2020 Instruction Type:Provider Instructions for Treatment How to Access Health Informa tion Online using Patient Portal and [employer] Apps Indication:COVID-19 Start:23-Dec-2020 Instruction Type:Patient Education How to access health informa tion online Indication:Non-smoker Start:24-Mar-2020 Instruction Type:Patient Education How to access health informa tion online - Detail Indication:Non-smoker Start:24-Mar-2020 Instruction Type:Patient Education Patient Instructions Indication:Non-smoker Start:24-Mar-2020 Instruction Type:Provider Instructions for Treatment How to access health informa tion online Indication:Sheba thyroiditis, 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 Instruction Type:Patient Education How to access health informa tion online - Detail Indication:Sheba thyroiditis, 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 Instruction Type:Patient Education Patient Instructions Indication:Sheba thyroiditis, 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 Instruction Type:Provider Instructions for Treatment How to access health informa tion online Indication:Low back pain Start:01-Nov-2019 Instruction Type:Patient Education How to access health informa tion online - Detail Indication:Low back pain Start:01-Nov-2019 Instruction Type:Patient Education Patient Instructions Indication:Low back pain Start:01-Nov-2019 Instruction Type:Provider Instructions for Treatment How to access health informa tion online Indication:BMI 38.0-38.9,adult Start:28-Jul-2018 Instruction Type:Patient Education How to access health informa tion online - Detail Indication:BMI 38.0-38.9,adult Start:28-Jul-2018 Instruction Type:Patient Education Patient Instructions Indication:BMI 38.0-38.9,adult Start:28-Jul-2018 Instruction Type:Provider Instructions for Treatment How to access health informa tion online Indication:Body mass index 35.0-35.9, adult Start:08-Mar-2017 Instruction Type:Patient Education How to access health informa tion online - Detail Indication:Body mass index 35.0-35.9, adult Start:08-Mar-2017 Instruction Type:Patient Education Patient Instructions Indication:Body mass index 35.0-35.9, adult Start:08-Mar-2017 Instruction Type:Provider Instructions for Treatment How to access health informa tion online Indication:Nonsmoker Start:29-Nov-2016 Instruction Type:Patient Education How to access health informa tion online - Detail Indication:Nonsmoker Start:29-Nov-2016 Instruction Type:Patient Education Patient Instructions Indication:Nonsmoker Start:29-Nov-2016 Instruction Type:Provider Instructions for Treatment How to access health informa tion online Indication:Viral syndrome Start:02-Nov-2016 Instruction Type:Patient Education How to access health informa tion online - Detail Indication:Viral syndrome Start:02-Nov-2016 Instruction Type:Patient Education Patient Instructions Indication:Viral syndrome Start:02-Nov-2016 Instruction Type:Provider Instructions for Treatment How to access health informa tion online Indication:Change in mole Start:23-Sep-2016 Instruction Type:Patient Education How to access health informa tion online - Detail Indication:Change in mole Start:23-Sep-2016 Instruction Type:Patient Education Patient Instructions Indication:Change in mole Start:23-Sep-2016 Instruction Type:Provider Instructions for Treatment How to access health informa tion online Indication:BMI 37.0-37.9, adult Start:29-Jul-2016 Instruction Type:Patient Education How to access health informa tion online - Detail Indication:BMI 37.0-37.9, adult Start:29-Jul-2016 Instruction Type:Patient Education Patient Instructions Indication:BMI 37.0-37.9, adult Start:29-Jul-2016 Instruction Type:Provider Instructions for Treatment How to access health informa tion online Indication:Acute sinusitis, unspecified Start:18-Dec-2015 Instruction Type:Patient Education How to access health informa tion online - Detail Indication:Acute sinusitis, unspecified Start:18-Dec-2015 Instruction Type:Patient Education Patient Instructions Indication:Acute sinusitis, unspecified Start:18-Dec-2015 Instruction Type:Provider Instructions for Treatment How to access health informa tion online Indication:Hypothyroid Start:21-Jul-2015 Instruction Type:Patient Education How to access health informa tion online - Detail Indication:Hypothyroid Start:21-Jul-2015 Instruction Type:Patient Education Patient Instructions Indication:Hypothyroid Start:21-Jul-2015 Instruction Type:Provider Instructions for Treatment Patient Instructions Indication:Gastroesophageal reflux disease without esophagitis Start:19-Dec-2014 Instruction Type:Provider Instructions for Treatment Patient Instructions Indication:Chest pain Start:28-May-2014 Instruction Type:Provider Instructions for Treatment Patient Instructions Indication:Knee pain Start:23-Feb-2013 Instruction Type:Provider Instructions for Treatment Patient Instructions Indication:Fever, unspecified Start:24-Aug-2012 Instruction Type:Provider Instructions for Treatment [facility]; [facility] Work Phone: Instructions* Name Dates Details Patient Instructions Indication:Non-smoker Start:09-Jan-2021 Instruction Type:Provider Instructions for Treatment How to Access Health Informa tion Online using Patient Portal and [employer]rd [employer] Apps Indication:Non-smoker Start:09-Jan-2021 Instruction Type:Patient Education Patient Instructions Indication:COVID-19 Start:05-Jan-2021 Instruction Type:Provider Instructions for Treatment How to Access Health Informa tion Online using Patient Portal and [employer]rd [employer] Apps Indication:COVID-19 Start:05-Jan-2021 Instruction Type:Patient Education Patient Instructions Indication:Non-smoker Start:30-Dec-2020 Instruction Type:Provider Instructions for Treatment How to Access Health Informa tion Online using Patient Portal and [employer] Apps Indication:Non-smoker Start:30-Dec-2020 Instruction Type:Patient Education How to Access Health Informa tion Online using Patient Portal and [employer] Apps Indication:Non-smoker Start:26-Dec-2020 Instruction Type:Patient Education Patient Instructions Indication:Non-smoker Start:26-Dec-2020 Instruction Type:Provider Instructions for Treatment Patient Instructions Indication:BMI 36.0-36.9,adult Start:25-Dec-2020 Instruction Type:Provider Instructions for Treatment How to Access Health Informa tion Online using Patient Portal and [employer]rd [employer] Apps Indication:BMI 36.0-36.9,adult Start:25-Dec-2020 Instruction Type:Patient Education Patient Instructions Indication:BMI 36.0-36.9,adult Start:23-Dec-2020 Instruction Type:Provider Instructions for Treatment How to Access Health Informa tion Online using Patient Portal and [employer] Apps Indication:COVID-19 Start:23-Dec-2020 Instruction Type:Patient Education How to access health informa tion online Indication:Non-smoker Start:24-Mar-2020 Instruction Type:Patient Education How to access health informa tion online - Detail Indication:Non-smoker Start:24-Mar-2020 Instruction Type:Patient Education Patient Instructions Indication:Non-smoker Start:24-Mar-2020 Instruction Type:Provider Instructions for Treatment How to access health informa tion online Indication:Sheba thyroiditis, 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 Instruction Type:Patient Education How to access health informa tion online - Detail Indication:Sheba thyroiditis, 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 Instruction Type:Patient Education Patient Instructions Indication:Sheba thyroiditis, 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 Instruction Type:Provider Instructions for Treatment How to access health informa tion online Indication:Low back pain Start:01-Nov-2019 Instruction Type:Patient Education How to access health informa tion online - Detail Indication:Low back pain Start:01-Nov-2019 Instruction Type:Patient Education Patient Instructions Indication:Low back pain Start:01-Nov-2019 Instruction Type:Provider Instructions for Treatment How to access health informa tion online Indication:BMI 38.0-38.9,adult Start:28-Jul-2018 Instruction Type:Patient Education How to access health informa tion online - Detail Indication:BMI 38.0-38.9,adult Start:28-Jul-2018 Instruction Type:Patient Education Patient Instructions Indication:BMI 38.0-38.9,adult Start:28-Jul-2018 Instruction Type:Provider Instructions for Treatment How to access health informa tion online Indication:Body mass index 35.0-35.9, adult Start:08-Mar-2017 Instruction Type:Patient Education How to access health informa tion online - Detail Indication:Body mass index 35.0-35.9, adult Start:08-Mar-2017 Instruction Type:Patient Education Patient Instructions Indication:Body mass index 35.0-35.9, adult Start:08-Mar-2017 Instruction Type:Provider Instructions for Treatment How to access health informa tion online Indication:Nonsmoker Start:29-Nov-2016 Instruction Type:Patient Education How to access health informa tion online - Detail Indication:Nonsmoker Start:29-Nov-2016 Instruction Type:Patient Education Patient Instructions Indication:Nonsmoker Start:29-Nov-2016 Instruction Type:Provider Instructions for Treatment How to access health informa tion online Indication:Viral syndrome Start:02-Nov-2016 Instruction Type:Patient Education How to access health informa tion online - Detail Indication:Viral syndrome Start:02-Nov-2016 Instruction Type:Patient Education Patient Instructions Indication:Viral syndrome Start:02-Nov-2016 Instruction Type:Provider Instructions for Treatment How to access health informa tion online Indication:Change in mole Start:23-Sep-2016 Instruction Type:Patient Education How to access health informa tion online - Detail Indication:Change in mole Start:23-Sep-2016 Instruction Type:Patient Education Patient Instructions Indication:Change in mole Start:23-Sep-2016 Instruction Type:Provider Instructions for Treatment How to access health informa tion online Indication:BMI 37.0-37.9, adult Start:29-Jul-2016 Instruction Type:Patient Education How to access health informa tion online - Detail Indication:BMI 37.0-37.9, adult Start:29-Jul-2016 Instruction Type:Patient Education Patient Instructions Indication:BMI 37.0-37.9, adult Start:29-Jul-2016 Instruction Type:Provider Instructions for Treatment How to access health informa tion online Indication:Acute sinusitis, unspecified Start:18-Dec-2015 Instruction Type:Patient Education How to access health informa tion online - Detail Indication:Acute sinusitis, unspecified Start:18-Dec-2015 Instruction Type:Patient Education Patient Instructions Indication:Acute sinusitis, unspecified Start:18-Dec-2015 Instruction Type:Provider Instructions for Treatment How to access health informa tion online Indication:Hypothyroid Start:21-Jul-2015 Instruction Type:Patient Education How to access health informa tion online - Detail Indication:Hypothyroid Start:21-Jul-2015 Instruction Type:Patient Education Patient Instructions Indication:Hypothyroid Start:21-Jul-2015 Instruction Type:Provider Instructions for Treatment Patient Instructions Indication:Gastroesophageal reflux disease without esophagitis Start:19-Dec-2014 Instruction Type:Provider Instructions for Treatment Patient Instructions Indication:Chest pain Start:28-May-2014 Instruction Type:Provider Instructions for Treatment Patient Instructions Indication:Knee pain Start:23-Feb-2013 Instruction Type:Provider Instructions for Treatment Patient Instructions Indication:Fever, unspecified Start:24-Aug-2012 Instruction Type:Provider Instructions for Treatment [facility]; [facility] Work Phone: Instructions* Name Dates Details Patient Instructions Indication:Non-smoker Start:09-Jan-2021 Instruction Type:Provider Instructions for Treatment How to Access Health Informa tion Online using Patient Portal and [employer]rd [employer] Apps Indication:Non-smoker Start:09-Jan-2021 Instruction Type:Patient Education Patient Instructions Indication:COVID-19 Start:05-Jan-2021 Instruction Type:Provider Instructions for Treatment How to Access Health Informa tion Online using Patient Portal and [employer] Apps Indication:COVID-19 Start:05-Jan-2021 Instruction Type:Patient Education Patient Instructions Indication:Non-smoker Start:30-Dec-2020 Instruction Type:Provider Instructions for Treatment How to Access Health Informa tion Online using Patient Portal and [employer] Apps Indication:Non-smoker Start:30-Dec-2020 Instruction Type:Patient Education How to Access Health Informa tion Online using Patient Portal and [employer] Apps Indication:Non-smoker Start:26-Dec-2020 Instruction Type:Patient Education Patient Instructions Indication:Non-smoker Start:26-Dec-2020 Instruction Type:Provider Instructions for Treatment Patient Instructions Indication:BMI 36.0-36.9,adult Start:25-Dec-2020 Instruction Type:Provider Instructions for Treatment How to Access Health Informa tion Online using Patient Portal and [employer]rd [employer] Apps Indication:BMI 36.0-36.9,adult Start:25-Dec-2020 Instruction Type:Patient Education Patient Instructions Indication:BMI 36.0-36.9,adult Start:23-Dec-2020 Instruction Type:Provider Instructions for Treatment How to Access Health Informa tion Online using Patient Portal and [employer] Apps Indication:COVID-19 Start:23-Dec-2020 Instruction Type:Patient Education How to access health informa tion online Indication:Non-smoker Start:24-Mar-2020 Instruction Type:Patient Education How to access health informa tion online - Detail Indication:Non-smoker Start:24-Mar-2020 Instruction Type:Patient Education Patient Instructions Indication:Non-smoker Start:24-Mar-2020 Instruction Type:Provider Instructions for Treatment How to access health informa tion online Indication:Sheba thyroiditis, 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 Instruction Type:Patient Education How to access health informa tion online - Detail Indication:Sheba thyroiditis, 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 Instruction Type:Patient Education Patient Instructions Indication:Sheba thyroiditis, 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 Instruction Type:Provider Instructions for Treatment How to access health informa tion online Indication:Low back pain Start:01-Nov-2019 Instruction Type:Patient Education How to access health informa tion online - Detail Indication:Low back pain Start:01-Nov-2019 Instruction Type:Patient Education Patient Instructions Indication:Low back pain Start:01-Nov-2019 Instruction Type:Provider Instructions for Treatment How to access health informa tion online Indication:BMI 38.0-38.9,adult Start:28-Jul-2018 Instruction Type:Patient Education How to access health informa tion online - Detail Indication:BMI 38.0-38.9,adult Start:28-Jul-2018 Instruction Type:Patient Education Patient Instructions Indication:BMI 38.0-38.9,adult Start:28-Jul-2018 Instruction Type:Provider Instructions for Treatment How to access health informa tion online Indication:Body mass index 35.0-35.9, adult Start:08-Mar-2017 Instruction Type:Patient Education How to access health informa tion online - Detail Indication:Body mass index 35.0-35.9, adult Start:08-Mar-2017 Instruction Type:Patient Education Patient Instructions Indication:Body mass index 35.0-35.9, adult Start:08-Mar-2017 Instruction Type:Provider Instructions for Treatment How to access health informa tion online Indication:Nonsmoker Start:29-Nov-2016 Instruction Type:Patient Education How to access health informa tion online - Detail Indication:Nonsmoker Start:29-Nov-2016 Instruction Type:Patient Education Patient Instructions Indication:Nonsmoker Start:29-Nov-2016 Instruction Type:Provider Instructions for Treatment How to access health informa tion online Indication:Viral syndrome Start:02-Nov-2016 Instruction Type:Patient Education How to access health informa tion online - Detail Indication:Viral syndrome Start:02-Nov-2016 Instruction Type:Patient Education Patient Instructions Indication:Viral syndrome Start:02-Nov-2016 Instruction Type:Provider Instructions for Treatment How to access health informa tion online Indication:Change in mole Start:23-Sep-2016 Instruction Type:Patient Education How to access health informa tion online - Detail Indication:Change in mole Start:23-Sep-2016 Instruction Type:Patient Education Patient Instructions Indication:Change in mole Start:23-Sep-2016 Instruction Type:Provider Instructions for Treatment How to access health informa tion online Indication:BMI 37.0-37.9, adult Start:29-Jul-2016 Instruction Type:Patient Education How to access health informa tion online - Detail Indication:BMI 37.0-37.9, adult Start:29-Jul-2016 Instruction Type:Patient Education Patient Instructions Indication:BMI 37.0-37.9, adult Start:29-Jul-2016 Instruction Type:Provider Instructions for Treatment How to access health informa tion online Indication:Acute sinusitis, unspecified Start:18-Dec-2015 Instruction Type:Patient Education How to access health informa tion online - Detail Indication:Acute sinusitis, unspecified Start:18-Dec-2015 Instruction Type:Patient Education Patient Instructions Indication:Acute sinusitis, unspecified Start:18-Dec-2015 Instruction Type:Provider Instructions for Treatment How to access health informa tion online Indication:Hypothyroid Start:21-Jul-2015 Instruction Type:Patient Education How to access health informa tion online - Detail Indication:Hypothyroid Start:21-Jul-2015 Instruction Type:Patient Education Patient Instructions Indication:Hypothyroid Start:21-Jul-2015 Instruction Type:Provider Instructions for Treatment Patient Instructions Indication:Gastroesophageal reflux disease without esophagitis Start:19-Dec-2014 Instruction Type:Provider Instructions for Treatment Patient Instructions Indication:Chest pain Start:28-May-2014 Instruction Type:Provider Instructions for Treatment Patient Instructions Indication:Knee pain Start:23-Feb-2013 Instruction Type:Provider Instructions for Treatment Patient Instructions Indication:Fever, unspecified Start:24-Aug-2012 Instruction Type:Provider Instructions for Treatment [facility]; [facility] Work Phone: Instructions* Name Dates Details Patient Instructions Indication:BMI 37.0-37.9, adult Start:04-Jun-2022 Instruction Type:Provider Instructions for Treatment How to Access Health Informa tion Online using Patient Portal and [employer] Indication:BMI 37.0-37.9, adult Start:04-Jun-2022 Instruction Type:Patient Education Patient Instructions Indication:BMI 36.0-36.9,adult Start:27-May-2022 Instruction Type:Provider Instructions for Treatment How to Access Health Informa tion Online using Patient Portal and [employer] Apps Indication:BMI 36.0-36.9,adult Start:27-May-2022 Instruction Type:Patient Education obesity counseling Indication:Gastroesophageal reflux disease without esophagitis Start:04-Dec-2021 Instruction Type:Provider Instructions for Treatment cardiovascular counseling Indication:Benign essential HTN Start:04-Dec-2021 Instruction Type:Provider Instructions for Treatment Patient Instructions Indication:Annual Medicare Phyiscal WITHOUT abnormal findings (Renamed from Encounter for general adult medical examination without abnormal findings) Start:04-Dec-2021 Instruction Type:Provider Instructions for Treatment How to Access Health Informa tion Online using Patient Portal and [employer] Apps Indication:Annual Medicare Phyiscal WITHOUT abnormal findings (Renamed from Encounter for general adult medical examination without abnormal findings) Start:04-Dec-2021 Instruction Type:Patient Education Patient Instructions Indication:Non-smoker Start:09-Jan-2021 Instruction Type:Provider Instructions for Treatment How to Access Health Informa tion Online using Patient Portal and [employer] Indication:Non-smoker Start:09-Jan-2021 Instruction Type:Patient Education Patient Instructions Indication:COVID-19 Start:05-Jan-2021 Instruction Type:Provider Instructions for Treatment How to Access Health Informa tion Online using Patient Portal and [employer] Indication:COVID-19 Start:05-Jan-2021 Instruction Type:Patient Education Patient Instructions Indication:Non-smoker Start:30-Dec-2020 Instruction Type:Provider Instructions for Treatment How to Access Health Informa tion Online using Patient Portal and [employer] Indication:Non-smoker Start:30-Dec-2020 Instruction Type:Patient Education How to Access Health Informa tion Online using Patient Portal and [employer] Indication:Non-smoker Start:26-Dec-2020 Instruction Type:Patient Education Patient Instructions Indication:Non-smoker Start:26-Dec-2020 Instruction Type:Provider Instructions for Treatment Patient Instructions Indication:BMI 36.0-36.9,adult Start:25-Dec-2020 Instruction Type:Provider Instructions for Treatment How to Access Health Informa tion Online using Patient Portal and [employer] Indication:BMI 36.0-36.9,adult Start:25-Dec-2020 Instruction Type:Patient Education Patient Instructions Indication:BMI 36.0-36.9,adult Start:23-Dec-2020 Instruction Type:Provider Instructions for Treatment How to Access Health Informa tion Online using Patient Portal and [employer] Indication:COVID-19 Start:23-Dec-2020 Instruction Type:Patient Education How to access health informa tion online Indication:Non-smoker Start:24-Mar-2020 Instruction Type:Patient Education How to access health informa tion online - Detail Indication:Non-smoker Start:24-Mar-2020 Instruction Type:Patient Education Patient Instructions Indication:Non-smoker Start:24-Mar-2020 Instruction Type:Provider Instructions for Treatment How to access health informa tion online Indication:Sheba thyroiditis, 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 Instruction Type:Patient Education How to access health informa tion online - Detail Indication:Sheba thyroiditis, 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 Instruction Type:Patient Education Patient Instructions Indication:Sheba thyroiditis, 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 Instruction Type:Provider Instructions for Treatment How to access health informa tion online Indication:Low back pain Start:01-Nov-2019 Instruction Type:Patient Education How to access health informa tion online - Detail Indication:Low back pain Start:01-Nov-2019 Instruction Type:Patient Education Patient Instructions Indication:Low back pain Start:01-Nov-2019 Instruction Type:Provider Instructions for Treatment How to access health informa tion online Indication:BMI 38.0-38.9,adult Start:28-Jul-2018 Instruction Type:Patient Education How to access health informa tion online - Detail Indication:BMI 38.0-38.9,adult Start:28-Jul-2018 Instruction Type:Patient Education Patient Instructions Indication:BMI 38.0-38.9,adult Start:28-Jul-2018 Instruction Type:Provider Instructions for Treatment How to access health informa tion online Indication:Body mass index 35.0-35.9, adult Start:08-Mar-2017 Instruction Type:Patient Education How to access health informa tion online - Detail Indication:Body mass index 35.0-35.9, adult Start:08-Mar-2017 Instruction Type:Patient Education Patient Instructions Indication:Body mass index 35.0-35.9, adult Start:08-Mar-2017 Instruction Type:Provider Instructions for Treatment How to access health informa tion online Indication:Nonsmoker Start:29-Nov-2016 Instruction Type:Patient Education How to access health informa tion online - Detail Indication:Nonsmoker Start:29-Nov-2016 Instruction Type:Patient Education Patient Instructions Indication:Nonsmoker Start:29-Nov-2016 Instruction Type:Provider Instructions for Treatment How to access health informa tion online Indication:Viral syndrome Start:02-Nov-2016 Instruction Type:Patient Education How to access health informa tion online - Detail Indication:Viral syndrome Start:02-Nov-2016 Instruction Type:Patient Education Patient Instructions Indication:Viral syndrome Start:02-Nov-2016 Instruction Type:Provider Instructions for Treatment How to access health informa tion online Indication:Change in mole Start:23-Sep-2016 Instruction Type:Patient Education How to access health informa tion online - Detail Indication:Change in mole Start:23-Sep-2016 Instruction Type:Patient Education Patient Instructions Indication:Change in mole Start:23-Sep-2016 Instruction Type:Provider Instructions for Treatment How to access health informa tion online Indication:BMI 37.0-37.9, adult Start:29-Jul-2016 Instruction Type:Patient Education How to access health informa tion online - Detail Indication:BMI 37.0-37.9, adult Start:29-Jul-2016 Instruction Type:Patient Education Patient Instructions Indication:BMI 37.0-37.9, adult Start:29-Jul-2016 Instruction Type:Provider Instructions for Treatment How to access health informa tion online Indication:Acute sinusitis, unspecified Start:18-Dec-2015 Instruction Type:Patient Education How to access health informa tion online - Detail Indication:Acute sinusitis, unspecified Start:18-Dec-2015 Instruction Type:Patient Education Patient Instructions Indication:Acute sinusitis, unspecified Start:18-Dec-2015 Instruction Type:Provider Instructions for Treatment How to access health informa tion online Indication:Hypothyroid Start:21-Jul-2015 Instruction Type:Patient Education How to access health informa tion online - Detail Indication:Hypothyroid Start:21-Jul-2015 Instruction Type:Patient Education Patient Instructions Indication:Hypothyroid Start:21-Jul-2015 Instruction Type:Provider Instructions for Treatment Patient Instructions Indication:Gastroesophageal reflux disease without esophagitis Start:19-Dec-2014 Instruction Type:Provider Instructions for Treatment Patient Instructions Indication:Chest pain Start:28-May-2014 Instruction Type:Provider Instructions for Treatment Patient Instructions Indication:Knee pain Start:23-Feb-2013 Instruction Type:Provider Instructions for Treatment Patient Instructions Indication:Fever, unspecified Start:24-Aug-2012 Instruction Type:Provider Instructions for Treatment [facility]; [facility] Work Phone: Instructions* Name Dates Details Patient Instructions Indication:BMI 37.0-37.9, adult Start:04-Jun-2022 Instruction Type:Provider Instructions for Treatment How to Access Health Informa tion Online using Patient Portal and [employer] Indication:BMI 37.0-37.9, adult Start:04-Jun-2022 Instruction Type:Patient Education Patient Instructions Indication:BMI 36.0-36.9,adult Start:27-May-2022 Instruction Type:Provider Instructions for Treatment How to Access Health Informa tion Online using Patient Portal and [employer] Indication:BMI 36.0-36.9,adult Start:27-May-2022 Instruction Type:Patient Education obesity counseling Indication:Gastroesophageal reflux disease without esophagitis Start:04-Dec-2021 Instruction Type:Provider Instructions for Treatment cardiovascular counseling Indication:Benign essential HTN Start:04-Dec-2021 Instruction Type:Provider Instructions for Treatment Patient Instructions Indication:Annual Medicare Phyiscal WITHOUT abnormal findings (Renamed from Encounter for general adult medical examination without abnormal findings) Start:04-Dec-2021 Instruction Type:Provider Instructions for Treatment How to Access Health Informa tion Online using Patient Portal and [employer] Indication:Annual Medicare Phyiscal WITHOUT abnormal findings (Renamed from Encounter for general adult medical examination without abnormal findings) Start:04-Dec-2021 Instruction Type:Patient Education Patient Instructions Indication:Non-smoker Start:09-Jan-2021 Instruction Type:Provider Instructions for Treatment How to Access Health Informa tion Online using Patient Portal and [employer] Indication:Non-smoker Start:09-Jan-2021 Instruction Type:Patient Education Patient Instructions Indication:COVID-19 Start:05-Jan-2021 Instruction Type:Provider Instructions for Treatment How to Access Health Informa tion Online using Patient Portal and [employer] Indication:COVID-19 Start:05-Jan-2021 Instruction Type:Patient Education Patient Instructions Indication:Non-smoker Start:30-Dec-2020 Instruction Type:Provider Instructions for Treatment How to Access Health Informa tion Online using Patient Portal and [employer] Indication:Non-smoker Start:30-Dec-2020 Instruction Type:Patient Education How to Access Health Informa tion Online using Patient Portal and [employer] Indication:Non-smoker Start:26-Dec-2020 Instruction Type:Patient Education Patient Instructions Indication:Non-smoker Start:26-Dec-2020 Instruction Type:Provider Instructions for Treatment Patient Instructions Indication:BMI 36.0-36.9,adult Start:25-Dec-2020 Instruction Type:Provider Instructions for Treatment How to Access Health Informa tion Online using Patient Portal and [employer] Indication:BMI 36.0-36.9,adult Start:25-Dec-2020 Instruction Type:Patient Education Patient Instructions Indication:BMI 36.0-36.9,adult Start:23-Dec-2020 Instruction Type:Provider Instructions for Treatment How to Access Health Informa tion Online using Patient Portal and [employer] Indication:COVID-19 Start:23-Dec-2020 Instruction Type:Patient Education How to access health informa tion online Indication:Non-smoker Start:24-Mar-2020 Instruction Type:Patient Education How to access health informa tion online - Detail Indication:Non-smoker Start:24-Mar-2020 Instruction Type:Patient Education Patient Instructions Indication:Non-smoker Start:24-Mar-2020 Instruction Type:Provider Instructions for Treatment How to access health informa tion online Indication:Sheba thyroiditis, 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 Instruction Type:Patient Education How to access health informa tion online - Detail Indication:Sheba thyroiditis, 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 Instruction Type:Patient Education Patient Instructions Indication:Sheba thyroiditis, 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 Instruction Type:Provider Instructions for Treatment How to access health informa tion online Indication:Low back pain Start:01-Nov-2019 Instruction Type:Patient Education How to access health informa tion online - Detail Indication:Low back pain Start:01-Nov-2019 Instruction Type:Patient Education Patient Instructions Indication:Low back pain Start:01-Nov-2019 Instruction Type:Provider Instructions for Treatment How to access health informa tion online Indication:BMI 38.0-38.9,adult Start:28-Jul-2018 Instruction Type:Patient Education How to access health informa tion online - Detail Indication:BMI 38.0-38.9,adult Start:28-Jul-2018 Instruction Type:Patient Education Patient Instructions Indication:BMI 38.0-38.9,adult Start:28-Jul-2018 Instruction Type:Provider Instructions for Treatment How to access health informa tion online Indication:Body mass index 35.0-35.9, adult Start:08-Mar-2017 Instruction Type:Patient Education How to access health informa tion online - Detail Indication:Body mass index 35.0-35.9, adult Start:08-Mar-2017 Instruction Type:Patient Education Patient Instructions Indication:Body mass index 35.0-35.9, adult Start:08-Mar-2017 Instruction Type:Provider Instructions for Treatment How to access health informa tion online Indication:Nonsmoker Start:29-Nov-2016 Instruction Type:Patient Education How to access health informa tion online - Detail Indication:Nonsmoker Start:29-Nov-2016 Instruction Type:Patient Education Patient Instructions Indication:Nonsmoker Start:29-Nov-2016 Instruction Type:Provider Instructions for Treatment How to access health informa tion online Indication:Viral syndrome Start:02-Nov-2016 Instruction Type:Patient Education How to access health informa tion online - Detail Indication:Viral syndrome Start:02-Nov-2016 Instruction Type:Patient Education Patient Instructions Indication:Viral syndrome Start:02-Nov-2016 Instruction Type:Provider Instructions for Treatment How to access health informa tion online Indication:Change in mole Start:23-Sep-2016 Instruction Type:Patient Education How to access health informa tion online - Detail Indication:Change in mole Start:23-Sep-2016 Instruction Type:Patient Education Patient Instructions Indication:Change in mole Start:23-Sep-2016 Instruction Type:Provider Instructions for Treatment How to access health informa tion online Indication:BMI 37.0-37.9, adult Start:29-Jul-2016 Instruction Type:Patient Education How to access health informa tion online - Detail Indication:BMI 37.0-37.9, adult Start:29-Jul-2016 Instruction Type:Patient Education Patient Instructions Indication:BMI 37.0-37.9, adult Start:29-Jul-2016 Instruction Type:Provider Instructions for Treatment How to access health informa tion online Indication:Acute sinusitis, unspecified Start:18-Dec-2015 Instruction Type:Patient Education How to access health informa tion online - Detail Indication:Acute sinusitis, unspecified Start:18-Dec-2015 Instruction Type:Patient Education Patient Instructions Indication:Acute sinusitis, unspecified Start:18-Dec-2015 Instruction Type:Provider Instructions for Treatment How to access health informa tion online Indication:Hypothyroid Start:21-Jul-2015 Instruction Type:Patient Education How to access health informa tion online - Detail Indication:Hypothyroid Start:21-Jul-2015 Instruction Type:Patient Education Patient Instructions Indication:Hypothyroid Start:21-Jul-2015 Instruction Type:Provider Instructions for Treatment Patient Instructions Indication:Gastroesophageal reflux disease without esophagitis Start:19-Dec-2014 Instruction Type:Provider Instructions for Treatment Patient Instructions Indication:Chest pain Start:28-May-2014 Instruction Type:Provider Instructions for Treatment Patient Instructions Indication:Knee pain Start:23-Feb-2013 Instruction Type:Provider Instructions for Treatment Patient Instructions Indication:Fever, unspecified Start:24-Aug-2012 Instruction Type:Provider Instructions for Treatment [facility]; [facility] Work Phone: Instructions* Name Dates Details Patient Instructions Indication:BMI 38.0-38.9,adult Start:21-Oct-2022 Instruction Type:Provider Instructions for Treatment How to Access Health Informa tion Online using Patient Portal and [employer] Indication:BMI 38.0-38.9,adult Start:21-Oct-2022 Instruction Type:Patient Education Patient Instructions Indication:BMI 37.0-37.9, adult Start:04-Jun-2022 Instruction Type:Provider Instructions for Treatment How to Access Health Informa tion Online using Patient Portal and [employer] Indication:BMI 37.0-37.9, adult Start:04-Jun-2022 Instruction Type:Patient Education Patient Instructions Indication:BMI 36.0-36.9,adult Start:27-May-2022 Instruction Type:Provider Instructions for Treatment How to Access Health Informa tion Online using Patient Portal and [employer] Indication:BMI 36.0-36.9,adult Start:27-May-2022 Instruction Type:Patient Education obesity counseling Indication:Gastroesophageal reflux disease without esophagitis Start:04-Dec-2021 Instruction Type:Provider Instructions for Treatment cardiovascular counseling Indication:Benign essential HTN Start:04-Dec-2021 Instruction Type:Provider Instructions for Treatment Patient Instructions Indication:Annual Medicare Phyiscal WITHOUT abnormal findings (Renamed from Encounter for general adult medical examination without abnormal findings) Start:04-Dec-2021 Instruction Type:Provider Instructions for Treatment How to Access Health Informa tion Online using Patient Portal and [employer] Indication:Annual Medicare Phyiscal WITHOUT abnormal findings (Renamed from Encounter for general adult medical examination without abnormal findings) Start:04-Dec-2021 Instruction Type:Patient Education Patient Instructions Indication:Non-smoker Start:09-Jan-2021 Instruction Type:Provider Instructions for Treatment How to Access Health Informa tion Online using Patient Portal and [employer] Indication:Non-smoker Start:09-Jan-2021 Instruction Type:Patient Education Patient Instructions Indication:COVID-19 Start:05-Jan-2021 Instruction Type:Provider Instructions for Treatment How to Access Health Informa tion Online using Patient Portal and [employer] Indication:COVID-19 Start:05-Jan-2021 Instruction Type:Patient Education Patient Instructions Indication:Non-smoker Start:30-Dec-2020 Instruction Type:Provider Instructions for Treatment How to Access Health Informa tion Online using Patient Portal and [employer] Indication:Non-smoker Start:30-Dec-2020 Instruction Type:Patient Education How to Access Health Informa tion Online using Patient Portal and [employer] Indication:Non-smoker Start:26-Dec-2020 Instruction Type:Patient Education Patient Instructions Indication:Non-smoker Start:26-Dec-2020 Instruction Type:Provider Instructions for Treatment Patient Instructions Indication:BMI 36.0-36.9,adult Start:25-Dec-2020 Instruction Type:Provider Instructions for Treatment How to Access Health Informa tion Online using Patient Portal and [employer] Indication:BMI 36.0-36.9,adult Start:25-Dec-2020 Instruction Type:Patient Education Patient Instructions Indication:BMI 36.0-36.9,adult Start:23-Dec-2020 Instruction Type:Provider Instructions for Treatment How to Access Health Informa tion Online using Patient Portal and [employer] Indication:COVID-19 Start:23-Dec-2020 Instruction Type:Patient Education How to access health informa tion online Indication:Non-smoker Start:24-Mar-2020 Instruction Type:Patient Education How to access health informa tion online - Detail Indication:Non-smoker Start:24-Mar-2020 Instruction Type:Patient Education Patient Instructions Indication:Non-smoker Start:24-Mar-2020 Instruction Type:Provider Instructions for Treatment How to access health informa tion online Indication:Sheba thyroiditis, 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 Instruction Type:Patient Education How to access health informa tion online - Detail Indication:Sheba thyroiditis, 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 Instruction Type:Patient Education Patient Instructions Indication:Sheba thyroiditis, 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 Instruction Type:Provider Instructions for Treatment How to access health informa tion online Indication:Low back pain Start:01-Nov-2019 Instruction Type:Patient Education How to access health informa tion online - Detail Indication:Low back pain Start:01-Nov-2019 Instruction Type:Patient Education Patient Instructions Indication:Low back pain Start:01-Nov-2019 Instruction Type:Provider Instructions for Treatment How to access health informa tion online Indication:BMI 38.0-38.9,adult Start:28-Jul-2018 Instruction Type:Patient Education How to access health informa tion online - Detail Indication:BMI 38.0-38.9,adult Start:28-Jul-2018 Instruction Type:Patient Education Patient Instructions Indication:BMI 38.0-38.9,adult Start:28-Jul-2018 Instruction Type:Provider Instructions for Treatment How to access health informa tion online Indication:Body mass index 35.0-35.9, adult Start:08-Mar-2017 Instruction Type:Patient Education How to access health informa tion online - Detail Indication:Body mass index 35.0-35.9, adult Start:08-Mar-2017 Instruction Type:Patient Education Patient Instructions Indication:Body mass index 35.0-35.9, adult Start:08-Mar-2017 Instruction Type:Provider Instructions for Treatment How to access health informa tion online Indication:Nonsmoker Start:29-Nov-2016 Instruction Type:Patient Education How to access health informa tion online - Detail Indication:Nonsmoker Start:29-Nov-2016 Instruction Type:Patient Education Patient Instructions Indication:Nonsmoker Start:29-Nov-2016 Instruction Type:Provider Instructions for Treatment How to access health informa tion online Indication:Viral syndrome Start:02-Nov-2016 Instruction Type:Patient Education How to access health informa tion online - Detail Indication:Viral syndrome Start:02-Nov-2016 Instruction Type:Patient Education Patient Instructions Indication:Viral syndrome Start:02-Nov-2016 Instruction Type:Provider Instructions for Treatment How to access health informa tion online Indication:Change in mole Start:23-Sep-2016 Instruction Type:Patient Education How to access health informa tion online - Detail Indication:Change in mole Start:23-Sep-2016 Instruction Type:Patient Education Patient Instructions Indication:Change in mole Start:23-Sep-2016 Instruction Type:Provider Instructions for Treatment How to access health informa tion online Indication:BMI 37.0-37.9, adult Start:29-Jul-2016 Instruction Type:Patient Education How to access health informa tion online - Detail Indication:BMI 37.0-37.9, adult Start:29-Jul-2016 Instruction Type:Patient Education Patient Instructions Indication:BMI 37.0-37.9, adult Start:29-Jul-2016 Instruction Type:Provider Instructions for Treatment How to access health informa tion online Indication:Acute sinusitis, unspecified Start:18-Dec-2015 Instruction Type:Patient Education How to access health informa tion online - Detail Indication:Acute sinusitis, unspecified Start:18-Dec-2015 Instruction Type:Patient Education Patient Instructions Indication:Acute sinusitis, unspecified Start:18-Dec-2015 Instruction Type:Provider Instructions for Treatment How to access health informa tion online Indication:Hypothyroid Start:21-Jul-2015 Instruction Type:Patient Education How to access health informa tion online - Detail Indication:Hypothyroid Start:21-Jul-2015 Instruction Type:Patient Education Patient Instructions Indication:Hypothyroid Start:21-Jul-2015 Instruction Type:Provider Instructions for Treatment Patient Instructions Indication:Gastroesophageal reflux disease without esophagitis Start:19-Dec-2014 Instruction Type:Provider Instructions for Treatment Patient Instructions Indication:Chest pain Start:28-May-2014 Instruction Type:Provider Instructions for Treatment Patient Instructions Indication:Knee pain Start:23-Feb-2013 Instruction Type:Provider Instructions for Treatment Patient Instructions Indication:Fever, unspecified Start:24-Aug-2012 Instruction Type:Provider Instructions for Treatment [facility]; [facility] Work Phone: Instructions* Name Dates Details Patient Instructions Indication:BMI 38.0-38.9,adult Start:21-Oct-2022 Instruction Type:Provider Instructions for Treatment How to Access Health Informa tion Online using Patient Portal and [employer]rd [employer] Apps Indication:BMI 38.0-38.9,adult Start:21-Oct-2022 Instruction Type:Patient Education Patient Instructions Indication:BMI 37.0-37.9, adult Start:04-Jun-2022 Instruction Type:Provider Instructions for Treatment How to Access Health Informa tion Online using Patient Portal and [employer]rd [employer] Apps Indication:BMI 37.0-37.9, adult Start:04-Jun-2022 Instruction Type:Patient Education Patient Instructions Indication:BMI 36.0-36.9,adult Start:27-May-2022 Instruction Type:Provider Instructions for Treatment How to Access Health Informa tion Online using Patient Portal and [employer]rd [employer] Apps Indication:BMI 36.0-36.9,adult Start:27-May-2022 Instruction Type:Patient Education obesity counseling Indication:Gastroesophageal reflux disease without esophagitis Start:04-Dec-2021 Instruction Type:Provider Instructions for Treatment cardiovascular counseling Indication:Benign essential HTN Start:04-Dec-2021 Instruction Type:Provider Instructions for Treatment Patient Instructions Indication:Annual Medicare Phyiscal WITHOUT abnormal findings (Renamed from Encounter for general adult medical examination without abnormal findings) Start:04-Dec-2021 Instruction Type:Provider Instructions for Treatment How to Access Health Informa tion Online using Patient Portal and [employer]rd [employer] Apps Indication:Annual Medicare Phyiscal WITHOUT abnormal findings (Renamed from Encounter for general adult medical examination without abnormal findings) Start:04-Dec-2021 Instruction Type:Patient Education Patient Instructions Indication:Non-smoker Start:09-Jan-2021 Instruction Type:Provider Instructions for Treatment How to Access Health Informa tion Online using Patient Portal and [employer]rd [employer] Apps Indication:Non-smoker Start:09-Jan-2021 Instruction Type:Patient Education Patient Instructions Indication:COVID-19 Start:05-Jan-2021 Instruction Type:Provider Instructions for Treatment How to Access Health Informa tion Online using Patient Portal and [employer]rd [employer] Apps Indication:COVID-19 Start:05-Jan-2021 Instruction Type:Patient Education Patient Instructions Indication:Non-smoker Start:30-Dec-2020 Instruction Type:Provider Instructions for Treatment How to Access Health Informa tion Online using Patient Portal and [employer]rd [employer] Apps Indication:Non-smoker Start:30-Dec-2020 Instruction Type:Patient Education How to Access Health Informa tion Online using Patient Portal and [employer]rd [employer] Apps Indication:Non-smoker Start:26-Dec-2020 Instruction Type:Patient Education Patient Instructions Indication:Non-smoker Start:26-Dec-2020 Instruction Type:Provider Instructions for Treatment Patient Instructions Indication:BMI 36.0-36.9,adult Start:25-Dec-2020 Instruction Type:Provider Instructions for Treatment How to Access Health Informa tion Online using Patient Portal and [employer]rd [employer] Apps Indication:BMI 36.0-36.9,adult Start:25-Dec-2020 Instruction Type:Patient Education Patient Instructions Indication:BMI 36.0-36.9,adult Start:23-Dec-2020 Instruction Type:Provider Instructions for Treatment How to Access Health Informa tion Online using Patient Portal and [employer]rd [employer] Apps Indication:COVID-19 Start:23-Dec-2020 Instruction Type:Patient Education How to access health informa tion online Indication:Non-smoker Start:24-Mar-2020 Instruction Type:Patient Education How to access health informa tion online - Detail Indication:Non-smoker Start:24-Mar-2020 Instruction Type:Patient Education Patient Instructions Indication:Non-smoker Start:24-Mar-2020 Instruction Type:Provider Instructions for Treatment How to access health informa tion online Indication:Sheba thyroiditis, 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 Instruction Type:Patient Education How to access health informa tion online - Detail Indication:Sheba thyroiditis, 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 Instruction Type:Patient Education Patient Instructions Indication:Sheba thyroiditis, 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 Instruction Type:Provider Instructions for Treatment How to access health informa tion online Indication:Low back pain Start:01-Nov-2019 Instruction Type:Patient Education How to access health informa tion online - Detail Indication:Low back pain Start:01-Nov-2019 Instruction Type:Patient Education Patient Instructions Indication:Low back pain Start:01-Nov-2019 Instruction Type:Provider Instructions for Treatment How to access health informa tion online Indication:BMI 38.0-38.9,adult Start:28-Jul-2018 Instruction Type:Patient Education How to access health informa tion online - Detail Indication:BMI 38.0-38.9,adult Start:28-Jul-2018 Instruction Type:Patient Education Patient Instructions Indication:BMI 38.0-38.9,adult Start:28-Jul-2018 Instruction Type:Provider Instructions for Treatment How to access health informa tion online Indication:Body mass index 35.0-35.9, adult Start:08-Mar-2017 Instruction Type:Patient Education How to access health informa tion online - Detail Indication:Body mass index 35.0-35.9, adult Start:08-Mar-2017 Instruction Type:Patient Education Patient Instructions Indication:Body mass index 35.0-35.9, adult Start:08-Mar-2017 Instruction Type:Provider Instructions for Treatment How to access health informa tion online Indication:Nonsmoker Start:29-Nov-2016 Instruction Type:Patient Education How to access health informa tion online - Detail Indication:Nonsmoker Start:29-Nov-2016 Instruction Type:Patient Education Patient Instructions Indication:Nonsmoker Start:29-Nov-2016 Instruction Type:Provider Instructions for Treatment How to access health informa tion online Indication:Viral syndrome Start:02-Nov-2016 Instruction Type:Patient Education How to access health informa tion online - Detail Indication:Viral syndrome Start:02-Nov-2016 Instruction Type:Patient Education Patient Instructions Indication:Viral syndrome Start:02-Nov-2016 Instruction Type:Provider Instructions for Treatment How to access health informa tion online Indication:Change in mole Start:23-Sep-2016 Instruction Type:Patient Education How to access health informa tion online - Detail Indication:Change in mole Start:23-Sep-2016 Instruction Type:Patient Education Patient Instructions Indication:Change in mole Start:23-Sep-2016 Instruction Type:Provider Instructions for Treatment How to access health informa tion online Indication:BMI 37.0-37.9, adult Start:29-Jul-2016 Instruction Type:Patient Education How to access health informa tion online - Detail Indication:BMI 37.0-37.9, adult Start:29-Jul-2016 Instruction Type:Patient Education Patient Instructions Indication:BMI 37.0-37.9, adult Start:29-Jul-2016 Instruction Type:Provider Instructions for Treatment How to access health informa tion online Indication:Acute sinusitis, unspecified Start:18-Dec-2015 Instruction Type:Patient Education How to access health informa tion online - Detail Indication:Acute sinusitis, unspecified Start:18-Dec-2015 Instruction Type:Patient Education Patient Instructions Indication:Acute sinusitis, unspecified Start:18-Dec-2015 Instruction Type:Provider Instructions for Treatment How to access health informa tion online Indication:Hypothyroid Start:21-Jul-2015 Instruction Type:Patient Education How to access health informa tion online - Detail Indication:Hypothyroid Start:21-Jul-2015 Instruction Type:Patient Education Patient Instructions Indication:Hypothyroid Start:21-Jul-2015 Instruction Type:Provider Instructions for Treatment Patient Instructions Indication:Gastroesophageal reflux disease without esophagitis Start:19-Dec-2014 Instruction Type:Provider Instructions for Treatment Patient Instructions Indication:Chest pain Start:28-May-2014 Instruction Type:Provider Instructions for Treatment Patient Instructions Indication:Knee pain Start:23-Feb-2013 Instruction Type:Provider Instructions for Treatment Patient Instructions Indication:Fever, unspecified Start:24-Aug-2012 Instruction Type:Provider Instructions for Treatment [facility]; [facility] Work Phone: Instructions* Name Dates Details Patient Instructions Indication:BMI 38.0-38.9,adult Start:09-Dec-2022 Instruction Type:Provider Instructions for Treatment How to Access Health Informa tion Online using Patient Portal and [employer]rd [employer] Apps Indication:BMI 38.0-38.9,adult Start:09-Dec-2022 Instruction Type:Patient Education Patient Instructions Indication:BMI 38.0-38.9,adult Start:21-Oct-2022 Instruction Type:Provider Instructions for Treatment How to Access Health Informa tion Online using Patient Portal and [employer]rd [employer] Apps Indication:BMI 38.0-38.9,adult Start:21-Oct-2022 Instruction Type:Patient Education Patient Instructions Indication:BMI 37.0-37.9, adult Start:04-Jun-2022 Instruction Type:Provider Instructions for Treatment How to Access Health Informa tion Online using Patient Portal and [employer]rd [employer] Apps Indication:BMI 37.0-37.9, adult Start:04-Jun-2022 Instruction Type:Patient Education Patient Instructions Indication:BMI 36.0-36.9,adult Start:27-May-2022 Instruction Type:Provider Instructions for Treatment How to Access Health Informa tion Online using Patient Portal and [employer]rd [employer] Apps Indication:BMI 36.0-36.9,adult Start:27-May-2022 Instruction Type:Patient Education obesity counseling Indication:Gastroesophageal reflux disease without esophagitis Start:04-Dec-2021 Instruction Type:Provider Instructions for Treatment cardiovascular counseling Indication:Benign essential HTN Start:04-Dec-2021 Instruction Type:Provider Instructions for Treatment Patient Instructions Indication:Annual Medicare Phyiscal WITHOUT abnormal findings (Renamed from Encounter for general adult medical examination without abnormal findings) Start:04-Dec-2021 Instruction Type:Provider Instructions for Treatment How to Access Health Informa tion Online using Patient Portal and [employer]rd [employer] Apps Indication:Annual Medicare Phyiscal WITHOUT abnormal findings (Renamed from Encounter for general adult medical examination without abnormal findings) Start:04-Dec-2021 Instruction Type:Patient Education Patient Instructions Indication:Non-smoker Start:09-Jan-2021 Instruction Type:Provider Instructions for Treatment How to Access Health Informa tion Online using Patient Portal and [employer]rd [employer] Apps Indication:Non-smoker Start:09-Jan-2021 Instruction Type:Patient Education Patient Instructions Indication:COVID-19 Start:05-Jan-2021 Instruction Type:Provider Instructions for Treatment How to Access Health Informa tion Online using Patient Portal and [employer]rd [employer] Apps Indication:COVID-19 Start:05-Jan-2021 Instruction Type:Patient Education Patient Instructions Indication:Non-smoker Start:30-Dec-2020 Instruction Type:Provider Instructions for Treatment How to Access Health Informa tion Online using Patient Portal and [employer]rd [employer] Apps Indication:Non-smoker Start:30-Dec-2020 Instruction Type:Patient Education How to Access Health Informa tion Online using Patient Portal and [employer]rd [employer] Apps Indication:Non-smoker Start:26-Dec-2020 Instruction Type:Patient Education Patient Instructions Indication:Non-smoker Start:26-Dec-2020 Instruction Type:Provider Instructions for Treatment Patient Instructions Indication:BMI 36.0-36.9,adult Start:25-Dec-2020 Instruction Type:Provider Instructions for Treatment How to Access Health Informa tion Online using Patient Portal and [employer]rd [employer] Apps Indication:BMI 36.0-36.9,adult Start:25-Dec-2020 Instruction Type:Patient Education Patient Instructions Indication:BMI 36.0-36.9,adult Start:23-Dec-2020 Instruction Type:Provider Instructions for Treatment How to Access Health Informa tion Online using Patient Portal and [employer]rd [employer] Apps Indication:COVID-19 Start:23-Dec-2020 Instruction Type:Patient Education How to access health informa tion online Indication:Non-smoker Start:24-Mar-2020 Instruction Type:Patient Education How to access health informa tion online - Detail Indication:Non-smoker Start:24-Mar-2020 Instruction Type:Patient Education Patient Instructions Indication:Non-smoker Start:24-Mar-2020 Instruction Type:Provider Instructions for Treatment How to access health informa tion online Indication:Sheba thyroiditis, 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 Instruction Type:Patient Education How to access health informa tion online - Detail Indication:Sheba thyroiditis, 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 Instruction Type:Patient Education Patient Instructions Indication:Sheba thyroiditis, 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 Instruction Type:Provider Instructions for Treatment How to access health informa tion online Indication:Low back pain Start:01-Nov-2019 Instruction Type:Patient Education How to access health informa tion online - Detail Indication:Low back pain Start:01-Nov-2019 Instruction Type:Patient Education Patient Instructions Indication:Low back pain Start:01-Nov-2019 Instruction Type:Provider Instructions for Treatment How to access health informa tion online Indication:BMI 38.0-38.9,adult Start:28-Jul-2018 Instruction Type:Patient Education How to access health informa tion online - Detail Indication:BMI 38.0-38.9,adult Start:28-Jul-2018 Instruction Type:Patient Education Patient Instructions Indication:BMI 38.0-38.9,adult Start:28-Jul-2018 Instruction Type:Provider Instructions for Treatment How to access health informa tion online Indication:Body mass index 35.0-35.9, adult Start:08-Mar-2017 Instruction Type:Patient Education How to access health informa tion online - Detail Indication:Body mass index 35.0-35.9, adult Start:08-Mar-2017 Instruction Type:Patient Education Patient Instructions Indication:Body mass index 35.0-35.9, adult Start:08-Mar-2017 Instruction Type:Provider Instructions for Treatment How to access health informa tion online Indication:Nonsmoker Start:29-Nov-2016 Instruction Type:Patient Education How to access health informa tion online - Detail Indication:Nonsmoker Start:29-Nov-2016 Instruction Type:Patient Education Patient Instructions Indication:Nonsmoker Start:29-Nov-2016 Instruction Type:Provider Instructions for Treatment How to access health informa tion online Indication:Viral syndrome Start:02-Nov-2016 Instruction Type:Patient Education How to access health informa tion online - Detail Indication:Viral syndrome Start:02-Nov-2016 Instruction Type:Patient Education Patient Instructions Indication:Viral syndrome Start:02-Nov-2016 Instruction Type:Provider Instructions for Treatment How to access health informa tion online Indication:Change in mole Start:23-Sep-2016 Instruction Type:Patient Education How to access health informa tion online - Detail Indication:Change in mole Start:23-Sep-2016 Instruction Type:Patient Education Patient Instructions Indication:Change in mole Start:23-Sep-2016 Instruction Type:Provider Instructions for Treatment How to access health informa tion online Indication:BMI 37.0-37.9, adult Start:29-Jul-2016 Instruction Type:Patient Education How to access health informa tion online - Detail Indication:BMI 37.0-37.9, adult Start:29-Jul-2016 Instruction Type:Patient Education Patient Instructions Indication:BMI 37.0-37.9, adult Start:29-Jul-2016 Instruction Type:Provider Instructions for Treatment How to access health informa tion online Indication:Acute sinusitis, unspecified Start:18-Dec-2015 Instruction Type:Patient Education How to access health informa tion online - Detail Indication:Acute sinusitis, unspecified Start:18-Dec-2015 Instruction Type:Patient Education Patient Instructions Indication:Acute sinusitis, unspecified Start:18-Dec-2015 Instruction Type:Provider Instructions for Treatment How to access health informa tion online Indication:Hypothyroid Start:21-Jul-2015 Instruction Type:Patient Education How to access health informa tion online - Detail Indication:Hypothyroid Start:21-Jul-2015 Instruction Type:Patient Education Patient Instructions Indication:Hypothyroid Start:21-Jul-2015 Instruction Type:Provider Instructions for Treatment Patient Instructions Indication:Gastroesophageal reflux disease without esophagitis Start:19-Dec-2014 Instruction Type:Provider Instructions for Treatment Patient Instructions Indication:Chest pain Start:28-May-2014 Instruction Type:Provider Instructions for Treatment Patient Instructions Indication:Knee pain Start:23-Feb-2013 Instruction Type:Provider Instructions for Treatment Patient Instructions Indication:Fever, unspecified Start:24-Aug-2012 Instruction Type:Provider Instructions for Treatment [facility]; [facility] Work Phone: Instructions* Name Dates Details Patient Instructions Indication:BMI 38.0-38.9,adult Start:09-Dec-2022 Instruction Type:Provider Instructions for Treatment How to Access Health Informa tion Online using Patient Portal and [employer]rd [employer] Apps Indication:BMI 38.0-38.9,adult Start:09-Dec-2022 Instruction Type:Patient Education Patient Instructions Indication:BMI 38.0-38.9,adult Start:21-Oct-2022 Instruction Type:Provider Instructions for Treatment How to Access Health Informa tion Online using Patient Portal and [employer]rd [employer] Apps Indication:BMI 38.0-38.9,adult Start:21-Oct-2022 Instruction Type:Patient Education Patient Instructions Indication:BMI 37.0-37.9, adult Start:04-Jun-2022 Instruction Type:Provider Instructions for Treatment How to Access Health Informa tion Online using Patient Portal and [employer]rd [employer] Apps Indication:BMI 37.0-37.9, adult Start:04-Jun-2022 Instruction Type:Patient Education Patient Instructions Indication:BMI 36.0-36.9,adult Start:27-May-2022 Instruction Type:Provider Instructions for Treatment How to Access Health Informa tion Online using Patient Portal and [employer]rd [employer] Apps Indication:BMI 36.0-36.9,adult Start:27-May-2022 Instruction Type:Patient Education obesity counseling Indication:Gastroesophageal reflux disease without esophagitis Start:04-Dec-2021 Instruction Type:Provider Instructions for Treatment cardiovascular counseling Indication:Benign essential HTN Start:04-Dec-2021 Instruction Type:Provider Instructions for Treatment Patient Instructions Indication:Annual Medicare Phyiscal WITHOUT abnormal findings (Renamed from Encounter for general adult medical examination without abnormal findings) Start:04-Dec-2021 Instruction Type:Provider Instructions for Treatment How to Access Health Informa tion Online using Patient Portal and [employer]rd [employer] Apps Indication:Annual Medicare Phyiscal WITHOUT abnormal findings (Renamed from Encounter for general adult medical examination without abnormal findings) Start:04-Dec-2021 Instruction Type:Patient Education Patient Instructions Indication:Non-smoker Start:09-Jan-2021 Instruction Type:Provider Instructions for Treatment How to Access Health Informa tion Online using Patient Portal and [employer]rd [employer] Apps Indication:Non-smoker Start:09-Jan-2021 Instruction Type:Patient Education Patient Instructions Indication:COVID-19 Start:05-Jan-2021 Instruction Type:Provider Instructions for Treatment How to Access Health Informa tion Online using Patient Portal and [employer]rd [employer] Apps Indication:COVID-19 Start:05-Jan-2021 Instruction Type:Patient Education Patient Instructions Indication:Non-smoker Start:30-Dec-2020 Instruction Type:Provider Instructions for Treatment How to Access Health Informa tion Online using Patient Portal and [employer]rd [employer] Apps Indication:Non-smoker Start:30-Dec-2020 Instruction Type:Patient Education How to Access Health Informa tion Online using Patient Portal and [employer]rd [employer] Apps Indication:Non-smoker Start:26-Dec-2020 Instruction Type:Patient Education Patient Instructions Indication:Non-smoker Start:26-Dec-2020 Instruction Type:Provider Instructions for Treatment Patient Instructions Indication:BMI 36.0-36.9,adult Start:25-Dec-2020 Instruction Type:Provider Instructions for Treatment How to Access Health Informa tion Online using Patient Portal and [employer]rd [employer] Apps Indication:BMI 36.0-36.9,adult Start:25-Dec-2020 Instruction Type:Patient Education Patient Instructions Indication:BMI 36.0-36.9,adult Start:23-Dec-2020 Instruction Type:Provider Instructions for Treatment How to Access Health Informa tion Online using Patient Portal and [employer]rd [employer] Apps Indication:COVID-19 Start:23-Dec-2020 Instruction Type:Patient Education How to access health informa tion online Indication:Non-smoker Start:24-Mar-2020 Instruction Type:Patient Education How to access health informa tion online - Detail Indication:Non-smoker Start:24-Mar-2020 Instruction Type:Patient Education Patient Instructions Indication:Non-smoker Start:24-Mar-2020 Instruction Type:Provider Instructions for Treatment How to access health informa tion online Indication:Sheba thyroiditis, 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 Instruction Type:Patient Education How to access health informa tion online - Detail Indication:Sheba thyroiditis, 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 Instruction Type:Patient Education Patient Instructions Indication:Sheba thyroiditis, 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 Instruction Type:Provider Instructions for Treatment How to access health informa tion online Indication:Low back pain Start:01-Nov-2019 Instruction Type:Patient Education How to access health informa tion online - Detail Indication:Low back pain Start:01-Nov-2019 Instruction Type:Patient Education Patient Instructions Indication:Low back pain Start:01-Nov-2019 Instruction Type:Provider Instructions for Treatment How to access health informa tion online Indication:BMI 38.0-38.9,adult Start:28-Jul-2018 Instruction Type:Patient Education How to access health informa tion online - Detail Indication:BMI 38.0-38.9,adult Start:28-Jul-2018 Instruction Type:Patient Education Patient Instructions Indication:BMI 38.0-38.9,adult Start:28-Jul-2018 Instruction Type:Provider Instructions for Treatment How to access health informa tion online Indication:Body mass index 35.0-35.9, adult Start:08-Mar-2017 Instruction Type:Patient Education How to access health informa tion online - Detail Indication:Body mass index 35.0-35.9, adult Start:08-Mar-2017 Instruction Type:Patient Education Patient Instructions Indication:Body mass index 35.0-35.9, adult Start:08-Mar-2017 Instruction Type:Provider Instructions for Treatment How to access health informa tion online Indication:Nonsmoker Start:29-Nov-2016 Instruction Type:Patient Education How to access health informa tion online - Detail Indication:Nonsmoker Start:29-Nov-2016 Instruction Type:Patient Education Patient Instructions Indication:Nonsmoker Start:29-Nov-2016 Instruction Type:Provider Instructions for Treatment How to access health informa tion online Indication:Viral syndrome Start:02-Nov-2016 Instruction Type:Patient Education How to access health informa tion online - Detail Indication:Viral syndrome Start:02-Nov-2016 Instruction Type:Patient Education Patient Instructions Indication:Viral syndrome Start:02-Nov-2016 Instruction Type:Provider Instructions for Treatment How to access health informa tion online Indication:Change in mole Start:23-Sep-2016 Instruction Type:Patient Education How to access health informa tion online - Detail Indication:Change in mole Start:23-Sep-2016 Instruction Type:Patient Education Patient Instructions Indication:Change in mole Start:23-Sep-2016 Instruction Type:Provider Instructions for Treatment How to access health informa tion online Indication:BMI 37.0-37.9, adult Start:29-Jul-2016 Instruction Type:Patient Education How to access health informa tion online - Detail Indication:BMI 37.0-37.9, adult Start:29-Jul-2016 Instruction Type:Patient Education Patient Instructions Indication:BMI 37.0-37.9, adult Start:29-Jul-2016 Instruction Type:Provider Instructions for Treatment How to access health informa tion online Indication:Acute sinusitis, unspecified Start:18-Dec-2015 Instruction Type:Patient Education How to access health informa tion online - Detail Indication:Acute sinusitis, unspecified Start:18-Dec-2015 Instruction Type:Patient Education Patient Instructions Indication:Acute sinusitis, unspecified Start:18-Dec-2015 Instruction Type:Provider Instructions for Treatment How to access health informa tion online Indication:Hypothyroid Start:21-Jul-2015 Instruction Type:Patient Education How to access health informa tion online - Detail Indication:Hypothyroid Start:21-Jul-2015 Instruction Type:Patient Education Patient Instructions Indication:Hypothyroid Start:21-Jul-2015 Instruction Type:Provider Instructions for Treatment Patient Instructions Indication:Gastroesophageal reflux disease without esophagitis Start:19-Dec-2014 Instruction Type:Provider Instructions for Treatment Patient Instructions Indication:Chest pain Start:28-May-2014 Instruction Type:Provider Instructions for Treatment Patient Instructions Indication:Knee pain Start:23-Feb-2013 Instruction Type:Provider Instructions for Treatment Patient Instructions Indication:Fever, unspecified Start:24-Aug-2012 Instruction Type:Provider Instructions for Treatment [facility]; [facility] Work Phone: Instructions* Name Dates Details Patient Instructions Indication:BMI 38.0-38.9,adult Start:09-Dec-2022 Instruction Type:Provider Instructions for Treatment How to Access Health Informa tion Online using Patient Portal and [employer]rd [employer] Apps Indication:BMI 38.0-38.9,adult Start:09-Dec-2022 Instruction Type:Patient Education Patient Instructions Indication:BMI 38.0-38.9,adult Start:21-Oct-2022 Instruction Type:Provider Instructions for Treatment How to Access Health Informa tion Online using Patient Portal and [employer]rd [employer] Apps Indication:BMI 38.0-38.9,adult Start:21-Oct-2022 Instruction Type:Patient Education Patient Instructions Indication:BMI 37.0-37.9, adult Start:04-Jun-2022 Instruction Type:Provider Instructions for Treatment How to Access Health Informa tion Online using Patient Portal and [employer]rd [employer] Apps Indication:BMI 37.0-37.9, adult Start:04-Jun-2022 Instruction Type:Patient Education Patient Instructions Indication:BMI 36.0-36.9,adult Start:27-May-2022 Instruction Type:Provider Instructions for Treatment How to Access Health Informa tion Online using Patient Portal and [employer]rd [employer] Apps Indication:BMI 36.0-36.9,adult Start:27-May-2022 Instruction Type:Patient Education obesity counseling Indication:Gastroesophageal reflux disease without esophagitis Start:04-Dec-2021 Instruction Type:Provider Instructions for Treatment cardiovascular counseling Indication:Benign essential HTN Start:04-Dec-2021 Instruction Type:Provider Instructions for Treatment Patient Instructions Indication:Annual Medicare Phyiscal WITHOUT abnormal findings (Renamed from Encounter for general adult medical examination without abnormal findings) Start:04-Dec-2021 Instruction Type:Provider Instructions for Treatment How to Access Health Informa tion Online using Patient Portal and [employer]rd [employer] Apps Indication:Annual Medicare Phyiscal WITHOUT abnormal findings (Renamed from Encounter for general adult medical examination without abnormal findings) Start:04-Dec-2021 Instruction Type:Patient Education Patient Instructions Indication:Non-smoker Start:09-Jan-2021 Instruction Type:Provider Instructions for Treatment How to Access Health Informa tion Online using Patient Portal and [employer]rd [employer] Apps Indication:Non-smoker Start:09-Jan-2021 Instruction Type:Patient Education Patient Instructions Indication:COVID-19 Start:05-Jan-2021 Instruction Type:Provider Instructions for Treatment How to Access Health Informa tion Online using Patient Portal and [employer]rd [employer] Apps Indication:COVID-19 Start:05-Jan-2021 Instruction Type:Patient Education Patient Instructions Indication:Non-smoker Start:30-Dec-2020 Instruction Type:Provider Instructions for Treatment How to Access Health Informa tion Online using Patient Portal and [employer]rd [employer] Apps Indication:Non-smoker Start:30-Dec-2020 Instruction Type:Patient Education How to Access Health Informa tion Online using Patient Portal and [employer]rd [employer] Apps Indication:Non-smoker Start:26-Dec-2020 Instruction Type:Patient Education Patient Instructions Indication:Non-smoker Start:26-Dec-2020 Instruction Type:Provider Instructions for Treatment Patient Instructions Indication:BMI 36.0-36.9,adult Start:25-Dec-2020 Instruction Type:Provider Instructions for Treatment How to Access Health Informa tion Online using Patient Portal and [employer]rd [employer] Apps Indication:BMI 36.0-36.9,adult Start:25-Dec-2020 Instruction Type:Patient Education Patient Instructions Indication:BMI 36.0-36.9,adult Start:23-Dec-2020 Instruction Type:Provider Instructions for Treatment How to Access Health Informa tion Online using Patient Portal and [employer]rd [employer] Apps Indication:COVID-19 Start:23-Dec-2020 Instruction Type:Patient Education How to access health informa tion online Indication:Non-smoker Start:24-Mar-2020 Instruction Type:Patient Education How to access health informa tion online - Detail Indication:Non-smoker Start:24-Mar-2020 Instruction Type:Patient Education Patient Instructions Indication:Non-smoker Start:24-Mar-2020 Instruction Type:Provider Instructions for Treatment How to access health informa tion online Indication:Sheba thyroiditis, 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 Instruction Type:Patient Education How to access health informa tion online - Detail Indication:Sheba thyroiditis, 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 Instruction Type:Patient Education Patient Instructions Indication:Sheba thyroiditis, 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 Instruction Type:Provider Instructions for Treatment How to access health informa tion online Indication:Low back pain Start:01-Nov-2019 Instruction Type:Patient Education How to access health informa tion online - Detail Indication:Low back pain Start:01-Nov-2019 Instruction Type:Patient Education Patient Instructions Indication:Low back pain Start:01-Nov-2019 Instruction Type:Provider Instructions for Treatment How to access health informa tion online Indication:BMI 38.0-38.9,adult Start:28-Jul-2018 Instruction Type:Patient Education How to access health informa tion online - Detail Indication:BMI 38.0-38.9,adult Start:28-Jul-2018 Instruction Type:Patient Education Patient Instructions Indication:BMI 38.0-38.9,adult Start:28-Jul-2018 Instruction Type:Provider Instructions for Treatment How to access health informa tion online Indication:Body mass index 35.0-35.9, adult Start:08-Mar-2017 Instruction Type:Patient Education How to access health informa tion online - Detail Indication:Body mass index 35.0-35.9, adult Start:08-Mar-2017 Instruction Type:Patient Education Patient Instructions Indication:Body mass index 35.0-35.9, adult Start:08-Mar-2017 Instruction Type:Provider Instructions for Treatment How to access health informa tion online Indication:Nonsmoker Start:29-Nov-2016 Instruction Type:Patient Education How to access health informa tion online - Detail Indication:Nonsmoker Start:29-Nov-2016 Instruction Type:Patient Education Patient Instructions Indication:Nonsmoker Start:29-Nov-2016 Instruction Type:Provider Instructions for Treatment How to access health informa tion online Indication:Viral syndrome Start:02-Nov-2016 Instruction Type:Patient Education How to access health informa tion online - Detail Indication:Viral syndrome Start:02-Nov-2016 Instruction Type:Patient Education Patient Instructions Indication:Viral syndrome Start:02-Nov-2016 Instruction Type:Provider Instructions for Treatment How to access health informa tion online Indication:Change in mole Start:23-Sep-2016 Instruction Type:Patient Education How to access health informa tion online - Detail Indication:Change in mole Start:23-Sep-2016 Instruction Type:Patient Education Patient Instructions Indication:Change in mole Start:23-Sep-2016 Instruction Type:Provider Instructions for Treatment How to access health informa tion online Indication:BMI 37.0-37.9, adult Start:29-Jul-2016 Instruction Type:Patient Education How to access health informa tion online - Detail Indication:BMI 37.0-37.9, adult Start:29-Jul-2016 Instruction Type:Patient Education Patient Instructions Indication:BMI 37.0-37.9, adult Start:29-Jul-2016 Instruction Type:Provider Instructions for Treatment How to access health informa tion online Indication:Acute sinusitis, unspecified Start:18-Dec-2015 Instruction Type:Patient Education How to access health informa tion online - Detail Indication:Acute sinusitis, unspecified Start:18-Dec-2015 Instruction Type:Patient Education Patient Instructions Indication:Acute sinusitis, unspecified Start:18-Dec-2015 Instruction Type:Provider Instructions for Treatment How to access health informa tion online Indication:Hypothyroid Start:21-Jul-2015 Instruction Type:Patient Education How to access health informa tion online - Detail Indication:Hypothyroid Start:21-Jul-2015 Instruction Type:Patient Education Patient Instructions Indication:Hypothyroid Start:21-Jul-2015 Instruction Type:Provider Instructions for Treatment Patient Instructions Indication:Gastroesophageal reflux disease without esophagitis Start:19-Dec-2014 Instruction Type:Provider Instructions for Treatment Patient Instructions Indication:Chest pain Start:28-May-2014 Instruction Type:Provider Instructions for Treatment Patient Instructions Indication:Knee pain Start:23-Feb-2013 Instruction Type:Provider Instructions for Treatment Patient Instructions Indication:Fever, unspecified Start:24-Aug-2012 Instruction Type:Provider Instructions for Treatment [facility]; [facility] Work Phone: Instructions* Name Dates Details Patient Instructions Indication:BMI 38.0-38.9,adult Start:09-Dec-2022 Instruction Type:Provider Instructions for Treatment How to Access Health Informa tion Online using Patient Portal and [employer]rd [employer] Apps Indication:BMI 38.0-38.9,adult Start:09-Dec-2022 Instruction Type:Patient Education Patient Instructions Indication:BMI 38.0-38.9,adult Start:21-Oct-2022 Instruction Type:Provider Instructions for Treatment How to Access Health Informa tion Online using Patient Portal and [employer]rd [employer] Apps Indication:BMI 38.0-38.9,adult Start:21-Oct-2022 Instruction Type:Patient Education Patient Instructions Indication:BMI 37.0-37.9, adult Start:04-Jun-2022 Instruction Type:Provider Instructions for Treatment How to Access Health Informa tion Online using Patient Portal and [employer]rd [employer] Apps Indication:BMI 37.0-37.9, adult Start:04-Jun-2022 Instruction Type:Patient Education Patient Instructions Indication:BMI 36.0-36.9,adult Start:27-May-2022 Instruction Type:Provider Instructions for Treatment How to Access Health Informa tion Online using Patient Portal and [employer]rd [employer] Apps Indication:BMI 36.0-36.9,adult Start:27-May-2022 Instruction Type:Patient Education obesity counseling Indication:Gastroesophageal reflux disease without esophagitis Start:04-Dec-2021 Instruction Type:Provider Instructions for Treatment cardiovascular counseling Indication:Benign essential HTN Start:04-Dec-2021 Instruction Type:Provider Instructions for Treatment Patient Instructions Indication:Annual Medicare Phyiscal WITHOUT abnormal findings (Renamed from Encounter for general adult medical examination without abnormal findings) Start:04-Dec-2021 Instruction Type:Provider Instructions for Treatment How to Access Health Informa tion Online using Patient Portal and [employer]rd [employer] Apps Indication:Annual Medicare Phyiscal WITHOUT abnormal findings (Renamed from Encounter for general adult medical examination without abnormal findings) Start:04-Dec-2021 Instruction Type:Patient Education Patient Instructions Indication:Non-smoker Start:09-Jan-2021 Instruction Type:Provider Instructions for Treatment How to Access Health Informa tion Online using Patient Portal and [employer]rd [employer] Apps Indication:Non-smoker Start:09-Jan-2021 Instruction Type:Patient Education Patient Instructions Indication:COVID-19 Start:05-Jan-2021 Instruction Type:Provider Instructions for Treatment How to Access Health Informa tion Online using Patient Portal and [employer]rd [employer] Apps Indication:COVID-19 Start:05-Jan-2021 Instruction Type:Patient Education Patient Instructions Indication:Non-smoker Start:30-Dec-2020 Instruction Type:Provider Instructions for Treatment How to Access Health Informa tion Online using Patient Portal and [employer]rd [employer] Apps Indication:Non-smoker Start:30-Dec-2020 Instruction Type:Patient Education How to Access Health Informa tion Online using Patient Portal and [employer]rd [employer] Apps Indication:Non-smoker Start:26-Dec-2020 Instruction Type:Patient Education Patient Instructions Indication:Non-smoker Start:26-Dec-2020 Instruction Type:Provider Instructions for Treatment Patient Instructions Indication:BMI 36.0-36.9,adult Start:25-Dec-2020 Instruction Type:Provider Instructions for Treatment How to Access Health Informa tion Online using Patient Portal and [employer]rd [employer] Apps Indication:BMI 36.0-36.9,adult Start:25-Dec-2020 Instruction Type:Patient Education Patient Instructions Indication:BMI 36.0-36.9,adult Start:23-Dec-2020 Instruction Type:Provider Instructions for Treatment How to Access Health Informa tion Online using Patient Portal and [employer]rd [employer] Apps Indication:COVID-19 Start:23-Dec-2020 Instruction Type:Patient Education How to access health informa tion online Indication:Non-smoker Start:24-Mar-2020 Instruction Type:Patient Education How to access health informa tion online - Detail Indication:Non-smoker Start:24-Mar-2020 Instruction Type:Patient Education Patient Instructions Indication:Non-smoker Start:24-Mar-2020 Instruction Type:Provider Instructions for Treatment How to access health informa tion online Indication:Sheba thyroiditis, 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 Instruction Type:Patient Education How to access health informa tion online - Detail Indication:Sheba thyroiditis, 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 Instruction Type:Patient Education Patient Instructions Indication:Sheba thyroiditis, 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 Instruction Type:Provider Instructions for Treatment How to access health informa tion online Indication:Low back pain Start:01-Nov-2019 Instruction Type:Patient Education How to access health informa tion online - Detail Indication:Low back pain Start:01-Nov-2019 Instruction Type:Patient Education Patient Instructions Indication:Low back pain Start:01-Nov-2019 Instruction Type:Provider Instructions for Treatment How to access health informa tion online Indication:BMI 38.0-38.9,adult Start:28-Jul-2018 Instruction Type:Patient Education How to access health informa tion online - Detail Indication:BMI 38.0-38.9,adult Start:28-Jul-2018 Instruction Type:Patient Education Patient Instructions Indication:BMI 38.0-38.9,adult Start:28-Jul-2018 Instruction Type:Provider Instructions for Treatment How to access health informa tion online Indication:Body mass index 35.0-35.9, adult Start:08-Mar-2017 Instruction Type:Patient Education How to access health informa tion online - Detail Indication:Body mass index 35.0-35.9, adult Start:08-Mar-2017 Instruction Type:Patient Education Patient Instructions Indication:Body mass index 35.0-35.9, adult Start:08-Mar-2017 Instruction Type:Provider Instructions for Treatment How to access health informa tion online Indication:Nonsmoker Start:29-Nov-2016 Instruction Type:Patient Education How to access health informa tion online - Detail Indication:Nonsmoker Start:29-Nov-2016 Instruction Type:Patient Education Patient Instructions Indication:Nonsmoker Start:29-Nov-2016 Instruction Type:Provider Instructions for Treatment How to access health informa tion online Indication:Viral syndrome Start:02-Nov-2016 Instruction Type:Patient Education How to access health informa tion online - Detail Indication:Viral syndrome Start:02-Nov-2016 Instruction Type:Patient Education Patient Instructions Indication:Viral syndrome Start:02-Nov-2016 Instruction Type:Provider Instructions for Treatment How to access health informa tion online Indication:Change in mole Start:23-Sep-2016 Instruction Type:Patient Education How to access health informa tion online - Detail Indication:Change in mole Start:23-Sep-2016 Instruction Type:Patient Education Patient Instructions Indication:Change in mole Start:23-Sep-2016 Instruction Type:Provider Instructions for Treatment How to access health informa tion online Indication:BMI 37.0-37.9, adult Start:29-Jul-2016 Instruction Type:Patient Education How to access health informa tion online - Detail Indication:BMI 37.0-37.9, adult Start:29-Jul-2016 Instruction Type:Patient Education Patient Instructions Indication:BMI 37.0-37.9, adult Start:29-Jul-2016 Instruction Type:Provider Instructions for Treatment How to access health informa tion online Indication:Acute sinusitis, unspecified Start:18-Dec-2015 Instruction Type:Patient Education How to access health informa tion online - Detail Indication:Acute sinusitis, unspecified Start:18-Dec-2015 Instruction Type:Patient Education Patient Instructions Indication:Acute sinusitis, unspecified Start:18-Dec-2015 Instruction Type:Provider Instructions for Treatment How to access health informa tion online Indication:Hypothyroid Start:21-Jul-2015 Instruction Type:Patient Education How to access health informa tion online - Detail Indication:Hypothyroid Start:21-Jul-2015 Instruction Type:Patient Education Patient Instructions Indication:Hypothyroid Start:21-Jul-2015 Instruction Type:Provider Instructions for Treatment Patient Instructions Indication:Gastroesophageal reflux disease without esophagitis Start:19-Dec-2014 Instruction Type:Provider Instructions for Treatment Patient Instructions Indication:Chest pain Start:28-May-2014 Instruction Type:Provider Instructions for Treatment Patient Instructions Indication:Knee pain Start:23-Feb-2013 Instruction Type:Provider Instructions for Treatment Patient Instructions Indication:Fever, unspecified Start:24-Aug-2012 Instruction Type:Provider Instructions for Treatment [facility]; [facility] Work Phone: Instructions* Name Dates Details Patient Instructions Indication:BMI 39.0-39.9,adult Start:15-Jul-2023 Instruction Type:Provider Instructions for Treatment How to Access Health Informa tion Online using Patient Portal and [employer]rd [employer] Apps Indication:BMI 39.0-39.9,adult Start:15-Jul-2023 Instruction Type:Patient Education Patient Instructions Indication:BMI 38.0-38.9,adult Start:09-Dec-2022 Instruction Type:Provider Instructions for Treatment How to Access Health Informa tion Online using Patient Portal and [employer]rd [employer] Apps Indication:BMI 38.0-38.9,adult Start:09-Dec-2022 Instruction Type:Patient Education Patient Instructions Indication:BMI 38.0-38.9,adult Start:21-Oct-2022 Instruction Type:Provider Instructions for Treatment How to Access Health Informa tion Online using Patient Portal and [employer]rd [employer] Apps Indication:BMI 38.0-38.9,adult Start:21-Oct-2022 Instruction Type:Patient Education Patient Instructions Indication:BMI 37.0-37.9, adult Start:04-Jun-2022 Instruction Type:Provider Instructions for Treatment How to Access Health Informa tion Online using Patient Portal and [employer]rd [employer] Apps Indication:BMI 37.0-37.9, adult Start:04-Jun-2022 Instruction Type:Patient Education Patient Instructions Indication:BMI 36.0-36.9,adult Start:27-May-2022 Instruction Type:Provider Instructions for Treatment How to Access Health Informa tion Online using Patient Portal and [employer]rd [employer] Apps Indication:BMI 36.0-36.9,adult Start:27-May-2022 Instruction Type:Patient Education obesity counseling Indication:Gastroesophageal reflux disease without esophagitis Start:04-Dec-2021 Instruction Type:Provider Instructions for Treatment cardiovascular counseling Indication:Benign essential HTN Start:04-Dec-2021 Instruction Type:Provider Instructions for Treatment Patient Instructions Indication:Annual Medicare Phyiscal WITHOUT abnormal findings (Renamed from Encounter for general adult medical examination without abnormal findings) Start:04-Dec-2021 Instruction Type:Provider Instructions for Treatment How to Access Health Informa tion Online using Patient Portal and [employer]rd [employer] Apps Indication:Annual Medicare Phyiscal WITHOUT abnormal findings (Renamed from Encounter for general adult medical examination without abnormal findings) Start:04-Dec-2021 Instruction Type:Patient Education Patient Instructions Indication:Non-smoker Start:09-Jan-2021 Instruction Type:Provider Instructions for Treatment How to Access Health Informa tion Online using Patient Portal and [employer]rd [employer] Apps Indication:Non-smoker Start:09-Jan-2021 Instruction Type:Patient Education Patient Instructions Indication:COVID-19 Start:05-Jan-2021 Instruction Type:Provider Instructions for Treatment How to Access Health Informa tion Online using Patient Portal and [employer]rd [employer] Apps Indication:COVID-19 Start:05-Jan-2021 Instruction Type:Patient Education Patient Instructions Indication:Non-smoker Start:30-Dec-2020 Instruction Type:Provider Instructions for Treatment How to Access Health Informa tion Online using Patient Portal and [employer]rd [employer] Apps Indication:Non-smoker Start:30-Dec-2020 Instruction Type:Patient Education How to Access Health Informa tion Online using Patient Portal and [employer]rd [employer] Apps Indication:Non-smoker Start:26-Dec-2020 Instruction Type:Patient Education Patient Instructions Indication:Non-smoker Start:26-Dec-2020 Instruction Type:Provider Instructions for Treatment Patient Instructions Indication:BMI 36.0-36.9,adult Start:25-Dec-2020 Instruction Type:Provider Instructions for Treatment How to Access Health Informa tion Online using Patient Portal and [employer]rd [employer] Apps Indication:BMI 36.0-36.9,adult Start:25-Dec-2020 Instruction Type:Patient Education Patient Instructions Indication:BMI 36.0-36.9,adult Start:23-Dec-2020 Instruction Type:Provider Instructions for Treatment How to Access Health Informa tion Online using Patient Portal and [employer] Apps Indication:COVID-19 Start:23-Dec-2020 Instruction Type:Patient Education How to access health informa tion online Indication:Non-smoker Start:24-Mar-2020 Instruction Type:Patient Education How to access health informa tion online - Detail Indication:Non-smoker Start:24-Mar-2020 Instruction Type:Patient Education Patient Instructions Indication:Non-smoker Start:24-Mar-2020 Instruction Type:Provider Instructions for Treatment How to access health informa tion online Indication:Sheba thyroiditis, 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 Instruction Type:Patient Education How to access health informa tion online - Detail Indication:Sheba thyroiditis, 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 Instruction Type:Patient Education Patient Instructions Indication:Sheba thyroiditis, 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 Instruction Type:Provider Instructions for Treatment How to access health informa tion online Indication:Low back pain Start:01-Nov-2019 Instruction Type:Patient Education How to access health informa tion online - Detail Indication:Low back pain Start:01-Nov-2019 Instruction Type:Patient Education Patient Instructions Indication:Low back pain Start:01-Nov-2019 Instruction Type:Provider Instructions for Treatment How to access health informa tion online Indication:BMI 38.0-38.9,adult Start:28-Jul-2018 Instruction Type:Patient Education How to access health informa tion online - Detail Indication:BMI 38.0-38.9,adult Start:28-Jul-2018 Instruction Type:Patient Education Patient Instructions Indication:BMI 38.0-38.9,adult Start:28-Jul-2018 Instruction Type:Provider Instructions for Treatment How to access health informa tion online Indication:Body mass index 35.0-35.9, adult Start:08-Mar-2017 Instruction Type:Patient Education How to access health informa tion online - Detail Indication:Body mass index 35.0-35.9, adult Start:08-Mar-2017 Instruction Type:Patient Education Patient Instructions Indication:Body mass index 35.0-35.9, adult Start:08-Mar-2017 Instruction Type:Provider Instructions for Treatment How to access health informa tion online Indication:Nonsmoker Start:29-Nov-2016 Instruction Type:Patient Education How to access health informa tion online - Detail Indication:Nonsmoker Start:29-Nov-2016 Instruction Type:Patient Education Patient Instructions Indication:Nonsmoker Start:29-Nov-2016 Instruction Type:Provider Instructions for Treatment How to access health informa tion online Indication:Viral syndrome Start:02-Nov-2016 Instruction Type:Patient Education How to access health informa tion online - Detail Indication:Viral syndrome Start:02-Nov-2016 Instruction Type:Patient Education Patient Instructions Indication:Viral syndrome Start:02-Nov-2016 Instruction Type:Provider Instructions for Treatment How to access health informa tion online Indication:Change in mole Start:23-Sep-2016 Instruction Type:Patient Education How to access health informa tion online - Detail Indication:Change in mole Start:23-Sep-2016 Instruction Type:Patient Education Patient Instructions Indication:Change in mole Start:23-Sep-2016 Instruction Type:Provider Instructions for Treatment How to access health informa tion online Indication:BMI 37.0-37.9, adult Start:29-Jul-2016 Instruction Type:Patient Education How to access health informa tion online - Detail Indication:BMI 37.0-37.9, adult Start:29-Jul-2016 Instruction Type:Patient Education Patient Instructions Indication:BMI 37.0-37.9, adult Start:29-Jul-2016 Instruction Type:Provider Instructions for Treatment How to access health informa tion online Indication:Acute sinusitis, unspecified Start:18-Dec-2015 Instruction Type:Patient Education How to access health informa tion online - Detail Indication:Acute sinusitis, unspecified Start:18-Dec-2015 Instruction Type:Patient Education Patient Instructions Indication:Acute sinusitis, unspecified Start:18-Dec-2015 Instruction Type:Provider Instructions for Treatment How to access health informa tion online Indication:Hypothyroid Start:21-Jul-2015 Instruction Type:Patient Education How to access health informa tion online - Detail Indication:Hypothyroid Start:21-Jul-2015 Instruction Type:Patient Education Patient Instructions Indication:Hypothyroid Start:21-Jul-2015 Instruction Type:Provider Instructions for Treatment Patient Instructions Indication:Gastroesophageal reflux disease without esophagitis Start:19-Dec-2014 Instruction Type:Provider Instructions for Treatment Patient Instructions Indication:Chest pain Start:28-May-2014 Instruction Type:Provider Instructions for Treatment Patient Instructions Indication:Knee pain Start:23-Feb-2013 Instruction Type:Provider Instructions for Treatment Patient Instructions Indication:Fever, unspecified Start:24-Aug-2012 Instruction Type:Provider Instructions for Treatment [facility] Work Phone: Instructions* Name Dates Details Patient Instructions Indication:BMI 39.0-39.9,adult Start:15-Jul-2023 Instruction Type:Provider Instructions for Treatment How to Access Health Informa tion Online using Patient Portal and 3rd [employer] Apps Indication:BMI 39.0-39.9,adult Start:15-Jul-2023 Instruction Type:Patient Education Patient Instructions Indication:BMI 38.0-38.9,adult Start:09-Dec-2022 Instruction Type:Provider Instructions for Treatment How to Access Health Informa tion Online using Patient Portal and [employer]rd [employer] Apps Indication:BMI 38.0-38.9,adult Start:09-Dec-2022 Instruction Type:Patient Education Patient Instructions Indication:BMI 38.0-38.9,adult Start:21-Oct-2022 Instruction Type:Provider Instructions for Treatment How to Access Health Informa tion Online using Patient Portal and [employer]rd [employer] Apps Indication:BMI 38.0-38.9,adult Start:21-Oct-2022 Instruction Type:Patient Education Patient Instructions Indication:BMI 37.0-37.9, adult Start:04-Jun-2022 Instruction Type:Provider Instructions for Treatment How to Access Health Informa tion Online using Patient Portal and [employer]rd [employer] Apps Indication:BMI 37.0-37.9, adult Start:04-Jun-2022 Instruction Type:Patient Education Patient Instructions Indication:BMI 36.0-36.9,adult Start:27-May-2022 Instruction Type:Provider Instructions for Treatment How to Access Health Informa tion Online using Patient Portal and [employer]rd [employer] Apps Indication:BMI 36.0-36.9,adult Start:27-May-2022 Instruction Type:Patient Education obesity counseling Indication:Gastroesophageal reflux disease without esophagitis Start:04-Dec-2021 Instruction Type:Provider Instructions for Treatment cardiovascular counseling Indication:Benign essential HTN Start:04-Dec-2021 Instruction Type:Provider Instructions for Treatment Patient Instructions Indication:Annual Medicare Phyiscal WITHOUT abnormal findings (Renamed from Encounter for general adult medical examination without abnormal findings) Start:04-Dec-2021 Instruction Type:Provider Instructions for Treatment How to Access Health Informa tion Online using Patient Portal and [employer]rd [employer] Apps Indication:Annual Medicare Phyiscal WITHOUT abnormal findings (Renamed from Encounter for general adult medical examination without abnormal findings) Start:04-Dec-2021 Instruction Type:Patient Education Patient Instructions Indication:Non-smoker Start:09-Jan-2021 Instruction Type:Provider Instructions for Treatment How to Access Health Informa tion Online using Patient Portal and [employer]rd [employer] Apps Indication:Non-smoker Start:09-Jan-2021 Instruction Type:Patient Education Patient Instructions Indication:COVID-19 Start:05-Jan-2021 Instruction Type:Provider Instructions for Treatment How to Access Health Informa tion Online using Patient Portal and [employer]rd [employer] Apps Indication:COVID-19 Start:05-Jan-2021 Instruction Type:Patient Education Patient Instructions Indication:Non-smoker Start:30-Dec-2020 Instruction Type:Provider Instructions for Treatment How to Access Health Informa tion Online using Patient Portal and [employer]rd [employer] Apps Indication:Non-smoker Start:30-Dec-2020 Instruction Type:Patient Education How to Access Health Informa tion Online using Patient Portal and [employer]rd [employer] Apps Indication:Non-smoker Start:26-Dec-2020 Instruction Type:Patient Education Patient Instructions Indication:Non-smoker Start:26-Dec-2020 Instruction Type:Provider Instructions for Treatment Patient Instructions Indication:BMI 36.0-36.9,adult Start:25-Dec-2020 Instruction Type:Provider Instructions for Treatment How to Access Health Informa tion Online using Patient Portal and [employer]rd [employer] Apps Indication:BMI 36.0-36.9,adult Start:25-Dec-2020 Instruction Type:Patient Education Patient Instructions Indication:BMI 36.0-36.9,adult Start:23-Dec-2020 Instruction Type:Provider Instructions for Treatment How to Access Health Informa tion Online using Patient Portal and [employer]rd [employer] Apps Indication:COVID-19 Start:23-Dec-2020 Instruction Type:Patient Education How to access health informa tion online Indication:Non-smoker Start:24-Mar-2020 Instruction Type:Patient Education How to access health informa tion online - Detail Indication:Non-smoker Start:24-Mar-2020 Instruction Type:Patient Education Patient Instructions Indication:Non-smoker Start:24-Mar-2020 Instruction Type:Provider Instructions for Treatment How to access health informa tion online Indication:Sheba thyroiditis, 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 Instruction Type:Patient Education How to access health informa tion online - Detail Indication:Sheba thyroiditis, 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 Instruction Type:Patient Education Patient Instructions Indication:Sheba thyroiditis, 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 Instruction Type:Provider Instructions for Treatment How to access health informa tion online Indication:Low back pain Start:01-Nov-2019 Instruction Type:Patient Education How to access health informa tion online - Detail Indication:Low back pain Start:01-Nov-2019 Instruction Type:Patient Education Patient Instructions Indication:Low back pain Start:01-Nov-2019 Instruction Type:Provider Instructions for Treatment How to access health informa tion online Indication:BMI 38.0-38.9,adult Start:28-Jul-2018 Instruction Type:Patient Education How to access health informa tion online - Detail Indication:BMI 38.0-38.9,adult Start:28-Jul-2018 Instruction Type:Patient Education Patient Instructions Indication:BMI 38.0-38.9,adult Start:28-Jul-2018 Instruction Type:Provider Instructions for Treatment How to access health informa tion online Indication:Body mass index 35.0-35.9, adult Start:08-Mar-2017 Instruction Type:Patient Education How to access health informa tion online - Detail Indication:Body mass index 35.0-35.9, adult Start:08-Mar-2017 Instruction Type:Patient Education Patient Instructions Indication:Body mass index 35.0-35.9, adult Start:08-Mar-2017 Instruction Type:Provider Instructions for Treatment How to access health informa tion online Indication:Nonsmoker Start:29-Nov-2016 Instruction Type:Patient Education How to access health informa tion online - Detail Indication:Nonsmoker Start:29-Nov-2016 Instruction Type:Patient Education Patient Instructions Indication:Nonsmoker Start:29-Nov-2016 Instruction Type:Provider Instructions for Treatment How to access health informa tion online Indication:Viral syndrome Start:02-Nov-2016 Instruction Type:Patient Education How to access health informa tion online - Detail Indication:Viral syndrome Start:02-Nov-2016 Instruction Type:Patient Education Patient Instructions Indication:Viral syndrome Start:02-Nov-2016 Instruction Type:Provider Instructions for Treatment How to access health informa tion online Indication:Change in mole Start:23-Sep-2016 Instruction Type:Patient Education How to access health informa tion online - Detail Indication:Change in mole Start:23-Sep-2016 Instruction Type:Patient Education Patient Instructions Indication:Change in mole Start:23-Sep-2016 Instruction Type:Provider Instructions for Treatment How to access health informa tion online Indication:BMI 37.0-37.9, adult Start:29-Jul-2016 Instruction Type:Patient Education How to access health informa tion online - Detail Indication:BMI 37.0-37.9, adult Start:29-Jul-2016 Instruction Type:Patient Education Patient Instructions Indication:BMI 37.0-37.9, adult Start:29-Jul-2016 Instruction Type:Provider Instructions for Treatment How to access health informa tion online Indication:Acute sinusitis, unspecified Start:18-Dec-2015 Instruction Type:Patient Education How to access health informa tion online - Detail Indication:Acute sinusitis, unspecified Start:18-Dec-2015 Instruction Type:Patient Education Patient Instructions Indication:Acute sinusitis, unspecified Start:18-Dec-2015 Instruction Type:Provider Instructions for Treatment How to access health informa tion online Indication:Hypothyroid Start:21-Jul-2015 Instruction Type:Patient Education How to access health informa tion online - Detail Indication:Hypothyroid Start:21-Jul-2015 Instruction Type:Patient Education Patient Instructions Indication:Hypothyroid Start:21-Jul-2015 Instruction Type:Provider Instructions for Treatment Patient Instructions Indication:Gastroesophageal reflux disease without esophagitis Start:19-Dec-2014 Instruction Type:Provider Instructions for Treatment Patient Instructions Indication:Chest pain Start:28-May-2014 Instruction Type:Provider Instructions for Treatment Patient Instructions Indication:Knee pain Start:23-Feb-2013 Instruction Type:Provider Instructions for Treatment Patient Instructions Indication:Fever, unspecified Start:24-Aug-2012 Instruction Type:Provider Instructions for Treatment [facility] Work Phone: reason for referral (narrative)No reason for referral information availableWC[facility]: Instructions Name Dates Details Body mass index 35.0-35.9, a dult : How to access health information online Indication:Body mass index 35.0-35.9, adult Body mass index 35.0-35.9, a dult : How to access health information online - Detail Indication:Body mass index 35.0-35.9, adult Body mass index 35.0-35.9, a dult : Patient Instructions Indication:Body mass index 35.0-35.9, adult Nonsmoker : How to access he alth information online Indication:Nonsmoker Nonsmoker : How to access he alth information online - Detail Indication:Nonsmoker Nonsmoker : Patient Instruct ions Indication:Nonsmoker Viral syndrome : How to acce ss health information online Indication:Viral syndrome Viral syndrome : How to acce ss health information online - Detail Indication:Viral syndrome Viral syndrome : Patient Ins tructions Indication:Viral syndrome Change in mole : How to acce ss health information online Indication:Change in mole Change in mole : How to acce ss health information online - Detail Indication:Change in mole Change in mole : Patient Ins tructions Indication:Change in mole BMI 37.0-37.9, adult : How t o access health information online Indication:BMI 37.0-37.9, adult BMI 37.0-37.9, adult : How t o access health information online - Detail Indication:BMI 37.0-37.9, adult BMI 37.0-37.9, adult : Patie nt Instructions Indication:BMI 37.0-37.9, adult Acute sinusitis, unspecified : How to access health information online Indication:Acute sinusitis, unspecified Acute sinusitis, unspecified : How to access health information online - Detail Indication:Acute sinusitis, unspecified Acute sinusitis, unspecified : Patient Instructions Indication:Acute sinusitis, unspecified Hypothyroid : How to access health information online Indication:Hypothyroid Hypothyroid : How to access health information online - Detail Indication:Hypothyroid Hypothyroid : Patient Instru ctions Indication:Hypothyroid Gastroesophageal reflux dise ase without esophagitis : Patient Instructions Indication:Gastroesophageal reflux disease without esophagitis Chest pain : Patient Instruc tions Indication:Chest pain Knee pain : Patient Instruct ions Indication:Knee pain Fever, unspecified : Patient Instructions Indication:Fever, unspecified Name Dates Details Body mass index 35.0-35.9, a dult : How to access health information online Indication:Body mass index 35.0-35.9, adult Body mass index 35.0-35.9, a dult : How to access health information online - Detail Indication:Body mass index 35.0-35.9, adult Body mass index 35.0-35.9, a dult : Patient Instructions Indication:Body mass index 35.0-35.9, adult Nonsmoker : How to access he alth information online Indication:Nonsmoker Nonsmoker : How to access he alth information online - Detail Indication:Nonsmoker Nonsmoker : Patient Instruct ions Indication:Nonsmoker Viral syndrome : How to acce ss health information online Indication:Viral syndrome Viral syndrome : How to acce ss health information online - Detail Indication:Viral syndrome Viral syndrome : Patient Ins tructions Indication:Viral syndrome Change in mole : How to acce ss health information online Indication:Change in mole Change in mole : How to acce ss health information online - Detail Indication:Change in mole Change in mole : Patient Ins tructions Indication:Change in mole BMI 37.0-37.9, adult : How t o access health information online Indication:BMI 37.0-37.9, adult BMI 37.0-37.9, adult : How t o access health information online - Detail Indication:BMI 37.0-37.9, adult BMI 37.0-37.9, adult : Patie nt Instructions Indication:BMI 37.0-37.9, adult Acute sinusitis, unspecified : How to access health information online Indication:Acute sinusitis, unspecified Acute sinusitis, unspecified : How to access health information online - Detail Indication:Acute sinusitis, unspecified Acute sinusitis, unspecified : Patient Instructions Indication:Acute sinusitis, unspecified Hypothyroid : How to access health information online Indication:Hypothyroid Hypothyroid : How to access health information online - Detail Indication:Hypothyroid Hypothyroid : Patient Instru ctions Indication:Hypothyroid Gastroesophageal reflux dise ase without esophagitis : Patient Instructions Indication:Gastroesophageal reflux disease without esophagitis Chest pain : Patient Instruc tions Indication:Chest pain Knee pain : Patient Instruct ions Indication:Knee pain Fever, unspecified : Patient Instructions Indication:Fever, unspecified Name Dates Details BMI 38.0-38.9,adult : How to access health information online Indication:BMI 38.0-38.9,adult BMI 38.0-38.9,adult : How to access health information online - Detail Indication:BMI 38.0-38.9,adult BMI 38.0-38.9,adult : Patien t Instructions Indication:BMI 38.0-38.9,adult Body mass index 35.0-35.9, a dult : How to access health information online Indication:Body mass index 35.0-35.9, adult Body mass index 35.0-35.9, a dult : How to access health information online - Detail Indication:Body mass index 35.0-35.9, adult Body mass index 35.0-35.9, a dult : Patient Instructions Indication:Body mass index 35.0-35.9, adult Nonsmoker : How to access he alth information online Indication:Nonsmoker Nonsmoker : How to access he alth information online - Detail Indication:Nonsmoker Nonsmoker : Patient Instruct ions Indication:Nonsmoker Viral syndrome : How to acce ss health information online Indication:Viral syndrome Viral syndrome : How to acce ss health information online - Detail Indication:Viral syndrome Viral syndrome : Patient Ins tructions Indication:Viral syndrome Change in mole : How to acce ss health information online Indication:Change in mole Change in mole : How to acce ss health information online - Detail Indication:Change in mole Change in mole : Patient Ins tructions Indication:Change in mole BMI 37.0-37.9, adult : How t o access health information online Indication:BMI 37.0-37.9, adult BMI 37.0-37.9, adult : How t o access health information online - Detail Indication:BMI 37.0-37.9, adult BMI 37.0-37.9, adult : Patie nt Instructions Indication:BMI 37.0-37.9, adult Acute sinusitis, unspecified : How to access health information online Indication:Acute sinusitis, unspecified Acute sinusitis, unspecified : How to access health information online - Detail Indication:Acute sinusitis, unspecified Acute sinusitis, unspecified : Patient Instructions Indication:Acute sinusitis, unspecified Hypothyroid : How to access health information online Indication:Hypothyroid Hypothyroid : How to access health information online - Detail Indication:Hypothyroid Hypothyroid : Patient Instru ctions Indication:Hypothyroid Gastroesophageal reflux dise ase without esophagitis : Patient Instructions Indication:Gastroesophageal reflux disease without esophagitis Chest pain : Patient Instruc tions Indication:Chest pain Knee pain : Patient Instruct ions Indication:Knee pain Fever, unspecified : Patient Instructions Indication:Fever, unspecified Name Dates Details BMI 38.0-38.9,adult : How to access health information online Indication:BMI 38.0-38.9,adult BMI 38.0-38.9,adult : How to access health information online - Detail Indication:BMI 38.0-38.9,adult BMI 38.0-38.9,adult : Patien t Instructions Indication:BMI 38.0-38.9,adult Body mass index 35.0-35.9, a dult : How to access health information online Indication:Body mass index 35.0-35.9, adult Body mass index 35.0-35.9, a dult : How to access health information online - Detail Indication:Body mass index 35.0-35.9, adult Body mass index 35.0-35.9, a dult : Patient Instructions Indication:Body mass index 35.0-35.9, adult Nonsmoker : How to access he alth information online Indication:Nonsmoker Nonsmoker : How to access he alth information online - Detail Indication:Nonsmoker Nonsmoker : Patient Instruct ions Indication:Nonsmoker Viral syndrome : How to acce ss health information online Indication:Viral syndrome Viral syndrome : How to acce ss health information online - Detail Indication:Viral syndrome Viral syndrome : Patient Ins tructions Indication:Viral syndrome Change in mole : How to acce ss health information online Indication:Change in mole Change in mole : How to acce ss health information online - Detail Indication:Change in mole Change in mole : Patient Ins tructions Indication:Change in mole BMI 37.0-37.9, adult : How t o access health information online Indication:BMI 37.0-37.9, adult BMI 37.0-37.9, adult : How t o access health information online - Detail Indication:BMI 37.0-37.9, adult BMI 37.0-37.9, adult : Patie nt Instructions Indication:BMI 37.0-37.9, adult Acute sinusitis, unspecified : How to access health information online Indication:Acute sinusitis, unspecified Acute sinusitis, unspecified : How to access health information online - Detail Indication:Acute sinusitis, unspecified Acute sinusitis, unspecified : Patient Instructions Indication:Acute sinusitis, unspecified Hypothyroid : How to access health information online Indication:Hypothyroid Hypothyroid : How to access health information online - Detail Indication:Hypothyroid Hypothyroid : Patient Instru ctions Indication:Hypothyroid Gastroesophageal reflux dise ase without esophagitis : Patient Instructions Indication:Gastroesophageal reflux disease without esophagitis Chest pain : Patient Instruc tions Indication:Chest pain Knee pain : Patient Instruct ions Indication:Knee pain Fever, unspecified : Patient Instructions Indication:Fever, unspecified Name Dates Details How to access health informa tion online Indication:BMI 38.0-38.9,adult Start:28-Jul-2018 Instruction Type:Patient Education How to access health informa tion online - Detail Indication:BMI 38.0-38.9,adult Start:28-Jul-2018 Instruction Type:Patient Education Patient Instructions Indication:BMI 38.0-38.9,adult Start:28-Jul-2018 Instruction Type:Provider Instructions for Treatment How to access health informa tion online Indication:Body mass index 35.0-35.9, adult Start:08-Mar-2017 Instruction Type:Patient Education How to access health informa tion online - Detail Indication:Body mass index 35.0-35.9, adult Start:08-Mar-2017 Instruction Type:Patient Education Patient Instructions Indication:Body mass index 35.0-35.9, adult Start:08-Mar-2017 Instruction Type:Provider Instructions for Treatment How to access health informa tion online Indication:Nonsmoker Start:29-Nov-2016 Instruction Type:Patient Education How to access health informa tion online - Detail Indication:Nonsmoker Start:29-Nov-2016 Instruction Type:Patient Education Patient Instructions Indication:Nonsmoker Start:29-Nov-2016 Instruction Type:Provider Instructions for Treatment How to access health informa tion online Indication:Viral syndrome Start:02-Nov-2016 Instruction Type:Patient Education How to access health informa tion online - Detail Indication:Viral syndrome Start:02-Nov-2016 Instruction Type:Patient Education Patient Instructions Indication:Viral syndrome Start:02-Nov-2016 Instruction Type:Provider Instructions for Treatment How to access health informa tion online Indication:Change in mole Start:23-Sep-2016 Instruction Type:Patient Education How to access health informa tion online - Detail Indication:Change in mole Start:23-Sep-2016 Instruction Type:Patient Education Patient Instructions Indication:Change in mole Start:23-Sep-2016 Instruction Type:Provider Instructions for Treatment How to access health informa tion online Indication:BMI 37.0-37.9, adult Start:29-Jul-2016 Instruction Type:Patient Education How to access health informa tion online - Detail Indication:BMI 37.0-37.9, adult Start:29-Jul-2016 Instruction Type:Patient Education Patient Instructions Indication:BMI 37.0-37.9, adult Start:29-Jul-2016 Instruction Type:Provider Instructions for Treatment How to access health informa tion online Indication:Acute sinusitis, unspecified Start:18-Dec-2015 Instruction Type:Patient Education How to access health informa tion online - Detail Indication:Acute sinusitis, unspecified Start:18-Dec-2015 Instruction Type:Patient Education Patient Instructions Indication:Acute sinusitis, unspecified Start:18-Dec-2015 Instruction Type:Provider Instructions for Treatment How to access health informa tion online Indication:Hypothyroid Start:21-Jul-2015 Instruction Type:Patient Education How to access health informa tion online - Detail Indication:Hypothyroid Start:21-Jul-2015 Instruction Type:Patient Education Patient Instructions Indication:Hypothyroid Start:21-Jul-2015 Instruction Type:Provider Instructions for Treatment Patient Instructions Indication:Gastroesophageal reflux disease without esophagitis Start:19-Dec-2014 Instruction Type:Provider Instructions for Treatment Patient Instructions Indication:Chest pain Start:28-May-2014 Instruction Type:Provider Instructions for Treatment Patient Instructions Indication:Knee pain Start:23-Feb-2013 Instruction Type:Provider Instructions for Treatment Patient Instructions Indication:Fever, unspecified Start:24-Aug-2012 Instruction Type:Provider Instructions for Treatment Name Dates Details How to access health informa tion online Indication:Non-smoker Start:24-Mar-2020 Instruction Type:Patient Education How to access health informa tion online - Detail Indication:Non-smoker Start:24-Mar-2020 Instruction Type:Patient Education Patient Instructions Indication:Non-smoker Start:24-Mar-2020 Instruction Type:Provider Instructions for Treatment How to access health informa tion online Indication:Sheba thyroiditis, 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 Instruction Type:Patient Education How to access health informa tion online - Detail Indication:Sheba thyroiditis, 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 Instruction Type:Patient Education Patient Instructions Indication:Sheba thyroiditis, 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 Instruction Type:Provider Instructions for Treatment How to access health informa tion online Indication:Low back pain Start:01-Nov-2019 Instruction Type:Patient Education How to access health informa tion online - Detail Indication:Low back pain Start:01-Nov-2019 Instruction Type:Patient Education Patient Instructions Indication:Low back pain Start:01-Nov-2019 Instruction Type:Provider Instructions for Treatment How to access health informa tion online Indication:BMI 38.0-38.9,adult Start:28-Jul-2018 Instruction Type:Patient Education How to access health informa tion online - Detail Indication:BMI 38.0-38.9,adult Start:28-Jul-2018 Instruction Type:Patient Education Patient Instructions Indication:BMI 38.0-38.9,adult Start:28-Jul-2018 Instruction Type:Provider Instructions for Treatment How to access health informa tion online Indication:Body mass index 35.0-35.9, adult Start:08-Mar-2017 Instruction Type:Patient Education How to access health informa tion online - Detail Indication:Body mass index 35.0-35.9, adult Start:08-Mar-2017 Instruction Type:Patient Education Patient Instructions Indication:Body mass index 35.0-35.9, adult Start:08-Mar-2017 Instruction Type:Provider Instructions for Treatment How to access health informa tion online Indication:Nonsmoker Start:29-Nov-2016 Instruction Type:Patient Education How to access health informa tion online - Detail Indication:Nonsmoker Start:29-Nov-2016 Instruction Type:Patient Education Patient Instructions Indication:Nonsmoker Start:29-Nov-2016 Instruction Type:Provider Instructions for Treatment How to access health informa tion online Indication:Viral syndrome Start:02-Nov-2016 Instruction Type:Patient Education How to access health informa tion online - Detail Indication:Viral syndrome Start:02-Nov-2016 Instruction Type:Patient Education Patient Instructions Indication:Viral syndrome Start:02-Nov-2016 Instruction Type:Provider Instructions for Treatment How to access health informa tion online Indication:Change in mole Start:23-Sep-2016 Instruction Type:Patient Education How to access health informa tion online - Detail Indication:Change in mole Start:23-Sep-2016 Instruction Type:Patient Education Patient Instructions Indication:Change in mole Start:23-Sep-2016 Instruction Type:Provider Instructions for Treatment How to access health informa tion online Indication:BMI 37.0-37.9, adult Start:29-Jul-2016 Instruction Type:Patient Education How to access health informa tion online - Detail Indication:BMI 37.0-37.9, adult Start:29-Jul-2016 Instruction Type:Patient Education Patient Instructions Indication:BMI 37.0-37.9, adult Start:29-Jul-2016 Instruction Type:Provider Instructions for Treatment How to access health informa tion online Indication:Acute sinusitis, unspecified Start:18-Dec-2015 Instruction Type:Patient Education How to access health informa tion online - Detail Indication:Acute sinusitis, unspecified Start:18-Dec-2015 Instruction Type:Patient Education Patient Instructions Indication:Acute sinusitis, unspecified Start:18-Dec-2015 Instruction Type:Provider Instructions for Treatment How to access health informa tion online Indication:Hypothyroid Start:21-Jul-2015 Instruction Type:Patient Education How to access health informa tion online - Detail Indication:Hypothyroid Start:21-Jul-2015 Instruction Type:Patient Education Patient Instructions Indication:Hypothyroid Start:21-Jul-2015 Instruction Type:Provider Instructions for Treatment Patient Instructions Indication:Gastroesophageal reflux disease without esophagitis Start:19-Dec-2014 Instruction Type:Provider Instructions for Treatment Patient Instructions Indication:Chest pain Start:28-May-2014 Instruction Type:Provider Instructions for Treatment Patient Instructions Indication:Knee pain Start:23-Feb-2013 Instruction Type:Provider Instructions for Treatment Patient Instructions Indication:Fever, unspecified Start:24-Aug-2012 Instruction Type:Provider Instructions for Treatment Name Dates Details How to access health informa tion online Indication:Non-smoker Start:24-Mar-2020 Instruction Type:Patient Education How to access health informa tion online - Detail Indication:Non-smoker Start:24-Mar-2020 Instruction Type:Patient Education Patient Instructions Indication:Non-smoker Start:24-Mar-2020 Instruction Type:Provider Instructions for Treatment How to access health informa tion online Indication:Sheba thyroiditis, 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 Instruction Type:Patient Education How to access health informa tion online - Detail Indication:Sheba thyroiditis, 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 Instruction Type:Patient Education Patient Instructions Indication:Sheba thyroiditis, 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 Instruction Type:Provider Instructions for Treatment How to access health informa tion online Indication:Low back pain Start:01-Nov-2019 Instruction Type:Patient Education How to access health informa tion online - Detail Indication:Low back pain Start:01-Nov-2019 Instruction Type:Patient Education Patient Instructions Indication:Low back pain Start:01-Nov-2019 Instruction Type:Provider Instructions for Treatment How to access health informa tion online Indication:BMI 38.0-38.9,adult Start:28-Jul-2018 Instruction Type:Patient Education How to access health informa tion online - Detail Indication:BMI 38.0-38.9,adult Start:28-Jul-2018 Instruction Type:Patient Education Patient Instructions Indication:BMI 38.0-38.9,adult Start:28-Jul-2018 Instruction Type:Provider Instructions for Treatment How to access health informa tion online Indication:Body mass index 35.0-35.9, adult Start:08-Mar-2017 Instruction Type:Patient Education How to access health informa tion online - Detail Indication:Body mass index 35.0-35.9, adult Start:08-Mar-2017 Instruction Type:Patient Education Patient Instructions Indication:Body mass index 35.0-35.9, adult Start:08-Mar-2017 Instruction Type:Provider Instructions for Treatment How to access health informa tion online Indication:Nonsmoker Start:29-Nov-2016 Instruction Type:Patient Education How to access health informa tion online - Detail Indication:Nonsmoker Start:29-Nov-2016 Instruction Type:Patient Education Patient Instructions Indication:Nonsmoker Start:29-Nov-2016 Instruction Type:Provider Instructions for Treatment How to access health informa tion online Indication:Viral syndrome Start:02-Nov-2016 Instruction Type:Patient Education How to access health informa tion online - Detail Indication:Viral syndrome Start:02-Nov-2016 Instruction Type:Patient Education Patient Instructions Indication:Viral syndrome Start:02-Nov-2016 Instruction Type:Provider Instructions for Treatment How to access health informa tion online Indication:Change in mole Start:23-Sep-2016 Instruction Type:Patient Education How to access health informa tion online - Detail Indication:Change in mole Start:23-Sep-2016 Instruction Type:Patient Education Patient Instructions Indication:Change in mole Start:23-Sep-2016 Instruction Type:Provider Instructions for Treatment How to access health informa tion online Indication:BMI 37.0-37.9, adult Start:29-Jul-2016 Instruction Type:Patient Education How to access health informa tion online - Detail Indication:BMI 37.0-37.9, adult Start:29-Jul-2016 Instruction Type:Patient Education Patient Instructions Indication:BMI 37.0-37.9, adult Start:29-Jul-2016 Instruction Type:Provider Instructions for Treatment How to access health informa tion online Indication:Acute sinusitis, unspecified Start:18-Dec-2015 Instruction Type:Patient Education How to access health informa tion online - Detail Indication:Acute sinusitis, unspecified Start:18-Dec-2015 Instruction Type:Patient Education Patient Instructions Indication:Acute sinusitis, unspecified Start:18-Dec-2015 Instruction Type:Provider Instructions for Treatment How to access health informa tion online Indication:Hypothyroid Start:21-Jul-2015 Instruction Type:Patient Education How to access health informa tion online - Detail Indication:Hypothyroid Start:21-Jul-2015 Instruction Type:Patient Education Patient Instructions Indication:Hypothyroid Start:21-Jul-2015 Instruction Type:Provider Instructions for Treatment Patient Instructions Indication:Gastroesophageal reflux disease without esophagitis Start:19-Dec-2014 Instruction Type:Provider Instructions for Treatment Patient Instructions Indication:Chest pain Start:28-May-2014 Instruction Type:Provider Instructions for Treatment Patient Instructions Indication:Knee pain Start:23-Feb-2013 Instruction Type:Provider Instructions for Treatment Patient Instructions Indication:Fever, unspecified Start:24-Aug-2012 Instruction Type:Provider Instructions for Treatment Name Dates Details Patient Instructions Indication:COVID-19 Start:23-Dec-2020 Instruction Type:Provider Instructions for Treatment How to Access Health Informa tion Online using Patient Portal and [employer]rd [employer] Apps Indication:COVID-19 Start:23-Dec-2020 Instruction Type:Patient Education How to access health informa tion online Indication:Non-smoker Start:24-Mar-2020 Instruction Type:Patient Education How to access health informa tion online - Detail Indication:Non-smoker Start:24-Mar-2020 Instruction Type:Patient Education Patient Instructions Indication:Non-smoker Start:24-Mar-2020 Instruction Type:Provider Instructions for Treatment How to access health informa tion online Indication:Sheba thyroiditis, 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 Instruction Type:Patient Education How to access health informa tion online - Detail Indication:Sheba thyroiditis, 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 Instruction Type:Patient Education Patient Instructions Indication:Sheba thyroiditis, 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 Instruction Type:Provider Instructions for Treatment How to access health informa tion online Indication:Low back pain Start:01-Nov-2019 Instruction Type:Patient Education How to access health informa tion online - Detail Indication:Low back pain Start:01-Nov-2019 Instruction Type:Patient Education Patient Instructions Indication:Low back pain Start:01-Nov-2019 Instruction Type:Provider Instructions for Treatment How to access health informa tion online Indication:BMI 38.0-38.9,adult Start:28-Jul-2018 Instruction Type:Patient Education How to access health informa tion online - Detail Indication:BMI 38.0-38.9,adult Start:28-Jul-2018 Instruction Type:Patient Education Patient Instructions Indication:BMI 38.0-38.9,adult Start:28-Jul-2018 Instruction Type:Provider Instructions for Treatment How to access health informa tion online Indication:Body mass index 35.0-35.9, adult Start:08-Mar-2017 Instruction Type:Patient Education How to access health informa tion online - Detail Indication:Body mass index 35.0-35.9, adult Start:08-Mar-2017 Instruction Type:Patient Education Patient Instructions Indication:Body mass index 35.0-35.9, adult Start:08-Mar-2017 Instruction Type:Provider Instructions for Treatment How to access health informa tion online Indication:Nonsmoker Start:29-Nov-2016 Instruction Type:Patient Education How to access health informa tion online - Detail Indication:Nonsmoker Start:29-Nov-2016 Instruction Type:Patient Education Patient Instructions Indication:Nonsmoker Start:29-Nov-2016 Instruction Type:Provider Instructions for Treatment How to access health informa tion online Indication:Viral syndrome Start:02-Nov-2016 Instruction Type:Patient Education How to access health informa tion online - Detail Indication:Viral syndrome Start:02-Nov-2016 Instruction Type:Patient Education Patient Instructions Indication:Viral syndrome Start:02-Nov-2016 Instruction Type:Provider Instructions for Treatment How to access health informa tion online Indication:Change in mole Start:23-Sep-2016 Instruction Type:Patient Education How to access health informa tion online - Detail Indication:Change in mole Start:23-Sep-2016 Instruction Type:Patient Education Patient Instructions Indication:Change in mole Start:23-Sep-2016 Instruction Type:Provider Instructions for Treatment How to access health informa tion online Indication:BMI 37.0-37.9, adult Start:29-Jul-2016 Instruction Type:Patient Education How to access health informa tion online - Detail Indication:BMI 37.0-37.9, adult Start:29-Jul-2016 Instruction Type:Patient Education Patient Instructions Indication:BMI 37.0-37.9, adult Start:29-Jul-2016 Instruction Type:Provider Instructions for Treatment How to access health informa tion online Indication:Acute sinusitis, unspecified Start:18-Dec-2015 Instruction Type:Patient Education How to access health informa tion online - Detail Indication:Acute sinusitis, unspecified Start:18-Dec-2015 Instruction Type:Patient Education Patient Instructions Indication:Acute sinusitis, unspecified Start:18-Dec-2015 Instruction Type:Provider Instructions for Treatment How to access health informa tion online Indication:Hypothyroid Start:21-Jul-2015 Instruction Type:Patient Education How to access health informa tion online - Detail Indication:Hypothyroid Start:21-Jul-2015 Instruction Type:Patient Education Patient Instructions Indication:Hypothyroid Start:21-Jul-2015 Instruction Type:Provider Instructions for Treatment Patient Instructions Indication:Gastroesophageal reflux disease without esophagitis Start:19-Dec-2014 Instruction Type:Provider Instructions for Treatment Patient Instructions Indication:Chest pain Start:28-May-2014 Instruction Type:Provider Instructions for Treatment Patient Instructions Indication:Knee pain Start:23-Feb-2013 Instruction Type:Provider Instructions for Treatment Patient Instructions Indication:Fever, unspecified Start:24-Aug-2012 Instruction Type:Provider Instructions for Treatment Name Dates Details Patient Instructions Indication:BMI 36.0-36.9,adult Start:23-Dec-2020 Instruction Type:Provider Instructions for Treatment How to Access Health Informa tion Online using Patient Portal and [employer]rd [employer] Apps Indication:COVID-19 Start:23-Dec-2020 Instruction Type:Patient Education How to access health informa tion online Indication:Non-smoker Start:24-Mar-2020 Instruction Type:Patient Education How to access health informa tion online - Detail Indication:Non-smoker Start:24-Mar-2020 Instruction Type:Patient Education Patient Instructions Indication:Non-smoker Start:24-Mar-2020 Instruction Type:Provider Instructions for Treatment How to access health informa tion online Indication:Sheba thyroiditis, 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 Instruction Type:Patient Education How to access health informa tion online - Detail Indication:Sheba thyroiditis, 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 Instruction Type:Patient Education Patient Instructions Indication:Sheba thyroiditis, 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 Instruction Type:Provider Instructions for Treatment How to access health informa tion online Indication:Low back pain Start:01-Nov-2019 Instruction Type:Patient Education How to access health informa tion online - Detail Indication:Low back pain Start:01-Nov-2019 Instruction Type:Patient Education Patient Instructions Indication:Low back pain Start:01-Nov-2019 Instruction Type:Provider Instructions for Treatment How to access health informa tion online Indication:BMI 38.0-38.9,adult Start:28-Jul-2018 Instruction Type:Patient Education How to access health informa tion online - Detail Indication:BMI 38.0-38.9,adult Start:28-Jul-2018 Instruction Type:Patient Education Patient Instructions Indication:BMI 38.0-38.9,adult Start:28-Jul-2018 Instruction Type:Provider Instructions for Treatment How to access health informa tion online Indication:Body mass index 35.0-35.9, adult Start:08-Mar-2017 Instruction Type:Patient Education How to access health informa tion online - Detail Indication:Body mass index 35.0-35.9, adult Start:08-Mar-2017 Instruction Type:Patient Education Patient Instructions Indication:Body mass index 35.0-35.9, adult Start:08-Mar-2017 Instruction Type:Provider Instructions for Treatment How to access health informa tion online Indication:Nonsmoker Start:29-Nov-2016 Instruction Type:Patient Education How to access health informa tion online - Detail Indication:Nonsmoker Start:29-Nov-2016 Instruction Type:Patient Education Patient Instructions Indication:Nonsmoker Start:29-Nov-2016 Instruction Type:Provider Instructions for Treatment How to access health informa tion online Indication:Viral syndrome Start:02-Nov-2016 Instruction Type:Patient Education How to access health informa tion online - Detail Indication:Viral syndrome Start:02-Nov-2016 Instruction Type:Patient Education Patient Instructions Indication:Viral syndrome Start:02-Nov-2016 Instruction Type:Provider Instructions for Treatment How to access health informa tion online Indication:Change in mole Start:23-Sep-2016 Instruction Type:Patient Education How to access health informa tion online - Detail Indication:Change in mole Start:23-Sep-2016 Instruction Type:Patient Education Patient Instructions Indication:Change in mole Start:23-Sep-2016 Instruction Type:Provider Instructions for Treatment How to access health informa tion online Indication:BMI 37.0-37.9, adult Start:29-Jul-2016 Instruction Type:Patient Education How to access health informa tion online - Detail Indication:BMI 37.0-37.9, adult Start:29-Jul-2016 Instruction Type:Patient Education Patient Instructions Indication:BMI 37.0-37.9, adult Start:29-Jul-2016 Instruction Type:Provider Instructions for Treatment How to access health informa tion online Indication:Acute sinusitis, unspecified Start:18-Dec-2015 Instruction Type:Patient Education How to access health informa tion online - Detail Indication:Acute sinusitis, unspecified Start:18-Dec-2015 Instruction Type:Patient Education Patient Instructions Indication:Acute sinusitis, unspecified Start:18-Dec-2015 Instruction Type:Provider Instructions for Treatment How to access health informa tion online Indication:Hypothyroid Start:21-Jul-2015 Instruction Type:Patient Education How to access health informa tion online - Detail Indication:Hypothyroid Start:21-Jul-2015 Instruction Type:Patient Education Patient Instructions Indication:Hypothyroid Start:21-Jul-2015 Instruction Type:Provider Instructions for Treatment Patient Instructions Indication:Gastroesophageal reflux disease without esophagitis Start:19-Dec-2014 Instruction Type:Provider Instructions for Treatment Patient Instructions Indication:Chest pain Start:28-May-2014 Instruction Type:Provider Instructions for Treatment Patient Instructions Indication:Knee pain Start:23-Feb-2013 Instruction Type:Provider Instructions for Treatment Patient Instructions Indication:Fever, unspecified Start:24-Aug-2012 Instruction Type:Provider Instructions for Treatment Name Dates Details Patient Instructions Indication:BMI 36.0-36.9,adult Start:23-Dec-2020 Instruction Type:Provider Instructions for Treatment How to Access Health Informa tion Online using Patient Portal and [employer]rd [employer] Apps Indication:COVID-19 Start:23-Dec-2020 Instruction Type:Patient Education How to access health informa tion online Indication:Non-smoker Start:24-Mar-2020 Instruction Type:Patient Education How to access health informa tion online - Detail Indication:Non-smoker Start:24-Mar-2020 Instruction Type:Patient Education Patient Instructions Indication:Non-smoker Start:24-Mar-2020 Instruction Type:Provider Instructions for Treatment How to access health informa tion online Indication:Sheba thyroiditis, 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 Instruction Type:Patient Education How to access health informa tion online - Detail Indication:Sheba thyroiditis, 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 Instruction Type:Patient Education Patient Instructions Indication:Sheba thyroiditis, 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 Instruction Type:Provider Instructions for Treatment How to access health informa tion online Indication:Low back pain Start:01-Nov-2019 Instruction Type:Patient Education How to access health informa tion online - Detail Indication:Low back pain Start:01-Nov-2019 Instruction Type:Patient Education Patient Instructions Indication:Low back pain Start:01-Nov-2019 Instruction Type:Provider Instructions for Treatment How to access health informa tion online Indication:BMI 38.0-38.9,adult Start:28-Jul-2018 Instruction Type:Patient Education How to access health informa tion online - Detail Indication:BMI 38.0-38.9,adult Start:28-Jul-2018 Instruction Type:Patient Education Patient Instructions Indication:BMI 38.0-38.9,adult Start:28-Jul-2018 Instruction Type:Provider Instructions for Treatment How to access health informa tion online Indication:Body mass index 35.0-35.9, adult Start:08-Mar-2017 Instruction Type:Patient Education How to access health informa tion online - Detail Indication:Body mass index 35.0-35.9, adult Start:08-Mar-2017 Instruction Type:Patient Education Patient Instructions Indication:Body mass index 35.0-35.9, adult Start:08-Mar-2017 Instruction Type:Provider Instructions for Treatment How to access health informa tion online Indication:Nonsmoker Start:29-Nov-2016 Instruction Type:Patient Education How to access health informa tion online - Detail Indication:Nonsmoker Start:29-Nov-2016 Instruction Type:Patient Education Patient Instructions Indication:Nonsmoker Start:29-Nov-2016 Instruction Type:Provider Instructions for Treatment How to access health informa tion online Indication:Viral syndrome Start:02-Nov-2016 Instruction Type:Patient Education How to access health informa tion online - Detail Indication:Viral syndrome Start:02-Nov-2016 Instruction Type:Patient Education Patient Instructions Indication:Viral syndrome Start:02-Nov-2016 Instruction Type:Provider Instructions for Treatment How to access health informa tion online Indication:Change in mole Start:23-Sep-2016 Instruction Type:Patient Education How to access health informa tion online - Detail Indication:Change in mole Start:23-Sep-2016 Instruction Type:Patient Education Patient Instructions Indication:Change in mole Start:23-Sep-2016 Instruction Type:Provider Instructions for Treatment How to access health informa tion online Indication:BMI 37.0-37.9, adult Start:29-Jul-2016 Instruction Type:Patient Education How to access health informa tion online - Detail Indication:BMI 37.0-37.9, adult Start:29-Jul-2016 Instruction Type:Patient Education Patient Instructions Indication:BMI 37.0-37.9, adult Start:29-Jul-2016 Instruction Type:Provider Instructions for Treatment How to access health informa tion online Indication:Acute sinusitis, unspecified Start:18-Dec-2015 Instruction Type:Patient Education How to access health informa tion online - Detail Indication:Acute sinusitis, unspecified Start:18-Dec-2015 Instruction Type:Patient Education Patient Instructions Indication:Acute sinusitis, unspecified Start:18-Dec-2015 Instruction Type:Provider Instructions for Treatment How to access health informa tion online Indication:Hypothyroid Start:21-Jul-2015 Instruction Type:Patient Education How to access health informa tion online - Detail Indication:Hypothyroid Start:21-Jul-2015 Instruction Type:Patient Education Patient Instructions Indication:Hypothyroid Start:21-Jul-2015 Instruction Type:Provider Instructions for Treatment Patient Instructions Indication:Gastroesophageal reflux disease without esophagitis Start:19-Dec-2014 Instruction Type:Provider Instructions for Treatment Patient Instructions Indication:Chest pain Start:28-May-2014 Instruction Type:Provider Instructions for Treatment Patient Instructions Indication:Knee pain Start:23-Feb-2013 Instruction Type:Provider Instructions for Treatment Patient Instructions Indication:Fever, unspecified Start:24-Aug-2012 Instruction Type:Provider Instructions for Treatment Name Dates Details How to Access Health Informa tion Online using Patient Portal and 3rd [employer] Apps Indication:Non-smoker Start:26-Dec-2020 Instruction Type:Patient Education Patient Instructions Indication:Non-smoker Start:26-Dec-2020 Instruction Type:Provider Instructions for Treatment Patient Instructions Indication:BMI 36.0-36.9,adult Start:25-Dec-2020 Instruction Type:Provider Instructions for Treatment How to Access Health Informa tion Online using Patient Portal and [employer]rd [employer] Apps Indication:BMI 36.0-36.9,adult Start:25-Dec-2020 Instruction Type:Patient Education Patient Instructions Indication:BMI 36.0-36.9,adult Start:23-Dec-2020 Instruction Type:Provider Instructions for Treatment How to Access Health Informa tion Online using Patient Portal and 3rd [employer] Apps Indication:COVID-19 Start:23-Dec-2020 Instruction Type:Patient Education How to access health informa tion online Indication:Non-smoker Start:24-Mar-2020 Instruction Type:Patient Education How to access health informa tion online - Detail Indication:Non-smoker Start:24-Mar-2020 Instruction Type:Patient Education Patient Instructions Indication:Non-smoker Start:24-Mar-2020 Instruction Type:Provider Instructions for Treatment How to access health informa tion online Indication:[place] thyroiditis, 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 Instruction Type:Patient Education How to access health informa tion online - Detail Indication:[place]ba thyroiditis, 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 Instruction Type:Patient Education Patient Instructions Indication:[place]ba thyroiditis, 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 Instruction Type:Provider Instructions for Treatment How to access health informa tion online Indication:Low back pain Start:01-Nov-2019 Instruction Type:Patient Education How to access health informa tion online - Detail Indication:Low back pain Start:01-Nov-2019 Instruction Type:Patient Education Patient Instructions Indication:Low back pain Start:01-Nov-2019 Instruction Type:Provider Instructions for Treatment How to access health informa tion online Indication:BMI 38.0-38.9,adult Start:28-Jul-2018 Instruction Type:Patient Education How to access health informa tion online - Detail Indication:BMI 38.0-38.9,adult Start:28-Jul-2018 Instruction Type:Patient Education Patient Instructions Indication:BMI 38.0-38.9,adult Start:28-Jul-2018 Instruction Type:Provider Instructions for Treatment How to access health informa tion online Indication:Body mass index 35.0-35.9, adult Start:08-Mar-2017 Instruction Type:Patient Education How to access health informa tion online - Detail Indication:Body mass index 35.0-35.9, adult Start:08-Mar-2017 Instruction Type:Patient Education Patient Instructions Indication:Body mass index 35.0-35.9, adult Start:08-Mar-2017 Instruction Type:Provider Instructions for Treatment How to access health informa tion online Indication:Nonsmoker Start:29-Nov-2016 Instruction Type:Patient Education How to access health informa tion online - Detail Indication:Nonsmoker Start:29-Nov-2016 Instruction Type:Patient Education Patient Instructions Indication:Nonsmoker Start:29-Nov-2016 Instruction Type:Provider Instructions for Treatment How to access health informa tion online Indication:Viral syndrome Start:02-Nov-2016 Instruction Type:Patient Education How to access health informa tion online - Detail Indication:Viral syndrome Start:02-Nov-2016 Instruction Type:Patient Education Patient Instructions Indication:Viral syndrome Start:02-Nov-2016 Instruction Type:Provider Instructions for Treatment How to access health informa tion online Indication:Change in mole Start:23-Sep-2016 Instruction Type:Patient Education How to access health informa tion online - Detail Indication:Change in mole Start:23-Sep-2016 Instruction Type:Patient Education Patient Instructions Indication:Change in mole Start:23-Sep-2016 Instruction Type:Provider Instructions for Treatment How to access health informa tion online Indication:BMI 37.0-37.9, adult Start:29-Jul-2016 Instruction Type:Patient Education How to access health informa tion online - Detail Indication:BMI 37.0-37.9, adult Start:29-Jul-2016 Instruction Type:Patient Education Patient Instructions Indication:BMI 37.0-37.9, adult Start:29-Jul-2016 Instruction Type:Provider Instructions for Treatment How to access health informa tion online Indication:Acute sinusitis, unspecified Start:18-Dec-2015 Instruction Type:Patient Education How to access health informa tion online - Detail Indication:Acute sinusitis, unspecified Start:18-Dec-2015 Instruction Type:Patient Education Patient Instructions Indication:Acute sinusitis, unspecified Start:18-Dec-2015 Instruction Type:Provider Instructions for Treatment How to access health informa tion online Indication:Hypothyroid Start:21-Jul-2015 Instruction Type:Patient Education How to access health informa tion online - Detail Indication:Hypothyroid Start:21-Jul-2015 Instruction Type:Patient Education Patient Instructions Indication:Hypothyroid Start:21-Jul-2015 Instruction Type:Provider Instructions for Treatment Patient Instructions Indication:Gastroesophageal reflux disease without esophagitis Start:19-Dec-2014 Instruction Type:Provider Instructions for Treatment Patient Instructions Indication:Chest pain Start:28-May-2014 Instruction Type:Provider Instructions for Treatment Patient Instructions Indication:Knee pain Start:23-Feb-2013 Instruction Type:Provider Instructions for Treatment Patient Instructions Indication:Fever, unspecified Start:24-Aug-2012 Instruction Type:Provider Instructions for Treatment Advance Directives No Advanced Directives Records Found Name Dates Details Immunization Registry [place] - Effective on 03/28/2018. Expires on 06/13/2020 Effective:28-Mar-2018 Name Dates Details Immunization Registry [place] - Effective on 03/28/2018. Expires on 06/13/2020 Effective:28-Mar-2018 Name Dates Details Immunization Registry [place] - Effective on 03/28/2018. Expires on 06/13/2020 Effective:28-Mar-2018 Name Dates Details Immunization Registry [place] - Effective on 03/28/2018. Expires on 06/13/2020 Effective:28-Mar-2018 Name Dates Details Immunization Registry [place] - Effective on 03/28/2018. Expires on 06/13/2020 Effective:28-Mar-2018 Name Dates Details Immunization Registry [place] - Effective on 03/28/2018. Expires on 06/13/2020 Effective:28-Mar-2018 Name Dates Details Immunization Registry [place] - Effective on 03/28/2018. Expires on 06/13/2020 Effective:28-Mar-2018 Name Dates Details Immunization Registry [place] - Effective on 03/28/2018. Expires on 06/13/2020 Effective:28-Mar-2018 Name Dates Details Immunization Registry [place] - Effective on 03/28/2018. Expires on 06/13/2020 Effective:28-Mar-2018 Name Dates Details Immunization Registry [place] - Effective on 03/28/2018. Expires on 06/13/2020 Effective:28-Mar-2018 Name Dates Details Immunization Registry [place] - Effective on 03/28/2018. Expires on 06/13/2020 Effective:28-Mar-2018 Name Dates Details Immunization Registry [place] - Effective on 03/28/2018. Expires on 06/13/2020 Effective:28-Mar-2018 Name Dates Details Immunization Registry [place] - Effective on 03/28/2018. Expires on 06/13/2020 Effective:28-Mar-2018 Name Dates Details Immunization Registry [place] - Effective on 03/28/2018. Expires on 06/13/2020 Effective:28-Mar-2018 Name Dates Details Immunization Registry [place] - Effective on 03/28/2018. Expires on 06/13/2020 Effective:28-Mar-2018 Advance Directive Response Recorded Date/ Time Living Will No December 25, 2020 5:13pm Power of Associate Professor Of Archaeology No December 25 5:13pm Name Dates Details Immunization Registry [place] - Effective on 03/28/2018. Expires on 06/13/2020 Effective:28-Mar-2018 Name Dates Details Immunization Registry [place] - Effective on 03/28/2018. Expires on 06/13/2020 Effective:28-Mar-2018 Name Dates Details Immunization Registry [place] - Effective on 03/28/2018. Expires on 06/13/2020 Effective:28-Mar-2018 Name Dates Details Immunization Registry [place] - Effective on 03/28/2018. Expires on 06/13/2020 Effective:28-Mar-2018 Name Dates Details Immunization Registry [place] - Effective on 03/28/2018. Expires on 06/13/2020 Effective:28-Mar-2018 Name Dates Details Immunization Registry [place] - Effective on 03/28/2018. Expires on 06/13/2020 Effective:28-Mar-2018 Name Dates Details Immunization Registry [place] - Effective on 03/28/2018. Expires on 06/13/2020 Effective:28-Mar-2018 Name Dates Details Immunization Registry [place] - Effective on 03/28/2018. Expires on 06/13/2020 Effective:28-Mar-2018 Advance Directive Response Recorded Date/ Time Living Will No December 25, 2020 4:13pm Power of Associate Professor Of Archaeology No December 25 4:13pm Chief Complaint and Reason for Visit Chief Complaint SCREENING/POST CASTRO Chief Complaint xray Chief Complaint xray ABNORMAL EKG, R BBB Chief Complaint Admit Date LOCALIZED EDEMA; LOWER EXTREMITY December 132024 6:51am SCREENING/POST CASTRO May 01, 2025 3: 25pm Chief Complaint Admit Date SCREENING/POST CASTRO May 01, 2025 3: 25pm pain and arthritis May 24, 2025 3:18pm TYLER May 28, 2025 7:49pm Chief Complaint Admit Date SCREENING/POST CASTRO May 01, 2025 3: 25pm pain and arthritis May 24, 2025 3:18pm TYLER May 28, 2025 7:49pm Sleep problems June 12, 2025 1: 46pm Reason for Visit Admit Date Essential hypertension June 12, 2025 1:46pm Obesity June 12, 2025 1: 46pm Obstructive sleep apnea June 12 1:46pm Family History No Family History Records Found Relationship Condition Age at Onset Recorded Date/T ruben mother Hypertension Unknown father Cerebrovascular accident (CVA) Unknown Summary Purpose Additional Source Comments Goals (unrecognized section and content) Goals may be documented in a n alternate sectionGoals may be documented in an alternate sectionGoals may be documented in an alternate sectionGoals may be documented in an alternate sectionGoals may be documented in an alternate sectionGoals may be documented in an alternate sectionGoals may be documented in an alternate section INFORMATION SOURCE (unrecogn ized section and content) DATE CREATED AUTHOR 11/29/2022 [facility] DATE CREATED AUTHOR AUTHOR'S ORGANIZ ATION [facility] Care Teams (unrecognized sec tion and content) Team Status: Active Member Role Status Dates Dr. Ana Luisa Nielson , DO Family Provider Active Dr. Ana Luisa Nielson , DO Primary Care Provider Active Team Status: Inactive Member Role Status Dates Dr. nAa Luisa Nielson , DO Primary Care Provider Active Dr. Adriel Merino MD Attending Provider Active Team Status: Inactive Member Role Status Dates Dr. Ana Luisa Nielson , DO Primary Care Provider Active MELIZA Shah Attending Provider Active Team Status: Active Member Role Status Dates Dr. Ana Luisa Nielson , DO Primary Care Provider Active Dr. Kalin Rooney MD Attending Provider Activ e Team Status: Inactive Member Role Status Dates DrJamar Nielson DO Primary Care Provider Active Laney Maria NP-C Attending Provider, Referring Pr ovider Active Team Status: Active Member Role/Relationship Status Dates Dr. Ana Luisa Nielson DO Primary Care Provider Active Team Status: Inactive Member Role/Relationship Status Dates Dr. Ana Luisa Nielson DO Primary Care Provider Active Start: January 09, 2025 End: January 09, 2025 Dr. Ana Luisa Nielson DO Attending Provider Active Start: January 09, 2025 End: January 09, 2025 Dr. Ana Luisa Nielson DO Referring Provider Active Start: January 09, 2025 End: January 09, 2025 Team Status: Active Member Role/Relationship Status Dates Dr. Ana Luisa Nielson DO Primary Care Provider Active Start: January 09, 2025 Dr. Adriel Merino MD Attending Provider Active S tart: January 09, 2025 Team Status: Inactive Member Role/Relationship Status Dates Dr. Ana Luisa Nielson DO Primary Care Provider Active Start: March 12, 2025 Dr. Brenna Valenzuela MD Attending Provider Active Start: March 12, 2025 Team Status: Inactive Member Role/Relationship Status Dates Dr. Ana Luisa Nielson DO Primary Care Provider Active Start: May 01, 2025 End: May 01, 2025 Dr. Ana Luisa Nielson DO Attending Provider Active Start: May 01, 2025 End: May 01, 2025 Dr. Ana Luisa Nielson DO Referring Provider Active Start: May 01, 2025 End: May 01, 2025 Team Status: Active Member Role/Relationship Status Dates Dr. Ana Luisa Nielson DO Primary care physician Active Team Status: Inactive Member Role/Relationship Status Dates Dr. Ana Luisa Nielson DO Primary care physician Active Start: March 12, 2025 Dr. Brenna Valenzuela MD Attending physician Active Start: March 12, 2025 Team Status: Inactive Member Role/Relationship Status Dates Dr. Ana Luisa Nielson DO Primary care physician Active Start: May 01, 2025 End: May 01, 2025 Dr. Ana Luisa Nielson DO Attending physician Active Start: May 01, 2025 End: May 01, 2025 Dr. Ana Luisa Nielson DO Referring Provider Active Start: May 01, 2025 End: May 01, 2025 Team Status: Inactive Member Role/Relationship Status Dates Dr. Ana Luisa Nielson DO Primary care physician Active Start: May 24, 2025 End: May 24, 2025 Dr. Alejandro Miranda DPM Attending physician Active Start: May 24, 2025 End: May 24, 2025 Dr. Alejandro Miranda DPM Referring Provider Active Start: May 24, 2025 End: May 24, 2025 Team Status: Inactive Member Role/Relationship Status Dates Dr. Ana Luisa Nielson DO Primary care physician Active Start: May 28, 2025 End: May 28, 2025 Dr. Ana Luisa Nielson DO Attending physician Active Start: May 28, 2025 End: May 28, 2025 Dr. Ana Luisa Nielson DO Referring Provider Active Start: May 28, 2025 End: May 28, 2025 Team Status: Inactive Member Role/Relationship Status Dates Dr. Ana Luisa Nielson DO Primary care physician Active Start: June 12, 2025 End: June 12, 2025 Dr. Ana Luisa Nielson DO Referring Provider Active Start: June 12, 2025 End: June 12, 2025 MELIZA Dean Attending physician Active Start: June 12, 2025 End: June 12, 2025 FOR RECORDS PERTAINING TO PATIENTS WHO ARE OR HAVE BEEN ENROLLED IN A CHEMICAL DEPENDENCY/SUBSTANCEABUSE PROGRAM, SOME INFORMATION MAY BE OMITTED. This clinical summary was aggregated from multiple sources. Caution should be exercised in using it in the provision of clinical care. This summary normalizes information from multiple sources, and as a consequence, information in this document may materially change the coding, format and clinical context of patient data. In addition, data may be omitted in some cases. CLINICAL DECISIONS SHOULD BE BASED ON THE PRIMARY CLINICAL RECORDS. [employer] [facility]. provides no warranty or guarantee of the accuracy or completeness of information in this document.
--- NOTE | 2025-07-30 08:54 | STRESSREP ---
Stress Test Report Pharmacologic myocardial perfusion stress test. 70-year-old lady with a history of preop evaluation. Resting EKG demonstrates sinus rhythm with a rate of 60 bpm. Resting blood pressure is 134/84 mmHg. 0.4 mg of regadenoson was infused per usual protocol followed by rapid intravenous saline flush injection. Continuous EKG monitoring was performed. The maximum heart rate was 99 bpm which was 65% of max impacted heart rate the maximum workload was 1 metabolic equivalent. At rest there were no ST or T wave changes noted to suggest ischemia and at peak infusion nonspecific ST changes were noted which did not meet the criteria for ischemia. No clinical angina is noted. The final blood pressure was 148/84 mmHg. Myocardial perfusion protocol. 14.5 mCi of technetium 99m sestamibi was injected at rest. 0.4 mg of regadenoson was infused per usual protocol. At peak infusion 43.9 mCi of technetium 99m sestamibi was injected stress images were obtained stress and rest images were reconstructed and compared in the short axis vertical long and horizontal long axis. Gated images were also obtained. Perfusion SPECT analysis: Review of the stress images demonstrate normal uptake of tracer noted in all areas of the myocardium. The resting images similar demonstrated normal uptake of tracer noted in all areas of the myocardium. No areas of reversibility are noted to suggest ischemia and no previous infarct is noted. Gated SPECT analysis: The gated ejection fraction is 71%. Conclusion: Normal pharmacologic myocardial perfusion stress test. Preserved ejection fraction.
== END | disposition home or self-care (01) ==
LOC: CVS 06:06
PROVIDERS: PCP Internal Medicine; Referring Provider Internal Medicine; Visit Provider Internal Medicine
DX: Z01.810 Encounter for preprocedural cardiovascular examination (principal); I45.10 Unspecified right bundle-branch block; R94.31 Abnormal electrocardiogram [ECG] [EKG]
CPT/HCPCS: 78452; 93017; A9500; A4216; J2785